=== PATIENT | male | born 1935 | race Caucasian/White ===

== ENCOUNTER → 2021-08-18 09:52 | Outpatient (BNVA) | payer MEDICARE, SELFPAY | PROVIDERS: PCP Internal Medicine; Visit Provider Internal Medicine | DX: I48.91 Unspecified atrial fibrillation (principal); Z51.81 Encounter for therapeutic drug level monitoring; Z79.01 Long term (current) use of anticoagulants | CPT/HCPCS: 85610; 99202 ==

== ENCOUNTER → 2021-08-25 08:52 | Outpatient (BNVA) | payer MEDICARE, SELFPAY | PROVIDERS: PCP Internal Medicine; Visit Provider Internal Medicine | DX: I48.91 Unspecified atrial fibrillation (principal); Z51.81 Encounter for therapeutic drug level monitoring; Z79.01 Long term (current) use of anticoagulants | CPT/HCPCS: 85610; 99211 ==

== ENCOUNTER → 2021-09-15 08:15 | Outpatient (BNVA) | payer MEDICARE, SELFPAY | PROVIDERS: PCP Internal Medicine; Visit Provider Internal Medicine | DX: I48.91 Unspecified atrial fibrillation (principal); Z51.81 Encounter for therapeutic drug level monitoring; Z79.01 Long term (current) use of anticoagulants | CPT/HCPCS: 85610; 99211 ==

== ENCOUNTER 2021-10-07 09:08 | Outpatient (REF) | payer MEDICARE, SELFPAY ==
[2021-10-07 10:10] LABS: Eosinophils Absolute Auto 0.2 X10*3/uL (0.0-0.4); Eosinophils Percent Auto 3.5 % (0-4); Imm Gran Abs Auto 0.01 X10*3/uL (0.00-0.03); Imm Gran Pct Auto 0.2 % (0.0-0.4); MANUAL DIFF FLAG SCAN; PLT CLUMP 1; Red Cell Distribution Width 14.5 % (11.0-16.0); SCAN SMEAR FLAG 1
[2021-10-07 10:12] LABS: Basophils Absolute Auto 0.1 X10*3/uL (0.0-0.2); Basophils Percent Auto 1.1 % (0-2); Hematocrit 40.5 % (42.0-52.0); Lymphocytes Absolute Auto 1.1 X10*3/uL (1.2-4.9); Lymphocytes Percent Auto 22.7 % (20-40); Mean Corpuscular HGB Conc 32.1 g/dl (31.0-36.0); Mean Corpuscular Hemoglobin 30.6 pg (27.0-33.0); Mean Corpuscular Volume 95.3 fL (80.0-98.0); Mean Platelet Volume 12.1 fL (9.4-12.4); Monocytes Absolute Auto 0.5 X10*3/uL (0.1-1.2); Monocytes Percent Auto 10.6 % (2-11); Neutrophils Absolute Auto 2.9 x10*3/uL (2.0-8.3); Neutrophils Percent Auto 61.9 % (45-73); Red Blood Count 4.25 X10*6/uL (4.60-5.80)
[2021-10-07 10:18] LABS: Platelet Count 117 X10*3/uL (160-400); White Blood Count 4.6 X10*3/uL (4.8-10.8)
[2021-10-07 10:31] LABS: INTERNATIONAL NORM RATIO 2.9 (0.9-1.1); Prothrombin Time 33.7 SEC (9.9-13.0)
[2021-10-07 11:02] LABS: Alanine Aminotransferase 20 U/L (0-40); Albumin Level 3.6 g/dL (3.5-5.0); Alkaline Phosphatase 107 U/L (39-117); Anion Gap 10 (12-20); Aspartate Amino Transferase 30 U/L (5-37); Bilirubin Total 0.7 mg/dL (0.0-1.0); Blood Urea Nitrogen 27 mg/dL (9-16); Calcium 9.2 mg/dL (8.4-10.2); Carbon Dioxide 28 mmol/L (22-29); Chloride 110 mmol/L (96-108); Cholesterol 142 mg/dL; Estimated Glomerular Filt Rate 52; Glucose Fasting 101 mg/dL (60-99); HDL Cholesterol 51 mg/dL; LDL Cholesterol Calculated 72 mg/dl; Potassium 3.5 mmol/L (3.3-5.1); Sodium 144 mmol/L (135-145); Total Protein 6.3 g/dL (6.5-8.0); Triglycerides 98 mg/dL
== END 2021-10-07 09:09 | disposition home or self-care (01) ==
LOC: HO.10HDL 09:08
PROVIDERS: Visit Provider Internal Medicine
DX: Z00.01 Encounter for general adult medical examination with abnormal findings (principal); I48.91 Unspecified atrial fibrillation; F03.90 Unspecified dementia, unspecified severity, without behavioral disturbance, psychotic disturbance, mood disturbance, and anxiety; H40.89 Other specified glaucoma; Z85.46 Personal history of malignant neoplasm of prostate
CPT/HCPCS: 36415; 80053; 80061; 85025; 85610

== ENCOUNTER → 2021-10-13 09:53 | Outpatient (BNVA) | payer MEDICARE, SELFPAY | PROVIDERS: PCP Internal Medicine; Visit Provider Internal Medicine | DX: I48.91 Unspecified atrial fibrillation (principal); Z51.81 Encounter for therapeutic drug level monitoring; Z79.01 Long term (current) use of anticoagulants | CPT/HCPCS: 85610; 99211 ==

== ENCOUNTER → 2021-11-03 09:51 | Outpatient (BNVA) | payer MEDICARE, SELFPAY | PROVIDERS: PCP Internal Medicine; Visit Provider Internal Medicine | DX: I48.91 Unspecified atrial fibrillation (principal); Z51.81 Encounter for therapeutic drug level monitoring; Z79.01 Long term (current) use of anticoagulants | CPT/HCPCS: 85610; 99211 ==

== ENCOUNTER → 2021-12-01 09:52 | Outpatient (BNVA) | payer MEDICARE, SELFPAY | PROVIDERS: PCP Internal Medicine; Visit Provider Internal Medicine | DX: I48.91 Unspecified atrial fibrillation (principal); Z51.81 Encounter for therapeutic drug level monitoring; Z79.01 Long term (current) use of anticoagulants | CPT/HCPCS: 85610; 99211 ==

== ENCOUNTER → 2021-12-29 09:47 | Outpatient (BNVA) | payer MEDICARE, SELFPAY | PROVIDERS: PCP Internal Medicine; Visit Provider Internal Medicine | DX: I48.91 Unspecified atrial fibrillation (principal); Z51.81 Encounter for therapeutic drug level monitoring; Z79.01 Long term (current) use of anticoagulants | CPT/HCPCS: 85610; 99211 ==

== ENCOUNTER 2022-01-20 09:34 | Outpatient (REF) | payer MEDICARE, SELFPAY ==
[2022-01-20 10:31] LABS: MANUAL DIFF FLAG NO
[2022-01-20 10:43] LABS: Basophils Percent Auto 0.7 % (0-2); Eosinophils Absolute Auto 0.2 X10*3/uL (0.0-0.4); Hematocrit 40.6 % (42.0-52.0); Hemoglobin 12.9 g/dl (14.0-18.0); Imm Gran Abs Auto 0.03 X10*3/uL (0.00-0.03); Imm Gran Pct Auto 0.7 % (0.0-0.4); Lymphocytes Absolute Auto 0.9 X10*3/uL (1.2-4.9); Lymphocytes Percent Auto 21.3 % (20-40); Mean Corpuscular HGB Conc 31.8 g/dl (31.0-36.0); Mean Corpuscular Volume 94.4 fL (80.0-98.0); Mean Platelet Volume 11.8 fL (9.4-12.4); Monocytes Absolute Auto 0.4 X10*3/uL (0.1-1.2); Neutrophils Absolute Auto 2.7 x10*3/uL (2.0-8.3); Neutrophils Percent Auto 63.3 % (45-73); Platelet Count 112 X10*3/uL (160-400); Red Cell Distribution Width 14.6 % (11.0-16.0); White Blood Count 4.3 X10*3/uL (4.8-10.8)
[2022-01-20 10:52] LABS: Alanine Aminotransferase 20 U/L (0-40); Albumin Level 3.7 g/dL (3.5-5.0); Alkaline Phosphatase 100 U/L (39-117); Anion Gap 8 (12-20); Aspartate Amino Transferase 29 U/L (5-37); Bilirubin Total 0.8 mg/dL (0.0-1.0); Blood Urea Nitrogen 22 mg/dL (9-16); Calcium 9.2 mg/dL (8.4-10.2); Carbon Dioxide 30 mmol/L (22-29); Chloride 108 mmol/L (96-108); Estimated Glomerular Filt Rate 50; Glucose Random 99 mg/dL (60-115); Potassium 4.2 mmol/L (3.3-5.1); Sodium 142 mmol/L (135-145); Total Protein 6.2 g/dL (6.5-8.0)
== END 2022-01-20 09:35 | disposition home or self-care (01) ==
LOC: HO.10HDL 09:34
PROVIDERS: Visit Provider Internal Medicine
DX: E78.00 Pure hypercholesterolemia, unspecified (principal); F03.90 Unspecified dementia, unspecified severity, without behavioral disturbance, psychotic disturbance, mood disturbance, and anxiety; H40.20X0 Unspecified primary angle-closure glaucoma, stage unspecified; I12.9 Hypertensive chronic kidney disease with stage 1 through stage 4 chronic kidney disease, or unspecified chronic kidney disease; N18.9 Chronic kidney disease, unspecified; I48.91 Unspecified atrial fibrillation
CPT/HCPCS: 36415; 80053; 85025

== ENCOUNTER → 2022-01-26 09:50 | Outpatient (BNVA) | payer MEDICARE, SELFPAY | PROVIDERS: PCP Internal Medicine; Visit Provider Internal Medicine | DX: I48.91 Unspecified atrial fibrillation (principal); Z51.81 Encounter for therapeutic drug level monitoring; Z79.01 Long term (current) use of anticoagulants | CPT/HCPCS: 85610; 99211 ==

== ENCOUNTER → 2022-02-23 09:53 | Outpatient (BNVA) | payer MEDICARE, SELFPAY | PROVIDERS: PCP Internal Medicine; Visit Provider Internal Medicine | DX: I48.91 Unspecified atrial fibrillation (principal); Z79.01 Long term (current) use of anticoagulants; Z51.81 Encounter for therapeutic drug level monitoring | CPT/HCPCS: 85610; 99211 ==

== ENCOUNTER → 2022-03-09 10:01 | Outpatient (BNVA) | payer MEDICARE, SELFPAY | PROVIDERS: PCP Internal Medicine; Visit Provider Internal Medicine | DX: I48.91 Unspecified atrial fibrillation (principal); Z79.01 Long term (current) use of anticoagulants; Z51.81 Encounter for therapeutic drug level monitoring | CPT/HCPCS: 85610; 99211 ==

== ENCOUNTER → 2022-04-06 09:51 | Outpatient (BNVA) | payer MEDICARE, SELFPAY | PROVIDERS: PCP Internal Medicine; Visit Provider Internal Medicine | DX: I48.91 Unspecified atrial fibrillation (principal); Z79.01 Long term (current) use of anticoagulants; Z51.81 Encounter for therapeutic drug level monitoring | CPT/HCPCS: 85610; 99211 ==

== ENCOUNTER → 2022-05-03 09:51 | Outpatient (BNVA) | payer MEDICARE, SELFPAY | PROVIDERS: PCP Internal Medicine; Visit Provider Internal Medicine | DX: I48.91 Unspecified atrial fibrillation (principal); Z51.81 Encounter for therapeutic drug level monitoring; Z79.01 Long term (current) use of anticoagulants | CPT/HCPCS: 85610; 99211 ==

== ENCOUNTER 2022-05-17 09:12 | Outpatient (REF) | payer MEDICARE, SELFPAY ==
[2022-05-17 10:25] LABS: MANUAL DIFF FLAG NO
[2022-05-17 11:55] LABS: Basophils Percent Auto 0.8 % (0-2); Eosinophils Absolute Auto 0.2 X10*3/uL (0.0-0.4); Eosinophils Percent Auto 3.6 % (0-4); Hematocrit 37.3 % (42.0-52.0); Hemoglobin 11.7 g/dl (14.0-18.0); Imm Gran Abs Auto 0.01 X10*3/uL (0.00-0.03); Imm Gran Pct Auto 0.2 % (0.0-0.4); Lymphocytes Absolute Auto 0.8 X10*3/uL (1.2-4.9); Lymphocytes Percent Auto 16.3 % (20-40); Mean Corpuscular HGB Conc 31.4 g/dl (31.0-36.0); Mean Corpuscular Hemoglobin 29.7 pg (27.0-33.0); Mean Corpuscular Volume 94.7 fL (80.0-98.0); Monocytes Absolute Auto 0.5 X10*3/uL (0.1-1.2); Monocytes Percent Auto 9.5 % (2-11); Neutrophils Absolute Auto 3.5 x10*3/uL (2.0-8.3); Neutrophils Percent Auto 69.6 % (45-73); Platelet Count 109 X10*3/uL (160-400); Red Blood Count 3.94 X10*6/uL (4.60-5.80); Red Cell Distribution Width 15.5 % (11.0-16.0)
[2022-05-17 12:52] LABS: Alanine Aminotransferase 19 U/L (0-40); Albumin Level 3.5 g/dL (3.5-5.0); Alkaline Phosphatase 119 U/L (39-117); Anion Gap 8 (12-20); Aspartate Amino Transferase 27 U/L (5-37); Bilirubin Total 0.6 mg/dL (0.0-1.0); Blood Urea Nitrogen 24 mg/dL (9-16); Calcium 8.5 mg/dL (8.4-10.2); Carbon Dioxide 28 mmol/L (22-29); Chloride 109 mmol/L (96-108); Estimated Glomerular Filt Rate 57; Glucose Random 102 mg/dL (60-115); Sodium 141 mmol/L (135-145); Total Protein 5.8 g/dL (6.5-8.0)
== END 2022-05-17 09:13 | disposition home or self-care (01) ==
LOC: HO.LAB 09:12
PROVIDERS: PCP Internal Medicine; Visit Provider Internal Medicine
DX: D69.6 Thrombocytopenia, unspecified (principal); F03.90 Unspecified dementia, unspecified severity, without behavioral disturbance, psychotic disturbance, mood disturbance, and anxiety; I12.9 Hypertensive chronic kidney disease with stage 1 through stage 4 chronic kidney disease, or unspecified chronic kidney disease; N18.9 Chronic kidney disease, unspecified; R59.0 Localized enlarged lymph nodes; I48.91 Unspecified atrial fibrillation; Z79.01 Long term (current) use of anticoagulants; Z15.81 Genetic susceptibility to multiple endocrine neoplasia [MEN]
CPT/HCPCS: 36415; 80053; 85025; 85610; 99211

== ENCOUNTER → 2022-06-08 09:28 | Outpatient (BNVA) | payer MEDICARE, SELFPAY | PROVIDERS: PCP Internal Medicine; Visit Provider Internal Medicine | DX: I48.91 Unspecified atrial fibrillation (principal); Z79.01 Long term (current) use of anticoagulants; Z51.81 Encounter for therapeutic drug level monitoring | CPT/HCPCS: 85610; 99211 ==

== ENCOUNTER → 2022-06-22 08:47 | Outpatient (BNVA) | payer MEDICARE, SELFPAY | PROVIDERS: PCP Internal Medicine; Visit Provider Internal Medicine | DX: I48.91 Unspecified atrial fibrillation (principal); Z51.81 Encounter for therapeutic drug level monitoring; Z79.01 Long term (current) use of anticoagulants | CPT/HCPCS: 85610; 99211 ==

== ENCOUNTER → 2022-06-30 09:41 | Outpatient (BNVA) | payer MEDICARE, SELFPAY | PROVIDERS: PCP Internal Medicine; Visit Provider Internal Medicine | DX: I48.91 Unspecified atrial fibrillation (principal); Z79.01 Long term (current) use of anticoagulants; Z51.81 Encounter for therapeutic drug level monitoring | CPT/HCPCS: 85610; 99211 ==

== ENCOUNTER → 2022-07-09 09:24 | Outpatient (BNVA) | payer MEDICARE, SELFPAY | PROVIDERS: PCP Internal Medicine; Visit Provider Internal Medicine | DX: I48.91 Unspecified atrial fibrillation (principal); Z51.81 Encounter for therapeutic drug level monitoring; Z79.01 Long term (current) use of anticoagulants | CPT/HCPCS: 85610; 99211 ==

== ENCOUNTER → 2022-07-14 10:05 | Outpatient (BNVA) | payer MEDICARE, SELFPAY | PROVIDERS: PCP Internal Medicine; Visit Provider Internal Medicine | DX: I48.91 Unspecified atrial fibrillation (principal); Z79.01 Long term (current) use of anticoagulants; Z51.81 Encounter for therapeutic drug level monitoring | CPT/HCPCS: 85610; 99211 ==

== ENCOUNTER → 2022-08-12 11:06 | Outpatient (BNVA) | payer MEDICARE, SELFPAY | PROVIDERS: PCP Internal Medicine; Visit Provider Internal Medicine | DX: I48.91 Unspecified atrial fibrillation (principal); Z51.81 Encounter for therapeutic drug level monitoring; Z79.01 Long term (current) use of anticoagulants | CPT/HCPCS: 85610; 99211 ==

== ENCOUNTER 2022-08-16 08:47 | Outpatient (REF) | payer MEDICARE, SELFPAY ==
[2022-08-16 08:59] LABS: MANUAL DIFF FLAG NO
[2022-08-16 09:14] LABS: Basophils Percent Auto 0.8 % (0-2); Eosinophils Absolute Auto 0.1 X10*3/uL (0.0-0.4); Eosinophils Percent Auto 2.8 % (0-4); Hematocrit 36.9 % (42.0-52.0); Hemoglobin 11.6 g/dl (14.0-18.0); Imm Gran Abs Auto 0.01 X10*3/uL (0.00-0.03); Imm Gran Pct Auto 0.3 % (0.0-0.4); Lymphocytes Absolute Auto 0.8 X10*3/uL (1.2-4.9); Lymphocytes Percent Auto 21.1 % (20-40); Mean Corpuscular HGB Conc 31.4 g/dl (31.0-36.0); Mean Corpuscular Hemoglobin 29.1 pg (27.0-33.0); Mean Corpuscular Volume 92.5 fL (80.0-98.0); Mean Platelet Volume 11.2 fL (9.4-12.4); Monocytes Absolute Auto 0.4 X10*3/uL (0.1-1.2); Monocytes Percent Auto 10.4 % (2-11); Neutrophils Absolute Auto 2.5 x10*3/uL (2.0-8.3); Neutrophils Percent Auto 64.6 % (45-73); Platelet Count 143 X10*3/uL (160-400); Red Blood Count 3.99 X10*6/uL (4.60-5.80); Red Cell Distribution Width 15.8 % (11.0-16.0); White Blood Count 3.9 X10*3/uL (4.8-10.8)
[2022-08-16 13:12] LABS: Alanine Aminotransferase 21 U/L (0-40); Albumin Level 3.6 g/dL (3.5-5.0); Alkaline Phosphatase 163 U/L (39-117); Anion Gap 16 (12-20); Aspartate Amino Transferase 31 U/L (5-37); Bilirubin Total 0.6 mg/dL (0.0-1.0); Blood Urea Nitrogen 25 mg/dL (9-16); Carbon Dioxide 23 mmol/L (22-29); Chloride 109 mmol/L (96-108); Cholesterol 129 mg/dL; Estimated Glomerular Filt Rate > 60; Glucose Random 102 mg/dL (60-115); HDL Cholesterol 47 mg/dL; LDL Cholesterol Calculated 66 mg/dl; Sodium 144 mmol/L (135-145); Total Protein 6.2 g/dL (6.5-8.0); Triglycerides 81 mg/dL
[2022-08-16 13:35] LABS: Ferritin 199 ng/mL (20-250); Thyroid Stimulating Hormone 4.13 uIU/mL (0.32-4.0)
[2022-08-16 13:46] LABS: Vitamin B12 549 pg/mL (200-900)
== END 2022-08-16 08:48 | disposition home or self-care (01) ==
LOC: HO.LAB 08:47
PROVIDERS: PCP Internal Medicine; Visit Provider Internal Medicine
DX: I48.91 Unspecified atrial fibrillation (principal); D69.6 Thrombocytopenia, unspecified; D64.89 Other specified anemias; R63.4 Abnormal weight loss; Z85.46 Personal history of malignant neoplasm of prostate
CPT/HCPCS: 36415; 80053; 80061; 82607; 82728; 84443; 85025

== ENCOUNTER → 2022-08-25 09:08 | Outpatient (BNVA) | payer MEDICARE, SELFPAY | PROVIDERS: PCP Internal Medicine; Visit Provider Internal Medicine | DX: I48.91 Unspecified atrial fibrillation (principal); Z79.01 Long term (current) use of anticoagulants; Z51.81 Encounter for therapeutic drug level monitoring | CPT/HCPCS: 85610; 99211 ==

== ENCOUNTER → 2022-09-14 09:44 | Outpatient (BNVA) | payer MEDICARE, SELFPAY | PROVIDERS: PCP Internal Medicine; Visit Provider Internal Medicine | DX: I48.91 Unspecified atrial fibrillation (principal); Z51.81 Encounter for therapeutic drug level monitoring; Z79.01 Long term (current) use of anticoagulants | CPT/HCPCS: 85610; 99211 ==

== ENCOUNTER → 2022-09-28 09:35 | Outpatient (BNVA) | payer MEDICARE, SELFPAY | PROVIDERS: PCP Internal Medicine; Visit Provider Internal Medicine | DX: I48.91 Unspecified atrial fibrillation (principal); Z79.01 Long term (current) use of anticoagulants; Z51.81 Encounter for therapeutic drug level monitoring | CPT/HCPCS: 85610; 99211 ==

== ENCOUNTER → 2022-10-19 10:26 | Outpatient (BNVA) | payer MEDICARE, SELFPAY | PROVIDERS: PCP Internal Medicine; Visit Provider Internal Medicine | DX: I48.91 Unspecified atrial fibrillation (principal); Z79.01 Long term (current) use of anticoagulants; Z51.81 Encounter for therapeutic drug level monitoring | CPT/HCPCS: 85610; 99211 ==

== ENCOUNTER → 2022-11-02 10:29 | Outpatient (BNVA) | payer MEDICARE, SELFPAY | PROVIDERS: PCP Internal Medicine; Visit Provider Internal Medicine | DX: I48.91 Unspecified atrial fibrillation (principal); Z79.01 Long term (current) use of anticoagulants; Z51.81 Encounter for therapeutic drug level monitoring | CPT/HCPCS: 85610; 99211 ==

== ENCOUNTER → 2022-11-23 10:14 | Outpatient (BNVA) | payer MEDICARE, SELFPAY | PROVIDERS: PCP Internal Medicine; Visit Provider Internal Medicine | DX: I48.91 Unspecified atrial fibrillation (principal); Z79.01 Long term (current) use of anticoagulants; Z51.81 Encounter for therapeutic drug level monitoring | CPT/HCPCS: 85610; 99211 ==

== ENCOUNTER → 2022-11-29 10:23 | Outpatient (BNVA) | payer MEDICARE, SELFPAY | PROVIDERS: PCP Internal Medicine; Visit Provider Internal Medicine | DX: I48.91 Unspecified atrial fibrillation (principal); Z51.81 Encounter for therapeutic drug level monitoring; Z79.01 Long term (current) use of anticoagulants | CPT/HCPCS: 85610; 99211 ==

== ENCOUNTER → 2022-12-06 13:01 | Outpatient (BNVA) | payer MEDICARE, SELFPAY | PROVIDERS: PCP Internal Medicine; Visit Provider Internal Medicine | DX: I48.91 Unspecified atrial fibrillation (principal); Z79.01 Long term (current) use of anticoagulants; Z51.81 Encounter for therapeutic drug level monitoring | CPT/HCPCS: 85610; 99211 ==

== ENCOUNTER → 2022-12-14 13:49 | Outpatient (BNVA) | payer MEDICARE, SELFPAY | PROVIDERS: PCP Internal Medicine; Visit Provider Internal Medicine | DX: I48.91 Unspecified atrial fibrillation (principal); Z79.01 Long term (current) use of anticoagulants; Z51.81 Encounter for therapeutic drug level monitoring | CPT/HCPCS: 85610; 99211 ==

== ENCOUNTER 2022-12-18 07:13 | Outpatient (REF) | payer MEDICARE, SELFPAY ==
[2022-12-18 07:38] LABS: MANUAL DIFF FLAG NO
[2022-12-18 08:00] LABS: Basophils Absolute Auto 0.1 X10*3/uL (0.0-0.2); Basophils Percent Auto 0.9 % (0-2); Eosinophils Absolute Auto 0.2 X10*3/uL (0.0-0.4); Eosinophils Percent Auto 4.3 % (0-4); Hematocrit 42.5 % (42.0-52.0); Hemoglobin 13.4 g/dl (14.0-18.0); Imm Gran Abs Auto 0.02 X10*3/uL (0.00-0.03); Imm Gran Pct Auto 0.4 % (0.0-0.4); Lymphocytes Absolute Auto 0.9 X10*3/uL (1.2-4.9); Lymphocytes Percent Auto 17.1 % (20-40); Mean Corpuscular HGB Conc 31.5 g/dl (31.0-36.0); Mean Corpuscular Hemoglobin 28.8 pg (27.0-33.0); Mean Corpuscular Volume 91.2 fL (80.0-98.0); Mean Platelet Volume 11.1 fL (9.4-12.4); Monocytes Absolute Auto 0.4 X10*3/uL (0.1-1.2); Monocytes Percent Auto 8.2 % (2-11); Neutrophils Absolute Auto 3.7 x10*3/uL (2.0-8.3); Neutrophils Percent Auto 69.1 % (45-73); Platelet Count 145 X10*3/uL (160-400); Red Blood Count 4.66 X10*6/uL (4.60-5.80); Red Cell Distribution Width 16.1 % (11.0-16.0); White Blood Count 5.4 X10*3/uL (4.8-10.8)
[2022-12-18 08:29] LABS: Alanine Aminotransferase 25 U/L (0-40); Albumin Level 3.9 g/dL (3.5-5.0); Alkaline Phosphatase 133 U/L (39-117); Anion Gap 10 (12-20); Aspartate Amino Transferase 33 U/L (5-37); Bilirubin Total 0.9 mg/dL (0.0-1.0); Blood Urea Nitrogen 20 mg/dL (9-16); Calcium 9.2 mg/dL (8.4-10.2); Carbon Dioxide 30 mmol/L (22-29); Chloride 108 mmol/L (96-108); Estimated Glomerular Filt Rate > 60; Glucose Random 110 mg/dL (60-115); Potassium 3.9 mmol/L (3.3-5.1); Sodium 144 mmol/L (135-145); Total Protein 6.7 g/dL (6.5-8.0)
== END 2022-12-18 07:14 | disposition home or self-care (01) ==
LOC: HO.LAB 07:13
PROVIDERS: PCP Internal Medicine; Visit Provider Internal Medicine
DX: Z00.00 Encounter for general adult medical examination without abnormal findings (principal); R26.0 Ataxic gait; I48.91 Unspecified atrial fibrillation; H54.42A5 Blindness left eye category 5, normal vision right eye; G30.9 Alzheimer's disease, unspecified; Z79.01 Long term (current) use of anticoagulants
CPT/HCPCS: 36415; 80053; 85025

== ENCOUNTER → 2022-12-28 10:31 | Outpatient (BNVA) | payer MEDICARE, SELFPAY | PROVIDERS: PCP Internal Medicine; Visit Provider Internal Medicine | DX: I48.91 Unspecified atrial fibrillation (principal); Z79.01 Long term (current) use of anticoagulants; Z51.81 Encounter for therapeutic drug level monitoring | CPT/HCPCS: 85610; 99211 ==

== ENCOUNTER → 2023-01-18 10:31 | Outpatient (BNVA) | payer MEDICARE, SELFPAY | PROVIDERS: PCP Internal Medicine; Visit Provider Internal Medicine | DX: I48.91 Unspecified atrial fibrillation (principal); Z79.01 Long term (current) use of anticoagulants; Z51.81 Encounter for therapeutic drug level monitoring | CPT/HCPCS: 85610; 99211 ==

== ENCOUNTER → 2023-02-09 09:59 | Outpatient (BNVA) | payer MEDICARE, SELFPAY | PROVIDERS: PCP Internal Medicine; Visit Provider Internal Medicine | DX: I48.91 Unspecified atrial fibrillation (principal); Z79.01 Long term (current) use of anticoagulants; Z51.81 Encounter for therapeutic drug level monitoring | CPT/HCPCS: 85610; 99211 ==

== ENCOUNTER → 2023-03-02 09:53 | Outpatient (BNVA) | payer MEDICARE, SELFPAY | PROVIDERS: PCP Internal Medicine; Visit Provider Internal Medicine | DX: I48.91 Unspecified atrial fibrillation (principal); Z79.01 Long term (current) use of anticoagulants; Z51.81 Encounter for therapeutic drug level monitoring | CPT/HCPCS: 85610; 99211 ==

== ENCOUNTER → 2023-03-22 09:33 | Outpatient (BNVA) | payer MEDICARE, SELFPAY | PROVIDERS: PCP Internal Medicine; Visit Provider Internal Medicine | DX: I48.91 Unspecified atrial fibrillation (principal); Z79.01 Long term (current) use of anticoagulants; Z51.81 Encounter for therapeutic drug level monitoring | CPT/HCPCS: 85610; 99211 ==

== ENCOUNTER → 2023-04-05 10:07 | Outpatient (BNVA) | payer MEDICARE, SELFPAY | PROVIDERS: PCP Internal Medicine; Visit Provider Internal Medicine | DX: I48.91 Unspecified atrial fibrillation (principal); Z79.01 Long term (current) use of anticoagulants; Z51.81 Encounter for therapeutic drug level monitoring | CPT/HCPCS: 85610; 99211 ==

== ENCOUNTER → 2023-04-27 09:18 | Outpatient (BNVA) | payer MEDICARE, SELFPAY | PROVIDERS: PCP Internal Medicine; Visit Provider Internal Medicine | DX: I48.91 Unspecified atrial fibrillation (principal); Z79.01 Long term (current) use of anticoagulants; Z51.81 Encounter for therapeutic drug level monitoring | CPT/HCPCS: 85610; 99211 ==

== ENCOUNTER 2023-05-25 09:47 | Outpatient (AMB) | payer MEDICARE, SELFPAY ==
--- NOTE | 2023-05-25 09:51 | MHC.OFFVISCO ---
Intake Intake Visit Reasons: Anticoagulation Allergies ciprofloxacin Allergy (Intermediate, Verified 05/25/23 09:47) hives Medication List - Last Reconciled 05/25/23 by Moni Gonsales RN diltiazem HCl 120 mg PO DAILY donepezil 10 mg PO DAILY latanoprost 0.005% 1 drp ophthalmic (eye) DAILY lisinopril 20 mg PO DAILY memantine 5 mg PO BID timolol maleate 0.5% 1 drp ophthalmic (eye) DAILY vit C,W-Fi-kopxm-lutein-zeaxan 250-90-40-1 mg (PreserVision AREDS-2) 1 tab PO BID warfarin 2.5 mg See Protocol PO DAILY Nursing Note INR: 2.8- in therapeutic range Medications and supplements reviewed- no changes No changes in health, diet, medications, or supplements, Denies any signs and symptoms of bleeding or bruising or clotting. Bleeding, bruising, clotting discussed Nutritional guidance given Dose: 5mg x 2, 2.5mg x 5 F/U INR: 4 weeks Patient and verbalizes understanding of instructions given pt amb to acs with cane, accompanied by Coding Level of Care Code Est Patient Level 1 Diagnoses Current use of anticoagulant therapy Z79.01 Results AMB INR Fingerstick AMB INR Fingerstick 2.8 Last Edit by Moni Gonsales RN on 05/25/23 09:52 Assessment & Plan Assessment & Plan (1) Current use of anticoagulant therapy: Code(s): Z79.01 - [facility] (current) use of anticoagulants Category: Medical
[2023-05-25 09:52] LABS: Prothrombin Time Whole Bld POC 33.2 sec (11.1-13.5); ~PT, ~INR - Anti Coag Clinic 2.8 (0.9-1.1)
== END 2023-05-25 09:55 | disposition home or self-care (01) ==
LOC: HO.ACS 09:47
PROVIDERS: PCP Internal Medicine; Visit Provider Internal Medicine
DX: Z79.01 Long term (current) use of anticoagulants (principal)

== ENCOUNTER → 2023-05-25 09:47 | Outpatient (BNVA) | payer MEDICARE, SELFPAY | PROVIDERS: PCP Internal Medicine; Visit Provider Internal Medicine | DX: I48.91 Unspecified atrial fibrillation (principal); Z79.01 Long term (current) use of anticoagulants; Z51.81 Encounter for therapeutic drug level monitoring | CPT/HCPCS: 85610; 99211 ==

== ENCOUNTER 2023-06-16 08:02 | Outpatient (REF) | payer MEDICARE, SELFPAY ==
[2023-06-16 08:22] LABS: MANUAL DIFF FLAG NO
[2023-06-16 09:00] LABS: Basophils Percent Auto 0.9 % (0-2); Eosinophils Absolute Auto 0.1 X10*3/uL (0.0-0.4); Eosinophils Percent Auto 3.2 % (0-4); Hematocrit 41.1 % (42.0-52.0); Hemoglobin 12.8 g/dl (14.0-18.0); Imm Gran Abs Auto 0.01 X10*3/uL (0.00-0.03); Imm Gran Pct Auto 0.2 % (0.0-0.4); Lymphocytes Absolute Auto 0.9 X10*3/uL (1.2-4.9); Mean Corpuscular HGB Conc 31.1 g/dl (31.0-36.0); Mean Corpuscular Hemoglobin 29.2 pg (27.0-33.0); Mean Corpuscular Volume 93.8 fL (80.0-98.0); Mean Platelet Volume 12.2 fL (9.4-12.4); Monocytes Absolute Auto 0.4 X10*3/uL (0.1-1.2); Monocytes Percent Auto 9.2 % (2-11); Neutrophils Percent Auto 66.5 % (45-73); Platelet Count 120 X10*3/uL (160-400); Red Blood Count 4.38 X10*6/uL (4.60-5.80); Red Cell Distribution Width 16.2 % (11.0-16.0); White Blood Count 4.4 X10*3/uL (4.8-10.8)
[2023-06-16 09:46] LABS: Alanine Aminotransferase 21 U/L (0-40); Albumin Level 3.6 g/dL (3.5-5.0); Alkaline Phosphatase 100 U/L (39-117); Anion Gap 10 (12-20); Aspartate Amino Transferase 31 U/L (5-37); Bilirubin Total 0.8 mg/dL (0.0-1.0); Blood Urea Nitrogen 23 mg/dL (9-16); Calcium 9.3 mg/dL (8.4-10.2); Carbon Dioxide 26 mmol/L (22-29); Chloride 112 mmol/L (96-108); Cholesterol 135 mg/dL (<200); Estimated Glomerular Filt Rate > 60; Glucose Random 102 mg/dL (60-115); HDL Cholesterol 55 mg/dL (>40); LDL Cholesterol Calculated 68 mg/dL (<100); Potassium 4.3 mmol/L (3.3-5.1); Sodium 144 mmol/L (135-145); Total Protein 6.5 g/dL (6.5-8.0); Triglycerides 62 mg/dL (<150)
[2023-06-16 10:05] LABS: Vitamin B12 643 pg/mL (200-900)
[2023-06-16 10:11] LABS: Thyroid Stimulating Hormone 4.09 uIU/mL (0.32-4.0)
== END 2023-06-16 08:03 | disposition home or self-care (01) ==
LOC: HO.LAB 08:02
PROVIDERS: PCP Internal Medicine; Visit Provider Internal Medicine
DX: D69.6 Thrombocytopenia, unspecified (principal); E03.8 Other specified hypothyroidism; F02.80 Dementia in other diseases classified elsewhere, unspecified severity, without behavioral disturbance, psychotic disturbance, mood disturbance, and anxiety; Z85.46 Personal history of malignant neoplasm of prostate
CPT/HCPCS: 36415; 80053; 80061; 82607; 82746; 84443; 85025

== ENCOUNTER 2023-06-22 09:45 | Outpatient (AMB) | payer MEDICARE, SELFPAY ==
--- NOTE | 2023-06-22 09:56 | MHC.OFFVISCO ---
Intake Intake Visit Reasons: Anticoagulation Allergies ciprofloxacin Allergy (Intermediate, Verified 06/22/23 09:53) hives Medication List - Last Reconciled 06/22/23 by Moni Gonsales RN diltiazem HCl 120 mg PO DAILY donepezil 10 mg PO DAILY latanoprost 0.005% 1 drp ophthalmic (eye) DAILY lisinopril 20 mg PO DAILY memantine 5 mg PO BID timolol maleate 0.5% 1 drp ophthalmic (eye) DAILY vit C,L-Yg-ukgbl-lutein-zeaxan 250-90-40-1 mg (PreserVision AREDS-2) 1 tab PO BID warfarin 2.5 mg See Protocol PO DAILY Nursing Note INR: 2.6- in therapeutic range Medications and supplements reviewed- taking lorazepam prior to mri of head today, no interaction with warfarin per micromedex No changes in health, diet, medications, or supplements, Denies any signs and symptoms of bleeding or bruising or clotting. 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
[2023-06-22 09:57] LABS: Prothrombin Time Whole Bld POC 31.3 sec (11.1-13.5); ~PT, ~INR - Anti Coag Clinic 2.6 (0.9-1.1)
== END 2023-06-22 10:04 | disposition home or self-care (01) ==
LOC: HO.ACS 09:45
PROVIDERS: PCP Internal Medicine; Visit Provider Internal Medicine
DX: Z79.01 Long term (current) use of anticoagulants (principal)

== ENCOUNTER → 2023-06-22 09:45 | Outpatient (BNVA) | payer MEDICARE, SELFPAY | PROVIDERS: PCP Internal Medicine; Visit Provider Internal Medicine | DX: I48.91 Unspecified atrial fibrillation (principal); Z79.01 Long term (current) use of anticoagulants; Z51.81 Encounter for therapeutic drug level monitoring | CPT/HCPCS: 85610; 99211 ==

== ENCOUNTER 2023-07-19 11:13 | Outpatient (AMB) | payer MEDICARE, SELFPAY ==
[2023-07-19 11:19] LABS: Prothrombin Time Whole Bld POC 30.4 sec (11.1-13.5); ~PT, ~INR - Anti Coag Clinic 2.5 (0.9-1.1)
--- NOTE | 2023-07-19 11:21 | MHC.OFFVISCO ---
Intake Intake Visit Reasons: Anticoagulation Allergies ciprofloxacin Allergy (Intermediate, Verified 07/19/23 11:14) hives Medication List - Last Reconciled 07/19/23 by Lolis Mccormack, RN diltiazem HCl 120 mg PO DAILY donepezil 10 mg PO DAILY latanoprost 0.005% 1 drp ophthalmic (eye) DAILY lisinopril 20 mg PO DAILY memantine 5 mg PO BID timolol maleate 0.5% 1 drp ophthalmic (eye) DAILY vit C,N-Pf-oatsn-lutein-zeaxan 250-90-40-1 mg (PreserVision AREDS-2) 1 tab PO BID warfarin 2.5 mg See Protocol PO DAILY Nursing Note Amb to [facility] using walker, accomp by spouse, sts she totally forgot earlier this am appt time, pt feeling ok sts he has been falling more at home unsteady, requiring the walker more reviewed fall risk concerns, bleeding risk and when to go to ED Medications and supplements reviewed No other changes in health, diet, medications, or supplements Denies any unusual signs and symptoms of bruising, bleeding Denies any new Chest pain, SOB, or clotting INR: 2.5 in therapeutic range Nutritional guidance given: balance greens and reds in diet, be consistent Dose: continue usual dosing;5mg x 2 days and 2.5mg x 5 days F/U INR: 4 weeks Patient's spouse verbalizes understanding of instructions given with accurate read back/ teach back of dosing Coding Level of Care Code Est Patient Level 1 Diagnoses Current use of anticoagulant therapy Z79.01 Time Spent (min) 15 Assessment & Plan Assessment & Plan (1) Current use of anticoagulant therapy: Code(s): 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
== END 2023-07-19 11:25 | disposition home or self-care (01) ==
LOC: HO.ACS 11:13
PROVIDERS: PCP Internal Medicine; Visit Provider Internal Medicine
DX: Z79.01 Long term (current) use of anticoagulants (principal)

== ENCOUNTER → 2023-07-19 11:13 | Outpatient (BNVA) | payer MEDICARE, SELFPAY | PROVIDERS: PCP Internal Medicine; Visit Provider Internal Medicine | DX: I48.91 Unspecified atrial fibrillation (principal); Z79.01 Long term (current) use of anticoagulants; Z51.81 Encounter for therapeutic drug level monitoring | CPT/HCPCS: 85610; 99211 ==

== ENCOUNTER 2023-08-16 10:42 | Outpatient (AMB) | payer MEDICARE, SELFPAY ==
[2023-08-16 10:53] LABS: Prothrombin Time Whole Bld POC > 96.0 sec (11.1-13.5); ~PT, ~INR - Anti Coag Clinic > 8.0 (0.9-1.1)
--- NOTE | 2023-08-16 10:56 | MHC.OFFVISCO ---
Intake Intake Visit Reasons: Anticoagulation Allergies ciprofloxacin Allergy (Intermediate, Verified 08/16/23 10:43) hives lisinopril Adverse Reaction (Intermediate, Uncoded 08/16/23 10:43) Cough Medication List - Last Reconciled 08/16/23 by Moni Gonsales, RN diltiazem HCl 120 mg PO DAILY donepezil 10 mg PO DAILY latanoprost 0.005% 1 drp ophthalmic (eye) DAILY losartan 100 mg PO DAILY memantine 5 mg PO BID timolol maleate 0.5% 1 drp ophthalmic (eye) DAILY vit C,X-Nb-rshme-lutein-zeaxan 250-90-40-1 mg (PreserVision AREDS-2) 1 tab PO BID warfarin 2.5 mg See Protocol PO DAILY Nursing Note INR - >8- out of therapeutic range of 2-3. pt sent to lab- inr 7.6 reported by kimberly Medications and supplements reviewed Patient status: pt amb with walker, present, pt with recent c.o cough- loose stool and decreased appetite Medications or supplements: lisinopril d/c due to cough, benzonatate d/c due to bowel issues, losartan added- 100mg daily- no interaction with warfarin per micromedex Diet: decreased, has not been taking boost Denies any signs and symptoms of bleeding or clotting or unusual bruising Bleeding, bruising, clotting discussed - aware high risk for bleeding, avoid high risk activity, go to ed if nec Nutritional guidance given: eat greens to lower inr, no reds Dose: hold today F/U INR Date : 08/17/23? Patient verbalizing understanding of instructions given. 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
== END 2023-08-16 11:52 | disposition home or self-care (01) ==
LOC: HO.ACS 10:42
PROVIDERS: PCP Internal Medicine; Visit Provider Internal Medicine
DX: Z79.01 Long term (current) use of anticoagulants (principal)

== ENCOUNTER 2023-08-16 10:42 | Outpatient (REF) | payer MEDICARE, SELFPAY ==
[2023-08-16 11:30] LABS: Prothrombin Time 92.4 SEC (11.1-13.3)
[2023-08-16 11:34] LABS: INTERNATIONAL NORM RATIO 7.6 (0.9-1.1)
== END 2023-08-16 10:43 | disposition home or self-care (01) ==
LOC: HO.LAB 10:42
PROVIDERS: PCP Internal Medicine; Visit Provider Internal Medicine
DX: I48.91 Unspecified atrial fibrillation (principal); Z51.81 Encounter for therapeutic drug level monitoring; Z79.01 Long term (current) use of anticoagulants
CPT/HCPCS: 36415; 85610; 99212

== ENCOUNTER 2023-08-17 10:35 | Outpatient (AMB) | payer MEDICARE, SELFPAY ==
[2023-08-17 10:52] LABS: Prothrombin Time Whole Bld POC 58.8 sec (11.1-13.5); ~PT, ~INR - Anti Coag Clinic 4.9 (0.9-1.1)
--- NOTE | 2023-08-17 10:53 | MHC.OFFVISCO ---
Intake Intake Visit Reasons: Anticoagulation Allergies ciprofloxacin Allergy (Intermediate, Verified 08/16/23 10:43) hives lisinopril Adverse Reaction (Intermediate, Uncoded 08/16/23 10:43) Cough Medication List - Last Reconciled 08/17/23 by Amy Bales RN benzonatate 100 mg PO TID diltiazem HCl 120 mg PO DAILY donepezil 10 mg PO DAILY latanoprost 0.005% 1 drp ophthalmic (eye) DAILY losartan 100 mg PO DAILY memantine 5 mg PO BID timolol maleate 0.5% 1 drp ophthalmic (eye) DAILY vit C,B-Sz-kmgng-lutein-zeaxan 250-90-40-1 mg (PreserVision AREDS-2) 1 tab PO BID warfarin 2.5 mg See Protocol PO DAILY Nursing Note INR 4.9?out of therapeutic range 7.6 yesterday Medications and supplements reviewed Patient status: bowels are becoming normal, no diarrhea, appetite is improvng, had cough possibly related to lisinopril, lisinopril was d/c, he was also tx with benzonatate which may have triggered the diarrhea Medications or supplements: no other changes Diet: improved - had asparagus x 2 servings - will have broccoli today Denies any signs and symptoms of bleeding or clotting or unusual bruising Bleeding, bruising, clotting discussed Nutritional guidance given: review food list with season changes which raise and lower the INR Dose: hold again today F/U INR Date: 08/22/23 ?? Patient verbalizing understanding of instructions given. 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
== END 2023-08-17 10:58 | disposition home or self-care (01) ==
LOC: HO.ACS 10:35
PROVIDERS: PCP Internal Medicine; Visit Provider Internal Medicine
DX: Z79.01 Long term (current) use of anticoagulants (principal)

== ENCOUNTER → 2023-08-17 10:35 | Outpatient (BNVA) | payer MEDICARE, SELFPAY | PROVIDERS: PCP Internal Medicine; Visit Provider Internal Medicine | DX: I48.91 Unspecified atrial fibrillation (principal); Z79.01 Long term (current) use of anticoagulants; Z51.81 Encounter for therapeutic drug level monitoring | CPT/HCPCS: 85610; 99211 ==

== ENCOUNTER 2023-08-22 09:43 | Outpatient (AMB) | payer MEDICARE, SELFPAY ==
[2023-08-22 09:58] LABS: Prothrombin Time Whole Bld POC 29.1 sec (11.1-13.5); ~PT, ~INR - Anti Coag Clinic 2.4 (0.9-1.1)
--- NOTE | 2023-08-22 10:06 | MHC.OFFVISCO ---
Intake Intake Visit Reasons: Anticoagulation Allergies ciprofloxacin Allergy (Intermediate, Verified 08/22/23 09:53) hives lisinopril Adverse Reaction (Intermediate, Uncoded 08/22/23 09:53) Cough Medication List - Last Reconciled 08/22/23 by Amy Bales, RN diltiazem HCl 120 mg PO DAILY donepezil 10 mg PO DAILY latanoprost 0.005% 1 drp ophthalmic (eye) DAILY losartan 100 mg PO DAILY memantine 5 mg PO BID timolol maleate 0.5% 1 drp ophthalmic (eye) DAILY vit C,M-Fg-fmwkx-lutein-zeaxan 250-90-40-1 mg (PreserVision AREDS-2) 1 tab PO BID warfarin 2.5 mg See Protocol PO DAILY Nursing Note INR: 2.4 in therapeutic range Medications and supplements reviewed PREVIOUS inr ELEVATED POSSIBLE R/T DECREASED APPETITE, GI UPSET FROM MED OR VIRUS APPETITE STILL A LITTLE DECREASED, LITTLE MORE UNSTEADY INCREASE IN FALL RISK, HAS FALLEN IN PAST Denies any signs and symptoms of bleeding or bruising or clotting. 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
== END 2023-08-22 10:10 | disposition home or self-care (01) ==
LOC: HO.ACS 09:43
PROVIDERS: PCP Internal Medicine; Visit Provider Internal Medicine
DX: Z79.01 Long term (current) use of anticoagulants (principal)

== ENCOUNTER → 2023-08-22 09:43 | Outpatient (BNVA) | payer MEDICARE, SELFPAY | PROVIDERS: PCP Internal Medicine; Visit Provider Internal Medicine | DX: I48.91 Unspecified atrial fibrillation (principal); Z79.01 Long term (current) use of anticoagulants; Z51.81 Encounter for therapeutic drug level monitoring | CPT/HCPCS: 85610; 99211 ==

== ENCOUNTER 2023-09-02 09:56 | Outpatient (AMB) | payer MEDICARE, SELFPAY ==
--- NOTE | 2023-09-02 10:04 | MHC.OFFVISCO ---
Intake Intake Visit Reasons: Anticoagulation Allergies ciprofloxacin Allergy (Intermediate, Verified 09/02/23 09:59) hives benzonatate Adverse Reaction (Intermediate, Verified 09/02/23 10:11) Gastrointestinal Upset lisinopril Adverse Reaction (Intermediate, Uncoded 09/02/23 09:59) Cough Medication List - Last Reconciled 09/02/23 by Moni Gonsales, RN diltiazem HCl 120 mg PO DAILY donepezil 10 mg PO DAILY latanoprost 0.005% 1 drp ophthalmic (eye) DAILY losartan 100 mg PO DAILY memantine 5 mg PO BID timolol maleate 0.5% 1 drp ophthalmic (eye) DAILY vit C,N-Pb-abaal-lutein-zeaxan 250-90-40-1 mg (PreserVision AREDS-2) 1 tab PO BID warfarin 2.5 mg See Protocol PO DAILY Nursing Note INR: 2.2- in therapeutic range of 2-3 Medications and supplements reviewed- no changes, covid booster yesterday No changes in health, diet, medications, or supplements, Denies any signs and symptoms of bleeding or bruising or clotting. Bleeding, bruising, clotting discussed Nutritional guidance given - pt takes one can of boost daily Dose: 2.5mg x 6, 5mg x 1 F/U INR: 2 weeks Patient verbalizes understanding of instructions given pt amb with walker, acompanied by . she states pt with prev altered inr due to gi upset due to benzonate Coding Level of Care Code Est Patient Level 1 Diagnoses Current use of anticoagulant therapy Z79.01 Assessment & Plan Assessment & Plan (1) Current use of anticoagulant therapy: Code(s): Z79.01 - long term (current) use of anticoagulants Category: Medical
[2023-09-02 10:05] LABS: Prothrombin Time Whole Bld POC 26.9 sec (11.1-13.5); ~PT, ~INR - Anti Coag Clinic 2.2 (0.9-1.1)
== END 2023-09-02 10:13 | disposition home or self-care (01) ==
LOC: HO.ACS 09:56
PROVIDERS: PCP Internal Medicine; Visit Provider Internal Medicine
DX: Z79.01 Long term (current) use of anticoagulants (principal)

== ENCOUNTER → 2023-09-02 09:56 | Outpatient (BNVA) | payer MEDICARE, SELFPAY | PROVIDERS: PCP Internal Medicine; Visit Provider Internal Medicine | DX: I48.91 Unspecified atrial fibrillation (principal); Z79.01 Long term (current) use of anticoagulants; Z51.81 Encounter for therapeutic drug level monitoring | CPT/HCPCS: 85610; 99211 ==

== ENCOUNTER 2023-09-19 10:14 | Outpatient (AMB) | payer MEDICARE, SELFPAY ==
[2023-09-19 10:19] LABS: Prothrombin Time Whole Bld POC 28.3 sec (11.1-13.5); ~PT, ~INR - Anti Coag Clinic 2.4 (0.9-1.1)
--- NOTE | 2023-09-19 10:19 | MHC.OFFVISCO ---
Intake Intake Visit Reasons: Anticoagulation Allergies ciprofloxacin Allergy (Intermediate, Verified 09/19/23 10:14) hives benzonatate Adverse Reaction (Intermediate, Verified 09/19/23 10:14) Gastrointestinal Upset lisinopril Adverse Reaction (Intermediate, Uncoded 09/19/23 10:14) Cough Medication List - Last Reconciled 09/19/23 by Amy Bales, RN diltiazem HCl 120 mg PO DAILY donepezil 10 mg PO DAILY latanoprost 0.005% 1 drp ophthalmic (eye) DAILY losartan 100 mg PO DAILY memantine 5 mg PO BID timolol maleate 0.5% 1 drp ophthalmic (eye) DAILY vit C,Q-Wx-mwzhs-lutein-zeaxan 250-90-40-1 mg (PreserVision AREDS-2) 1 tab PO BID warfarin 2.5 mg See Protocol PO DAILY Nursing Note INR: 2.4 in therapeutic range S/P COVID VACCINE 2 WEEKS AGO - FEELS FINE Medications and supplements reviewed No changes in health, diet, medications, or supplements, Denies any signs and symptoms of bleeding or bruising or clotting. Bleeding, bruising, clotting discussed Nutritional guidance given Dose: 5MG X 1 DAY/ 2.5MG X 6 DAYS F/U INR: 2 WEEKS Patient verbalizes understanding of instructions given Coding Level of Care Code Est Patient Level 1
== END 2023-09-19 10:23 | disposition home or self-care (01) ==
LOC: HO.ACS 10:14
PROVIDERS: PCP Internal Medicine; Visit Provider Internal Medicine
DX: Z79.01 Long term (current) use of anticoagulants (principal)

== ENCOUNTER → 2023-09-19 10:14 | Outpatient (BNVA) | payer MEDICARE, SELFPAY | PROVIDERS: PCP Internal Medicine; Visit Provider Internal Medicine | DX: I48.91 Unspecified atrial fibrillation (principal); Z79.01 Long term (current) use of anticoagulants; Z51.81 Encounter for therapeutic drug level monitoring | CPT/HCPCS: 85610; 99211 ==

== ENCOUNTER 2023-10-10 10:12 | Outpatient (AMB) | payer MEDICARE, SELFPAY ==
[2023-10-10 10:43] LABS: ~PT, ~INR - Anti Coag Clinic 2.1 (0.9-1.1)
--- NOTE | 2023-10-10 10:49 | MHC.OFFVISCO ---
Intake Intake Visit Reasons: Anticoagulation Allergies ciprofloxacin Allergy (Intermediate, Verified 10/10/23 10:36) hives benzonatate Adverse Reaction (Intermediate, Verified 10/10/23 10:36) Gastrointestinal Upset lisinopril Adverse Reaction (Intermediate, Uncoded 10/10/23 10:36) Cough Medication List - Last Reconciled 10/10/23 by Amy Bales, RN diltiazem HCl 120 mg PO DAILY donepezil 10 mg PO DAILY latanoprost 0.005% 1 drp ophthalmic (eye) DAILY losartan 100 mg PO DAILY memantine 5 mg PO BID timolol maleate 0.5% 1 drp ophthalmic (eye) DAILY vit C,S-Ny-wygnt-lutein-zeaxan 250-90-40-1 mg (PreserVision AREDS-2) 1 tab PO BID warfarin 2.5 mg See Protocol PO DAILY Nursing Note Comes to clinic with , gait steady with cane - takes several attempt to get up from chair , enc leg exercises to stay strong,pt dementia level requires guidance from during appt INR: 2.1 in therapeutic range Medications and supplements reviewed No changes in health, diet, medications, or supplements, Denies any signs and symptoms of bleeding or bruising or clotting. 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
== END 2023-10-10 10:52 | disposition home or self-care (01) ==
LOC: HO.ACS 10:12
PROVIDERS: PCP Internal Medicine; Visit Provider Internal Medicine
DX: Z79.01 Long term (current) use of anticoagulants (principal)

== ENCOUNTER → 2023-10-10 10:12 | Outpatient (BNVA) | payer MEDICARE, SELFPAY | PROVIDERS: PCP Internal Medicine; Visit Provider Internal Medicine | DX: I48.91 Unspecified atrial fibrillation (principal); Z79.01 Long term (current) use of anticoagulants; Z51.81 Encounter for therapeutic drug level monitoring | CPT/HCPCS: 85610; 99211 ==

== ENCOUNTER 2023-10-27 11:32 | Inpatient (IN) | payer MEDICARE, SELFPAY ==
[2023-10-27 11:50] VITALS: BP 115/50; BP 130/66; PULSE 108; PULSE 91; RESP 18; TEMP 36.8; O2SAT 97; BMI 22.9
--- NOTE | 2023-10-27 11:53 | ED.GENADULT ---
HPI - General Adult General Chief complaint: Weakness Stated complaint: LEG WEAKNESS,DIFF AMB PER EMS Time Seen by Provider: 10/27/23 11:53 Source: patient and EMS Mode of arrival: EMS Limitations: no limitations History of Present Illness HPI narrative: Patient is an 88 year old assigned male at with a history of atrial fib on warfarin and dementia presenting to the emergency department today with weakness and feeling as though his legs won't work. Patient states that he just doesn't feel good and feels weak. Patient's states that the patient has been unable to stand and use his walker over the last day. Patient denies any dizziness, lightheadedness, abdominal pain, nausea, vomiting, fever, chills, blurry vision, double vision, loss of vision, chest pain, difficulty breathing, shortness of breath, back pain, night sweats, pain with urination, increased urinary frequency, increased urinary urgency, blood in his urine or stool, syncope or a near syncopal episode, recent trauma or falls, bowel incontinence, bladder incontinence, bowel retention, bladder retention, or any other complaints at this time. Onset (ago): day(s) Radiation: non-radiation Severity: mild Severity scale (1-10): 3 Relieving factors: none Exacerbating factors: none Associated symptoms: weakness Treatments prior to arrival: none Related Data Home Medications Medication Instructions Recorded Confirmed donepezil 10 mg tablet 10 mg PO DAILY 08/18/21 10/10/23 latanoprost 0.005 % eye drops 1 drp ophthalmic (eye) DAILY 08/18/21 10/10/23 memantine 5 mg tablet 5 mg PO BID 08/18/21 10/10/23 timolol maleate 0.5 % eye drops 1 drp ophthalmic (eye) DAILY 08/18/21 10/10/23 warfarin 2.5 mg tablet 2.5 mg PO DAILY 08/25/21 10/10/23 diltiazem HCl 120 mg 120 mg PO DAILY 09/15/21 10/10/23 capsule,extended release 24 hr vit C 250 mg-vit E 90 mg-zinc 40 1 tab PO BID 02/16/22 10/10/23 mg-copper 1 [id number] capsule (PreserVision AREDS-2) losartan 100 mg tablet 100 mg PO DAILY 08/16/23 10/10/23 Allergies Allergy/AdvReac Type Severity Reaction Status Date / Time ciprofloxacin Allergy Intermediate hives Verified 10/27/23 11:55 benzonatate AdvReac Intermediate Gastrointestinal Verified 10/27/23 11:55 Upset lisinopril AdvReac Intermediate Cough Uncoded 10/10/23 10:36 Review of Systems Constitutional: Constitutional: Reports no additional constitutional complaints, Denies chills, Denies fever(s), Denies night sweats and Reports weakness Eyes: Eyes: Reports no additional eye complaints, Denies blurry vision, Denies change in vision, Denies diplopia, Denies eye discharge, Denies loss of vision and Denies eye pain ENT: Denies dizziness Cardiovascular: Cardiovascular: Reports no additional cardiovascular complaints, Denies chest pain, Denies lightheadedness, Denies Loss of Consciousness and Denies dyspnea Respiratory: Respiratory: Reports no additional respiratory complaints and Denies dyspnea Gastrointestinal: Gastrointestinal: Reports no additional gastrointestinal complaints, Denies abdominal pain, Denies melena, Denies hematochezia, Denies change in bowel habits and Denies change in stool character Genitourinary: Genitourinary: Reports no additional male genitourinary complaints, Denies hematuria, Denies oliguria, Denies difficulty urinating, Denies dysuria, Denies urinary frequency, Denies urinary hesitancy, Denies urinary incontinence and Denies urinary urgency Musculoskeletal: Musculoskeletal: Reports no additional musculoskeletal complaints, Denies numbness and Denies tingling Neurologic: Reports confusion (per baseline), Denies dizziness, Denies loss of vision, Denies numbness, Denies tingling and Reports weakness Psychiatric: Psychiatric: Reports no additional psychiatric complaints and Reports confusion (per baseline) Endocrine: Endocrine: Reports no additional endocrine complaints Hematologic/Lymphatic: Hematologic/Lymphatic: Reports no additional hematologic/lymphatic complaints Allergic/Immunologic: Allergic/Immunologic: Reports no additional allergic/immunologic complaints PMFSH Past Medical History Attestation statement: The following information was validated with the patient. (all information validated with the patient's ) Source: old records reviewed, obtained from family (patient's provided additional information and confirmed the information provided by the patient.) and nursing notes reviewed Onset Date is defined in the Problem List Problems that require an onset date and time if occurred within 24 hrs of arrival to the ED Aortic Dissection and Rupture; Neurologic impairment; Cardiopulmonary Arrest; Endotracheal Intubation; Insertion or Replacement of Mechanical Circulatory Assist Device Social History Social History Advance Directives: Yes Advance Directives on File: Yes Advance Directives Date on File: 10/27/23 Physical Exam ED Vital Signs: Vital Signs - 24 hr 10/27/23 11:50 10/27/23 12:31 10/27/23 14:24 Temperature 98.2 F Pulse Rate 91 98 Respiratory Rate 18 18 16 Blood Pressure 115/50 L 96/54 L Pulse Oximetry 97 86 L 87 L Oxygen Delivery Method Room Air Room Air Room Air Nasal Cannula Oxygen Flow Rate 2 10/27/23 15:21 Temperature Pulse Rate Respiratory Rate Blood Pressure 144/87 H Pulse Oximetry Oxygen Delivery Method Oxygen Flow Rate BMI result Body Mass Index 22.9 Const General: cooperative, no acute distress, alert, awake and confusion (per baseline) Nutritional Appearance: well nourished Orientation/consciousness: oriented to person, oriented to place and confusion (per baseline) Limitations: no limitations HENMT Head: Yes normal to inspection and Yes atraumatic Ears: hearing grossly normal bilaterally and external ears normal General nose exam: Normal external nose present, no nasal discharge noted and no epistaxis Face and sinus: Yes normal facial exam, No abrasion and No laceration Mouth: Normal oral and palatal mucosa present, no drooling and no muffled voice Eyes General: appearance normal, both eyes and all related structures Periorbital: periorbital findings normal Eyelids: Yes eyelids normal Conjunctivae: conjunctivae normal Pupils: Equal, round and reactive pupils present EOM: EOMs intact bilaterally Neck Neck: Yes normal visual inspection, Yes full ROM and Yes no lymphadenopathy Chest Chest palpation & inspection: normal inspection of the chest Resp Effort & Inspection: normal respiratory effort and able to speak in complete sentences GI Inspection: Yes normal to inspection Neuro General: oriented to person, oriented to place, moves all extremities and confusion (per baseline) Cranial nerves: Yes Equal, round and reactive pupils present Cognition (Neuro): normal cognition Motor exam (neuro): 5/5 motor strength present throughout Sensory Exam: Normal double simultaneous stimulation for sensation Coordination: [id number] test normal Extrem General: Yes normal to inspection, Yes full ROM and Yes capillary refill normal Psych Appearance: grossly normal Mental Status: mental status grossly normal Affect: normal affect Attitude: cooperative Thought process: Normal thought process present Thought content: Normal thought content present Insight: Good insight present (Psych) Medications Administered Discontinued Medications Generic Name Dose Route Start Last Admin Trade Name Omar PRN Reason Stop Dose Admin Sodium Chloride 1,000 mls @ 999 mls/hr 10/27/23 13:15 10/27/23 14:25 Ns IV 10/27/23 14:15 Infused .Q1H1M BRITT Infusion Ceftriaxone Sodium 1 gm/ 50 mls @ 100 mls/hr 10/27/23 14:32 10/27/23 15:27 Sodium Chloride IV 10/27/23 15:01 100 mls/hr ONCE ONE Administration Medical Decision Making Medical Decision Making [facility] Narrative: Patient is an 88 year old assigned male at with a history of atrial fib on warfarin and dementia presenting to the emergency department today with weakness. Patient's physical exam showed a pleasantly confused individual but was otherwise unremarkable. Patient's blood work showed an elevated CR of 1.53, BUN of 39, BNP of 200, and lactic acid of 2.4. The rest of the patient's labs were unremarkable. Patient's urine showed evidence of a urinary tract infection. Patient's EKG showed atrial fib. Patient's chest x-ray showed no acute process. Patient was 86% on room air which is new for him. Patient is now on 2 liters of oxygen via nasal cannula which brought him up to 96%. Patient was given IV ceftriaxone and IV fluids. Patient's clinical presentation is not consistent with sepsis (@1545). I spoke to the hospitalist team who agreed to admission. I explained my physical exam findings as well as all test results to the patient and the patient's . I answered all questions asked by the patient and the patient's . Patient and the patient's verbalized agreement and understanding with this treatment plan and admission. Differential Diagnosis Differential Diagnoses: The differential diagnosis associated with the presentation includes Hypoxia URI UTI PETERSON Elevated BNP Admission/Observation Consideration of admission/observation: Escalation of care including admission/observation considered Patient admitted. Consult Healthcare Provider Management of the patient was discussed with: Hospitalist (agreed to admission.) Lab Data [facility] Lab Attestation statement: I reviewed the patient's lab results. My interpretation of these results are in the MDM Rationale portion of this note. 10/27/23 12:33 10/27/23 12:33 Labs: Lab Results 10/27/23 10/27/23 10/27/23 Range/Units 12:33 13:20 14:07 WBC 9.0 (4.8-10.8) X10*3/uL RBC 3.85 L (4.60-5.80) X10*6/uL Hgb 10.9 L (14.0-18.0) g/dl Hct 35.1 L (42.0-52.0) % MCV 91.2 (80.0-98.0) fL MCH 28.3 (27.0-33.0) pg MCHC 31.1 (31.0-36.0) g/dl RDW 17.4 H (11.0-16.0) % Plt Count 107 L (160-400) X10*3/uL MPV 11.4 (9.4-12.4) fL Immature Gran % (Auto) 0.4 (0.0-0.4) % Neut % (Auto) 88.3 H (45-73) % Lymph % (Auto) 3.9 L (20-40) % [place] % (Auto) 7.2 (2-11) % Eos % (Auto) 0.1 (0-4) % Baso % (Auto) 0.1 (0-2) % Lymph # (Auto) 0.4 L (1.2-4.9) X10*3/uL [place] # (Auto) 0.7 (0.1-1.2) X10*3/uL Eos # (Auto) 0.0 (0.0-0.4) X10*3/uL Baso # (Auto) 0.0 (0.0-0.2) X10*3/uL Abs Immat Gran (auto) 0.04 H (0.00-0.03) X10*3/uL Absolute Neuts (auto) 8.0 (2.0-8.3) x10*3/uL Absolute Nucleated RBC 0.000 (0.0-0.012) X10*3/uL Nucleated RBC % (auto) 0.0 (0.0-0.2) /100WBC PT 26.9 H D (11.1-13.3) SEC INR 2.2 H D (0.9-1.1) APTT 36.0 (26.0-36.4) SEC Sodium 142 (135-145) mmol/L Potassium 4.1 (3.3-5.1) mmol/L Chloride 109 H (96-108) mmol/L Carbon Dioxide 25 (22-29) mmol/L Anion Gap 12 (12-20) BUN 39 H (9-16) mg/dL Creatinine 1.53 H (0.5-1.4) mg/dL Estim Creat Clear Calc 32.1 Estimated GFR 43 Random Glucose 145 H (60-115) mg/dL Lactic Acid 2.4 H* (0.5-2.0) mmol/L Calcium 9.1 (8.4-10.2) mg/dL Magnesium 2.2 (1.6-2.6) mg/dL Total Bilirubin 1.0 (0.0-1.0) mg/dL AST 27 (5-37) U/L ALT 18 (0-40) U/L Alkaline Phosphatase 116 (39-117) U/L Total Creatine Kinase 33 L (38-174) U/L Troponin I High Sens 35.1 H 37.5 H (<3.5-35.0) ng/L B-Natriuretic Peptide 200 H (<100) pg/mL Total Protein 6.1 L (6.5-8.0) g/dL Albumin 3.2 L (3.5-5.0) g/dL Urine Color Urine Appearance Urine pH (5.0-9.0) Ur Specific [place] (1.005-1.025) Urine Protein (Neg-Trace) mg/dL Urine Glucose (UA) (Negative) mg/dL Urine Ketones (Negative) mg/dL Urine Blood (Negative) Urine Nitrite (Negative) Ur Leukocyte Esterase (Negative) Urine RBC (0-2) /HPF Urine WBC (0-5) /HPF Ur Squamous Epith Cells (0-2) /HPF Urine Bacteria (None Seen) Hyaline Casts (0-2) /LPF Influenza Type A (PCR) NEGATIVE (Negative) Influenza Type B (PCR) NEGATIVE (Negative) RSV RNA Qual (PCR) NEGATIVE (Negative) SARS-CoV-2 RNA (RT-PCR) NEGATIVE (Negative) 10/27/23 Range/Units 14:13 WBC (4.8-10.8) X10*3/uL RBC (4.60-5.80) X10*6/uL Hgb (14.0-18.0) g/dl Hct (42.0-52.0) % MCV (80.0-98.0) fL MCH (27.0-33.0) pg MCHC (31.0-36.0) g/dl RDW (11.0-16.0) % Plt Count (160-400) X10*3/uL MPV (9.4-12.4) fL Immature Gran % (Auto) (0.0-0.4) % Neut % (Auto) (45-73) % Lymph % (Auto) (20-40) % [place] % (Auto) (2-11) % Eos % (Auto) (0-4) % Baso % (Auto) (0-2) % Lymph # (Auto) (1.2-4.9) X10*3/uL [place] # (Auto) (0.1-1.2) X10*3/uL Eos # (Auto) (0.0-0.4) X10*3/uL Baso # (Auto) (0.0-0.2) X10*3/uL Abs Immat Gran (auto) (0.00-0.03) X10*3/uL Absolute Neuts (auto) (2.0-8.3) x10*3/uL Absolute Nucleated RBC (0.0-0.012) X10*3/uL Nucleated RBC % (auto) (0.0-0.2) /100WBC PT (11.1-13.3) SEC INR (0.9-1.1) APTT (26.0-36.4) SEC Sodium (135-145) mmol/L Potassium (3.3-5.1) mmol/L Chloride (96-108) mmol/L Carbon Dioxide (22-29) mmol/L Anion Gap (12-20) BUN (9-16) mg/dL Creatinine (0.5-1.4) mg/dL Estim Creat Clear Calc Estimated GFR Random Glucose (60-115) mg/dL Lactic Acid (0.5-2.0) mmol/L Calcium (8.4-10.2) mg/dL Magnesium (1.6-2.6) mg/dL Total Bilirubin (0.0-1.0) mg/dL AST (5-37) U/L ALT (0-40) U/L Alkaline Phosphatase (39-117) U/L Total Creatine Kinase (38-174) U/L Troponin I High Sens (<3.5-35.0) ng/L B-Natriuretic Peptide (<100) pg/mL Total Protein (6.5-8.0) g/dL Albumin (3.5-5.0) g/dL Urine Color Yellow Urine Appearance Cloudy Urine pH 5.5 (5.0-9.0) Ur Specific [place] 1.015 (1.005-1.025) Urine Protein 100 (2+) H (Neg-Trace) mg/dL Urine Glucose (UA) Negative (Negative) mg/dL Urine Ketones Negative (Negative) mg/dL Urine Blood Moderate (2+) H (Negative) Urine Nitrite Negative (Negative) Ur Leukocyte Esterase Large (3+) H (Negative) Urine RBC 11-20 H (0-2) /HPF Urine WBC >50 H (0-5) /HPF Ur Squamous Epith Cells 0-2 (0-2) /HPF Urine Bacteria 2+ (None Seen) Hyaline Casts 3-5 (0-2) /LPF Influenza Type A (PCR) (Negative) Influenza Type B (PCR) (Negative) RSV RNA Qual (PCR) (Negative) SARS-CoV-2 RNA (RT-PCR) (Negative) Independent Interpretation I performed an independent interpretation of an: EKG and Plain X-Ray Interpretation: My interpretation is in agreement with the radiologist's impression of this imaging study. EXAMINATION: XR CHEST CLINICAL INFORMATION: Weakness COMPARISON: None available. TECHNIQUE: Frontal view of the chest was obtained. FINDINGS: No convincing evidence for an acute process. There are no films to compare. Surgical sutures in the left upper lung overlying. The cardiac silhouette is within normal limits. There is no effusion. The hilar regions are not pathologically enlarged. Some traction of the superior left hilar region in the left upper lung. XR/XR chest 1V IMPRESSION: No convincing evidence for an acute process Dictated By: Cedrick Johnson MD Signed By: Electronically signed by Cedrick Johnson MD 10/27/23 1314 Vent. Rate: 081 BPM Atrial Rate: 000 BPM P-R Int: 000 ms QRS Dur: 100 ms QT Int: 372 ms P-R-T Axes: 000 -32 070 degrees QTc Int: 432 ms Atrial fibrillation Left axis deviation Abnormal ECG No previous ECGs available Electronically Signed By:Jamal Gambino Dictated By: Jamal Gambino MD Signed By: Electronically signed by Jamal Gambino MD 10/27/23 1403 Radiology Impression Discussion of test interpretation with radiology: I have reviewed the radiologist's reading. Independent Historian Clinical information obtained from an independent historian. History obtained from or confirmed by: Spouse (patient's provided additional history and confirmed the history provided by the patient) and EMS (EMS provided additional history and confirmed the history provided by the patient.) Critical Care Time Critical Care Time Critical Care Time: Yes Total Critical Care Time: 35 Attestation: I spent 35 minutes of Critical Care Time with this patient. This does not include time spent on separately reported billable procedures. Discharge Plan Discharge Clinical Impression: Hypoxia, Urinary tract infection Patient Disposition: Admitted As Inpatient Prescriptions: No Action PreserVision AREDS-2 250-90-40-1 mg capsule 1 tab PO BID diltiazem HCl 120 mg capsule,extended release 24hr 120 mg PO DAILY donepezil 10 mg tablet 10 mg PO DAILY latanoprost 0.005 % drops 1 drp ophthalmic (eye) DAILY memantine 5 mg tablet 5 mg PO BID timolol maleate 0.5 % drops 1 drp ophthalmic (eye) DAILY warfarin 2.5 mg tablet 2.5 mg PO DAILY Protocol: Dose Management Condition: Tuesday (Week One) Dose/Route: 2.5 mg Instruction: 1 x 2.5 mg tablet Condition: Tuesday Dose/Route: 2.5 mg Instruction: 1 x 2.5 mg tablet Condition: Tuesday Dose/Route: 2.5 mg Instruction: 1 x 2.5 mg tablet Condition: Tuesday Dose/Route: 2.5 mg Instruction: 1 x 2.5 mg tablet Condition: Dose/Route: 2.5 mg Instruction: 1 x 2.5 mg tablet Condition: Tuesday Dose/Route: 2.5 mg Instruction: 1 x 2.5 mg tablet Condition: Tuesday Dose/Route: 5 mg Instruction: 2 x 2.5 mg tablets Condition: Tuesday (Week Two) Dose/Route: 2.5 mg Instruction: 1 x 2.5 mg tablet Condition: Tuesday Dose/Route: 2.5 mg Instruction: 1 x 2.5 mg tablet Condition: Tuesday Dose/Route: 2.5 mg Instruction: 1 x 2.5 mg tablet Condition: Tuesday Dose/Route: 2.5 mg Instruction: 1 x 2.5 mg tablet Condition: Dose/Route: 2.5 mg Instruction: 1 x 2.5 mg tablet Condition: Tuesday Dose/Route: 2.5 mg Instruction: 1 x 2.5 mg tablet Condition: Tuesday Dose/Route: 5 mg Instruction: 2 x 2.5 mg tablets Protocol Text: Adjustment Start Date: Tuesday10/10/23 INR Value: 2.1 INR Date: 10/10/23 Recheck Date: 10/31/23 Additional Instructions: EAT A MIX OF FRUITS AND VEGETABLES HARDIK SOLORZANO losartan 100 mg tablet 100 mg PO DAILY
[2023-10-27 12:31] VITALS: RESP 18; O2SAT 86
--- NOTE | 2023-10-27 12:34 | PC.NURSE ---
This RN got pt from EMS, pt is aware of name and that he is at the hospital, but is unsure of what hospital. He lives at home with , reporting 3 hours prior to getting brought in he was unable to use walker. Pt O2 when talking with staff 85% on RA but quickly recovers to mid to high 90s without O2 when not talking. Pt is incon of urine
[2023-10-27 14:24] VITALS: BP 96/54; PULSE 98; RESP 16; O2SAT 87
[2023-10-27 15:21] VITALS: BP 144/87
--- NOTE | 2023-10-27 16:00 | PHA.MEDREC ---
Pharmacy Consult ? Medication Reconciliation Pharmacy has completed the medication reconciliation. Patient's had list of medications that matched claim history. Zeinab Donovan, SaraD
--- NOTE | 2023-10-27 16:36 | PM.IMHP ---
History of Present Illness Date of Service: 10/27/23 Chief Complaint: Weakness 88 year old male with dementia, permanent afib on coumadin, hard of hearing, HTN lives at home with who is at bedside. His called EMS because patient was very weak today and spend nearly all day sleeping yesterday and apetite poor. There is no report of fever or chills, he is incontinent of urine. ED work up : Nl WBC, lactic acid 2.4, Creatine 1.53 which is above baseline, BNP 200 and troponin 37.5. CXR negative for PNA, covid, RSV, Flu negative. Given Ceftriaxone for UTI Review of Systems Review of Systems: Gen: no fever Resp: no sob, no cough CV: no chest, no GILES, no leg edema GI: No n/v, no abd pain Neuro: confusion from dementia [facility] Medical History Glaucoma HTN (hypertension) Permanent atrial fibrillation Dementia Social History Household Members: Spouse Housing: House Do you presently have visiting nurse or other home services: No Comment: 2:1 sitter Patient Tobacco Use Status: Never used Tobacco Use of substances other than those prescribed or required for medical reasons: No Currently Displaying Signs/Symptoms of Drug Intoxication Withdrawal: No Have you been hit, kicked, punched, or otherwise hurt by someone within the past year? If so, by whom?: No Do you feel safe in your current relationship?: Yes Is there a partner from a previous relationship who is making you feel unsafe now?: No Are you made to feel afraid or neglected: No Advance Directives: Yes Advance Directives on File: Yes Advance Directives Date on File: 10/27/23 Do you have thoughts of harming others: None Do you have a plan to hurt others: No Plan Recently lost weight without trying: No How much weight loss: Not applicable Eating poorly because of decreased appetite: No Nutrition screen score: 0 Nutrition Risks: No Nutritional Risk Poor oral hygiene: No Meds Allergies Allergy/AdvReac Type Severity Reaction Status Date / Time ciprofloxacin Allergy Intermediate hives Verified 10/27/23 11:55 benzonatate AdvReac Intermediate Gastrointestinal Verified 10/27/23 11:55 Upset lisinopril AdvReac Intermediate Cough Uncoded 10/10/23 10:36 Home Medications Medication Instructions Recorded Confirmed Last Taken Type donepezil 10 mg tablet 10 mg PO DAILY@1800 08/18/21 10/27/23 10/26/22 History latanoprost 0.005 % eye drops 1 drp ophthalmic (eye) BEDTIME 08/18/21 10/27/23 10/26/22 History memantine 5 mg tablet 10 mg PO DAILY@1800 08/18/21 10/27/23 10/26/22 History timolol maleate 0.5 % eye drops 1 drp ophthalmic (eye) DAILY 08/18/21 10/27/23 10/26/22 History warfarin 2.5 mg tablet 2.5 mg PO SUMOTUWETHFR@1800 08/25/21 10/27/23 10/26/22 History diltiazem HCl 120 mg 120 mg PO BEDTIME 09/15/21 10/27/23 10/26/22 History capsule,extended release 24 hr vit C 250 mg-vit E 90 mg-zinc 40 1 tab PO BID@0900,1800 02/16/22 10/27/23 10/26/22 History mg-copper 1 [id number] capsule (PreserVision AREDS-2) losartan 100 mg tablet 100 mg PO DAILY 08/16/23 10/27/23 10/27/22 History warfarin 2.5 mg tablet 5 mg PO SA@1800 10/27/23 10/27/23 10/26/22 History Physical Exam Vital Signs and Narrative: Vital Signs: Last Vital Signs Temp 98.2 F 10/27/23 11:50 Pulse 98 10/27/23 14:24 Resp 16 10/27/23 14:24 BP 144/87 H 10/27/23 15:21 Pulse Ox 87 L 10/27/23 14:24 O2 Del Method Room Air, Nasal C annula 10/27/23 14:24 O2 Flow Rate 2 10/27/23 14:24 BMI result Body Mass Index 22.9 Const: Other: Constitutional: Alert, in no distress, overweight. Mental Status: Oriented to person only Eyes: Pupils are equal, round and reactive to light. Ear, Nose and Throat: Oropharynx clear, mucous membranes moist. Ears and nose without eformities. Trachea midline. Respiratory: Clear to auscultation. No wheezing, rales or rhonchi. Cardiovascular: S1 S2 irregular, iregular No murmurs, rubs or gallops. Gastrointestinal: Abdomen soft, non-tender, non-distended. Normal bowel sounds.? Neurologic: Cranial nerves II-XII grossly intact. No focal neurological deficits. Moves all extremities spontaneously.? Skin: No rashes or lesions.? Musculoskeletal: No cyanosis or clubbing. Psychiatric: Normal mood and affect? Results Labs 10/27/23 12:33 10/28/23 06:00 Labs: Laboratory Results - last 24 hr 10/27/23 10/27/23 10/27/23 12:33 14:07 14:13 MCV 91.2 MCH 28.3 MCHC 31.1 RDW 17.4 H Plt Count 107 L MPV 11.4 Immature Gran % (Auto) 0.4 Neut % (Auto) 88.3 H Lymph % (Auto) 3.9 L [place] % (Auto) 7.2 Eos % (Auto) 0.1 Baso % (Auto) 0.1 Lymph # (Auto) 0.4 L [place] # (Auto) 0.7 Eos # (Auto) 0.0 Baso # (Auto) 0.0 Abs Immat Gran (auto) 0.04 H Absolute Neuts (auto) 8.0 Absolute Nucleated RBC 0.000 Nucleated RBC % (auto) 0.0 PT 26.9 H D INR 2.2 H D APTT 36.0 Anion Gap 12 Estim Creat Clear Calc 32.1 Estimated GFR 43 Random Glucose 145 H Lactic Acid 2.4 H* Lactic Acid F/U @ 2Hr Calcium 9.1 Magnesium 2.2 Total Bilirubin 1.0 AST 27 ALT 18 Alkaline Phosphatase 116 Total Creatine Kinase 33 L B-Natriuretic Peptide 200 H Total Protein 6.1 L Albumin 3.2 L Urine Color Yellow Urine Appearance Cloudy Urine pH 5.5 Ur Specific [place] 1.015 Urine Protein 100 (2+) H Urine Glucose (UA) Negative Urine Ketones Negative Urine Blood Moderate (2+) H Urine Nitrite Negative Ur Leukocyte Esterase Large (3+) H Urine RBC 11-20 H Urine WBC >50 H Ur Squamous Epith Cells 0-2 Urine Bacteria 2+ Hyaline Casts 3-5 Influenza Type A (PCR) NEGATIVE Influenza Type B (PCR) NEGATIVE RSV RNA Qual (PCR) NEGATIVE SARS-CoV-2 RNA (RT-PCR) NEGATIVE 10/27/23 15:18 MCV MCH MCHC RDW Plt Count MPV Immature Gran % (Auto) Neut % (Auto) Lymph % (Auto) [place] % (Auto) Eos % (Auto) Baso % (Auto) Lymph # (Auto) [place] # (Auto) Eos # (Auto) Baso # (Auto) Abs Immat Gran (auto) Absolute Neuts (auto) Absolute Nucleated RBC Nucleated RBC % (auto) PT INR APTT Anion Gap Estim Creat Clear Calc Estimated GFR Random Glucose Lactic Acid Lactic Acid F/U @ 2Hr 1.0 Calcium Magnesium Total Bilirubin AST ALT Alkaline Phosphatase Total Creatine Kinase B-Natriuretic Peptide Total Protein Albumin Urine Color Urine Appearance Urine pH Ur Specific [place] Urine Protein Urine Glucose (UA) Urine Ketones Urine Blood Urine Nitrite Ur Leukocyte Esterase Urine RBC Urine WBC Ur Squamous Epith Cells Urine Bacteria Hyaline Casts Influenza Type A (PCR) Influenza Type B (PCR) RSV RNA Qual (PCR) SARS-CoV-2 RNA (RT-PCR) Imaging Radiologist's Impressions: Impressions Chest X-Ray 10/27/23 12:18 IMPRESSION: No convincing evidence for an acute process Assessment and Plan (1) Permanent atrial fibrillation: Status: Acute (2) Dementia: Status: Acute (3) Urinary tract infection: Status: Acute (4) Hypoxia: Status: Acute Plan 88/m with dementia, permanent afib, HTN here weakness, UTI, and hypoxia UTI with weakness, no sepsis -IV ceftriaxone started 10/27, follow culture PETERSON on CKD 4, IVF, repeat BMP tomorrow Acute lactic acidosis--related renal failure, dehydration Elevated troponin I--likely from ckd, afib with rvr. Follow trend Permanent AFIB--resume home meds, and continue coumadin, follow daily INR Hypoxia--etiology unclear, no respiratory distress, flu, covid, rsv negative, and cxr DNR/DNI Admission for at least 2 midnight for management of UTI associated with marked weakness, hypoxia care discussed with , patient not able to decision on his own and invoking HCP Quality Stroke Does the patient have a stroke diagnosis?: No VTE Prior VTE?: No VTE Risk Level:: Medical - moderate - high VTE Device Contraindication: Treatment Not Indicated VTE Drug Contraindication: N/A - Med Ordered
[2023-10-27 18:13] VITALS: BP 100/74; PULSE 115; RESP 20; O2SAT 94
[2023-10-27 19:11] VITALS: BP 121/61; PULSE 107; RESP 18; O2SAT 94
[2023-10-27 21:02] VITALS: BMI 18.3
[2023-10-28 03:05] VITALS: BP 154/72; PULSE 93; RESP 17; TEMP 36.8; O2SAT 96
[2023-10-28 07:42] VITALS: BP 154/83; PULSE 93; RESP 12; TEMP 36.3; O2SAT 94
[2023-10-28 08:35] VITALS: BP 154/83; PULSE 93; O2SAT 94
--- NOTE | 2023-10-28 10:53 | HO.PM.IMPN ---
Subjective Subjective Date of Service: 10/28/23 Interval History: f/u on uti, weakness blood cultures are growing GNR, he looks better clinically Physical Exam Vital Signs: Vital Signs: Last Vital Signs Temp 97.3 F 10/28/23 07:42 Pulse 93 10/28/23 08:35 Resp 12 10/28/23 07:42 BP 154/83 H 10/28/23 08:35 Pulse Ox 94 10/28/23 08:35 O2 Del Method Nasal Cannula 10/28/23 07:42 O2 Flow Rate 2 10/28/23 07:42 BMI result Body Mass Index 18.3 Const: Other: General: oriented to self, pleasant and cooperative Resp: CTA bilateral CVS: S1,S2,RRR GI: +BS, NT, no distention Skin: No rash Neuro: motor grossly intact Psych: appropriate affect Objective Data Active Medications Acetaminophen (Acetaminophen 325 Mg Tablet) 650 mg PO Q6H PRN PRN Reason: Pain, Mild (Pain Scale 1-3) Acetaminophen (Acetaminophen Supp 650 Mg Supp.Rect) 650 mg CO Q6H PRN PRN Reason: Pain, Mild (Pain Scale 1-3) Diltiazem HCl (Diltiazem Hcl Cd 120 Mg Cap.Er.Deg) 120 mg PO BEDTIME [facility]; Protocol Last Admin: 10/27/23 21:38 Dose: 120 mg Documented By: FINESSE Donepezil HCl (Donepezil Hcl 10 Mg Tablet) 10 mg PO DAILY@1800 [facility] Last Admin: 10/27/23 18:09 Dose: 10 mg Documented By: LEE Ceftriaxone Sodium 1 gm/ (Sodium Chloride) 50 mls @ 100 mls/hr IV Q24H [facility] Latanoprost (Latanoprost 0.005 % Ophth Rosa 2.5 Ml Drops) 1 drop EYE-BOTH BEDTIME [facility] Last Admin: 10/27/23 22:08 Dose: 1 drop Documented By: FINESSE Losartan Potassium (Losartan Potassium 50 Mg Tablet) 100 mg PO DAILY [facility]; Protocol Last Admin: 10/28/23 10:14 Dose: 100 mg Documented By: MERON Magnesium Hydroxide (Milk Of Magnesia 30 Ml Oral.Susp) 30 ml PO DAILY PRN PRN Reason: Constipation Memantine (Memantine Hcl 10 Mg Tablet) 10 mg PO DAILY@1800 [facility] Last Admin: 10/27/23 18:09 Dose: 10 mg Documented By: LEE Multivitamins/Vitamin C (Multivitamin Tablet) 1 tab PO DAILY [facility] Last Admin: 10/28/23 10:15 Dose: 1 tab Documented By: MERON Ondansetron HCl (Ondansetron Hcl 4 Mg/2 Ml Vial) 4 mg IVPUSH Q8H PRN PRN Reason: Nausea and Vomiting Sodium Chloride (0.9 % Sodium Chloride Flush 3 Ml Syringe) 3 ml IVFLUSH QSHIFT [facility] Last Admin: 10/28/23 10:21 Dose: Not Given Documented By: MERON Non-Admin Reason: Previously Administered Timolol Maleate (Timolol Maleate 0.5 % Oph Rosa 5 Ml Drbtl) 1 drop EYE-BOTH DAILY [facility] Last Admin: 10/28/23 10:15 Dose: Not Given Documented By: MERON Non-Admin Reason: Med Not Available Warfarin Sodium (Warfarin Sodium 2.5 Mg Tablet) 2.5 mg PO SUMOTUWETHFR@1800 [facility] Last Admin: 10/27/23 18:09 Dose: 2.5 mg Documented By: LEE Warfarin Sodium (Warfarin Sodium 5 Mg Tablet) 5 mg PO SA@1800 [facility] Labs 10/27/23 12:33 10/28/23 06:00 Labs: Laboratory Results - last 24 hr 10/27/23 10/27/23 10/27/23 12:33 14:07 14:13 MCV 91.2 MCH 28.3 MCHC 31.1 RDW 17.4 H Plt Count 107 L MPV 11.4 Immature Gran % (Auto) 0.4 Neut % (Auto) 88.3 H Lymph % (Auto) 3.9 L [place] % (Auto) 7.2 Eos % (Auto) 0.1 Baso % (Auto) 0.1 Lymph # (Auto) 0.4 L [place] # (Auto) 0.7 Eos # (Auto) 0.0 Baso # (Auto) 0.0 Abs Immat Gran (auto) 0.04 H Absolute Neuts (auto) 8.0 Absolute Nucleated RBC 0.000 Nucleated RBC % (auto) 0.0 PT 26.9 H D INR 2.2 H D APTT 36.0 Anion Gap 12 Estim Creat Clear Calc 32.1 Estimated GFR 43 Random Glucose 145 H Lactic Acid 2.4 H* Lactic Acid F/U @ 2Hr Calcium 9.1 Magnesium 2.2 Total Bilirubin 1.0 AST 27 ALT 18 Alkaline Phosphatase 116 Total Creatine Kinase 33 L B-Natriuretic Peptide 200 H Total Protein 6.1 L Albumin 3.2 L Urine Color Yellow Urine Appearance Cloudy Urine pH 5.5 Ur Specific [place] 1.015 Urine Protein 100 (2+) H Urine Glucose (UA) Negative Urine Ketones Negative Urine Blood Moderate (2+) H Urine Nitrite Negative Ur Leukocyte Esterase Large (3+) H Urine RBC 11-20 H Urine WBC >50 H Ur Squamous Epith Cells 0-2 Urine Bacteria 2+ Hyaline Casts 3-5 Respiratory Panel [place] Adenovirus (Rapid PCR) B.pert (TEM-PCR) B.parapertussis DNA PCR C. pneumoniae DNA (PCR) Coronavirus OC43 (PCR) Coronavirus HKU1 (PCR) Coronavirus 229E (PCR) Coronavirus NL63 (PCR) Human Metapneumovir PCR Influenza A (RT-PCR) Influenza Type A (PCR) NEGATIVE Influenza B (RT-PCR) Influenza Type B (PCR) NEGATIVE M. pneumoniae (PCR) Parainfluenza 1 (PCR) Parainfluenza 2 (PCR) Parainfluenza 3 (PCR) Parainfluenza 4 (PCR) RSV (PCR) RSV RNA Qual (PCR) NEGATIVE Entero/Rhino (PCR) SARS-CoV-2 RNA (RT-PCR) NEGATIVE 10/27/23 10/27/23 10/28/23 15:18 17:45 06:00 MCV MCH MCHC RDW Plt Count MPV Immature Gran % (Auto) Neut % (Auto) Lymph % (Auto) [place] % (Auto) Eos % (Auto) Baso % (Auto) Lymph # (Auto) [place] # (Auto) Eos # (Auto) Baso # (Auto) Abs Immat Gran (auto) Absolute Neuts (auto) Absolute Nucleated RBC Nucleated RBC % (auto) PT INR APTT Anion Gap 11 L Estim Creat Clear Calc 34.2 Estimated GFR > 60 Random Glucose 104 Lactic Acid Lactic Acid F/U @ 2Hr 1.0 Calcium 8.6 Magnesium Total Bilirubin AST ALT Alkaline Phosphatase Total Creatine Kinase B-Natriuretic Peptide Total Protein Albumin Urine Color Urine Appearance Urine pH Ur Specific [place] Urine Protein Urine Glucose (UA) Urine Ketones Urine Blood Urine Nitrite Ur Leukocyte Esterase Urine RBC Urine WBC Ur Squamous Epith Cells Urine Bacteria Hyaline Casts Respiratory Panel [place] See Note Adenovirus (Rapid PCR) Not Detected B.pert (TEM-PCR) Not Detected B.parapertussis DNA PCR Not Detected C. pneumoniae DNA (PCR) Not Detected Coronavirus OC43 (PCR) Not Detected Coronavirus HKU1 (PCR) Not Detected Coronavirus 229E (PCR) Not Detected Coronavirus NL63 (PCR) Not Detected Human Metapneumovir PCR Not Detected Influenza A (RT-PCR) Not Detected Influenza Type A (PCR) Influenza B (RT-PCR) Not Detected Influenza Type B (PCR) M. pneumoniae (PCR) Not Detected Parainfluenza 1 (PCR) Not Detected Parainfluenza 2 (PCR) Not Detected Parainfluenza 3 (PCR) Not Detected Parainfluenza 4 (PCR) Not Detected RSV (PCR) Not Detected RSV RNA Qual (PCR) Entero/Rhino (PCR) Not Detected SARS-CoV-2 RNA (RT-PCR) Not Detected 10/28/23 06:33 MCV MCH MCHC RDW Plt Count MPV Immature Gran % (Auto) Neut % (Auto) Lymph % (Auto) [place] % (Auto) Eos % (Auto) Baso % (Auto) Lymph # (Auto) [place] # (Auto) Eos # (Auto) Baso # (Auto) Abs Immat Gran (auto) Absolute Neuts (auto) Absolute Nucleated RBC Nucleated RBC % (auto) PT 24.9 H INR 2.0 H APTT Anion Gap Estim Creat Clear Calc Estimated GFR Random Glucose Lactic Acid Lactic Acid F/U @ 2Hr Calcium Magnesium Total Bilirubin AST ALT Alkaline Phosphatase Total Creatine Kinase B-Natriuretic Peptide Total Protein Albumin Urine Color Urine Appearance Urine pH Ur Specific [place] Urine Protein Urine Glucose (UA) Urine Ketones Urine Blood Urine Nitrite Ur Leukocyte Esterase Urine RBC Urine WBC Ur Squamous Epith Cells Urine Bacteria Hyaline Casts Respiratory Panel [place] Adenovirus (Rapid PCR) B.pert (TEM-PCR) B.parapertussis DNA PCR C. pneumoniae DNA (PCR) Coronavirus OC43 (PCR) Coronavirus HKU1 (PCR) Coronavirus 229E (PCR) Coronavirus NL63 (PCR) Human Metapneumovir PCR Influenza A (RT-PCR) Influenza Type A (PCR) Influenza B (RT-PCR) Influenza Type B (PCR) M. pneumoniae (PCR) Parainfluenza 1 (PCR) Parainfluenza 2 (PCR) Parainfluenza 3 (PCR) Parainfluenza 4 (PCR) RSV (PCR) RSV RNA Qual (PCR) Entero/Rhino (PCR) SARS-CoV-2 RNA (RT-PCR) Microbiology Microbiology Results: Microbiology 10/27/23 Unknown Urine Culture - Preliminary Urine clean catch - Urine abarca top Gram negative gracia 10/27/23 13:20 Blood Culture - Preliminary Blood - Venous Prelim: GNR Gram Stain only 10/27/23 12:33 Blood Culture - Preliminary Blood - Venous Prelim: GNR Gram Stain only Assessment and Plan (1) Bacteremia: Status: Acute Plan 88/m with dementia, permanent afib, HTN here weakness, UTI, and hypoxia admitted with UTI, now GRR bacteremia/sepsis -IV ceftriaxone started 10/27, follow culture -ID consult consult 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 Acute lactic acidosis--related renal failure, dehydration Elevated troponin I--likely from ckd, afib with rvr, trended down Permanent AFIB--continue cardizem, and stroke prevention w/ coumadin, follow daily INR Hypoxia--etiology unclear, ? undiagnosed copd, no respiratory distress, flu, covid, rsv negative, and cxr continue O2, will get routine abg in the morning DNR/DNI need fot inpt: sepsis, bacteremia organism not yet known n Quality Stroke Does the patient have a stroke diagnosis?: No VTE Prior VTE?: No VTE Risk Level:: Medical - moderate - high VTE Device Contraindication: Treatment Not Indicated VTE Drug Contraindication: N/A - Med Ordered
[2023-10-28 11:16] VITALS: BMI 22.9
--- NOTE | 2023-10-28 11:18 | MHC.CLN ---
NUTRITION VISITED WITH PATIENT AND HIS . DISCREPANCY IN WEIGHTS 1/4=54.5 KG AND 68.2 KG. REPORTS USUAL WEIGHT ABOUT 146#. USED WEIGHT=68.2 KG (150#) FOR RISK ASSESSMENT. PER CONVERSATION WITH , CHANGE DIET TO CHOPPED CONSISTENCY FROM REGULAR. AWARE THAT PATIENT WILL NOT RECEIVE BREAD ON CHOPPED DIET AND AGREES WITH CHANGE. NO ADDITIONAL NUTRITION INTERVENTIONS.
--- NOTE | 2023-10-28 14:22 | MHC.CM.PN ---
pt live with had no previous services pt will now be for str referrals made antionette [place] cell phone is [phone]
[2023-10-28 15:37] VITALS: BP 146/69; PULSE 99; RESP 16; TEMP 36.7; O2SAT 97
[2023-10-28 20:00] VITALS: BP 135/69; PULSE 95; RESP 16; TEMP 36.6; O2SAT 96
--- NOTE | 2023-10-28 23:53 | W.PM.IDCN ---
History of Present Illness Data of Consult Service Date: 10/28/23 Requesting physician: Kade Durán Primary Care Provider: Elif Vides MD HPI Reason for consult: bacteremia,sepsis concern He presents yesterday with weakness. He has CXR negative. He was weak for a day. LA was 2.4 Gram negative rods in urine and blood. Review of Systems Review of Systems: Yes all other systems are reviewed and are negative [facility] Past Medical History Medical History Glaucoma HTN (hypertension) Permanent atrial fibrillation Dementia Family History Family history: reviewed and not pertinent Social History Social History Household Members: Spouse Housing: House Do you presently have visiting nurse or other home services: No Comment: 2:1 sitter Patient Tobacco Use Status: Never used Tobacco Use of substances other than those prescribed or required for medical reasons: No Currently Displaying Signs/Symptoms of Drug Intoxication Withdrawal: No Have you been hit, kicked, punched, or otherwise hurt by someone within the past year? If so, by whom?: No Do you feel safe in your current relationship?: Yes Is there a partner from a previous relationship who is making you feel unsafe now?: No Are you made to feel afraid or neglected: No Advance Directives: Yes Advance Directives on File: Yes Advance Directives Date on File: 10/27/23 Do you have thoughts of harming others: None Do you have a plan to hurt others: No Plan Recently lost weight without trying: No How much weight loss: Not applicable Eating poorly because of decreased appetite: No Nutrition screen score: 0 Nutrition Risks: No Nutritional Risk Poor oral hygiene: No service: No Meds Allergies Allergy/AdvReac Type Severity Reaction Status Date / Time ciprofloxacin Allergy Intermediate hives Verified 10/27/23 11:55 benzonatate AdvReac Intermediate Gastrointestinal Verified 10/27/23 11:55 Upset lisinopril AdvReac Intermediate Cough Uncoded 10/10/23 10:36 Active Medications: Current Medications Acetaminophen (Acetaminophen 325 Mg Tablet) 650 mg PO Q6H PRN PRN Reason: Pain, Mild (Pain Scale 1-3) Acetaminophen (Acetaminophen Supp 650 Mg Supp.Rect) 650 mg MD Q6H PRN PRN Reason: Pain, Mild (Pain Scale 1-3) Diltiazem HCl (Diltiazem Hcl Cd 120 Mg Cap.Er.Deg) 120 mg PO BEDTIME [facility]; Protocol Last Admin: 10/28/23 21:22 Dose: 120 mg Donepezil HCl (Donepezil Hcl 10 Mg Tablet) 10 mg PO DAILY@1800 [facility] Last Admin: 10/28/23 18:16 Dose: 10 mg Ceftriaxone Sodium 1 gm/ (Sodium Chloride) 50 mls @ 100 mls/hr IV Q24H [facility] Last Infusion: 10/28/23 15:35 Dose: Infused Latanoprost (Latanoprost 0.005 % Ophth Rosa 2.5 Ml Drops) 1 drop EYE-BOTH BEDTIME [facility] Last Admin: 10/28/23 21:22 Dose: 1 drop Losartan Potassium (Losartan Potassium 50 Mg Tablet) 100 mg PO DAILY [facility]; Protocol Last Admin: 10/28/23 10:14 Dose: 100 mg Magnesium Hydroxide (Milk Of Magnesia 30 Ml Oral.Susp) 30 ml PO DAILY PRN PRN Reason: Constipation Memantine (Memantine Hcl 10 Mg Tablet) 10 mg PO DAILY@1800 [facility] Last Admin: 10/28/23 18:15 Dose: 10 mg Multivitamins/Vitamin C (Multivitamin Tablet) 1 tab PO DAILY [facility] Last Admin: 10/28/23 10:15 Dose: 1 tab Ondansetron HCl (Ondansetron Hcl 4 Mg/2 Ml Vial) 4 mg IVPUSH Q8H PRN PRN Reason: Nausea and Vomiting Sodium Chloride (0.9 % Sodium Chloride Flush 3 Ml Syringe) 3 ml IVFLUSH QSHIFT [facility] Last Admin: 10/28/23 21:22 Dose: 3 ml Timolol Maleate (Timolol Maleate 0.5 % Oph Rosa 5 Ml Drbtl) 1 drop EYE-BOTH DAILY [facility] Last Admin: 10/28/23 10:15 Dose: Not Given Warfarin Sodium (Warfarin Sodium 2.5 Mg Tablet) 2.5 mg PO SUMOTUWETHFR@1800 [facility] Last Admin: 10/28/23 18:15 Dose: 2.5 mg Warfarin Sodium (Warfarin Sodium 5 Mg Tablet) 5 mg PO SA@1800 [facility] Home Medications Medication Instructions Recorded Confirmed Last Taken Type donepezil 10 mg tablet 10 mg PO DAILY@1800 08/18/21 10/27/23 10/26/22 History latanoprost 0.005 % eye drops 1 drp ophthalmic (eye) BEDTIME 08/18/21 10/27/23 10/26/22 History memantine 5 mg tablet 10 mg PO DAILY@1800 08/18/21 10/27/23 10/26/22 History timolol maleate 0.5 % eye drops 1 drp ophthalmic (eye) DAILY 08/18/21 10/27/23 10/26/22 History warfarin 2.5 mg tablet 2.5 mg PO SUMOTUWETHFR@1800 08/25/21 10/27/23 10/26/22 History diltiazem HCl 120 mg 120 mg PO BEDTIME 09/15/21 10/27/23 10/26/22 History capsule,extended release 24 hr vit C 250 mg-vit E 90 mg-zinc 40 1 tab PO BID@0900,1800 02/16/22 10/27/23 10/26/22 History mg-copper 1 [id number] capsule (PreserVision AREDS-2) losartan 100 mg tablet 100 mg PO DAILY 08/16/23 10/27/23 10/27/22 History warfarin 2.5 mg tablet 5 mg PO SA@1800 10/27/23 10/27/23 10/26/22 History Physical Exam Vital Signs: Vital Signs: Last Vital Signs Temp 97.9 F 10/28/23 20:00 Pulse 95 10/28/23 20:00 Resp 16 10/28/23 20:00 BP 135/69 10/28/23 20:00 Pulse Ox 96 10/28/23 20:00 O2 Del Method Room Air 10/28/23 20:00 O2 Flow Rate 2 10/28/23 07:42 BMI result Body Mass Index 22.9 Const: General: cooperative HEENT: Head: Yes normal to inspection Face and sinus: Yes normal facial exam Mouth: Normal oral and palatal mucosa present Teeth and gingiva: dentition normal Eyes: General: appearance normal, both eyes and all related structures Pupils: Equal, round and reactive pupils present Resp: Effort & Inspection: normal respiratory effort Cardio: Rate: regular rate Rhythm: regular rhythm GI: Palpation (GI): Soft to palpation and nontender : General: Yes no CVA tenderness Back/Spine/Pelvis: Back: no CVA tenderness Skin: General skin exam: no rashes or lesions noted Neuro: General: moves all extremities Cranial nerves: Yes Equal, round and reactive pupils present Extrem: General: Yes normal to inspection Psych: Appearance: grossly normal Results Labs 10/27/23 12:33 10/28/23 06:00 Labs: BMP 10/28/23 06:00 Sodium 144 Potassium 4.0 Chloride 112 H Carbon Dioxide 25 BUN 30 H Creatinine 1.15 Calcium 8.6 Microbiology Microbiology Results: Microbiology 10/27/23 Unknown Urine clean catch - Urine abarca top Urine Culture - Preliminary Gram negative gracia 10/27/23 13:20 Blood - Venous Blood Culture - Preliminary Prelim: GNR Gram Stain only 10/27/23 12:33 Blood - Venous Blood Culture - Preliminary Prelim: GNR Gram Stain only Assessment and Plan (1) Bacteremia: Status: Acute There is urinary source for infection. There is possible Ecoli or Klebsiella (2) Dementia: Status: Acute (3) Urinary tract infection: Status: Acute Plan Continue Ceftriaxone Await repeat blood culture if not done. CT scan abdomen and pelvis evaluate for obstruction kidney. Likely switch to po when improving and cultures back.
[2023-10-29 03:40] VITALS: BP 125/85; PULSE 103; RESP 20; TEMP 36.8; O2SAT 94
[2023-10-29 07:52] VITALS: BP 128/69; PULSE 96; RESP 18; TEMP 36.8; O2SAT 95
--- NOTE | 2023-10-29 09:47 | HO.PM.IMPN ---
Subjective Subjective Date of Service: 10/29/23 Interval History: f/u on uti, weakness blood cultures are growing GNR, he looks better clinically Physical Exam Vital Signs: Vital Signs: Last Vital Signs Temp 98.3 F 10/29/23 07:52 Pulse 96 10/29/23 07:52 Resp 18 10/29/23 07:52 BP 128/69 10/29/23 07:52 Pulse Ox 95 10/29/23 07:52 O2 Del Method Room Air 10/29/23 07:52 O2 Flow Rate 2 10/28/23 07:42 BMI result Body Mass Index 22.9 Const: Other: General: oriented to self, pleasant and cooperative Resp: CTA bilateral CVS: S1,S2,RRR GI: +BS, NT, no distention Skin: No rash Neuro: motor grossly intact Psych: appropriate affect Objective Data Active Medications Acetaminophen (Acetaminophen 325 Mg Tablet) 650 mg PO Q6H PRN PRN Reason: Pain, Mild (Pain Scale 1-3) Acetaminophen (Acetaminophen Supp 650 Mg Supp.Rect) 650 mg HI Q6H PRN PRN Reason: Pain, Mild (Pain Scale 1-3) Diltiazem HCl (Diltiazem Hcl Cd 120 Mg Cap.Er.Deg) 120 mg PO BEDTIME [facility]; Protocol Last Admin: 10/28/23 21:22 Dose: 120 mg Documented By: ROMÁN Donepezil HCl (Donepezil Hcl 10 Mg Tablet) 10 mg PO DAILY@1800 [facility] Last Admin: 10/28/23 18:16 Dose: 10 mg Documented By: ALBERTO Ceftriaxone Sodium 1 gm/ (Sodium Chloride) 50 mls @ 100 mls/hr IV Q24H [facility] Last Infusion: 10/28/23 15:35 Dose: Infused Documented By: MERON Latanoprost (Latanoprost 0.005 % Ophth Rosa 2.5 Ml Drops) 1 drop EYE-BOTH BEDTIME [facility] Last Admin: 10/28/23 21:22 Dose: 1 drop Documented By: ROMÁN Losartan Potassium (Losartan Potassium 50 Mg Tablet) 100 mg PO DAILY [facility]; Protocol Last Admin: 10/29/23 08:14 Dose: 100 mg Documented By: REBECCA Magnesium Hydroxide (Milk Of Magnesia 30 Ml Oral.Susp) 30 ml PO DAILY PRN PRN Reason: Constipation Memantine (Memantine Hcl 10 Mg Tablet) 10 mg PO DAILY@1800 [facility] Last Admin: 10/28/23 18:15 Dose: 10 mg Documented By: ALBERTO Multivitamins/Vitamin C (Multivitamin Tablet) 1 tab PO DAILY [facility] Last Admin: 10/29/23 08:14 Dose: 1 tab Documented By: REBECCA Ondansetron HCl (Ondansetron Hcl 4 Mg/2 Ml Vial) 4 mg IVPUSH Q8H PRN PRN Reason: Nausea and Vomiting Sodium Chloride (0.9 % Sodium Chloride Flush 3 Ml Syringe) 3 ml IVFLUSH QSHIFT [facility] Last Admin: 10/29/23 08:14 Dose: 3 ml Documented By: REBECCA Timolol Maleate (Timolol Maleate 0.5 % Oph Rosa 5 Ml Drbtl) 1 drop EYE-BOTH DAILY [facility] Last Admin: 10/29/23 08:17 Dose: Not Given Documented By: REBECCA Non-Admin Reason: Med Not Available Warfarin Sodium (Warfarin Sodium 2.5 Mg Tablet) 2.5 mg PO SUMOTUWETHFR@1800 [facility] Last Admin: 10/28/23 18:15 Dose: 2.5 mg Documented By: ALBERTO Warfarin Sodium (Warfarin Sodium 5 Mg Tablet) 5 mg PO SA@1800 [facility] Labs 10/27/23 12:33 10/28/23 06:00 Labs: Laboratory Results - last 24 hr 10/27/23 10/29/23 17:45 06:40 PT 25.6 H INR 2.1 H Respiratory Panel Isbell See Note Adenovirus (Rapid PCR) Not Detected B.pert (TEM-PCR) Not Detected B.parapertussis DNA PCR Not Detected C. pneumoniae DNA (PCR) Not Detected Coronavirus OC43 (PCR) Not Detected Coronavirus HKU1 (PCR) Not Detected Coronavirus 229E (PCR) Not Detected Coronavirus NL63 (PCR) Not Detected Human Metapneumovir PCR Not Detected Influenza A (RT-PCR) Not Detected Influenza B (RT-PCR) Not Detected M. pneumoniae (PCR) Not Detected Parainfluenza 1 (PCR) Not Detected Parainfluenza 2 (PCR) Not Detected Parainfluenza 3 (PCR) Not Detected Parainfluenza 4 (PCR) Not Detected RSV (PCR) Not Detected Entero/Rhino (PCR) Not Detected SARS-CoV-2 RNA (RT-PCR) Not Detected Microbiology Microbiology Results: Microbiology 10/27/23 13:20 Blood Culture - Preliminary Blood - Venous Gram negative gracia 10/27/23 12:33 Blood Culture - Preliminary Blood - Venous Gram negative gracia 10/27/23 Unknown Urine Culture - Final Urine clean catch - Urine abarca top Escherichia coli Assessment and Plan (1) Bacteremia: Status: Acute Plan 88/m with dementia, permanent afib, HTN here weakness, UTI, and hypoxia admitted with UTI, has GRR bacteremia/sepsis, urine culture pansensitive e coli -IV ceftriaxone 10/27, -ID consult consult pending 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 Acute lactic acidosis--related renal failure, dehydration Elevated troponin I--likely from ckd, afib with rvr, trended down Permanent AFIB--continue cardizem, and stroke prevention w/ coumadin, follow daily INR Hypoxia--etiology unclear, ? undiagnosed copd, no respiratory distress, flu, covid, rsv negative, and cxr, resolved likely related to sepsis DNR/DNI need fot inpt: sepsis, bacteremia organism not yet known n Quality Stroke Does the patient have a stroke diagnosis?: No VTE Prior VTE?: No VTE Risk Level:: Medical - moderate - high VTE Device Contraindication: Treatment Not Indicated VTE Drug Contraindication: N/A - Med Ordered
--- NOTE | 2023-10-29 12:53 | PC.NURSE ---
Ambulated well with stand by minimal assist to the bathroom and in the [address]. Family witness care, states baseline for ambulation, okay with plan on taking him home vs STR.
--- NOTE | 2023-10-29 13:31 | W.MHC.F2F ---
Service Date Service Date: 10/29/23 Encounter Date of encounter: 10/29/23 Reasons for Services Signs and symptoms assessed: weakness from sepsis, uti and hospitalization Reason for long-term: medication management and teach disease management Reason for physical therapy: therapeutic exercises, gait/transfer training and energy conservation Homebound: Leaving the home is medically contraindicated at this time without the asist of a device and/or another person due th the listed conditions above and below. Reason homebound: weakness related to hospital stay Homebound supporting statement: homebound due to weakness from sepsis, Uti, dementia, doesn't drive and therefore needs the assistance of another person Certification: Based on the above findings, I certify that this patient is confined to the home and needs intermittent long-term care, physical therapy and/or speech therapy, or continues to need occupational therapy. The patient is under my care, and I have initiated the establishment of the plan of care. The patient will be followed by a physician who will periodically review the plan of care. Time Spent With Patient Time: Total time managing care of this patient today ____ minutes.
--- NOTE | 2023-10-29 13:40 | PM.DS ---
DS: Providers Provider Date of Service: 10/29/23 Date of admission: 10/27/23 17:12 Primary care physician: Elif Vides MD Consults: 10/28/23 10:57 Consult to Infectious Diseases [place]ine [place] [facility] [place] Reason for consultation: infectious disease Has provider been notified: No DS: Diagnosis Discharge Diagnosis (1) Bacteremia: Status: Acute DS: Summary Hospital Course Hospital Course: Admission HPI Chief Complaint: Weakness 88 year old male with dementia, permanent afib on coumadin, hard of hearing, HTN lives at home with who is at bedside. His called EMS because patient was very weak today and spend nearly all day sleeping yesterday and apetite poor. There is no report of fever or chills, he is incontinent of urine. ED work up : Nl WBC, lactic acid 2.4, Creatine 1.53 which is above baseline, BNP 200 and troponin 37.5. CXR negative for PNA, covid, RSV, Flu negative. Given Ceftriaxone for UTI Hospital course: Patient was admitted due to UTI causing weakness and found to have gram negative gracia bacteremia. He was treated with IV Ceftriaxone, urine culture grew E.mika that is sensitive to ceftriaxone, it is presumed that the bacteremia is from the UTI. He had a CT of the abdomen showing no blockage. infectious disease saw him and recommends 14 days of antibiotics and he will be transition to oral Ceftin 500 mg twice daily. Patient also had hypoxia when he presented, cxr was unremarkable, he has no respiratory distress, negative covid, flu and rsv. He was on oxygen, but the hypoxia has now resolved and he is saturating 95% on room air, this was likely related to sepsis. As for the weakness which is related to uti and sepsis, this has improved. Physical therapy recommended STR vs home with home service. Family believes he's at his baseline and has opted for home with services. Time Attestation Discharge coordination time: Greater than 30 minutes Quality: Safe Use of Opioids Does Pt have an Active Cancer Diagnosis on the Problem List?: No Quality: Stroke Does the patient have a stroke diagnosis?: No Physical Exam Vital Signs: Vital Signs: Last Vital Signs Temp 98.3 F 10/29/23 07:52 Pulse 96 10/29/23 07:52 Resp 18 10/29/23 07:52 BP 128/69 10/29/23 07:52 Pulse Ox 95 01/06/24 07:52 O2 Del Method Room Air 10/29/23 07:52 O2 Flow Rate 2 10/28/23 07:42 BMI result Body Mass Index 22.9 DS: Data Data Completed and Pending Labs on day of discharge: Laboratory Results - last 24 hr 10/29/23 06:40 PT 25.6 H INR 2.1 H Preliminary micro results at discharge 10/27/23 13:20 Blood Culture - Preliminary Blood - Venous Gram negative gracia 10/27/23 12:33 Blood Culture - Preliminary Blood - Venous Gram negative gracia Discharge Plan Discharge Anticipated Discharge Date/Time: 10/29/23 13:23 Patient Disposition: Home Health Service Discharge Diagnosis: UTI, bacteremia Referrals: Elif Vides MD [Primary Care Provider] - 1 Week Discharge Medications: New cefuroxime axetil 500 mg tablet 500 mg PO BID 11 Days Qty: 22 0RF Continued PreserVision AREDS-2 250-90-40-1 mg capsule 1 tab PO BID@0900,1800 warfarin 2.5 mg tablet 5 mg PO SA@1800 diltiazem HCl 120 mg capsule,extended release 24hr 120 mg PO BEDTIME donepezil 10 mg tablet 10 mg PO DAILY@1800 latanoprost 0.005 % drops 1 drp ophthalmic (eye) BEDTIME memantine 5 mg tablet 10 mg PO DAILY@1800 timolol maleate 0.5 % drops 1 drp ophthalmic (eye) DAILY warfarin 2.5 mg tablet 2.5 mg PO SUMOTUWETHFR@1800 Protocol: Dose Management Condition: Tuesday (Week One) Dose/Route: 2.5 mg Instruction: 1 x 2.5 mg tablet Condition: Tuesday Dose/Route: 2.5 mg Instruction: 1 x 2.5 mg tablet Condition: Tuesday Dose/Route: 2.5 mg Instruction: 1 x 2.5 mg tablet Condition: Tuesday Dose/Route: 2.5 mg Instruction: 1 x 2.5 mg tablet Condition: Dose/Route: 2.5 mg Instruction: 1 x 2.5 mg tablet Condition: Tuesday Dose/Route: 2.5 mg Instruction: 1 x 2.5 mg tablet Condition: Tuesday Dose/Route: 5 mg Instruction: 2 x 2.5 mg tablets Condition: Tuesday (Week Two) Dose/Route: 2.5 mg Instruction: 1 x 2.5 mg tablet Condition: Tuesday Dose/Route: 2.5 mg Instruction: 1 x 2.5 mg tablet Condition: Tuesday Dose/Route: 2.5 mg Instruction: 1 x 2.5 mg tablet Condition: Tuesday Dose/Route: 2.5 mg Instruction: 1 x 2.5 mg tablet Condition: Dose/Route: 2.5 mg Instruction: 1 x 2.5 mg tablet Condition: Tuesday Dose/Route: 2.5 mg Instruction: 1 x 2.5 mg tablet Condition: Tuesday Dose/Route: 5 mg Instruction: 2 x 2.5 mg tablets Protocol Text: Adjustment Start Date: Tuesday10/10/23 INR Value: 2.1 INR Date: 10/10/23 Recheck Date: 10/31/23 Additional Instructions: EAT A MIX OF FRUITS AND VEGETABLES MERBRENDEN RASHAD losartan 100 mg tablet 100 mg PO DAILY Discharge Orders: Discharge Order (Routine); Ordered 10/29/23 Ordered By: Kade Durán Diet: Advance to usual diet Activity on Discharge: As tolerated Stand Alone Forms: Patient Portal Discharge page Care Plan Goals: recovery from UTI and bacteremia Health Concerns: UTI, bacteremia Plan of Treatment: Take Cefuroxime (Ceftin) 500 mg twice daily for 11 more day for total of 14 days following up with your Doctor in 1 to 2 weeks You will have home health service Assessment: See above
--- NOTE | 2023-10-29 14:29 | PC.NURSE ---
Family understand d/c, no questions at this time, received last dose of IV ABT. c/o slight discomfort however flushes well. Will follow up with PCP. 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
--- NOTE | 2023-10-30 09:30 | MHC.CM.PN ---
Addendum entered by Moni Villarreal 10/30/23 09:56: [facility] HAS ACCEPTED PTS REFERRAL THEY HAVE RECEIVED PTS DCS AND F2F ORDERS CM CALLED PTS , CHARU [phone] AND INFORMED HER OF ACCEPTING AGENCY SHE REPORTS THE PT SEEMS MUCH BETTER TODAY AND SHE THINKS THE MEDS MAY BE WORKING SHE REPORTS SHE IS UNSURE THEY WILL NEED THE PT SERVICES CM INFORMED HER SHE COULD STOP ANY OF THE SERVICES AT ANY TIME IF SHE FELT THEM UNNECESSARY, HOWEVER PT WILL HAVE ACCESS TO PT AND SN IF THEY CHOOSE Original Note: PT DISCHARGED YESTERDAY, CM MET WITH PT AND THEY WERE AWARE PT DISCHARGED WITH VNA ORDERS, HOWEVER A VNA HAD NOT YET BEEN SECURED THEY AGREED THEY WOULD DC AND CM WILL CALL WHEN AN AGENCY IS SECURED A BROAD REFERRAL WAS PLACED TO ALL [facility] CONTRACTED VNAS IN THE AREA [facility] VNA DOES NOT COVER NEFTALI [facility] IS NOT CONTRACTED BS INDICATED THEY WERE REVIEWING, HOWEVER NEVER RESPONDED AFTER THAT DESPITE MULTIPLE MESSAGES CM CALLED [facility] [phone], NO ANSWER, MSG LEFT CM CALLED [facility] [phone], THEY DO NOT REVIEW ON THE WEEKEND AND WILL FOLLOW UP ON TUESDAY CM CALLED [facility] [phone], MESSAGE LEFT CARON HAS PROVIDED SIGN OFF TO TODAYS COVERING CM WHO WILL CONTINUE VNA SEARCH
== END 2023-10-29 14:37 | disposition home health service (06) | DRG 690 ==
LOC: HO.ED 15:52 → HO.EDOVER 17:26 → HO.S3 18:49
PROVIDERS: Admitting Provider Internal Medicine; Emergency Provider Student in an Organized Health Care Education/Training Program; PCP Internal Medicine; Visit Provider Internal Medicine
DX: N39.0 Urinary tract infection, site not specified (principal); I48.21 Permanent atrial fibrillation; N17.9 Acute kidney failure, unspecified; N18.4 Chronic kidney disease, stage 4 (severe); E87.21 Acute metabolic acidosis; B96.20 Unspecified Escherichia coli [E. coli] as the cause of diseases classified elsewhere; Z66 Do not resuscitate; F03.90 Unspecified dementia, unspecified severity, without behavioral disturbance, psychotic disturbance, mood disturbance, and anxiety; R09.02 Hypoxemia; E86.0 Dehydration; Z20.822 Contact with and (suspected) exposure to COVID-19; Z79.01 Long term (current) use of anticoagulants; Z79.899 Other long term (current) drug therapy
CPT/HCPCS: 0241U; 36415; 71045; 74176; 80048; 80053; 81001; 82550; 83605; 83735; 83880; 84484; 85025; 85610; 85730; 87040; 87077; 87086; 87088; 87186; 87205; 87633; 93005; 97162; 99285; J0696

== ENCOUNTER → 2023-10-27 11:53 | Outpatient (BNV) | payer MEDICARE, SELFPAY | PROVIDERS: Emergency Provider Student in an Organized Health Care Education/Training Program; PCP Internal Medicine; Visit Provider Internal Medicine Cardiovascular Disease | DX: I48.91 Unspecified atrial fibrillation (principal); I44.4 Left anterior fascicular block | CPT/HCPCS: 93010 ==

== ENCOUNTER → 2023-10-27 17:12 | Outpatient (BNV) | payer MEDICARE, SELFPAY | PROVIDERS: Admitting Provider Internal Medicine; Emergency Provider Student in an Organized Health Care Education/Training Program; PCP Internal Medicine; Visit Provider Internal Medicine | DX: R78.81 Bacteremia (principal); F03.90 Unspecified dementia, unspecified severity, without behavioral disturbance, psychotic disturbance, mood disturbance, and anxiety; N39.0 Urinary tract infection, site not specified | CPT/HCPCS: 99222 ==

== ENCOUNTER → 2023-10-27 17:12 | Outpatient (BNV) | payer MEDICARE, SELFPAY | PROVIDERS: Admitting Provider Internal Medicine; Emergency Provider Student in an Organized Health Care Education/Training Program; PCP Internal Medicine; Visit Provider Internal Medicine | DX: R78.81 Bacteremia (principal) | CPT/HCPCS: 99223; 99233; 99239; G0180 ==

== ENCOUNTER → 2023-11-01 13:44 | Outpatient (BNVA) | payer MEDICARE, SELFPAY | PROVIDERS: PCP Internal Medicine; Visit Provider Internal Medicine ==

== ENCOUNTER 2023-11-08 11:13 | Outpatient (REF) | payer MEDICARE, SELFPAY ==
[2023-11-08 11:33] LABS: MANUAL DIFF FLAG NO
[2023-11-08 12:35] LABS: Basophils Absolute Auto 0.1 X10*3/uL (0.0-0.2); Basophils Percent Auto 0.9 % (0-2); Eosinophils Absolute Auto 0.1 X10*3/uL (0.0-0.4); Eosinophils Percent Auto 1.2 % (0-4); Hematocrit 37.1 % (42.0-52.0); Hemoglobin 11.7 g/dl (14.0-18.0); Imm Gran Abs Auto 0.02 X10*3/uL (0.00-0.03); Imm Gran Pct Auto 0.3 % (0.0-0.4); Lymphocytes Absolute Auto 0.7 X10*3/uL (1.2-4.9); Lymphocytes Percent Auto 12.7 % (20-40); Mean Corpuscular HGB Conc 31.5 g/dl (31.0-36.0); Mean Corpuscular Hemoglobin 28.5 pg (27.0-33.0); Mean Corpuscular Volume 90.5 fL (80.0-98.0); Mean Platelet Volume 10.6 fL (9.4-12.4); Monocytes Absolute Auto 0.6 X10*3/uL (0.1-1.2); Monocytes Percent Auto 9.7 % (2-11); Neutrophils Absolute Auto 4.3 x10*3/uL (2.0-8.3); Neutrophils Percent Auto 75.2 % (45-73); Platelet Count 226 X10*3/uL (160-400); Red Cell Distribution Width 17.2 % (11.0-16.0); White Blood Count 5.8 X10*3/uL (4.8-10.8)
[2023-11-08 13:02] LABS: Alanine Aminotransferase 27 U/L (0-40); Albumin Level 3.6 g/dL (3.5-5.0); Alkaline Phosphatase 135 U/L (39-117); Anion Gap 12 (12-20); Aspartate Amino Transferase 32 U/L (5-37); Bilirubin Total 0.7 mg/dL (0.0-1.0); Blood Urea Nitrogen 27 mg/dL (9-16); Calcium 9.4 mg/dL (8.4-10.2); Carbon Dioxide 25 mmol/L (22-29); Chloride 106 mmol/L (96-108); Estimated Glomerular Filt Rate > 60; Glucose Random 103 mg/dL (60-115); Potassium 4.1 mmol/L (3.3-5.1); Sodium 139 mmol/L (135-145); Total Protein 6.9 g/dL (6.5-8.0)
[2023-11-08 13:22] LABS: Folate 16.6 ng/mL (> or = 4.0); Vitamin B12 715 pg/mL (200-900)
== END 2023-11-08 11:14 | disposition home or self-care (01) ==
LOC: HO.LAB 11:13
PROVIDERS: PCP Internal Medicine; Visit Provider Internal Medicine
DX: N17.9 Acute kidney failure, unspecified (principal); N39.0 Urinary tract infection, site not specified; R26.0 Ataxic gait; Z79.01 Long term (current) use of anticoagulants; Z85.46 Personal history of malignant neoplasm of prostate
CPT/HCPCS: 36415; 80053; 82607; 82746; 85025

== ENCOUNTER → 2023-11-09 09:53 | Outpatient (BNVA) | payer MEDICARE, SELFPAY | PROVIDERS: PCP Internal Medicine; Visit Provider Internal Medicine ==

== ENCOUNTER → 2023-11-14 12:27 | Outpatient (BNVA) | payer MEDICARE, SELFPAY | PROVIDERS: PCP Internal Medicine; Visit Provider Internal Medicine ==

== ENCOUNTER → 2023-11-21 10:52 | Outpatient (BNVA) | payer MEDICARE, SELFPAY | PROVIDERS: PCP Internal Medicine; Visit Provider Internal Medicine ==

== ENCOUNTER → 2023-11-28 09:24 | Outpatient (BNVA) | payer MEDICARE, SELFPAY | PROVIDERS: PCP Internal Medicine; Visit Provider Internal Medicine ==

== ENCOUNTER 2023-12-05 10:52 | Outpatient (AMB) | payer MEDICARE, SELFPAY ==
--- NOTE | 2023-12-05 12:00 | MHC.OFFVISCO ---
Intake Intake Visit Reasons: Anticoagulation Allergies ciprofloxacin Allergy (Intermediate, Verified 12/05/23 11:55) hives benzonatate Adverse Reaction (Intermediate, Verified 12/05/23 11:55) Gastrointestinal Upset lisinopril Adverse Reaction (Intermediate, Uncoded 12/05/23 11:55) Cough Medication List - Last Reconciled 12/05/23 by Amy Bales RN diltiazem HCl 120 mg PO BEDTIME donepezil 10 mg PO DAILY@1800 latanoprost 0.005% 1 drp ophthalmic (eye) BEDTIME losartan 100 mg PO DAILY memantine 10 mg PO DAILY@1800 timolol maleate 0.5% 1 drp ophthalmic (eye) DAILY vit C,X-En-qvhlf-lutein-zeaxan 250-90-40-1 mg (PreserVision AREDS-2) 1 tab PO BID@0900,1800 warfarin 5 mg See Protocol PO SA@1800 warfarin 2.5 mg See Protocol PO SUMOTUWETHFR@1800 [facility], INR today is 1.8 - she reports no changes and that he is d/c from VNA services, - he was being monitored/treated for hypoxia - and is better now T/c to nurse Kimbrough T/c to patient by [facility] nurse spoke with pt Gisele - she states the dementia is active today and he is a little confused today Patient status: besides the dementia - no other chagnes Denies any signs and symptoms of any unusual bruising, bleeding or clotting Medication or supplements: no changes Diet: good Activity: as tolerated Dose : 5mg x 2 days this week then resume usual dose retest 1 weeks, pt use to be on 5mg x 2 days / 2.5mg x 5 days several months ago prior to becoming ill Dosing and diet instructions given with next retest date of 1 week, Nurse and patient verbalizes understanding of instructions given with accurate read back Anti-Coag Initial Assessment Social Hx Patient Tobacco Use Status: Never used Tobacco Coding Level of Care Code Est Patient Level 1 Diagnoses Current use of anticoagulant therapy Z79.01 Results AMB INR Fingerstick AMB INR Fingerstick 1.8 Last Edit by Amy Bales RN on 12/05/23 11:57 VNA Assessment & Plan Assessment & Plan (1) Current use of anticoagulant therapy: 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
--- NOTE | 2024-01-31 11:33 | MHC.OFFVISCO ---
Intake Intake Visit Reasons: Anticoagulation Allergies ciprofloxacin Allergy (Intermediate, Verified 01/31/24 09:49) hives benzonatate Adverse Reaction (Intermediate, Verified 01/31/24 09:49) Gastrointestinal Upset lisinopril Adverse Reaction (Intermediate, Uncoded 01/31/24 09:49) Cough Medication List - Last Reconciled 12/05/23 by Amy Bales RN diltiazem HCl 120 mg PO BEDTIME donepezil 10 mg PO DAILY@1800 latanoprost 0.005% 1 drp ophthalmic (eye) BEDTIME losartan 100 mg PO DAILY memantine 10 mg PO DAILY@1800 timolol maleate 0.5% 1 drp ophthalmic (eye) DAILY vit C,V-Az-rxezk-lutein-zeaxan 250-90-40-1 mg (PreserVision AREDS-2) 1 tab PO BID@0900,1800 warfarin 5 mg See Protocol PO SA@1800 warfarin 2.5 mg See Protocol PO SUMOTUWETHFR@1800 Nursing Note Note and visit canceled change in billing: Oswaldo Watson [facility] : 1935 [id number] 12/05/23 12:00 - Nursing Note by Amy Bales RN Acct Num: [id number] : 1935 Patient Age: 88 Addendum entered by Amy Bales RN 01/31/24 11:31: For 12/05/22 Appeals Manager please change Established Patient Level 1 to Warfarin Management - he had his INR drawn at home by the VNA - he did not come to the clinic thank you Original Note: Intake Intake Visit Reasons: Anticoagulation Allergies ciprofloxacin Allergy (Intermediate, Verified 12/05/23 11:55) hivesbenzonatate Adverse Reaction (Intermediate, Verified 12/05/23 11:55) Gastrointestinal Upsetlisinopril Adverse Reaction (Intermediate, Uncoded 12/05/23 11:55) Cough Medication List - Last Reconciled 12/05/23 by Amy Bales RN diltiazem HCl 120 mg PO BEDTIME donepezil 10 mg PO DAILY@1800 latanoprost 0.005% 1 drp ophthalmic (eye) BEDTIME losartan 100 mg PO DAILY memantine 10 mg PO DAILY@1800 timolol maleate 0.5% 1 drp ophthalmic (eye) DAILY vit C,W-Gy-ylopv-lutein-zeaxan 250-90-40-1 mg (PreserVision AREDS-2) 1 tab PO BID@0900,1800 warfarin 5 mg See Protocol PO SA@1800 warfarin 2.5 mg See Protocol PO SUMOTUWETHFR@1800 [facility], INR today is 1.8 - she reports no changes and that he is d/c from VNA services, - he was being monitored/treated for hypoxia - and is better now T/c to nurse Kaylan T/c to patient by [facility] nurse spoke with pt Gisele - she states the dementia is active today and he is a little confused today Patient status: besides the dementia - no other chagnes Denies any signs and symptoms of any unusual bruising, bleeding or clotting Medication or supplements: no changes Diet: good Activity: as tolerated Dose : 5mg x 2 days this week then resume usual dose retest 1 weeks, pt use to be on 5mg x 2 days / 2.5mg x 5 days several months ago prior to becoming ill Dosing and diet instructions given with next retest date of 1 week, Nurse and patient verbalizes understanding of instructions given with accurate read back Anti-Coag Initial Assessment Social Hx Patient Tobacco Use Status: Never used Tobacco Coding Level of Care Code Est Patient Level 1 Diagnoses Current use of anticoagulant therapy Z79.01 Results AMB INR Fingerstick AMB INR Fingerstick 1.8 ? Last Edit by Amy Bales RN on 12/05/23 11:57 VNA Assessment & Plan Assessment & Plan (1) Current use of anticoagulant therapy: Code(s): Z79.01 - halfway (current) use of anticoagulants Category: Medical Initialized on 12/05/23 12:00 - END OF NOTE Anti-Coag Initial Assessment Social Hx Patient Tobacco Use Status: Never used Tobacco Coding Level of Care Code Warafin Pt Mnmt Anticoag Diagnoses Current use of anticoagulant therapy Z79.01 Results AMB INR Fingerstick AMB INR Fingerstick 1.8 Last Edit by Amy Bales RN on 12/05/23 11:57 VNA Assessment & Plan Assessment & Plan (1) Current use of anticoagulant therapy: Code(s): Z79.01 - 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
== END 2023-12-05 12:05 | disposition home or self-care (01) ==
LOC: HO.ACS 10:52
PROVIDERS: PCP Internal Medicine; Visit Provider Internal Medicine
DX: Z79.01 Long term (current) use of anticoagulants (principal)

== ENCOUNTER → 2023-12-05 10:52 | Outpatient (BNVA) | payer MEDICARE, SELFPAY | PROVIDERS: PCP Internal Medicine; Visit Provider Internal Medicine | DX: Z71.89 Other specified counseling (principal) | CPT/HCPCS: 99211 ==

== ENCOUNTER 2023-12-08 12:22 | Outpatient (REF) | payer MEDICARE, SELFPAY | END 2023-12-08 12:23 | disposition home or self-care (01) | LOC: HO.10HDLNP 12:22 | PROVIDERS: Visit Provider Internal Medicine | DX: N39.0 Urinary tract infection, site not specified (principal) | CPT/HCPCS: 87086 ==

== ENCOUNTER 2023-12-14 10:41 | Outpatient (AMB) | payer MEDICARE, SELFPAY ==
--- NOTE | 2023-12-14 11:09 | MHC.OFFVISCO ---
Intake Intake Visit Reasons: Anticoagulation Allergies ciprofloxacin Allergy (Intermediate, Verified 12/14/23 10:56) hives benzonatate Adverse Reaction (Intermediate, Verified 12/14/23 10:56) Gastrointestinal Upset lisinopril Adverse Reaction (Intermediate, Uncoded 12/14/23 10:56) Cough Medication List - Last Reconciled 12/14/23 by Lolis Fuentes, RN diltiazem HCl 120 mg PO BEDTIME donepezil 10 mg PO DAILY@1800 latanoprost 0.005% 1 drp ophthalmic (eye) BEDTIME losartan 100 mg PO DAILY memantine 10 mg PO DAILY@1800 timolol maleate 0.5% 1 drp ophthalmic (eye) DAILY vit C,X-Zf-qrcgd-lutein-zeaxan 250-90-40-1 mg (PreserVision AREDS-2) 1 tab PO BID@0900,1800 warfarin 5 mg See Protocol PO SA@1800 warfarin 2.5 mg See Protocol PO SUMOTUWETHFR@1800 Nursing Note INR: 2.4 in therapeutic range OF 2-3 Medications and supplements reviewed Pt had a UTI and just completed a course of antibiotics, Cefuroxime today has been taking cranberry juice No changes in diet, or supplements, Pt ambulates with walker and assist of for guidance states pt fell 1 week ago and has a large bruise on buttocks which is fading Pt denies pain Bleeding, bruising, clotting discussed Nutritional guidance given to balance greens and reds Dose: continue same dose of 5mg X1day and 2.5mg all other days F/U INR: 2 weeks Patient verbalizes understanding of instructions given Anti-Coag Initial Assessment Social Hx Patient Tobacco Use Status: Never used Tobacco Coding Level of Care Code Est Patient Level 1 Diagnoses Current use of anticoagulant therapy Z79.01 Results AMB INR Fingerstick AMB INR Fingerstick 2.4 Last Edit by Lolis Fuentes, ROCCO on 12/14/23 11:08 interface delay Assessment & Plan Assessment & Plan (1) Current use of anticoagulant therapy: 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
[2023-12-14 11:13] LABS: Prothrombin Time Whole Bld POC 28.9 sec (11.1-13.5); ~PT, ~INR - Anti Coag Clinic 2.4 (0.9-1.1)
== END 2023-12-14 11:17 | disposition home or self-care (01) ==
LOC: HO.ACS 10:41
PROVIDERS: PCP Internal Medicine; Visit Provider Internal Medicine
DX: Z79.01 Long term (current) use of anticoagulants (principal)

== ENCOUNTER → 2023-12-14 10:41 | Outpatient (BNVA) | payer MEDICARE, SELFPAY | PROVIDERS: PCP Internal Medicine; Visit Provider Internal Medicine | DX: I48.91 Unspecified atrial fibrillation (principal); Z79.01 Long term (current) use of anticoagulants; Z51.81 Encounter for therapeutic drug level monitoring | CPT/HCPCS: 85610; 99211 ==

== ENCOUNTER 2023-12-19 10:47 | Outpatient (AMB) | payer MEDICARE, SELFPAY ==
[2023-12-19 10:58] LABS: Prothrombin Time Whole Bld POC 22.3 sec (11.1-13.5); ~PT, ~INR - Anti Coag Clinic 1.9 (0.9-1.1)
--- NOTE | 2023-12-19 11:06 | MHC.OFFVISCO ---
Intake Intake Visit Reasons: Anticoagulation Allergies ciprofloxacin Allergy (Intermediate, Verified 12/19/23 10:53) hives benzonatate Adverse Reaction (Intermediate, Verified 12/19/23 10:53) Gastrointestinal Upset lisinopril Adverse Reaction (Intermediate, Uncoded 12/19/23 10:53) Cough Medication List - Last Reconciled 12/19/23 by Lolis Fuentes, RN diltiazem HCl 120 mg PO BEDTIME donepezil 10 mg PO DAILY@1800 latanoprost 0.005% 1 drp ophthalmic (eye) BEDTIME losartan 100 mg PO DAILY memantine 10 mg PO DAILY@1800 timolol maleate 0.5% 1 drp ophthalmic (eye) DAILY vit C,M-Lo-bxsbh-lutein-zeaxan 250-90-40-1 mg (PreserVision AREDS-2) 1 tab PO BID@0900,1800 warfarin 5 mg See Protocol PO SA@1800 warfarin 2.5 mg See Protocol PO SUMOTUWETHFR@1800 Nursing Note 0920 Received call from Gisele to check in regarding a large bruise that pt has on low back/rt buttock. STATES BRUISE STARTED TO FADE AND THEN GOT PURPLE AGAIN. TOLD TO BRING PT IN. PT TO [facility] W/. BRUISE ASSESSED, LOW BACK TO SACRAL AREA DARK ECCHYMOSIS AND FADING BRUISE DOWN RT BUTTOCK INR 1.9? out of therapeutic range OF 2-3 Medications and supplements reviewed Patient status: DENIES PAIN OR DIZZINESS, COLOR PALE PINK NO OTHER S/S OF BLEEDING, NO BLOOD IN URINE Medications or supplements: NO CHANGES Diet: NO CHANGE Bleeding, bruising, clotting discussed ENCOURAGED TO GO TO ER IF BRUISING WORSENS AND/OR BLEEDING OCCERS Nutritional guidance given: NO GREENS TODAY, HAVE A SERVING OF REDS Dose: NO CHANGE F/U INR Date : 1 WEEK Patient verbalizing understanding of instructions given. Anti-Coag Initial Assessment Social Hx Patient Tobacco Use Status: Never used Tobacco Coding Level of Care Code Est Patient Level 1 Diagnoses Current use of anticoagulant therapy Z79.01 Assessment & Plan Assessment & Plan (1) Current use of anticoagulant therapy: Code(s): Z79.01 - detention (current) use of anticoagulants Category: Medical
== END 2023-12-19 12:07 | disposition home or self-care (01) ==
PROVIDERS: PCP Internal Medicine; Visit Provider Internal Medicine
DX: Z79.01 Long term (current) use of anticoagulants (principal)

== ENCOUNTER → 2023-12-19 10:47 | Outpatient (BNVA) | payer MEDICARE, SELFPAY | PROVIDERS: PCP Internal Medicine; Visit Provider Internal Medicine | DX: I48.0 Paroxysmal atrial fibrillation (principal); Z79.01 Long term (current) use of anticoagulants; Z51.81 Encounter for therapeutic drug level monitoring | CPT/HCPCS: 85610; 99211 ==

== ENCOUNTER 2023-12-28 11:00 | Outpatient (AMB) | payer MEDICARE, SELFPAY ==
[2023-12-28 11:22] LABS: Prothrombin Time Whole Bld POC 20.2 sec (11.1-13.5); ~PT, ~INR - Anti Coag Clinic 1.7 (0.9-1.1)
--- NOTE | 2023-12-28 11:27 | MHC.OFFVISCO ---
Intake Intake Visit Reasons: Anticoagulation Allergies ciprofloxacin Allergy (Intermediate, Verified 12/28/23 11:16) hives benzonatate Adverse Reaction (Intermediate, Verified 12/28/23 11:16) Gastrointestinal Upset lisinopril Adverse Reaction (Intermediate, Uncoded 12/19/23 10:53) Cough Medication List - Last Reconciled 12/28/23 by Janet Traylor, RN diltiazem HCl 120 mg PO BEDTIME donepezil 10 mg PO DAILY@1800 latanoprost 0.005% 1 drp ophthalmic (eye) BEDTIME losartan 100 mg PO DAILY memantine 10 mg PO DAILY@1800 timolol maleate 0.5% 1 drp ophthalmic (eye) DAILY vit C,R-Ei-gnunb-lutein-zeaxan 250-90-40-1 mg (PreserVision AREDS-2) 1 tab PO BID@0900,1800 warfarin 5 mg See Protocol PO SA@1800 warfarin 2.5 mg See Protocol PO SUMOTUWETHFR@1800 Nursing Note REPORTS NO MISSED DOSES,CP,SOB,DIET/MED CHANGES,FALLS OR SX OF BLEEDING. BOOST TO 5MGM WARFARIN TODAY AND INCREASE WEEKLY DAOSE AND FOLLOW-UP IN 1 WEEK. NO GREENS 1-2 DAYS. WILL INCREASE REDS A BIT. GOOD UNDERSTANDING OF DOSING INSTR.BY PT'S . 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
== END 2023-12-28 11:33 | disposition home or self-care (01) ==
LOC: HO.ACS 11:00
PROVIDERS: PCP Internal Medicine; Visit Provider Internal Medicine
DX: Z79.01 Long term (current) use of anticoagulants (principal)

== ENCOUNTER → 2023-12-28 11:00 | Outpatient (BNVA) | payer MEDICARE, SELFPAY | PROVIDERS: PCP Internal Medicine; Visit Provider Internal Medicine | DX: I48.91 Unspecified atrial fibrillation (principal); Z79.01 Long term (current) use of anticoagulants; Z51.81 Encounter for therapeutic drug level monitoring | CPT/HCPCS: 85610; 99211 ==

== ENCOUNTER 2024-01-05 10:23 | Outpatient (AMB) | payer MEDICARE, SELFPAY ==
[2024-01-05 10:46] LABS: Prothrombin Time Whole Bld POC 26.8 sec (11.1-13.5); ~PT, ~INR - Anti Coag Clinic 2.2 (0.9-1.1)
--- NOTE | 2024-01-05 10:47 | MHC.OFFVISCO ---
Intake Intake Visit Reasons: Anticoagulation Allergies ciprofloxacin Allergy (Intermediate, Verified 01/05/24 10:39) hives benzonatate Adverse Reaction (Intermediate, Verified 01/05/24 10:39) Gastrointestinal Upset lisinopril Adverse Reaction (Intermediate, Uncoded 01/05/24 10:39) Cough Medication List - Last Reconciled 01/05/24 by Lolis Mccormack, RN diltiazem HCl 120 mg PO BEDTIME donepezil 10 mg PO DAILY@1800 latanoprost 0.005% 1 drp ophthalmic (eye) BEDTIME losartan 100 mg PO DAILY memantine 10 mg PO DAILY@1800 timolol maleate 0.5% 1 drp ophthalmic (eye) DAILY vit C,S-Cc-ajtfa-lutein-zeaxan 250-90-40-1 mg (PreserVision AREDS-2) 1 tab PO BID@0900,1800 warfarin 5 mg See Protocol PO SA@1800 warfarin 2.5 mg See Protocol PO SUMOTUWETHFR@1800 Nursing Note Amb to [facility], accomp by feeling well Medications and supplements reviewed, recent warfarin dosing change No other changes in health, diet, medications, or supplements Denies any unusual signs and symptoms of bruising, bleeding Denies any new Chest pain, SOB, or clotting INR: 2.2 now in therapeutic range Nutritional guidance given: balance greens and reds in diet Dose: continue new dosing; 5mg x 2 days and 2.5mg x 5 days F/U INR: 10 days Patient verbalizes understanding of instructions given with accurate read back/ teach back of dosing Anti-Coag Initial Assessment Social Hx Patient Tobacco Use Status: Never used Tobacco Coding Level of Care Code Est Patient Level 1 Diagnoses Current use of anticoagulant therapy Z79.01 Time Spent (min) 15 Assessment & Plan Assessment & Plan (1) Current use of anticoagulant therapy: Code(s): Z79.01 - half-way (current) use of anticoagulants Category: Medical
== END 2024-01-05 10:54 | disposition home or self-care (01) ==
LOC: HO.ACS 10:23
PROVIDERS: PCP Internal Medicine; Visit Provider Internal Medicine
DX: Z79.01 Long term (current) use of anticoagulants (principal)

== ENCOUNTER → 2024-01-05 10:23 | Outpatient (BNVA) | payer MEDICARE, SELFPAY | PROVIDERS: PCP Internal Medicine; Visit Provider Internal Medicine | DX: I48.91 Unspecified atrial fibrillation (principal); Z79.01 Long term (current) use of anticoagulants; Z51.81 Encounter for therapeutic drug level monitoring | CPT/HCPCS: 85610; 99211 ==

== ENCOUNTER 2024-01-17 09:43 | Outpatient (AMB) | payer MEDICARE, SELFPAY ==
[2024-01-17 09:49] LABS: Prothrombin Time Whole Bld POC 25.9 sec (11.1-13.5); ~PT, ~INR - Anti Coag Clinic 2.2 (0.9-1.1)
--- NOTE | 2024-01-17 09:53 | MHC.OFFVISCO ---
Intake Intake Visit Reasons: Anticoagulation Allergies ciprofloxacin Allergy (Intermediate, Verified 01/17/24 09:43) hives benzonatate Adverse Reaction (Intermediate, Verified 01/17/24 09:43) Gastrointestinal Upset lisinopril Adverse Reaction (Intermediate, Uncoded 01/17/24 09:43) Cough Medication List - Last Reconciled 01/17/24 by Amy Bales, RN cefuroxime axetil 500 mg PO BID diltiazem HCl 120 mg PO BEDTIME donepezil 10 mg PO DAILY@1800 latanoprost 0.005% 1 drp ophthalmic (eye) BEDTIME losartan 100 mg PO DAILY memantine 10 mg PO DAILY@1800 timolol maleate 0.5% 1 drp ophthalmic (eye) DAILY vit C,C-Eq-ohpyf-lutein-zeaxan 250-90-40-1 mg (PreserVision AREDS-2) 1 tab PO BID@0900,1800 warfarin 5 mg See Protocol PO SA@1800 warfarin 2.5 mg See Protocol PO SUMOTUWETHFR@1800 Nursing Note PT ACCOMPANIED WITH WALKING WITH WALKER -LITTLE SHAKY BUT STABLE INR: 2.2 in therapeutic range Medications and supplements reviewed No changes in health, diet, medications, or supplements, Denies any signs and symptoms of bleeding or bruising or clotting. 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
== END 2024-01-17 09:56 | disposition home or self-care (01) ==
LOC: HO.ACS 09:43
PROVIDERS: PCP Internal Medicine; Visit Provider Internal Medicine
DX: Z79.01 Long term (current) use of anticoagulants (principal)

== ENCOUNTER → 2024-01-17 09:43 | Outpatient (BNVA) | payer MEDICARE, SELFPAY | PROVIDERS: PCP Internal Medicine; Visit Provider Internal Medicine | DX: I48.91 Unspecified atrial fibrillation (principal); Z79.01 Long term (current) use of anticoagulants; Z51.81 Encounter for therapeutic drug level monitoring | CPT/HCPCS: 85610; 99211 ==

== ENCOUNTER 2024-01-31 09:46 | Outpatient (AMB) | payer MEDICARE, SELFPAY ==
[2024-01-31 09:53] LABS: Prothrombin Time Whole Bld POC 30.7 sec (11.1-13.5); ~PT, ~INR - Anti Coag Clinic 2.6 (0.9-1.1)
--- NOTE | 2024-01-31 10:00 | MHC.OFFVISCO ---
Intake Intake Visit Reasons: Anticoagulation Allergies ciprofloxacin Allergy (Intermediate, Verified 01/31/24 09:49) hives benzonatate Adverse Reaction (Intermediate, Verified 01/31/24 09:49) Gastrointestinal Upset lisinopril Adverse Reaction (Intermediate, Uncoded 01/31/24 09:49) Cough Medication List - Last Reconciled 01/31/24 by Lolis Fuentes, RN diltiazem HCl CD 120 mg PO BEDTIME donepezil 10 mg PO DAILY@1800 latanoprost 0.005% 1 drp ophthalmic (eye) BEDTIME losartan 100 mg PO DAILY memantine 10 mg PO DAILY@1800 timolol maleate 0.5% 1 drp ophthalmic (eye) DAILY vit C,N-Oe-qkviz-lutein-zeaxan 250-90-40-1 mg (PreserVision AREDS-2) 1 tab PO BID@0900,1800 warfarin 5 mg See Protocol PO SA@1800 warfarin 2.5 mg See Protocol PO SUMOTUWETHFR@1800 Nursing Note Pt to [facility] with use of wheeled walker accompanied by . INR: 2.6 in therapeutic range of 2-3 Medications and supplements reviewed: no changes No changes in health, diet, medications, or supplements, Denies any signs and symptoms of bleeding or bruising or clotting. Bleeding, bruising, clotting discussed Nutritional guidance given to cont to balance reds and greens Dose: 5mg X2 days and 2.5mg X5 days F/U INR: 3 weeks Patient verbalizes understanding of instructions given Anti-Coag Initial Assessment Social Hx Patient Tobacco Use Status: Never used Tobacco Coding Level of Care Code Est Patient Level 1 Diagnoses Current use of anticoagulant therapy Z79.01 Assessment & Plan Assessment & Plan (1) Current use of anticoagulant therapy: Code(s): Z79.01 - long-term (current) use of anticoagulants Category: Medical
== END 2024-01-31 10:03 | disposition home or self-care (01) ==
LOC: HO.ACS 09:46
PROVIDERS: PCP Internal Medicine; Visit Provider Internal Medicine
DX: Z79.01 Long term (current) use of anticoagulants (principal)

== ENCOUNTER → 2024-01-31 09:46 | Outpatient (BNVA) | payer MEDICARE, SELFPAY | PROVIDERS: PCP Internal Medicine; Visit Provider Internal Medicine | DX: I48.91 Unspecified atrial fibrillation (principal); Z79.01 Long term (current) use of anticoagulants; Z51.81 Encounter for therapeutic drug level monitoring | CPT/HCPCS: 85610; 99211 ==

== ENCOUNTER → 2024-02-07 14:19 | Outpatient (BNVA) | payer MEDICARE, SELFPAY | PROVIDERS: PCP Internal Medicine; Visit Provider Internal Medicine ==

== ENCOUNTER 2024-02-13 10:23 | Outpatient (AMB) | payer MEDICARE, SELFPAY ==
[2024-02-13 10:47] LABS: Prothrombin Time Whole Bld POC 21.3 sec (11.1-13.5); ~PT, ~INR - Anti Coag Clinic 1.8 (0.9-1.1)
--- NOTE | 2024-02-13 10:50 | MHC.OFFVISCO ---
Intake Intake Visit Reasons: Anticoagulation Allergies ciprofloxacin Allergy (Intermediate, Verified 02/13/24 10:39) hives benzonatate Adverse Reaction (Intermediate, Verified 02/13/24 10:39) Gastrointestinal Upset lisinopril Adverse Reaction (Intermediate, Uncoded 02/13/24 10:39) Cough Medication List - Last Reconciled 02/13/24 by Lolis Mccormack, RN diltiazem HCl CD 120 mg PO BEDTIME donepezil 10 mg PO DAILY@1800 latanoprost 0.005% 1 drp ophthalmic (eye) BEDTIME losartan 100 mg PO DAILY memantine 10 mg PO DAILY@1800 timolol maleate 0.5% 1 drp ophthalmic (eye) DAILY vit C,A-Gg-npede-lutein-zeaxan 250-90-40-1 mg (PreserVision AREDS-2) 1 tab PO BID@0900,1800 warfarin 5 mg See Protocol PO SA@1800 warfarin 2.5 mg See Protocol PO SUMOTUWETHFR@1800 Nursing Note Amb to [facility] using walker, accomp by here today as started on antibiotic 02/06 cephalexin (can raise) for a leg wound (see telephone triage compose note related to dosing decrease) Medications and supplements reviewed No other changes in health, diet, medications, or supplements, Denies any signs and symptoms of bleeding or bruising or clotting. Bleeding, bruising, clotting discussed INR 1.8 below therapeutic range pt to resume usual dosing which will be 5mg today and and 2.5mg all other days no greens today or tomorrow then add additional greens in anticipation of rise form antibiotic completion F/U INR: 1 week Patients verbalizes understanding of instructions given Anti-Coag Initial Assessment Social Hx Patient Tobacco Use Status: Never used Tobacco Coding Level of Care Code Est Patient Level 1 Diagnoses Current use of anticoagulant therapy Z79.01 Time Spent (min) 15 Assessment & Plan Assessment & Plan (1) Current use of anticoagulant therapy: Code(s): Z79.01 - 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
== END 2024-02-13 10:56 | disposition home or self-care (01) ==
LOC: HO.ACS 10:23
PROVIDERS: PCP Internal Medicine; Visit Provider Internal Medicine
DX: Z79.01 Long term (current) use of anticoagulants (principal)

== ENCOUNTER → 2024-02-13 10:23 | Outpatient (BNVA) | payer MEDICARE, SELFPAY | PROVIDERS: PCP Internal Medicine; Visit Provider Internal Medicine | DX: I48.91 Unspecified atrial fibrillation (principal); Z51.81 Encounter for therapeutic drug level monitoring; Z79.01 Long term (current) use of anticoagulants | CPT/HCPCS: 85610; 99211 ==

== ENCOUNTER 2024-02-20 09:51 | Outpatient (AMB) | payer MEDICARE, SELFPAY ==
[2024-02-20 09:59] LABS: Prothrombin Time Whole Bld POC 24.9 sec (11.1-13.5); ~PT, ~INR - Anti Coag Clinic 2.1 (0.9-1.1)
--- NOTE | 2024-02-20 10:06 | MHC.OFFVISCO ---
Intake Intake Visit Reasons: Anticoagulation Allergies ciprofloxacin Allergy (Intermediate, Verified 02/20/24 09:54) hives benzonatate Adverse Reaction (Intermediate, Verified 02/20/24 09:54) Gastrointestinal Upset lisinopril Adverse Reaction (Intermediate, Uncoded 02/20/24 09:54) Cough Medication List - Last Reconciled 02/20/24 by Lolis Fuentes, RN diltiazem HCl CD 120 mg PO BEDTIME donepezil 10 mg PO DAILY@1800 latanoprost 0.005% 1 drp ophthalmic (eye) BEDTIME losartan 100 mg PO DAILY memantine 10 mg PO DAILY@1800 timolol maleate 0.5% 1 drp ophthalmic (eye) DAILY vit C,E-Ay-hylep-lutein-zeaxan 250-90-40-1 mg (PreserVision AREDS-2) 1 tab PO BID@0900,1800 warfarin 5 mg See Protocol PO SA@1800 warfarin 2.5 mg See Protocol PO SUMOTUWETHFR@1800 Nursing Note INR: 2.1 in therapeutic range of 2-3 Medications and supplements reviewed: no changes Completed Cephalexin for UTI 02/12 No changes in health, diet, medications, or supplements, Denies any signs and symptoms of bleeding or bruising or clotting. Bleeding, bruising, clotting discussed Nutritional guidance given to avoid greens today and have a serving of foods that raise the INR Dose: 2.5mg X 5 days and 5mg X 2 days F/U INR: 2 weeks Patient verbalizes understanding of instructions given Anti-Coag Initial Assessment Social Hx Patient Tobacco Use Status: Never used Tobacco Questionnaires HAS-BLED Does the patient had uncontrolled Hypertension?: No Does the patient have renal disease?: No Does the patient have liver disease?: No Does the patient have a history of stroke?: No Has the patient had major bleeding or predisposition to bleeding?: No Does the patient have labile INRs?: No Is the patient over 65 years of age?: Yes Is the patient on medications that gives them a predisposition to bleeding?: Yes Does the patient use alcohol?: No HAS-BLED Score: 2 CHADSVASC Age: 75 or over Gender: Male Does the patient have a history of CHF?: No Does the patient have a history of Hypertension?: Yes Does the patient have a history of Stroke/TIA/Thromboembolism?: No Does the patient have a history of Vascular Disease (prior NV, PAD or aortic plaque)?: Yes Does the patient have a history of Diabetes?: No CHADS VACS Score: 4 Ok Prediction Score Rsk VTE Active Cancer: No Previous VTE, excluding superficial vein thrombosis: No Reduced mobility: Yes Already known Thrombophilic Condition: Yes With-in last month Trauma and/or Surgery: No Elderly 70 year or older: Yes Heart and/or Respiratory Failure: No Acute Myocardial infarction and/or Ischemic Stroke: Yes Acute Infection and/or Rheumatologic Disorder: No Obesity (BMI 30 or greater): No Ongoing Hormonal Treatment: No Score: 8 Ok Score less than 4; Low Risk of VTE Ok Score 4 or greater; High Risk of VTE Coding Level of Care Code Est Patient Level 1 Diagnoses Current use of anticoagulant therapy Z79.01 Assessment & Plan Assessment & Plan (1) Current use of anticoagulant therapy: Code(s): Z79.01 - intermodal 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
== END 2024-02-20 10:42 | disposition home or self-care (01) ==
LOC: HO.ACS 09:51
PROVIDERS: PCP Internal Medicine; Visit Provider Internal Medicine
DX: Z79.01 Long term (current) use of anticoagulants (principal)

== ENCOUNTER → 2024-02-20 09:51 | Outpatient (BNVA) | payer MEDICARE, SELFPAY | PROVIDERS: PCP Internal Medicine; Visit Provider Internal Medicine | DX: I48.91 Unspecified atrial fibrillation (principal); Z51.81 Encounter for therapeutic drug level monitoring; Z79.01 Long term (current) use of anticoagulants | CPT/HCPCS: 85610; 99211 ==

== ENCOUNTER 2024-03-05 10:39 | Outpatient (AMB) | payer MEDICARE, SELFPAY ==
--- NOTE | 2024-03-05 10:44 | MHC.OFFVISCO ---
Intake Intake Visit Reasons: Anticoagulation Allergies ciprofloxacin Allergy (Intermediate, Verified 03/05/24 10:39) hives benzonatate Adverse Reaction (Intermediate, Verified 03/05/24 10:39) Gastrointestinal Upset lisinopril Adverse Reaction (Intermediate, Uncoded 03/05/24 10:39) Cough Medication List - Last Reconciled 03/05/24 by Moni Gonsales, RN diltiazem HCl CD 120 mg PO BEDTIME donepezil 10 mg PO DAILY@1800 latanoprost 0.005% 1 drp ophthalmic (eye) BEDTIME losartan 100 mg PO DAILY memantine 10 mg PO DAILY@1800 timolol maleate 0.5% 1 drp ophthalmic (eye) DAILY vit C,E-Mn-ybfkg-lutein-zeaxan 250-90-40-1 mg (PreserVision AREDS-2) 1 tab PO BID@0900,1800 warfarin 5 mg See Protocol PO SA@1800 warfarin 2.5 mg See Protocol PO SUMOTUWETHFR@1800 Nursing Note INR: 2.4- in therapeutic range of 2-3 Medications and supplements reviewed No changes in health, diet, medications, or supplements, Denies any signs and symptoms of bleeding or bruising or clotting. Bleeding, bruising, clotting discussed Nutritional guidance given Dose: 5mg x 2, 2.5mg x 5 F/U INR: 3 weeks Patient spouse verbalizes understanding of instructions given pt amb with walker Anti-Coag Initial Assessment Social Hx Patient Tobacco Use Status: Never used Tobacco Coding Level of Care Code Est Patient Level 1 Diagnoses Current use of anticoagulant therapy Z79.01 Assessment & Plan Assessment & Plan (1) Current use of anticoagulant therapy: Code(s): Z79.01 - shelter (current) use of anticoagulants Category: Medical
[2024-03-05 10:45] LABS: Prothrombin Time Whole Bld POC 28.5 sec (11.1-13.5); ~PT, ~INR - Anti Coag Clinic 2.4 (0.9-1.1)
== END 2024-03-05 10:49 | disposition home or self-care (01) ==
LOC: HO.ACS 10:39
PROVIDERS: PCP Internal Medicine; Visit Provider Internal Medicine
DX: Z79.01 Long term (current) use of anticoagulants (principal)

== ENCOUNTER → 2024-03-05 10:39 | Outpatient (BNVA) | payer MEDICARE, SELFPAY | PROVIDERS: PCP Internal Medicine; Visit Provider Internal Medicine | DX: I48.91 Unspecified atrial fibrillation (principal); Z79.01 Long term (current) use of anticoagulants; Z51.81 Encounter for therapeutic drug level monitoring | CPT/HCPCS: 85610; 99211 ==

== ENCOUNTER 2024-03-27 10:18 | Outpatient (AMB) | payer MEDICARE, SELFPAY ==
[2024-03-27 10:24] LABS: Prothrombin Time Whole Bld POC 27.4 sec (11.1-13.5); ~PT, ~INR - Anti Coag Clinic 2.3 (0.9-1.1)
--- NOTE | 2024-03-27 10:44 | MHC.OFFVISCO ---
Intake Intake Visit Reasons: Anticoagulation Allergies ciprofloxacin Allergy (Intermediate, Verified 03/27/24 10:19) hives benzonatate Adverse Reaction (Intermediate, Verified 03/27/24 10:19) Gastrointestinal Upset lisinopril Adverse Reaction (Intermediate, Uncoded 03/27/24 10:19) Cough Medication List - Last Reconciled 03/27/24 by Lolis Fuentes, RN diltiazem HCl CD 120 mg PO BEDTIME donepezil 10 mg PO DAILY@1800 latanoprost 0.005% 1 drp ophthalmic (eye) BEDTIME losartan 100 mg PO DAILY memantine 10 mg PO DAILY@1800 timolol maleate 0.5% 1 drp ophthalmic (eye) DAILY vit C,Q-Lt-anbkx-lutein-zeaxan 250-90-40-1 mg (PreserVision AREDS-2) 1 tab PO BID@0900,1800 warfarin 5 mg See Protocol PO SA@1800 warfarin 2.5 mg See Protocol PO SUMOTUWETHFR@1800 Nursing Note Pt to [facility] with use of walker accompanied by INR: 2.3 in therapeutic range of 2-3 Medications and supplements reviewed No changes in health, diet, medications, or supplements, Denies any signs and symptoms of bleeding or bruising or clotting. Bleeding, bruising, clotting discussed Nutritional guidance given to cont to balance fruits and vegetables Dose: 5mg X 2 days and 2.5mg X 5 days F/U INR: 3 weeks Patient verbalizes understanding of instructions given Anti-Coag Initial Assessment Social Hx Patient Tobacco Use Status: Never used Tobacco Coding Level of Care Code Est Patient Level 1 Diagnoses Current use of anticoagulant therapy Z79.01 Assessment & Plan Assessment & Plan (1) Current use of anticoagulant therapy: Code(s): Z79.01 - technician terminal and repeater (current) use of anticoagulants Category: Medical
== END 2024-03-27 10:50 | disposition home or self-care (01) ==
LOC: HO.ACS 10:18
PROVIDERS: PCP Internal Medicine; Visit Provider Internal Medicine
DX: Z79.01 Long term (current) use of anticoagulants (principal)

== ENCOUNTER → 2024-03-27 10:18 | Outpatient (BNVA) | payer MEDICARE, SELFPAY | PROVIDERS: PCP Internal Medicine; Visit Provider Internal Medicine | DX: I48.91 Unspecified atrial fibrillation (principal); Z79.01 Long term (current) use of anticoagulants; Z51.81 Encounter for therapeutic drug level monitoring | CPT/HCPCS: 85610; 99211 ==

== ENCOUNTER 2024-04-12 08:08 | Outpatient (REF) | payer MEDICARE, SELFPAY ==
[2024-04-12 10:28] LABS: MANUAL DIFF FLAG NO
[2024-04-12 10:32] LABS: Eosinophils Absolute Auto 0.1 X10*3/uL (0.0-0.4); Eosinophils Percent Auto 3.3 % (0-4); Hematocrit 39.2 % (42.0-52.0); Hemoglobin 12.4 g/dl (14.0-18.0); Imm Gran Abs Auto 0.01 X10*3/uL (0.00-0.03); Imm Gran Pct Auto 0.3 % (0.0-0.4); Lymphocytes Absolute Auto 0.8 X10*3/uL (1.2-4.9); Lymphocytes Percent Auto 18.8 % (20-40); Mean Corpuscular HGB Conc 31.6 g/dl (31.0-36.0); Mean Corpuscular Volume 91.6 fL (80.0-98.0); Mean Platelet Volume 11.8 fL (9.4-12.4); Monocytes Absolute Auto 0.4 X10*3/uL (0.1-1.2); Neutrophils Absolute Auto 2.7 x10*3/uL (2.0-8.3); Neutrophils Percent Auto 66.6 % (45-73); Platelet Count 145 X10*3/uL (160-400); Red Blood Count 4.28 X10*6/uL (4.60-5.80); Red Cell Distribution Width 16.7 % (11.0-16.0)
[2024-04-12 10:56] LABS: Alanine Aminotransferase 16 U/L (0-40); Albumin Level 3.7 g/dL (3.5-5.0); Alkaline Phosphatase 100 U/L (39-117); Anion Gap 11 (12-20); Aspartate Amino Transferase 29 U/L (5-37); Bilirubin Total 0.8 mg/dL (0.0-1.0); Blood Urea Nitrogen 28 mg/dL (9-16); Calcium 9.1 mg/dL (8.4-10.2); Carbon Dioxide 27 mmol/L (22-29); Chloride 109 mmol/L (96-108); Estimated Glomerular Filt Rate > 60; Glucose Random 94 mg/dL (60-115); Potassium 4.2 mmol/L (3.3-5.1); Sodium 143 mmol/L (135-145); Total Protein 6.7 g/dL (6.5-8.0)
[2024-04-12 11:03] LABS: Vitamin D 25-OH Total 36.2 ng/mL (>30)
== END 2024-04-12 08:09 | disposition home or self-care (01) ==
LOC: HO.HMGCLDS 08:08
PROVIDERS: PCP Internal Medicine; Visit Provider Internal Medicine
DX: F03.90 Unspecified dementia, unspecified severity, without behavioral disturbance, psychotic disturbance, mood disturbance, and anxiety (principal); I10 Essential (primary) hypertension; I48.91 Unspecified atrial fibrillation; Z79.01 Long term (current) use of anticoagulants; Z85.46 Personal history of malignant neoplasm of prostate
CPT/HCPCS: 36415; 80053; 82306; 85025

== ENCOUNTER 2024-04-17 10:16 | Outpatient (AMB) | payer MEDICARE, SELFPAY ==
--- NOTE | 2024-04-17 10:35 | MHC.OFFVISCO ---
Intake Intake Visit Reasons: Anticoagulation Allergies ciprofloxacin Allergy (Intermediate, Verified 04/17/24 10:25) hives benzonatate Adverse Reaction (Intermediate, Verified 04/17/24 10:25) Gastrointestinal Upset lisinopril Adverse Reaction (Intermediate, Uncoded 04/17/24 10:25) Cough Medication List - Last Reconciled 04/17/24 by Lolis Fuentes, RN diltiazem HCl CD 120 mg PO BEDTIME donepezil 10 mg PO DAILY@1800 latanoprost 0.005% 1 drp ophthalmic (eye) BEDTIME losartan 100 mg PO DAILY memantine 10 mg PO DAILY@1800 timolol maleate 0.5% 1 drp ophthalmic (eye) DAILY vit C,F-Sa-ewgov-lutein-zeaxan 250-90-40-1 mg (PreserVision AREDS-2) 1 tab PO BID@0900,1800 warfarin 5 mg See Protocol PO SA@1800 warfarin 2.5 mg See Protocol PO SUMOTUWETHFR@1800 Nursing Note Pt to [facility] with use of wheeled walker accompanied by , 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 Pt confused, communicates for pt. INR: 2.6 in therapeutic range of 2-3 Medications and supplements reviewed No changes in health, diet, medications, or supplements, Denies any signs and symptoms of bleeding or bruising or clotting. Bleeding, bruising, clotting discussed Nutritional guidance given to cont to balance reds and greens. 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
[2024-04-17 10:52] LABS: Prothrombin Time Whole Bld POC 30.8 sec (11.1-13.5); ~PT, ~INR - Anti Coag Clinic 2.6 (0.9-1.1)
== END 2024-04-17 10:39 | disposition home or self-care (01) ==
LOC: HO.ACS 10:16
PROVIDERS: PCP Internal Medicine; Visit Provider Internal Medicine
DX: Z79.01 Long term (current) use of anticoagulants (principal)

== ENCOUNTER → 2024-04-17 10:16 | Outpatient (BNVA) | payer MEDICARE, SELFPAY | PROVIDERS: PCP Internal Medicine; Visit Provider Internal Medicine | CPT/HCPCS: 85610; 99211 ==

== ENCOUNTER 2024-04-17 16:37 | Emergency (ER) | payer MEDICARE, SELFPAY ==
--- NOTE | ~2024-04-17 | CT_ITS ---
EXAM: CT HEAD WITHOUT CONTRAST CT CERVICAL SPINE INDICATION: Reason for Exam fall, head strike, +coumadin TECHNIQUE: A noncontrast CT scan was performed from the skull base to the vertex. A noncontrast CT scan of the cervical spine was performed from the base of the skull through T1 at 2.5 mm and 0.625 mm collimation. Coronal and sagittal reformats were obtained at the acquisition workstation. This CT examination was performed using dose optimization techniques as appropriate, variously including the following: * Automated exposure control * Adjustment of mA and/or kV according to patient size (this includes techniques or standardized protocols for targeted exams where dose is matched to indication/reason for exam; i.e. extremities or head) * Use of iterative reconstruction technique Dose length product is 1074 mGy-cm. COMPARISON: None FINDINGS: Head: Dai to white matter differentiation is maintained without evidence of an acute territorial infarct. There is no intracranial hemorrhage, subarachnoid bleeding or extra-axial collection. There are scattered hypodensities throughout the periventricular and deep white matter likely related with chronic small vessel ischemic disease. There is proportional prominence of the ventricles with the cerebral sulci spaces in keeping with generalized cerebral volume loss. 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 There is no hydrocephalus, herniation, midline shift, or other herniation pattern. There appears to be a small left frontal scalp hematoma.. No acute calvarial fracture. The paranasal sinuses and mastoid air cells are clear. Cervical Spine: The atlantooccipital and atlantoaxial articulations remain well aligned. Vertebral body alignment is anatomic. Vertebral body heights are maintained no evidence of acute fracture. Multilevel moderate-severe disc degeneration. Multilevel facet degeneration.. The central canal is maintained. No prevertebral soft tissue swelling. Mild apical pleural parenchymal scarring. CT/CT cervical spine wo IV con IMPRESSION: No CT evidence of acute intracranial hemorrhage or edematous territorial infarction. Chronic findings in the brain as detailed above. No CT evidence of acute cervical spine fracture or malalignment. Moderate-severe cervical spondylosis.
--- NOTE | ~2024-04-17 | XR_ITS ---
EXAMINATION: XR CHEST CLINICAL INFORMATION: Fall COMPARISON: Previous chest x-ray October 2023 TECHNIQUE: 2 views of the chest were obtained. FINDINGS: The cardiac and mediastinal contours are stable. There is left apical pleural and parenchymal scarring similar to October 2023 exam. Lungs are otherwise clear. No pleural effusion or pneumothorax. No acute fracture is seen. There are degenerative changes of the thoracic spine. The right acromioclavicular joint is slightly widened but similar to prior exam. XR/XR chest 2V IMPRESSION: No evidence for acute disease in the chest. Left apical pleural and parenchymal scarring similar to previous exam.
[2024-04-17 16:57] VITALS: BP 170/70; BP 172/81; PULSE 70; PULSE 85; RESP 18; TEMP 36.6; O2SAT 96; O2SAT 97; BMI 21.8
--- NOTE | 2024-04-17 17:30 | ED.FALL ---
HPI - Fall General Chief Complaint: Fall Stated Complaint: WIT MECHANICAL FALL + HEADSTRIKE Time Seen by Provider: 04/17/24 17:28 Source: patient and EMS Mode of arrival: EMS Limitations: no limitations History of Present Illness HPI Narrative: Patient is an 88-year-old male who presents to the emergency department via EMS for evaluation. His and daughter present at bedside. Patient has a history of dementia and is confused at baseline, he is unable to tell me why he is here today. states that she witnessed him to have a fall today. Reports that he stood up from a chair, turned towards his right to place a cup down took a few steps forward and ultimately fell towards his left striking the back of his head into a breath handle on a wooden bureau resulting and the bureau moving, subsequently he landed on the ground in a sitting position. denies any loss of consciousness, she reports that at baseline he is unsteady on his feet. reports that he is on Coumadin for AFib, most recent INR earlier today of 2.6. Patient is unable to tell me whether he had any precipitating symptoms such as dizziness or lightheadedness. At this time he denies dizziness, lightheadedness, headache, neck pain, chest pain breath, numbness or tingling of his extremities Related Data Home Medications ?Medication ?Instructions ?Recorded ?Confirmed donepezil 10 mg tablet 10 mg PO DAILY@1800 08/18/21 04/17/24 latanoprost 0.005 % eye drops 1 drp ophthalmic (eye) BEDTIME 08/18/21 04/17/24 memantine 5 mg tablet 10 mg PO DAILY@1800 08/18/21 04/17/24 timolol maleate 0.5 % eye drops 1 drp ophthalmic (eye) DAILY 08/18/21 04/17/24 warfarin 2.5 mg tablet 2.5 mg PO SUMOTUWETHFR@1800 08/25/21 04/17/24 diltiazem HCl 120 mg 120 mg PO BEDTIME 09/15/21 04/17/24 capsule,extended release 24 hr vit C 250 mg-vit E 90 mg-zinc 40 1 tab PO BID@0900,1800 02/16/22 04/17/24 mg-copper 1 [id number]-dsivvx capsule (PreserVision AREDS-2) losartan 100 mg tablet 100 mg PO DAILY 08/16/23 04/17/24 warfarin 2.5 mg tablet 5 mg PO SA@1800 10/27/23 04/17/24 Allergies Allergy/AdvReac Type Severity Reaction Status Date / Time ciprofloxacin Allergy Intermediate hives Verified 04/17/24 17:04 benzonatate AdvReac Intermediate Gastrointestinal Verified 04/17/24 17:04 Upset lisinopril AdvReac Intermediate Cough Uncoded 04/17/24 10:25 Review of Systems Review of Systems: Yes all other systems are reviewed and are negative [facility] Past Medical History Attestation statement: The following information was validated with the patient. Source: old records reviewed Medical History Glaucoma HTN (hypertension) Permanent atrial fibrillation Dementia Social History Social History Household Members: Spouse Housing: House Do you presently have visiting nurse or other home services: No Alcohol intake: former Comment: 2:1 sitter Patient Tobacco Use Status: Never used Tobacco Smoked in Last 30 Days: No Use of substances other than those prescribed or required for medical reasons: No Any prior treatment program specific to substance use: No Advance Directives: Yes Advance Directives on File: Yes Advance Directives Date on File: 10/27/23 Do you have a plan to hurt others: No Plan service: No Physical Exam Vital Signs: Vital Signs: Last Vital Signs Temp 97.8 F 04/17/24 19:17 Pulse 97 04/17/24 19:17 Resp 12 04/17/24 19:17 BP 165/85 H 04/17/24 19:17 Pulse Ox 95 04/17/24 19:17 O2 Del Method Room Air 04/17/24 18:44 BMI result Body Mass Index 21.8 Appearance: Alert.?Oriented to person, disoriented to place time and event No acute distress.?Normal affect. Head: Normocephalic, posterior occipital scalp hematoma with no central abrasion no active bleeding. Eyes: Pupils equal, round and reactive to light.? EOMI. No nystagmus. ENT: Pharynx normal.??Dentition normal. Neck: Normal inspection.? Neck supple.??Full range of motion. No midline cervical spine tenderness, step-offs, deformities CVS: Heart sounds normal. Normal heart rate and rhythm.? Pulses normal.?? Respiratory: No respiratory distress.? Lung sounds clear to auscultation bilaterally?? Abdomen: Soft and non-tender. Normoactive bowel sounds. Skin: Skin warm and dry.? Normal skin color.? Extremities: No lower extremity edema.? Neuro: Moves all extremities spontaneously. Sensation intact bilaterally. CN II-XII intact. No focal neuro deficits. Ambulates with slow unsteady gait. Course Reevaluation(s) Reevaluation #1: Ambulatory with steady gait and use of a walker. Patient's daughter and feel comfortable with discharge home as patient is at baseline. Advised outpatient follow-up with primary care provider and strict return precautions. All questions answered. Medications Administered Discontinued Medications Generic Name Dose Route Start Last Admin Trade Name Freq PRN Reason Stop Dose Admin Diphtheria/Tetanus/Acell Pertussis 0.5 ml 04/17/24 20:08 04/17/24 20:32 Diphth,Pertus(Acell),Tet Adult 0.5 Ml Syringe IM 04/17/24 20:09 0.5 ml .ONCE ONE Administration Medical Decision Making Medical Decision Making MDM Narrative: Patient is an 88-year-old male with past medical history of hypertension, atrial fibrillation on Coumadin and diltiazem, hypertension, dementia presenting to the emergency department via EMS for evaluation after a fall with head strike. Has no focal neurological deficits on examination, is a poor historian due to his dementia, although admits that he has a history of unsteady gait, it is not entirely clear whether this was strictly mechanical, therefore will obtain serum labs in addition to CT of the head and cervical spine to evaluate for additional pathology for fall/weakness, including orthostatic vital signs, and CT of the head and cervical spine to evaluate for ICH, SDH, fracture, subluxation. Scabbed abrasion to the central portion of the occipital scalp hematomas without active bleeding, would not be amenable to repair with ronel or suture closure. Differential Diagnosis Differential Diagnoses: The differential diagnosis associated with the presentation includes (See narrative above) Admission/Observation Consideration of admission/observation: Escalation of care including admission/observation considered (See narrative above) Lab Data [facility] Lab Attestation statement: I reviewed the patient's lab results. CBC is without leukocytosis, mild normocytic anemia that does not meet transfusion criteria, thrombocytopenia consistent with baseline. BUN is elevated chronically, today is 30 nearly consistent with baseline and with creatinine 1.08. LFTs lipase and magnesium within normal range. INR 2.4. Urinalysis with leukocyte esterase no urine bacteria seen, at this time do not suspect acute urinary tract infection 04/17/24 17:53 04/17/24 17:53 Labs: Lab Results 04/17/24 04/17/24 Range/Units 17:53 18:16 WBC 5.1 (4.8-10.8) X10*3/uL RBC 4.23 L (4.60-5.80) X10*6/uL Hgb 12.4 L (14.0-18.0) g/dl Hct 38.2 L (42.0-52.0) % MCV 90.3 (80.0-98.0) fL MCH 29.3 (27.0-33.0) pg MCHC 32.5 (31.0-36.0) g/dl RDW 16.8 H (11.0-16.0) % Plt Count 121 L (160-400) X10*3/uL MPV 11.6 (9.4-12.4) fL Immature Gran % (Auto) 1.2 H (0.0-0.4) % Neut % (Auto) 74.5 H (45-73) % Lymph % (Auto) 14.5 L (20-40) % [place] % (Auto) 5.9 (2-11) % Eos % (Auto) 3.3 (0-4) % Baso % (Auto) 0.6 (0-2) % Lymph # (Auto) 0.7 L (1.2-4.9) X10*3/uL [place] # (Auto) 0.3 (0.1-1.2) X10*3/uL Eos # (Auto) 0.2 (0.0-0.4) X10*3/uL Baso # (Auto) 0.0 (0.0-0.2) X10*3/uL Abs Immat Gran (auto) 0.06 H (0.00-0.03) X10*3/uL Absolute Neuts (auto) 3.8 (2.0-8.3) x10*3/uL Absolute Nucleated RBC 0.000 (0.0-0.012) X10*3/uL Nucleated RBC % (auto) 0.0 (0.0-0.2) /100WBC PT 29.6 H (11.1-13.3) SEC INR 2.4 H (0.9-1.1) Sodium 141 (135-145) mmol/L Potassium 4.3 (3.3-5.1) mmol/L Chloride 109 H (96-108) mmol/L Carbon Dioxide 26 (22-29) mmol/L Anion Gap 10 L (12-20) BUN 30 H (9-16) mg/dL Creatinine 1.08 (0.5-1.4) mg/dL Estim Creat Clear Calc 46.0 Estimated GFR > 60 Random Glucose 96 (60-115) mg/dL Calcium 9.2 (8.4-10.2) mg/dL Magnesium 2.2 (1.6-2.6) mg/dL Total Bilirubin 0.6 (0.0-1.0) mg/dL AST 32 (5-37) U/L ALT 20 (0-40) U/L Alkaline Phosphatase 110 (39-117) U/L Total Protein 6.6 (6.5-8.0) g/dL Albumin 3.6 (3.5-5.0) g/dL Lipase 11 (8-78) U/L Urine Color Yellow Urine Appearance Clear Urine pH 5.5 (5.0-9.0) Ur Specific [place] 1.015 (1.005-1.025) Urine Protein 100 (2+) H (Neg-Trace) mg/dL Urine Glucose (UA) Negative (Negative) mg/dL Urine Ketones Negative (Negative) mg/dL Urine Blood Negative (Negative) Urine Nitrite Negative (Negative) Ur Leukocyte Esterase Small (1+) H (Negative) Urine RBC 0-2 (0-2) /HPF Urine WBC 21-50 H (0-5) /HPF Ur Squamous Epith Cells 0-2 (0-2) /HPF Urine Bacteria None Seen (None Seen) Hyaline Casts 0-2 (0-2) /LPF Influenza Type A (PCR) NEGATIVE (Negative) Influenza Type B (PCR) NEGATIVE (Negative) RSV RNA Qual (PCR) NEGATIVE (Negative) SARS-CoV-2 RNA (RT-PCR) NEGATIVE (Negative) Independent Interpretation I performed an independent interpretation of an: EKG Interpretation: Rate: 86 Rhythm:? AFib with PVCs Normal QRS complex.?? ST T wave :??No ST elevation, no ST depression, no T-wave inversion qTC: 461 prior studies:? October 2023 The study has been interpreted contemporaneously by me. Radiology Impression Discussion of test interpretation with radiology: I have reviewed the radiologist's reading. Independent Historian Clinical information obtained from an independent historian. History obtained from or confirmed by: EMS and Other ( and daughter) External Record Review External record reviewed: Outpatient record Discharge Plan Discharge Clinical Impression: Fall Acute head injury without loss of consciousness Qualifiers: Encounter type: initial encounter Qualified Code(s): S09.90XA - Unspecified injury of head, initial encounter Patient Disposition: Home, Self-Care Instructions: Head Injury (ED) Prescriptions: No Action PreserVision AREDS-2 250-90-40-1 mg capsule 1 tab PO BID@0900,1800 warfarin 2.5 mg tablet 5 mg PO SA@1800 Protocol: Dose Management Condition: Tuesday (Week One) Dose/Route: 2.5 mg Instruction: 1 x 2.5 mg tablet Condition: Tuesday Dose/Route: 5 mg Instruction: 2 x 2.5 mg tablets Condition: Tuesday Dose/Route: 2.5 mg Instruction: 1 x 2.5 mg tablet Condition: Tuesday Dose/Route: 2.5 mg Instruction: 1 x 2.5 mg tablet Condition: Dose/Route: 5 mg Instruction: 2 x 2.5 mg tablets Condition: Tuesday Dose/Route: 2.5 mg Instruction: 1 x 2.5 mg tablet Condition: Tuesday Dose/Route: 2.5 mg Instruction: 1 x 2.5 mg tablet Condition: Tuesday (Week Two) Dose/Route: 2.5 mg Instruction: 1 x 2.5 mg tablet Condition: Tuesday Dose/Route: 5 mg Instruction: 2 x 2.5 mg tablets Condition: Tuesday Dose/Route: 2.5 mg Instruction: 1 x 2.5 mg tablet Condition: Tuesday Dose/Route: 2.5 mg Instruction: 1 x 2.5 mg tablet Condition: Dose/Route: 5 mg Instruction: 2 x 2.5 mg tablets Condition: Tuesday Dose/Route: 2.5 mg Instruction: 1 x 2.5 mg tablet Condition: Tuesday Dose/Route: 2.5 mg Instruction: 1 x 2.5 mg tablet Protocol Text: Adjustment Start Date: Tuesday04/17/24 INR Value: 2.6 INR Date: 04/17/24 Recheck Date: 05/08/24 diltiazem HCl 120 mg capsule,extended release 24hr 120 mg PO BEDTIME donepezil 10 mg tablet 10 mg PO DAILY@1800 latanoprost 0.005 % drops 1 drp ophthalmic (eye) BEDTIME memantine 5 mg tablet 10 mg PO DAILY@1800 timolol maleate 0.5 % drops 1 drp ophthalmic (eye) DAILY warfarin 2.5 mg tablet 2.5 mg PO SUMOTUWETHFR@1800 Protocol: Dose Management Condition: Tuesday (Week One) Dose/Route: 2.5 mg Instruction: 1 x 2.5 mg tablet Condition: Tuesday Dose/Route: 5 mg Instruction: 2 x 2.5 mg tablets Condition: Tuesday Dose/Route: 2.5 mg Instruction: 1 x 2.5 mg tablet Condition: Tuesday Dose/Route: 2.5 mg Instruction: 1 x 2.5 mg tablet Condition: Dose/Route: 5 mg Instruction: 2 x 2.5 mg tablets Condition: Tuesday Dose/Route: 2.5 mg Instruction: 1 x 2.5 mg tablet Condition: Tuesday Dose/Route: 2.5 mg Instruction: 1 x 2.5 mg tablet Condition: Tuesday (Week Two) Dose/Route: 2.5 mg Instruction: 1 x 2.5 mg tablet Condition: Tuesday Dose/Route: 5 mg Instruction: 2 x 2.5 mg tablets Condition: Tuesday Dose/Route: 2.5 mg Instruction: 1 x 2.5 mg tablet Condition: Tuesday Dose/Route: 2.5 mg Instruction: 1 x 2.5 mg tablet Condition: Dose/Route: 5 mg Instruction: 2 x 2.5 mg tablets Condition: Tuesday Dose/Route: 2.5 mg Instruction: 1 x 2.5 mg tablet Condition: Tuesday Dose/Route: 2.5 mg Instruction: 1 x 2.5 mg tablet Protocol Text: Adjustment Start Date: Tuesday04/17/24 INR Value: 2.6 INR Date: 04/17/24 Recheck Date: 05/08/24 losartan 100 mg tablet 100 mg PO DAILY Referrals: Elif Vides MD [Primary Care Provider] - Print Language: Vietnamese
--- NOTE | 2024-04-17 17:38 | ECG_ITS ---
Test Reason : FALL Blood Pressure : / mmHG Vent. Rate : 086 BPM Atrial Rate : 000 BPM P-R Int : 000 ms QRS Dur : 108 ms QT Int : 386 ms P-R-T Axes : 000 -27 071 degrees QTc Int : 461 ms Atrial fibrillation with premature ventricular or aberrantly conducted complexes Minimal voltage criteria for LVH, may be normal variant ( [place] product ) Abnormal ECG When compared with ECG of 27-OCT-2023 12:58, No significant change was found Referred By: Lisa Barr Electronically Signed By:EFREN DE JESUS MD
[2024-04-17 18:05] VITALS: BP 162/87; BP 164/77; PULSE 77; PULSE 86
[2024-04-17 18:05] LABS: MANUAL DIFF FLAG NO
[2024-04-17 18:06] VITALS: BP 159/78; PULSE 72
[2024-04-17 18:20] LABS: Basophils Percent Auto 0.6 % (0-2); Eosinophils Absolute Auto 0.2 X10*3/uL (0.0-0.4); Eosinophils Percent Auto 3.3 % (0-4); Hematocrit 38.2 % (42.0-52.0); Hemoglobin 12.4 g/dl (14.0-18.0); Imm Gran Abs Auto 0.06 X10*3/uL (0.00-0.03); Imm Gran Pct Auto 1.2 % (0.0-0.4); Lymphocytes Absolute Auto 0.7 X10*3/uL (1.2-4.9); Lymphocytes Percent Auto 14.5 % (20-40); Mean Corpuscular HGB Conc 32.5 g/dl (31.0-36.0); Mean Corpuscular Hemoglobin 29.3 pg (27.0-33.0); Mean Corpuscular Volume 90.3 fL (80.0-98.0); Mean Platelet Volume 11.6 fL (9.4-12.4); Monocytes Absolute Auto 0.3 X10*3/uL (0.1-1.2); Monocytes Percent Auto 5.9 % (2-11); Neutrophils Absolute Auto 3.8 x10*3/uL (2.0-8.3); Neutrophils Percent Auto 74.5 % (45-73); Platelet Count 121 X10*3/uL (160-400); Red Blood Count 4.23 X10*6/uL (4.60-5.80); Red Cell Distribution Width 16.8 % (11.0-16.0); White Blood Count 5.1 X10*3/uL (4.8-10.8)
[2024-04-17 18:22] LABS: Alanine Aminotransferase 20 U/L (0-40); Albumin Level 3.6 g/dL (3.5-5.0); Alkaline Phosphatase 110 U/L (39-117); Anion Gap 10 (12-20); Aspartate Amino Transferase 32 U/L (5-37); Bilirubin Total 0.6 mg/dL (0.0-1.0); Blood Urea Nitrogen 30 mg/dL (9-16); Calcium 9.2 mg/dL (8.4-10.2); Carbon Dioxide 26 mmol/L (22-29); Chloride 109 mmol/L (96-108); Estimated Glomerular Filt Rate > 60; Glucose Random 96 mg/dL (60-115); Lipase 11 U/L (8-78); Magnesium 2.2 mg/dL (1.6-2.6); Potassium 4.3 mmol/L (3.3-5.1); Sodium 141 mmol/L (135-145); Total Protein 6.6 g/dL (6.5-8.0)
[2024-04-17 18:23] LABS: INTERNATIONAL NORM RATIO 2.4 (0.9-1.1); Prothrombin Time 29.6 SEC (11.1-13.3)
[2024-04-17 18:26] LABS: Appearance Urine Clear; Color Urine Yellow; Glucose Urine UA Negative (Negative); Leukocyte Esterase Urine Small (1+) (Negative); Nitrite Urine Negative (Negative); PH 5.5 (5.0-9.0); Specific Gravity - Urine 1.015 (1.005-1.025); UMIC TRIGGER UACC YES; Urine Blood Negative (Negative); Urine Ketones Negative (Negative); Urine Protein 100 (2+) mg/dL (Neg-Trace)
[2024-04-17 18:44] VITALS: BP 173/89; PULSE 90; RESP 20; TEMP 36.4; O2SAT 93
[2024-04-17 18:44] LABS: Influenza A PCR NEGATIVE (Negative); Influenza B PCR NEGATIVE (Negative); Resp Syncy Virus RNA Qual PCR NEGATIVE (Negative); SARS COV2 PCR INHOUSE NEGATIVE (Negative)
[2024-04-17 18:52] LABS: Bacteria Urine None Seen (None Seen); Hyaline Casts Urine 0-2 /LPF (0-2); RBC Urine 0-2 /HPF (0-2); Squamous Epithelial Cell Urine 0-2 /HPF (0-2); UACC Culture Trigger YES; WBC Urine 21-50 /HPF (0-5)
[2024-04-17 19:17] VITALS: BP 165/85; PULSE 97; RESP 12; TEMP 36.6; O2SAT 95
[2024-04-17] MEDS: Diphth,Pertus(ACell),Tet Adult 0.5 ML SYRINGE IM (20:32)
--- NOTE | 2024-04-17 20:37 | PC.NURSE ---
ambulated at his baseline with walker. family at bedside
[2024-04-17 21:06] VITALS: BP 165/85; PULSE 97; RESP 12; TEMP 36.6; O2SAT 95
--- OUTSIDE RECORDS SUMMARY | 2024-04-19 08:05 | XMS_ITS | Continuity of Care Document ---
Author Organization [facility] ter Address [address] [place] [id number]- Care Team Providers Care Binder Operator Name Role Phone Darnell Ayala MD Primary Care Physician Unava ilable Encounter [facility] ACCT R [id number] Date(s): 10/30/23 - 11/29/[address] [address]- Attending Physician: Not on Staff, Attending MD Admitting Physician: Not on Staff, Admitting MD Referring Physician: Not on Staff, Referring MD Allergies, Adverse Reactions, Alerts Substance Reaction Severity Status ciprofloxacin hives Active Immunizations Given and Recorded Vaccine Date Status Refusal Reason SARS-CoV-2 (COVID-19) mRNA BNT-162b2 vac 12/29/20 Given SARS-CoV-2 (COVID-19) mRNA BNT-162b2 vac 12/08/20 Given Medications diltiazem 120 mg/24 hours oral capsule, extended release 120 mg, 1, capsule, By Mouth, Daily at bedtime, # 30 capsule, Refills 0, Maintenance, 05/30/19 11:08:29 EDT Start Date: 05/30/19 Status: Ordered latanoprost 0.005% ophthalmic solution 1 drops, Eye, Left, Daily before dinner, 0 Refills, Maintenance, 05/30/19 11:11:32 EDT Start Date: 05/30/19 Status: Ordered lisinopril 20 mg oral tablet 20 mg, 1, tablet, By Mouth, Daily in AM, Refills 0, Maintenance, 05/30/19 11:07:46 EDT Start Date: 05/30/19 Status: Ordered oxybutynin 5 mg oral tablet 1 tablet = 5 mg, By Mouth, Daily at bedtime, 0 Refills, Maintenance, 05/30/19 11:09:41 EDT Start Date: 05/30/19 Status: Ordered timolol maleate 0.25% ophthalmic solution 1 drops, Daily, Patient takes in left eye, # 5 mL, 0 Refills, Maintenance, 05/30/19 11:10:30 EDT, Solution Start Date: 05/30/19 Status: Ordered warfarin 5 mg oral tablet 1 tablet = 5 mg, By Mouth, Daily at supper, # 30 tablet, 0 Refills, Maintenance, 05/30/19 11:08:49 EDT, Tablet Start Date: 05/30/19 Status: Ordered Patient Care team information Care Team Personnel Name: Darnell Ayala MD Position: Reference Physician Member Role: PCP Address: Address: [address] [place] [id number]- Care Team Related Persons Name: CHARU CORREA Address: home [address] [place] [id number]
--- OUTSIDE RECORDS SUMMARY | 2024-04-19 08:05 | XMS_ITS | Continuity of Care Document ---
Author Organization [facility] Address [address] [place] [address]- Care Team Providers Care Tack Cutter Name Role Phone Lucy CARDOSO, Darnell Primary Care Physician Rochelle khan Encounter 10/31/23 - 12/05/23 [facility] [address] [place] [address]- Discharge Disposition: CLIENT NO LONGER REQUIRES SKILLED CARE Allergies, Adverse Reactions, Alerts Substance Reaction Severity [...] Reference Physician Member Role: PCP Address: Address: [address] [place] [id number]- Care Team Related Persons Name: CHARU CORREA Address: home [address] [place] [id number]
== END 2024-04-17 21:08 | disposition home or self-care (01) ==
PROVIDERS: Nurse Practitioner Family; Emergency Provider Internal Medicine; PCP Internal Medicine
DX: S01.91XA Laceration without foreign body of unspecified part of head, initial encounter (principal); R51.9 Headache, unspecified; I48.91 Unspecified atrial fibrillation; R07.89 Other chest pain; W01.10XA Fall on same level from slipping, tripping and stumbling with subsequent striking against unspecified object, initial encounter; Y93.9 Activity, unspecified; Y92.9 Unspecified place or not applicable; Y99.8 Other external cause status; Z79.01 Long term (current) use of anticoagulants; Z79.899 Other long term (current) drug therapy; Z23 Encounter for immunization; Z03.818 Encounter for observation for suspected exposure to other biological agents ruled out
CPT/HCPCS: 0241U; 36415; 70450; 71046; 72125; 80053; 81001; 83690; 83735; 85025; 85610; 87086; 90471; 90715; 93005; 99211; 99284; 99285

== ENCOUNTER → 2024-04-17 17:38 | Outpatient (BNV) | payer MEDICARE, SELFPAY | PROVIDERS: Emergency Provider Internal Medicine; PCP Internal Medicine; Visit Provider Internal Medicine Cardiovascular Disease | DX: R94.31 Abnormal electrocardiogram [ECG] [EKG] (principal) | CPT/HCPCS: 93010 ==

== ENCOUNTER 2024-05-08 09:52 | Outpatient (AMB) | payer MEDICARE, SELFPAY ==
[2024-05-08 10:04] LABS: Prothrombin Time Whole Bld POC 34.5 sec (11.1-13.5); ~PT, ~INR - Anti Coag Clinic 2.9 (0.9-1.1)
--- NOTE | 2024-05-08 10:08 | MHC.OFFVISCO ---
Intake Intake Visit Reasons: Anticoagulation Allergies ciprofloxacin Allergy (Intermediate, Verified 05/08/24 09:57) hives benzonatate Adverse Reaction (Intermediate, Verified 05/08/24 09:57) Gastrointestinal Upset lisinopril Adverse Reaction (Intermediate, Uncoded 05/08/24 09:57) Cough Medication List - Last Reconciled 05/08/24 by Lolis Fuentes, RN diltiazem HCl CD 120 mg PO BEDTIME donepezil 10 mg PO DAILY@1800 latanoprost 0.005% 1 drp ophthalmic (eye) BEDTIME losartan 100 mg PO DAILY memantine 10 mg PO BID timolol maleate 0.5% 1 drp ophthalmic (eye) DAILY vit C,B-Dq-fsgqw-lutein-zeaxan 250-90-40-1 mg (PreserVision AREDS-2) 1 tab PO BID@0900,1800 warfarin 5 mg See Protocol PO SA@1800 warfarin 2.5 mg See Protocol PO SUMOTUWETHFR@1800 Nursing Note Pt to ACS with use of walker accompanies by . Pt is confused and turns to to answer any questions. states after last ACS visit, pt fell at home and hit his head. brought him to ER for CT scan which was negative. states pt is incontinent. She takes care of him and 2 daughters help. INR: 2.9 in therapeutic range of 2-3 Medications and supplements reviewed: no changes No changes in health, diet, medications, or supplements, Denies any signs and symptoms of bleeding or bruising or clotting. 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
== END 2024-05-08 10:14 | disposition home or self-care (01) ==
LOC: HO.ACS 09:52
PROVIDERS: PCP Internal Medicine; Visit Provider Internal Medicine
DX: Z79.01 Long term (current) use of anticoagulants (principal)

== ENCOUNTER → 2024-05-08 09:52 | Outpatient (BNVA) | payer MEDICARE, SELFPAY | PROVIDERS: PCP Internal Medicine; Visit Provider Internal Medicine | DX: I48.91 Unspecified atrial fibrillation (principal); Z79.01 Long term (current) use of anticoagulants; Z51.81 Encounter for therapeutic drug level monitoring | CPT/HCPCS: 85610; 99211 ==

== ENCOUNTER 2024-06-05 09:53 | Outpatient (AMB) | payer MEDICARE, SELFPAY ==
--- NOTE | 2024-06-05 09:58 | MHC.OFFVISCO ---
Intake Intake Visit Reasons: Anticoagulation Allergies ciprofloxacin Allergy (Intermediate, Verified 06/05/24 09:55) hives benzonatate Adverse Reaction (Intermediate, Verified 06/05/24 09:55) Gastrointestinal Upset lisinopril Adverse Reaction (Intermediate, Uncoded 06/05/24 09:55) Cough Medication List - Last Reconciled 06/05/24 by Moni Gonsales RN diltiazem HCl CD 120 mg PO BEDTIME donepezil 10 mg PO DAILY@1800 latanoprost 0.005% 1 drp ophthalmic (eye) BEDTIME losartan 100 mg PO DAILY memantine 10 mg PO BID timolol maleate 0.5% 1 drp ophthalmic (eye) DAILY vit C,R-Zh-djzxh-lutein-zeaxan 250-90-40-1 mg (PreserVision AREDS-2) 1 tab PO BID@0900,1800 warfarin 5 mg See Protocol PO SA@1800 warfarin 2.5 mg See Protocol PO SUMOTUWETHFR@1800 Nursing Note INR: 2.6- in therapeutic range of 2-3 Medications and supplements reviewed- no changes No changes in health, diet, medications, or supplements, Denies any signs and symptoms of bleeding or bruising or clotting. Bleeding, bruising, clotting discussed Nutritional guidance given Dose: 5mg x 2, 2.5mg x 5 F/U INR: 4 weeks Patient verbalizes understanding of instructions given Anti-Coag Initial Assessment Social Hx Patient Tobacco Use Status: Never used Tobacco alcohol intake: former Alcohol intake frequency: does not drink Coding Level of Care Code Est Patient Level 1 Diagnoses Current use of anticoagulant therapy Z79.01 Results AMB INR Fingerstick AMB INR Fingerstick 2.6 Last Edit by Moni Gonsales RN on 06/05/24 10:00 Assessment & Plan Assessment & Plan (1) Current use of anticoagulant therapy: Code(s): 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
[2024-06-05 10:00] LABS: Prothrombin Time Whole Bld POC 30.6 sec (11.1-13.5); ~PT, ~INR - Anti Coag Clinic 2.6 (0.9-1.1)
== END 2024-06-05 10:33 | disposition home or self-care (01) ==
LOC: HO.ACS 09:53
PROVIDERS: PCP Internal Medicine; Visit Provider Internal Medicine
DX: Z79.01 Long term (current) use of anticoagulants (principal)

== ENCOUNTER → 2024-06-05 09:53 | Outpatient (BNVA) | payer MEDICARE, SELFPAY | PROVIDERS: PCP Internal Medicine; Visit Provider Internal Medicine | DX: I48.91 Unspecified atrial fibrillation (principal); Z79.01 Long term (current) use of anticoagulants; Z51.81 Encounter for therapeutic drug level monitoring | CPT/HCPCS: 85610; 99211 ==

== ENCOUNTER 2024-07-03 09:54 | Outpatient (AMB) | payer MEDICARE, SELFPAY ==
[2024-07-03 09:59] LABS: Prothrombin Time Whole Bld POC 26.8 sec (11.1-13.5); ~PT, ~INR - Anti Coag Clinic 2.2 (0.9-1.1)
--- NOTE | 2024-07-03 10:04 | MHC.OFFVISCO ---
Intake Intake Visit Reasons: Anticoagulation Allergies ciprofloxacin Allergy (Intermediate, Verified 07/03/24 09:54) hives benzonatate Adverse Reaction (Intermediate, Verified 07/03/24 09:54) Gastrointestinal Upset lisinopril Adverse Reaction (Intermediate, Uncoded 07/03/24 09:54) Cough Medication List - Last Reconciled 07/03/24 by Lolis Fuentes, RN diltiazem HCl CD 120 mg PO BEDTIME donepezil 10 mg PO DAILY@1800 latanoprost 0.005% 1 drp ophthalmic (eye) BEDTIME losartan 100 mg PO DAILY memantine 10 mg PO BID timolol maleate 0.5% 1 drp ophthalmic (eye) DAILY vit C,O-Xg-bonda-lutein-zeaxan 250-90-40-1 mg (PreserVision AREDS-2) 1 tab PO BID@0900,1800 warfarin 5 mg See Protocol PO SA@1800 warfarin 2.5 mg See Protocol PO SUMOTUWETHFR@1800 Nursing Note INR: 2.2 in therapeutic range of 2-3 Medications and supplements reviewed No changes in health, diet, medications, or supplements, Denies any signs and symptoms of bleeding or bruising or clotting. Bleeding, bruising, clotting discussed Nutritional guidance given hold greens today only and have a serving of foods from the list that raises the INR. Food list reviewed. Dose: 2.5mg X 5 days and 5mg X 2 days F/U INR: 4 weeks Patient verbalizes understanding of instructions given Anti-Coag Initial Assessment Social Hx Patient Tobacco Use Status: Never used Tobacco alcohol intake: former Alcohol intake frequency: does not drink Coding Level of Care Code Est Patient Level 1 Diagnoses Current use of anticoagulant therapy Z79.01 Assessment & Plan Assessment & Plan (1) Current use of anticoagulant therapy: Code(s): Z79.01 - alf (current) use of anticoagulants Category: Medical
== END 2024-07-03 10:06 | disposition home or self-care (01) ==
LOC: HO.ACS 09:54
PROVIDERS: PCP Internal Medicine; Visit Provider Internal Medicine
DX: Z79.01 Long term (current) use of anticoagulants (principal)

== ENCOUNTER → 2024-07-03 09:54 | Outpatient (BNVA) | payer MEDICARE, SELFPAY | PROVIDERS: PCP Internal Medicine; Visit Provider Internal Medicine | DX: I48.91 Unspecified atrial fibrillation (principal); Z79.01 Long term (current) use of anticoagulants; Z51.81 Encounter for therapeutic drug level monitoring | CPT/HCPCS: 85610; 99211 ==

== ENCOUNTER 2024-07-31 10:44 | Outpatient (AMB) | payer MEDICARE, SELFPAY ==
[2024-07-31 10:51] LABS: Prothrombin Time Whole Bld POC 31.6 sec (11.1-13.5); ~PT, ~INR - Anti Coag Clinic 2.6 (0.9-1.1)
--- NOTE | 2024-07-31 10:55 | MHC.OFFVISCO ---
Intake Intake Visit Reasons: Anticoagulation Allergies ciprofloxacin Allergy (Intermediate, Verified 07/31/24 10:46) hives benzonatate Adverse Reaction (Intermediate, Verified 07/31/24 10:46) Gastrointestinal Upset lisinopril Adverse Reaction (Intermediate, Uncoded 07/31/24 10:46) Cough Medication List - Last Reconciled 07/31/24 by Amy Bales, RN diltiazem HCl CD 120 mg PO BEDTIME donepezil 10 mg PO DAILY@1800 latanoprost 0.005% 1 drp ophthalmic (eye) BEDTIME losartan 100 mg PO DAILY memantine 10 mg PO BID timolol maleate 0.5% 1 drp ophthalmic (eye) DAILY vit C,X-Xt-fjkxl-lutein-zeaxan 250-90-40-1 mg (PreserVision AREDS-2) 1 tab PO BID@0900,1800 warfarin 5 mg See Protocol PO SA@1800 warfarin 2.5 mg See Protocol PO SUMOTUWETHFR@1800 Nursing Note INR: 2.6 in therapeutic range Medications and supplements reviewed No changes in health, diet, medications, or supplements, Denies any signs and symptoms of bleeding or bruising or clotting. Bleeding, bruising, clotting discussed Nutritional guidance given Dose: 5MG X 2 DAYS/ 2.5MG X 5 DAYS F/U INR: 1 MONTH Patient verbalizes understanding of instructions given Anti-Coag Initial Assessment Social Hx Patient Tobacco Use Status: Never used Tobacco alcohol intake: former Alcohol intake frequency: does not drink Coding Level of Care Code Est Patient Level 1 Diagnoses Current use of anticoagulant therapy Z79.01 Assessment & Plan Assessment & Plan (1) Current use of anticoagulant therapy: Code(s): Z79.01 - penitentiary (current) use of anticoagulants Category: Medical
== END 2024-07-31 10:58 | disposition home or self-care (01) ==
LOC: HO.ACS 10:44
PROVIDERS: PCP Internal Medicine; Visit Provider Internal Medicine
DX: Z79.01 Long term (current) use of anticoagulants (principal)

== ENCOUNTER → 2024-07-31 10:44 | Outpatient (BNVA) | payer MEDICARE, SELFPAY | PROVIDERS: PCP Internal Medicine; Visit Provider Internal Medicine | DX: I48.91 Unspecified atrial fibrillation (principal); Z79.01 Long term (current) use of anticoagulants; Z51.81 Encounter for therapeutic drug level monitoring | CPT/HCPCS: 85610; 99211 ==

== ENCOUNTER 2024-08-28 10:23 | Outpatient (AMB) | payer MEDICARE, SELFPAY ==
--- NOTE | 2024-08-28 10:28 | MHC.OFFVISCO ---
Intake Intake Visit Reasons: Anticoagulation Allergies ciprofloxacin Allergy (Intermediate, Verified 08/28/24 10:24) hives benzonatate Adverse Reaction (Intermediate, Verified 08/28/24 10:24) Gastrointestinal Upset lisinopril Adverse Reaction (Intermediate, Uncoded 08/28/24 10:24) Cough Medication List - Last Reconciled 08/28/24 by Moni Gonsales, RN diltiazem HCl CD 120 mg PO BEDTIME donepezil 10 mg PO DAILY@1800 latanoprost 0.005% 1 drp ophthalmic (eye) BEDTIME losartan 100 mg PO DAILY memantine 10 mg PO BID timolol maleate 0.5% 1 drp ophthalmic (eye) DAILY vit C,A-Ba-dxpij-lutein-zeaxan 250-90-40-1 mg (PreserVision AREDS-2) 1 tab PO BID@0900,1800 warfarin See Protocol 5 mg orally 5MG X 2 DAYS/ 2.5MG X 5 DAYS; Nursing Note INR: 2.4- in therapeutic range of 2-3 Medications and supplements reviewed No changes in health, diet, medications, or supplements, Denies any signs and symptoms of bleeding or bruising or clotting. Bleeding, bruising, clotting discussed Nutritional guidance given Dose: 5mg x 2, 2.5mg x 5 F/U INR: 4 weeks Patient verbalizes understanding of instructions given j pt amb to acs using walker and acompanied by jorge Anti-Coag Initial Assessment Social Hx Patient Tobacco Use Status: Never used Tobacco alcohol intake: former Alcohol intake frequency: does not drink Coding Level of Care Code Est Patient Level 1 Diagnoses Current use of anticoagulant therapy Z79.01 Assessment & Plan Assessment & Plan (1) Current use of anticoagulant therapy: Code(s): Z79.01 - rn long term care (current) use of anticoagulants Category: Medical
[2024-08-28 10:29] LABS: Prothrombin Time Whole Bld POC 29.3 sec (11.1-13.5); ~PT, ~INR - Anti Coag Clinic 2.4 (0.9-1.1)
== END 2024-08-28 10:35 | disposition home or self-care (01) ==
LOC: HO.ACS 10:23
PROVIDERS: PCP Internal Medicine; Visit Provider Internal Medicine
DX: Z79.01 Long term (current) use of anticoagulants (principal)

== ENCOUNTER → 2024-08-28 10:23 | Outpatient (BNVA) | payer MEDICARE, SELFPAY | PROVIDERS: PCP Internal Medicine; Visit Provider Internal Medicine | DX: I48.91 Unspecified atrial fibrillation (principal); Z79.01 Long term (current) use of anticoagulants; Z51.81 Encounter for therapeutic drug level monitoring | CPT/HCPCS: 85610; 99211 ==

== ENCOUNTER 2024-09-25 10:26 | Outpatient (AMB) | payer MEDICARE, SELFPAY ==
[2024-09-25 10:33] LABS: ~PT, ~INR - Anti Coag Clinic 2.9 (0.9-1.1)
--- NOTE | 2024-09-25 10:38 | MHC.OFFVISCO ---
Intake Intake Visit Reasons: Anticoagulation Allergies ciprofloxacin Allergy (Intermediate, Verified 09/25/24 10:27) hives benzonatate Adverse Reaction (Intermediate, Verified 09/25/24 10:27) Gastrointestinal Upset lisinopril Adverse Reaction (Intermediate, Uncoded 09/25/24 10:27) Cough Medication List - Last Reconciled 09/25/24 by Amy Bales, RN diltiazem HCl CD 120 mg PO BEDTIME donepezil 10 mg PO DAILY@1800 latanoprost 0.005% 1 drp ophthalmic (eye) BEDTIME losartan 100 mg PO DAILY memantine 10 mg PO BID timolol maleate 0.5% 1 drp ophthalmic (eye) DAILY vit C,I-Dd-xjojg-lutein-zeaxan 250-90-40-1 mg (PreserVision AREDS-2) 1 tab PO BID@0900,1800 warfarin See Protocol 5 mg orally 5MG X 2 DAYS/ 2.5MG X 5 DAYS; Nursing Note INR: 2.9 in therapeutic range Medications and supplements reviewed No changes in health, diet, medications, or supplements, Denies any signs and symptoms of bleeding or bruising or clotting. Bleeding, bruising, clotting discussed Nutritional guidance given- Review food list weekly - especially during the holidays Dose: keep same 5mg x 2 days/ 2.5mg x 5 days F/U INR: 1 month - 5 weeks due to other appts and weather Patient verbalizes understanding of instructions given Anti-Coag Initial Assessment Social Hx Patient Tobacco Use Status: Never used Tobacco alcohol intake: former Alcohol intake frequency: does not drink Coding Level of Care Code Est Patient Level 1 Diagnoses Current use of anticoagulant therapy Z79.01 Assessment & Plan Assessment & Plan (1) Current use of anticoagulant therapy: Code(s): Z79.01 - exterminator termite (current) use of anticoagulants Category: Medical
== END 2024-09-25 10:40 | disposition home or self-care (01) ==
LOC: HO.ACS 10:26
PROVIDERS: PCP Internal Medicine; Visit Provider Internal Medicine
DX: Z79.01 Long term (current) use of anticoagulants (principal)

== ENCOUNTER → 2024-09-25 10:26 | Outpatient (BNVA) | payer MEDICARE, SELFPAY | PROVIDERS: PCP Internal Medicine; Visit Provider Internal Medicine | DX: I48.91 Unspecified atrial fibrillation (principal); Z79.01 Long term (current) use of anticoagulants; Z51.81 Encounter for therapeutic drug level monitoring | CPT/HCPCS: 85610; 99211 ==

== ENCOUNTER 2024-10-04 08:33 | Outpatient (REF) | payer MEDICARE, SELFPAY ==
[2024-10-04 09:50] LABS: MANUAL DIFF FLAG NO
[2024-10-04 10:05] LABS: Basophils Percent Auto 0.7 % (0-2); Eosinophils Absolute Auto 0.1 X10*3/uL (0.0-0.4); Eosinophils Percent Auto 2.9 % (0-4); Hematocrit 38.5 % (42.0-52.0); Hemoglobin 12.3 g/dl (14.0-18.0); Imm Gran Abs Auto 0.01 X10*3/uL (0.00-0.03); Imm Gran Pct Auto 0.2 % (0.0-0.4); Lymphocytes Absolute Auto 0.8 X10*3/uL (1.2-4.9); Lymphocytes Percent Auto 16.9 % (20-40); Mean Corpuscular HGB Conc 31.9 g/dl (31.0-36.0); Mean Corpuscular Hemoglobin 29.6 pg (27.0-33.0); Mean Corpuscular Volume 92.5 fL (80.0-98.0); Mean Platelet Volume 12.2 fL (9.4-12.4); Monocytes Absolute Auto 0.5 X10*3/uL (0.1-1.2); Monocytes Percent Auto 10.6 % (2-11); Neutrophils Absolute Auto 3.1 x10*3/uL (2.0-8.3); Neutrophils Percent Auto 68.7 % (45-73); Platelet Count 120 X10*3/uL (160-400); Red Blood Count 4.16 X10*6/uL (4.60-5.80); Red Cell Distribution Width 16.3 % (11.0-16.0); White Blood Count 4.5 X10*3/uL (4.8-10.8)
[2024-10-04 11:23] LABS: Alanine Aminotransferase 20 U/L (0-40); Albumin Level 3.5 g/dL (3.5-5.0); Alkaline Phosphatase 116 U/L (39-117); Anion Gap 12 (12-20); Aspartate Amino Transferase 37 U/L (5-37); Bilirubin Total 0.7 mg/dL (0.0-1.0); Blood Urea Nitrogen 26 mg/dL (9-16); Calcium 9.6 mg/dL (8.4-10.2); Carbon Dioxide 27 mmol/L (22-29); Chloride 109 mmol/L (96-108); Estimated Glomerular Filt Rate 55; Glucose Random 104 mg/dL (60-115); Potassium 3.9 mmol/L (3.3-5.1); Sodium 144 mmol/L (135-145); Total Protein 6.6 g/dL (6.5-8.0)
[2024-10-04 11:41] LABS: Ferritin 88 ng/mL (20-250)
== END 2024-10-04 08:34 | disposition home or self-care (01) ==
LOC: HO.HMGCLDS 08:33
PROVIDERS: PCP Internal Medicine; Visit Provider Internal Medicine
DX: D69.6 Thrombocytopenia, unspecified (principal); F03.90 Unspecified dementia, unspecified severity, without behavioral disturbance, psychotic disturbance, mood disturbance, and anxiety; I48.91 Unspecified atrial fibrillation; Z79.01 Long term (current) use of anticoagulants
CPT/HCPCS: 36415; 80053; 82728; 85025

== ENCOUNTER 2024-10-30 10:35 | Outpatient (AMB) | payer MEDICARE, SELFPAY ==
[2024-10-30 10:47] LABS: Prothrombin Time Whole Bld POC 34.5 sec (11.1-13.5); ~PT, ~INR - Anti Coag Clinic 2.9 (0.9-1.1)
--- NOTE | 2024-10-30 10:53 | MHC.OFFVISCO ---
Intake Intake Visit Reasons: Anticoagulation Allergies ciprofloxacin Allergy (Intermediate, Verified 10/30/24 10:42) hives benzonatate Adverse Reaction (Intermediate, Verified 10/30/24 10:42) Gastrointestinal Upset lisinopril Adverse Reaction (Intermediate, Uncoded 10/30/24 10:42) Cough Medication List - Last Reconciled 10/30/24 by Lolis Fuentes, RN diltiazem HCl CD 120 mg PO BEDTIME donepezil 10 mg PO DAILY@1800 latanoprost 0.005% 1 drp ophthalmic (eye) BEDTIME losartan 100 mg PO DAILY memantine 10 mg PO BID timolol maleate 0.5% 1 drp ophthalmic (eye) DAILY vit C,H-Iy-paclr-lutein-zeaxan 250-90-40-1 mg (PreserVision AREDS-2) 1 tab PO BID@0900,1800 warfarin See Protocol 5 mg orally 5MG X 2 DAYS/ 2.5MG X 5 DAYS; Nursing Note INR: 2.9 in therapeutic range of 2-3 Medications and supplements reviewed No changes in health, diet, medications, or supplements, Denies any signs and symptoms of bleeding or bruising or clotting. Bleeding, bruising, clotting discussed Nutritional guidance given to have a serving of greens today Dose: 2.5mg X 5 days and 5mg X 2 days F/U INR: 4 weeks Patient verbalizes understanding of instructions given Anti-Coag Initial Assessment Social Hx Patient Tobacco Use Status: Never used Tobacco alcohol intake: former Alcohol intake frequency: does not drink Coding Level of Care Code Est Patient Level 1 Diagnoses Current use of anticoagulant therapy Z79.01 Results AMB INR Fingerstick AMB INR Fingerstick 2.9 Last Edit by Lolis Fuentes, RN on 10/30/24 10:47 interface delay Assessment & Plan Assessment & Plan (1) Current use of anticoagulant therapy: Code(s): Z79.01 - snf (current) use of anticoagulants Category: Medical
== END 2024-10-30 10:55 | disposition home or self-care (01) ==
LOC: HO.ACS 10:35
PROVIDERS: PCP Internal Medicine; Visit Provider Internal Medicine
DX: Z79.01 Long term (current) use of anticoagulants (principal)

== ENCOUNTER → 2024-10-30 10:35 | Outpatient (BNVA) | payer MEDICARE, SELFPAY | PROVIDERS: PCP Internal Medicine; Visit Provider Internal Medicine | DX: I48.91 Unspecified atrial fibrillation (principal); Z79.01 Long term (current) use of anticoagulants; Z51.81 Encounter for therapeutic drug level monitoring | CPT/HCPCS: 85610; 99211 ==

== ENCOUNTER 2024-11-27 10:25 | Outpatient (AMB) | payer MEDICARE, SELFPAY ==
--- NOTE | 2024-11-27 10:32 | MHC.OFFVISCO ---
Intake Intake Visit Reasons: Anticoagulation Allergies ciprofloxacin Allergy (Intermediate, Verified 11/27/24 10:28) hives benzonatate Adverse Reaction (Intermediate, Verified 11/27/24 10:28) Gastrointestinal Upset lisinopril Adverse Reaction (Intermediate, Uncoded 11/27/24 10:28) Cough Medication List - Last Reconciled 11/27/24 by Moni Gonsales, RN diltiazem HCl CD 120 mg PO BEDTIME donepezil 10 mg PO DAILY@1800 latanoprost 0.005% 1 drp ophthalmic (eye) BEDTIME losartan 100 mg PO DAILY memantine 10 mg PO BID timolol maleate 0.5% 1 drp ophthalmic (eye) DAILY vit C,O-Pp-kcbfr-lutein-zeaxan 250-90-40-1 mg (PreserVision AREDS-2) 1 tab PO BID@0900,1800 warfarin See Protocol 5 mg orally 5MG X 2 DAYS/ 2.5MG X 5 DAYS; Nursing Note INR 3.1-? out of therapeutic range Medications and supplements reviewed Patient status: pt amb with walker, acompanied by Medications or supplements: no changes Diet: appetite same, takes boost one bottle per day Denies any signs and symptoms of bleeding or clotting or unusual bruising Bleeding, bruising, clotting discussed Nutritional guidance given: eat greens to lower, no reds for 2 days Dose: cont same dosing 5mg x 2, 2.5mg x 5 F/U INR Date : 2 weeks? Patient verbalizing understanding of instructions given. 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
[2024-11-27 11:12] LABS: Prothrombin Time Whole Bld POC 37.6 sec (11.1-13.5); ~PT, ~INR - Anti Coag Clinic 3.1 (0.9-1.1)
--- OUTSIDE RECORDS SUMMARY | 2024-11-27 11:16 | XMS_ITS | Clinical Summary ---
Author Organization [facility] Address [address] [place] [address] Care Team Providers Care English Drawer Name Role Phone Elif Vides MD Primary Care Provider [phone] Allergies Active Allergy Reactions Criticality Noted Date Comments Ciprofloxacin Hives 07/23/2021 Medications Medication Sig Dispensed Refills Start Date End Date Status dilTIAZem (CARDIZEM CD) 120 MG 24 hr capsule 0 01/27/2022 Active dilTIAZem (TIAZAC) 120 MG 24 hr capsule Take 1 capsule (120 mg total) by mouth daily. 0 08/26/2021 Active donepezil (ARICEPT) 10 MG tablet Take by mouth. 0 06/23/2020 Active Latanoprost 0.005 % EMUL 1 drop. 0 Active memantine (NAMENDA) 5 MG tablet Take 1 tablet (5 mg total) by mouth. 0 06/23/2020 Active timolol (TIMOPTIC) 0.5 % ophthalmic solution daily. 0 Act zay warfarin (COUMADIN) 5 MG tablet 5 mg Sun, Wed, Tue 2.5 M,T,Thur, SAt 0 05/30/2019 Active losartan (COZAAR) tablet 25 mg Take 1 tablet (25 mg total) by mouth daily. 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 Mediastinal adenopathy 01/13/2022 Overview: S/p EBUS 11/2021 (negative for malignancy) Last Assessment & Plan: Mr. 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 The pathology report made note that if the lymphadenopathy persists, or if there was high clinical suspicion for lymphoma, re-evaluation may be warranted. ?? I discussed the patient's case and reviewed the images with Dr. Mays. ?? Given the persistent mediastinal lymphadenopathy on serial CT scans, as well as some slight increase in a precarinal node on current scan, I will refer the patient to medical oncology for evaluation. If they request re-sampling of the lymph nodes we can certainly discuss this with the patient. ?? Given the absense of symptoms and his advanced age it is likely no further evaluation or treatment would be needed, but would welcome medical oncology's evaluation of this case. Patient and his educated to call our office if he has no other questions or concerns. A-fib 07/23/2021 Essential hypertension 07/23/2021 Social History Tobacco Use Types Packs/Day Years Used Date Smoking Tobacco: Former Smokeless Tobacco: Never Alcohol Use Standard Drinks/Week Comments Not Currently 0 (1 standard drink = 0.6 oz pur e alcohol) Sex and Gender Information Value Date Recorded Sex Assigned at Not on file Gender Identity Not on file Sexual Orientation Not on file Job Start Date Occupation Industry Not on file Not on file Not on file Last Filed Vital Signs Vital Sign Reading Time Taken Comments Blood Pressure 127/79 01/24/2024 10:27 AM EDT Pulse 84 01/24/2024 10:27 AM EDT Temperature 36 ??C (96.8 ??F) 01/24/2024 10:27 AM EDT Respiratory Rate - - Oxygen Saturation 97% 01/24/2024 10:27 AM EDT Inhaled Oxygen Concentration - - Weight 66.7 kg (147 lb) 01/24/2024 10:27 AM EDT Height 167.6 cm (5' 6 ) 01/24/2024 10:27 AM EDT Body Mass Index 23.73 01/24/2024 10:27 AM EDT Plan of Treatment Health Maintenance Due Date Last Done Comments COVID-19 Vaccine (#1) 1935 Depression Screening 1947 Preventative Health Evaluation 1953 DTap / Tdap / Td (1 - Tdap) 1954 Shingrix-Zoster Vaccine (1 of 2) 1985 Fall Risk Assessment 2000 Pneumococcal Vaccine (1 of 1 - PCV) 2000 RSV Adult > 60+ Yrs or Pregn ant (1 - 1-dose 75+ series) 2010 Influenza Vaccine (#1) 2024 Hepatitis B Vaccines Aged Out No long er eligible based on patient's age to complete this topic RSV Ped < 20 months Aged Out No longe r eligible based on patient's age to complete this topic Care Teams English Drawer Relationship Specialty Start Date End Date Elif Vides MD [facility] [address] [place] [id number] PCP - General Internal Medicine 01/29/22
--- OUTSIDE RECORDS SUMMARY | 2024-11-27 11:16 | XMS_ITS | Clinical Summary ---
Author Organization [address] [place] [address] Address [address] [place] [address] Phone Care Team Providers Care Yarn Dry Room Worker Name Role Phone Elif Vides MD Primary Care Provider [phone] Allergies Active Allergy Reactions Criticality Noted Date Comments Ciprofloxacin 07/23/2021 Medications Medication Sig Dispensed Refills Start Date End Date Status donepeziL (ARICEPT) 10 mg tablet Take by mouth daily. 06/23/2020 Active latanoprost (Xelpros) 0.005 % drops, emulsion 1 Drop daily. Active lisinopriL (PRINIVIL,ZESTRIL ) 20 mg tablet Take 20 mg by mouth daily. 03/11/2018 Active memantine (NAMENDA) 5 mg tablet Take 2 tablets (10 mg total) by mouth 2 (two) times a day. 06/23/2020 Active vit C/E/Zn/coppr/lute in/zeaxan (PRESERVISION AREDS-2 ORAL) Take 2 Tablets by mouth daily. Active timoloL (BetimoL) 0.5 % ophthalmic solution daily. Active warfarin (COUMADIN) 5 mg tablet 5 mg Sun, Wed, Fri 2.5 M,T,Thur, Sat PCP Active losartan (COZAAR) 100 mg tablet Take 1 tablet (100 mg total) by mouth 1 (one) time each day. Active multivitamin with minerals tablet Take 1 tablet by mouth 1 (one) time each day. Active dilTIAZem CD (CARDIZEM CD) 120 mg 24 hr capsule Take 1 capsule (120 mg total) by mouth 1 (one) time each day. 90 capsule 3 10/30/2024 Active dilTIAZem CD (CARDIZEM CD) 120 mg 24 hr capsule TAKE 1 CAPSULE BY MOUTH EVERY DAY 06/01/2024 10/30/2024 Discontinued (Reorder) Active Problems Problem Noted Date Diagnosed Date Alzheimer disease 07/26/2022 Palpitations 07/26/2022 Assessment & Plan (10/02/2024 7:36 PM EST): Orders: ECG 12 lead Mediastinal adenopathy 01/13/2022 Overview (08/28/2024): S/p EBUS 11/2021 (negative for malignancy) Last [...] he has no other questions or concerns. 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 Essential hypertension 07/23/2021 Assessment & Plan (10/02/2024 7:36 PM EST): Orders: ECG 12 lead Permanent atrial fibrillation 07/23/2021 Assessment & Plan (10/02/2024 7:36 PM EST): Orders: ECG 12 lead Weight loss 07/23/2021 Encounters Date Type Department Care Team Description 10/02/2024 3:10 PM EST Office Visit [facility] - [address] [place] [address] Bridger Palmer MD Essential hypertension (Primary Dx); Palpitations; Permanent atrial fibrillation (CMS/HCC) from Last 3 Months Social History Tobacco Use Types Packs/Day Years [...] file Not on file Not on file Obstetrics History Last Filed Vital Signs Vital Sign Reading Time Taken Comments Blood Pressure 160/70 10/02/2024 3:09 PM EST Pulse 79 10/02/2024 3:09 PM EST Temperature - - Respiratory Rate - - Oxygen Saturation 99% 10/02/2024 3:09 PM EST Inhaled Oxygen Concentration - - Weight 69.2 kg (152 lb 9.6 oz) 10/02/2024 3:09 P M EST Height 170.2 cm (5' 7 ) 10/02/2024 3:09 PM EST Body Mass Index 23.9 10/02/2024 3:09 PM EST Plan of Treatment Health Maintenance Due Date Last Done Comments DTaP,Tdap,and Td Vaccines (1 - Tdap) 1954 Zoster Vaccines (1 of 2) 1985 Pneumococcal Vaccine: 65+ Years (1 of 1 - PCV) 2000 RSV Immunization Patients 60 + Years Old (1 - 1-dose 75+ series) 2010 Cholesterol Screening (Lipid Panel) 10/01/2022 Depression Screening 10/01/2022 Falls Risk Assessment 10/01/2022 Medicare Annual Wellness Visit 10/01/2022 Social Influencers of Health Screening 10/01/2022 Hypertension/CHF/CAD Annual BMP Blood Test 10/03/2022 COVID-19 Vaccine (3 - 2024-2 5 season) 2024 12/29/2020, 12/08/2020 Influenza Vaccine (#1) 2024 HIB Vaccines Aged Out No longer eligi ble based on patient's age to complete this topic HPV Vaccines Aged Out No longer eligi ble based on patient's age to complete this topic Hepatitis A Vaccines Aged Out No long er eligible based on patient's age to complete this topic Hepatitis B Vaccines Aged Out No long er eligible based on patient's age to complete this topic IPV Vaccines Aged Out No longer eligi ble based on patient's age to complete this topic MMR Vaccines Aged Out No longer eligi ble based on patient's age to complete this topic Meningococcal ACWY Vaccine Aged Out N o longer eligible based on patient's age to complete this topic RSV Immunization Patients Under 20 months Aged Out No longer eligible b ased on patient's age to complete this topic Varicella Vaccines Aged Out No longer eligible based on patient's age to complete this topic Procedures Procedure Name Priority Date/Time Associated Diagnosis Comments ECG 12-LEAD Routine 10/02/2024 3:23 PM EST Essential hypertension Palpitations Permanent atrial fibrillation (CMS/HCC) from Last 3 Months Results * ECG 12 lead (10/02/2024 3:23 PM EST) Ventricular Rate ECG 79 BPM GEMUSE Atrial Rate 101 BPM GEMUSE QRS Duration 104 ms GEMUSE Q-T Interval 396 ms GEMUSE QTc 454 ms GEMUSE R Valmy -5 degrees GEMUSE T Valmy 93 degrees GEMUSE ECG Interpretation Atrial fibrillation with frequent Premature ventricular complexes Nonspecific ST and T wave abnormality When compared with ECG of 14-DEC-2019 10:52, More PVC's and aberrance beats noted Confirmed by ULISSES PALMER ([id number]) on 10/02/2024 7:20:05 PM GEMUSE 10/02/2024 3:23 PM EST 10/02/2024 7:20 PM EST Bridger Palmer MD ECG ORDERABLES GEMUSE from Last 3 Months Advance Directives Documents on File Type Date Recorded Patient Knuckle Strap Sewer Expl anation Health Care Decision (hx) 12/19/2019 AD GASCA DIRECTIVE Health Care Decision (hx) 12/19/2019 AD GASCA DIRECTIVE Health Care Decision (hx) 12/19/2019 AD GASCA DIRECTIVE Health Care Decision (hx) 12/19/2019 AD GASCA DIRECTIVE Health Care Decision (hx) 12/19/2019 AD GASCA DIRECTIVE Health Care Decision (hx) 12/19/2019 AD GASCA DIRECTIVE Health Care Decision (hx) 12/19/2019 AD GASCA DIRECTIVE Health Care Decision (hx) 12/19/2019 AD GASCA DIRECTIVE Health Care Decision (hx) 12/19/2019 AD GASCA DIRECTIVE Health Care Decision (hx) 12/19/2019 AD GASCA DIRECTIVE Health Care Decision (hx) 11/20/2015 AD GASCA DIRECTIVE Health Care Decision (hx) 11/20/2015 AD GASCA DIRECTIVE Health Care Decision (hx) 11/20/2015 AD GASCA DIRECTIVE Health Care Decision (hx) 11/20/2015 AD GASCA DIRECTIVE Health Care Decision (hx) 11/20/2015 AD GASCA DIRECTIVE Health Care Decision (hx) 11/20/2015 AD GASCA DIRECTIVE Health Care Decision (hx) 11/20/2015 AD GASCA DIRECTIVE Health Care Decision (hx) 11/20/2015 AD GASCA DIRECTIVE Health Care Decision (hx) 11/17/2015 AD GASCA DIRECTIVE Health Care Decision (hx) 11/17/2015 AD GASCA DIRECTIVE Health Care Decision (hx) 11/17/2015 AD GASCA DIRECTIVE Health Care Decision (hx) 11/17/2015 AD GASCA DIRECTIVE Health Care Decision (hx) 11/17/2015 AD GASCA DIRECTIVE Health Care Decision (hx) 11/17/2015 AD GASCA DIRECTIVE Health Care Decision (hx) 11/17/2015 AD GASCA DIRECTIVE Health Care Decision (hx) 11/17/2015 AD GASCA DIRECTIVE Health Care Decision (hx) 11/17/2015 AD GASCA DIRECTIVE Health Care Decision (hx) 11/17/2015 AD GASCA DIRECTIVE Health Care Decision (hx) 11/17/2015 AD GASCA DIRECTIVE Health Care Decision (hx) 11/17/2015 AD GASCA DIRECTIVE Health Care Decision (hx) 11/17/2015 AD GASCA DIRECTIVE Health Care Decision (hx) 11/17/2015 AD GASCA DIRECTIVE Health Care Decision (hx) 11/17/2015 AD GASCA DIRECTIVE Health Care Decision (hx) 11/17/2015 AD GASCA DIRECTIVE Care Teams Yarn Dry Room Worker Relationship Specialty Start Date End Date Elif Vides MD [address] [place] [address] PCP - General Internal Medicine 07/23/21
== END 2024-11-27 10:39 | disposition home or self-care (01) ==
LOC: HO.ACS 10:25
PROVIDERS: PCP Internal Medicine; Visit Provider Internal Medicine
DX: Z79.01 Long term (current) use of anticoagulants (principal)

== ENCOUNTER → 2024-11-27 10:25 | Outpatient (BNVA) | payer MEDICARE, SELFPAY | PROVIDERS: PCP Internal Medicine; Visit Provider Internal Medicine | DX: I48.91 Unspecified atrial fibrillation (principal); Z79.01 Long term (current) use of anticoagulants; Z51.81 Encounter for therapeutic drug level monitoring | CPT/HCPCS: 85610; 99211 ==

== ENCOUNTER 2024-12-06 09:42 | Inpatient (IN) | payer MEDICARE, SELFPAY ==
[2024-12-06] VITALS (7 sets, daily range): BP systolic 131–163; BP diastolic 66–98; PULSE 56–108; RESP 18–20; TEMP 36.6–37; O2SAT 93–97; BMI 25.8; BMI 23.9
--- NOTE | ~2024-12-06 | CT_ITS ---
CLINICAL HISTORY: Pulmonary edema vs multifocal pneumonia CT chest without contrast Comparison: None Findings: Borderline cardiomegaly. Adenopathy noted within the mediastinum. Moderate atherosclerotic disease of the coronary arteries. No discrete thyroid lesion. Moderate right effusion and small left effusion. There is multifocal airspace density. No significant interlobular septal thickening. The visualized upper abdomen demonstrates gallstones. No acute osseous finding. Impression: Multifocal pneumonia with bilateral effusions. Follow-up recommended. This document has been electronically signed by: Jose Florez MD on 12/06/2024 19:28:50
--- NOTE | ~2024-12-06 | XR_ITS ---
EXAMINATION: XR CHEST CLINICAL INFORMATION: weakness COMPARISON: April 17, 2024. TECHNIQUE: Frontal view of the chest was obtained. FINDINGS: Bilateral pulmonary reticular pattern with patchy opacities and haziness in the right lower hemithorax. Blunting of the costophrenic angles bilaterally. Bilateral apical lung scarring. Cardiomediastinal silhouette demonstrates a prominent pulmonary artery outflow and a round apex. Calcified plaque thoracic aortic arch. Multilevel thoracic and upper lumbar spondylosis. XR/XR chest 1V IMPRESSION: Pulmonary edema versus multifocal pneumonia in bilateral pleural effusions, moderate volume. Electronically signed by: Neri Hdez MD 12/06/2024 11:19 AM EST
--- NOTE | 2024-12-06 10:05 | ECG_ITS ---
Test Reason : WEAKNESS Blood Pressure : */* mmHG Vent. Rate : 88 BPM Atrial Rate : * BPM P-R Int : * ms QRS Dur : 102 ms QT Int : 376 ms P-R-T Axes : * -28 80 degrees QTcB Int : 454 ms Atrial fibrillation with premature ventricular or aberrantly conducted complexes Minimal voltage criteria for LVH, may be normal variant ( Markus product ) Abnormal ECG When compared with ECG of 17-Apr-2024 17:43, No significant change was found Referred By: Rupal Rhodes Electronically Signed By: EFREN DE JESUS MD
[2024-12-06 10:33] LABS: MANUAL DIFF FLAG NO
[2024-12-06 10:48] LABS: Basophils Percent Auto 0.6 % (0-2); Eosinophils Absolute Auto 0.1 X10*3/uL (0.0-0.4); Eosinophils Percent Auto 1.6 % (0-4); Hematocrit 37.6 % (42.0-52.0); Hemoglobin 11.9 g/dl (14.0-18.0); Imm Gran Abs Auto 0.02 X10*3/uL (0.00-0.03); Imm Gran Pct Auto 0.4 % (0.0-0.4); Lymphocytes Absolute Auto 0.3 X10*3/uL (1.2-4.9); Lymphocytes Percent Auto 5.1 % (20-40); Mean Corpuscular HGB Conc 31.6 g/dl (31.0-36.0); Mean Corpuscular Volume 91.7 fL (80.0-98.0); Mean Platelet Volume 11.4 fL (9.4-12.4); Monocytes Absolute Auto 0.5 X10*3/uL (0.1-1.2); Monocytes Percent Auto 10.4 % (2-11); Neutrophils Absolute Auto 4.2 x10*3/uL (2.0-8.3); Neutrophils Percent Auto 81.9 % (45-73); Platelet Count 118 X10*3/uL (160-400); Red Cell Distribution Width 16.8 % (11.0-16.0); White Blood Count 5.1 X10*3/uL (4.8-10.8)
[2024-12-06 10:59] LABS: Prothrombin Time 35.4 SEC (10.9-12.4)
[2024-12-06 11:05] LABS: Alanine Aminotransferase 20 U/L (0-40); Albumin Level 3.4 g/dL (3.5-5.0); Alkaline Phosphatase 120 U/L (39-117); Anion Gap 10 (12-20); Aspartate Amino Transferase 37 U/L (5-37); Bilirubin Total 0.8 mg/dL (0.0-1.0); Blood Urea Nitrogen 22 mg/dL (9-16); Carbon Dioxide 25 mmol/L (22-29); Chloride 111 mmol/L (96-108); Estimated Glomerular Filt Rate > 60; Glucose Random 104 mg/dL (60-115); Magnesium 2.2 mg/dL (1.6-2.6); Potassium 4.1 mmol/L (3.3-5.1); Sodium 142 mmol/L (135-145); Total Protein 6.8 g/dL (6.5-8.0)
--- NOTE | 2024-12-06 11:10 | ED_ITS ---
HPI - Weakness General Chief complaint: Weakness Stated complaint: STS INCR WEAKNESS 1XD,DTR SICK PER EMS Time Seen by Provider: 12/06/24 11:05 Source: patient, family, EMS, RN notes reviewed and old records reviewed Mode of arrival: EMS History of Present Illness ED Provider: Andria Vasquez PA-C HPI Narrative: 89-year-old male with a past medical history of HTN, AFib on Coumadin, dementia, presenting to the ED via EMS complaining of cough and increasing generalized fatigue/weakness since yesterday. states patient has been unable to walk x today due to weakness. At baseline ambulates with walker. reports + sick contacts with the flu. Denies reported falls, increasing confusion from baseline, fever, CP/SOB, abdominal pain. Related Data Home Medications ?Medication ?Instructions ?Recorded ?Confirmed donepezil 10 mg tablet 10 mg PO DAILY@1800 08/18/21 10/30/24 latanoprost 0.005 % eye drops 1 drp ophthalmic (eye) BEDTIME 08/18/21 10/30/24 timolol maleate 0.5 % eye drops 1 drp ophthalmic (eye) DAILY 08/18/21 10/30/24 diltiazem HCl 120 mg 120 mg PO BEDTIME 09/15/21 10/30/24 capsule,extended release 24 hr vit C 250 mg-vit E 90 mg-zinc 40 1 tab PO BID@0900,1800 02/16/22 10/30/24 mg-copper 1 yg-bejgyu-ghbqzf capsule (PreserVision AREDS-2) losartan 100 mg tablet 100 mg PO DAILY 08/16/23 10/30/24 memantine 10 mg tablet 10 mg PO BID 05/08/24 10/30/24 warfarin 2.5 mg tablet 5 mg PO .COMPLEX 07/31/24 11/27/24 Allergies Allergy/AdvReac Type Severity Reaction Status Date / Time ciprofloxacin Allergy Intermediate hives Verified 12/06/24 09:57 benzonatate AdvReac Intermediate Gastrointestinal Verified 11/27/24 10:28 Upset lisinopril AdvReac Intermediate Cough Uncoded 11/27/24 10:28 Review of Systems 2 Review of Systems: Yes all other systems are reviewed and are negative Constitutional: Constitutional: Reports as per HPI Neurologic: Denies Abnormal speech present PMFSH Past Medical History Attestation statement: The following information was validated with the patient. Source: old records reviewed Medical History Glaucoma HTN (hypertension) Permanent atrial fibrillation Dementia Social History Social History Household Members: Spouse Housing: House Do you presently have visiting nurse or other home services: No Alcohol intake: former Comment: 2:1 sitter Patient Tobacco Use Status: Never used Tobacco Smoked in Last 30 Days: No Use of substances other than those prescribed or required for medical reasons: No Advance Directives: Yes Advance Directives on File: Yes Advance Directives Date on File: 10/27/23 service: No Physical Exam 2 Vital Signs: Vital Signs: Last Vital Signs Temp 98.5 F 12/06/24 09:49 Pulse 95 12/06/24 12:16 Resp 18 12/06/24 09:49 BP 163/74 H 12/06/24 12:16 Pulse Ox 95 12/06/24 12:16 O2 Del Method Room Air 12/06/24 09:49 BMI result Body Mass Index 25.8 Const: General: cooperative, healthy appearing and no acute distress O rientation/consciousness: oriented to person and oriented to place L imitations: no limitations HEENT: Head: Yes normal to inspection and Yes atraumatic Ears: hearing grossly normal bilaterally General nose exam: Normal external nose present Face and sinus: Yes normal facial exam Eyes: General: appearance normal, both eyes and all related structures EOM: EOMs intact bilaterally Neck: Neck: Yes normal visual inspection and Yes no meningeal signs Resp: Effort & Inspection: normal respiratory effort and no respiratory distress Auscultation: rhonchi lower bilaterally and wheezes expiratory wheezes and lower bilaterally Cardio: Rate: regular rate Heart sounds: S1 normal heart sound present and S2 normal heart sound present GI: Inspection: Yes normal to inspection Palpation (GI): Soft to palpation, nontender, no guarding and not rigid : General: Yes no CVA tenderness Back/Spine/Pelvis: Back: no CVA tenderness Skin: Rashes: no rashes Wounds: no wounds Neuro: Other: Baseline dementia General: oriented to person, oriented to place, tone normal, moves all extremities and no meningeal signs Cranial nerves: Yes CN's II-XII intact bilaterally and Yes Bilaterally intact EOM present Speech: No Abnormal speech present Motor exam (neuro): 5/5 motor strength present throughout Extrem: General: Yes normal to inspection Course Course Course Narrative: -1150--no leukocytosis. H&H at patient's baseline. INR therapeutic -BUN chronically elevated. -Influenza A positive XR chest 1V IMPRESSION: Pulmonary edema versus multifocal pneumonia in bilateral pleural effusions, moderate volume. > will initiate Tamiflu, Rocephin, and Azithromycin. 1239- Plan for admission Medications Administered Discontinued Medications Generic Name Dose Route Start Last Admin Trade Name Freq PRN Reason Stop Dose Admin Oseltamivir Phosphate 75 mg 12/06/24 11:53 12/06/24 12:23 Oseltamivir Phosphate 75 Mg Capsule PO 12/06/24 11:54 75 mg ONCE ONE Administration Medical Decision Making Medical Decision Making [facility] Narrative: [11:49] - 89-year-old male with a past medical history of HTN, AFib on Coumadin, dementia, presenting to the ED via EMS complaining of cough and increasing generalized fatigue/weakness since yesterday. states patient has been unable to walk x today due to weakness. On exam vital signs stable, NAD, nontoxic appearing, A&O x2 with baseline dementia, at baseline per family, no focal neuro deficits, bibasilar expiratory wheeze/rhonchi appreciated. Concern for viral illness including influenza vs pneumonia/bronchitis vs metabolic/infectious etiologies. Low suspicion for severe sepsis. Low suspicion for CVA/TIA or ICH Plan: EKG, labs, UA, CXR, PT/case management. interested in STR Please refer to course for remaining clinical decision making, interpretation of labs/imaging results, and discussions with consultants and/or family members. Differential Diagnosis Differential Diagnoses: The differential diagnosis associated with the presentation includes As above Admission/Observation Consideration of admission/observation: Escalation of care including admission/observation considered Lab Data [facility] Lab Attestation statement: I reviewed the patient's lab results. 12/06/24 10:28 12/06/24 10:28 Labs: Lab Results 12/06/24 Range/Units 10:28 WBC 5.1 (4.8-10.8) X10*3/uL RBC 4.10 L (4.60-5.80) X10*6/uL Hgb 11.9 L (14.0-18.0) g/dl Hct 37.6 L (42.0-52.0) % MCV 91.7 (80.0-98.0) fL MCH 29.0 (27.0-33.0) pg MCHC 31.6 (31.0-36.0) g/dl RDW 16.8 H (11.0-16.0) % Plt Count 118 L (160-400) X10*3/uL MPV 11.4 (9.4-12.4) fL Immature Gran % (Auto) 0.4 (0.0-0.4) % Neut % (Auto) 81.9 H (45-73) % Lymph % (Auto) 5.1 L (20-40) % [place] % (Auto) 10.4 (2-11) % Eos % (Auto) 1.6 (0-4) % Baso % (Auto) 0.6 (0-2) % Lymph # (Auto) 0.3 L (1.2-4.9) X10*3/uL [place] # (Auto) 0.5 (0.1-1.2) X10*3/uL Eos # (Auto) 0.1 (0.0-0.4) X10*3/uL Baso # (Auto) 0.0 (0.0-0.2) X10*3/uL Abs Immat Gran (auto) 0.02 (0.00-0.03) X10*3/uL Absolute Neuts (auto) 4.2 (2.0-8.3) x10*3/uL Absolute Nucleated RBC 0.000 (0.0-0.012) X10*3/uL Nucleated RBC % (auto) 0.0 (0.0-0.2) /100WBC PT 35.4 H (10.9-12.4) SEC INR 3.0 H (0.9-1.1) Hold Blue Top SEE NOTE Sodium 142 (135-145) mmol/L Potassium 4.1 (3.3-5.1) mmol/L Chloride 111 H (96-108) mmol/L Carbon Dioxide 25 (22-29) mmol/L Anion Gap 10 L (12-20) BUN 22 H (9-16) mg/dL Creatinine 1.05 (0.5-1.4) mg/dL Estim Creat Clear Calc 43.0 Estimated GFR > 60 Random Glucose 104 (60-115) mg/dL Calcium 9.0 D (8.4-10.2) mg/dL Magnesium 2.2 (1.6-2.6) mg/dL Total Bilirubin 0.8 (0.0-1.0) mg/dL AST 37 (5-37) U/L ALT 20 (0-40) U/L Alkaline Phosphatase 120 H (39-117) U/L Troponin I High Sens 26.9 (<3.5-35.0) ng/L Total Protein 6.8 (6.5-8.0) g/dL Albumin 3.4 L (3.5-5.0) g/dL Influenza Type A (PCR) POSITIVE A (Negative) Influenza Type B (PCR) NEGATIVE (Negative) RSV RNA Qual (PCR) NEGATIVE (Negative) SARS-CoV-2 RNA (RT-PCR) NEGATIVE (Negative) Independent Interpretation I performed an independent interpretation of an: EKG (My interpretation EKG AFib with premature ventricular or aberrancy. Rate of 88. No significant change when compared to prior. No STEMI.) and Plain X-Ray Radiology Impression Discussion of test interpretation with radiology: I have reviewed the radiologist's reading. Independent Historian Clinical information obtained from an independent historian. History obtained from or confirmed by: Spouse and EMS External Record Review External record reviewed: Inpatient record, Office record, Outpatient record, Prior outpatient labs, Prior outpatient radiology, Primary care record and Outside ED record Tests considered The following testing was considered but not selected: As above Prescription Management I considered prescription management with: Other Chronic Conditions Patient?s care impacted by: Other Social Determinants Patient?s care significantly limited by Social Determinants of Health including: Other Social Determinant of Health Critical Care Time Critical Care Time Critical Care Time: Yes Total Critical Care Time: 32 Attestation: I have personally provided critical care time exclusive of time spent on separately billable procedures. Time includes review of lab data, radiology results, discussion with consultants, and monitoring for potential decompensation. Intervention performed as documented. Discharge Plan Discharge Clinical Impression: Multifocal pneumonia, Influenza A, Weakness Patient Disposition: Admitted As Inpatient Print Language: Guamanian
--- OUTSIDE RECORDS SUMMARY | 2024-12-06 11:11 | XMS_ITS | Clinical Summary ---
Author Organization [address] [place] [address] Address [address] [place] [address] Phone Care Team Providers Care Venetian Blind Worker Name Role Phone Elif Vides MD Primary Care Provider [phone] Allergies Active Allergy Reactions Criticality Noted Date Comments Ciprofloxacin 07/23/2021 Medications donepeziL (ARICEPT) 10 mg tablet Take by mouth daily. 06/23/2020 Active latanoprost (Xelpros) 0.005 % drops, emulsion 1 Drop daily. Active lisinopriL (PRINIVIL,ZESTR IL) 20 mg tablet Take 20 mg by mouth daily. 03/11/2018 Active memantine (NAMENDA) 5 mg tablet Take 2 tablets (10 mg total) by mouth 2 (two) times a day. 06/23/2020 Active vit C/E/Zn/coppr/niraj tein/zeaxan (PRESERVISION AREDS-2 ORAL) Take 2 Tablets by [...] each day. 90 capsule 3 10/30/2024 Active Active Problems Problem Noted Date Diagnosed [...] Description 10/02/2024 3:10 PM EST Office Visit [facility] [address] [place] [address] Bridger Palmer MD Essential hypertension (Primary Dx); Palpitations; Permanent atrial fibrillation (CMS/HCC) from Last 3 Months Social History Tobacco Use Types Packs/Day Years Used Date Smoking Tobacco: Former Smokeless Tobacco: Never Alcohol Use Standard Drinks/Week Comments Not Currently 0 (1 standard drink = 0.6 oz pur e alcohol) Sex and Gender Information Value Date Recorded Sex Assigned at Not on file Legal Sex Male 5:20 PM EST Gender Identity Not on file Sexual Orientation Not on file Obstetrics History Last Filed [...] DTaP,Tdap,and Td Vaccines (1 - Tdap) 1954 Pneumococcal Vaccine: 50+ Years (1 of 1 - PCV) 1985 Zoster Vaccines (1 of 2) 1985 RSV Immunization Patients 60 + Years Old (1 - 1-dose 75+ series) 2010 Cholesterol Screening (Lipid Panel) 10/01/2022 Depression Screening 10/01/2022 Falls Risk Assessment 10/01/2022 Medicare Annual Wellness Visit 10/01/2022 Social Influencers of Health Screening 10/01/2022 Hypertension/CHF/CAD Annual BMP Blood Test 10/03/2022 COVID-19 Vaccine (3 - 2023-2 5 season) 2024 12/29/2020, 12/08/2020 Influenza Vaccine [...] patient's age to complete this topic Meningococcal B Vacine Aged Out No lo nger eligible based on patient's age to complete [...] ms GEMUSE QTc 454 ms GEMUSE R Wallace -5 degrees GEMUSE T Wallace 93 degrees GEMUSE ECG Interpretation Atrial fibrillation with frequent Premature ventricular complexes Nonspecific ST and T wave abnormality When compared with ECG of 14-DEC-2019 10:52, More PVC's and aberrance beats noted Confirmed by ULISSES PALMER ([id number]) on 10/02/2024 7:20:05 PM GEMUSE 10/02/2024 3:23 PM EST 10/02/2024 7:20 PM EST us Bridger Palmer MD ECG ORDERABLES Final Resu lt GEMUSE from Last 3 Months Insurance [employer] Advance Directives Documents on File Type Date Recorded 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
--- OUTSIDE RECORDS SUMMARY | 2024-12-06 11:11 | XMS_ITS | Clinical Summary ---
Author Organization [facility] Address [address] [place] [address] Care Team Providers Care Hotel Recreational Facilities Manager Name Role Phone Elif Vides MD Primary Care Provider [phone] Allergies Active Allergy Reactions Criticality Noted Date [...] age to complete this topic Care Teams Hotel Recreational Facilities Manager Relationship Specialty Start Date End Date Elif Vides MD [facility] [address] [place] [id number] PCP - General Internal Medicine 01/29/22
[2024-12-06 11:23] LABS: Influenza A PCR POSITIVE (Negative); Influenza B PCR NEGATIVE (Negative); Resp Syncy Virus RNA Qual PCR NEGATIVE (Negative); SARS COV2 PCR INHOUSE NEGATIVE (Negative)
[2024-12-06 11:57] LABS: Troponin-I High Sensitivity 26.9 ng/L (<3.5-35.0)
--- NOTE | 2024-12-06 12:01 | PC.RT ---
RT assessed pt per bronchodilator protocol. Pt L/S clear bilateral, RR 16 and SATs 95% on RA. Per family, pt has no history of asthma or COPD, hasn't smoked in over 40 years, and does not take breathing medications. No txs given at this time.
[2024-12-06] MEDS: Oseltamivir Phosphate 75 MG CAPSULE PO (12:23)
[2024-12-06 13:00] LABS: B Type Natriuretic Peptide 216 pg/mL (<100)
[2024-12-06] MEDS: cefTRIAXone sodium 1 GM VIAL IVPUSH (13:43)
[2024-12-06] MEDS: Azithromycin 500 MG in 0.9 % Sodium Chloride 250 ML 125 MG IV (13:46)
--- NOTE | 2024-12-06 14:07 | P.HPHOSP_ITS ---
History of Present Illness Date of Service: 12/06/24 Attending physician on admission: Cristian Oquendo Chief Complaint: Generalized weakness Pt is an 89-year-old male with a PMH significant for?dementia, persistent AFib on warfarin, HTN, and hard of hearing who presents to the ED with?with generalized weakness and difficulty ambulating. Pt has a hx of dementia and is a poor historian. Family is at bedside and helps supplement HPI. Family reports pt developed weakness and nonproductive cough for the past 2-3 days. Weakness has progressively worsened until today pt could not stand up or ambulate. Normally uses a walker at home for ambulation. Family also notes pt has had increased lower leg edema for the past 1-2 weeks. No reported hx of CHF and not on home diuretics. Family have not noted pt to have any other symptoms or acute medical complaints. No nausea, vomiting, abdominal pain. Denies shortness or or difficulty breathing. No fever, chills. No chest pain/pressure, palpitations. In the ED pt was hypertensive up to 163/74 and satting at 93% on RA. Labs were significant for testing positive for influenza type a, otherwise grossly unremarkable and around baseline for pt. No leukocytosis. Stable normocytic anemia 11.937.6. Chronic thrombocytopenia of 118, around baseline. INR therapeutic at 3.0. No significant electrolyte abnormalities. Renal function baseline. Hepatic function baseline. CXR showed bilateral pleural effusions and findings suspicious for pulmonary edema vs multifocal pneumonia. EKG demonstrated atrial fibrillation with PVCs and no evidence of significant ischemic changes, similar to previous. Pt was treated with Tamiflu, ceftriaxone, and azithromycin. Pt will be admitted to the hospital for treatment further evaluation of generalized weakness in the setting of acute influenza infection and superimposed multifocal pneumonia vs new onset CHF. Review of Systems 2 Review of Systems: Yes Unobtainable due to mental status [facility] Medical History Glaucoma HTN (hypertension) Permanent atrial fibrillation Dementia Social History Household Members: Spouse Housing: House Do you presently have visiting nurse or other home services: No Alcohol intake: former Comment: 2:1 sitter Patient Tobacco Use Status: Never used Tobacco Smoked in Last 30 Days: No Use of substances other than those prescribed or required for medical reasons: No Advance Directives: Yes Advance Directives on File: Yes Advance Directives Date on File: 10/27/23 service: No Meds Allergies Allergy/AdvReac Type Severity Reaction Status Date / Time ciprofloxacin Allergy Intermediate hives Verified 12/06/24 09:57 benzonatate AdvReac Intermediate Gastrointestinal Verified 11/27/24 10:28 Upset lisinopril AdvReac Intermediate Cough Uncoded 11/27/24 10:28 Active Medications: Current Medications Azithromycin 500 mg/ Sodium (Chloride) 250 mls @ 125 mls/hr IV ONCE ONE Stop: 12/06/24 14:32 Last Admin: 12/06/24 13:46 Dose: 125 mls/hr Home Medications ?Medication ?Instructions ?Recorded ?Confirmed ?Last Taken ?Type donepezil 10 mg tablet 10 mg PO DAILY@1800 08/18/21 12/06/24 12/05/24 History latanoprost 0.005 % eye drops 1 drp ophthalmic-Left BEDTIME 08/18/21 12/06/24 12/05/24 History timolol maleate 0.5 % eye drops 1 drp ophthalmic-Left DAILY 08/18/21 12/06/24 12/05/24 History diltiazem HCl 120 mg 120 mg PO BEDTIME 09/15/21 12/06/24 12/05/24 History capsule,extended release 24 hr vit C 250 mg-vit E 90 mg-zinc 40 1 tab PO BID@0900,1800 02/16/22 12/06/24 12/05/24 History mg-copper 1 op-lqdgod-wtzlvz capsule (PreserVision AREDS-2) losartan 100 mg tablet 100 mg PO DAILY 08/16/23 12/06/24 12/05/24 History memantine 10 mg tablet 10 mg PO BID 05/08/24 12/06/24 12/05/24 History warfarin 2.5 mg tablet 2.5 mg PO SUTUWEFRSA@179912/06/24 12/06/24 12/05/24 History warfarin 2.5 mg tablet 5 mg PO MOTH@1800 12/06/24 12/06/24 12/03/24 History Physical Exam 2 Vital Signs and Narrative: Vital Signs: Last Vital Signs Temp 98.4 F 12/06/24 12:49 Pulse 94 12/06/24 12:49 Resp 20 12/06/24 12:49 BP 151/66 H 12/06/24 12:49 Pulse Ox 93 12/06/24 12:49 O2 Del Method Room Air 12/06/24 12:49 BMI result Body Mass Index 25.8 General: AOx1, cooperative, hard of hearing. In no acute distress Resp: Diffuse coarse breath sounds bilaterally, bibasilar crackles CVS: Irregularly irregular rhythm GI: +BS, NT, no distention Skin: Warm, dry Neuro: Cranial nerves II-XII grossly intact bilaterally. Motor grossly intact bilaterally Extremities: 1-2+ bilateral pitting edema, left slightly worse than right Psych: Pleasantly confused Results Labs 12/06/24 10:28 12/06/24 10:28 Labs: Laboratory Results - last 24 hr 12/06/24 10:28 MCV 91.7 MCH 29.0 MCHC 31.6 RDW 16.8 H Plt Count 118 L MPV 11.4 Immature Gran % (Auto) 0.4 Neut % (Auto) 81.9 H Lymph % (Auto) 5.1 L [place] % (Auto) 10.4 Eos % (Auto) 1.6 Baso % (Auto) 0.6 Lymph # (Auto) 0.3 L [place] # (Auto) 0.5 Eos # (Auto) 0.1 Baso # (Auto) 0.0 Abs Immat Gran (auto) 0.02 Absolute Neuts (auto) 4.2 Absolute Nucleated RBC 0.000 Nucleated RBC % (auto) 0.0 PT 35.4 H INR 3.0 H Hold Blue Top SEE NOTE Anion Gap 10 L Estim Creat Clear Calc 43.0 Estimated GFR > 60 Random Glucose 104 Calcium 9.0 D Magnesium 2.2 Total Bilirubin 0.8 AST 37 ALT 20 Alkaline Phosphatase 120 H B-Natriuretic Peptide 216 H Total Protein 6.8 Albumin 3.4 L Influenza Type A (PCR) POSITIVE A Influenza Type B (PCR) NEGATIVE RSV RNA Qual (PCR) NEGATIVE SARS-CoV-2 RNA (RT-PCR) NEGATIVE Imaging Radiologist's Impressions: Impressions Chest X-Ray 12/06/24 10:05 IMPRESSION: Pulmonary edema versus multifocal pneumonia in bilateral pleural effusions, moderate volume. Electronically signed by: Neri Hdez MD 12/06/2024 11:19 AM [facility] Assessment and Plan (1) Influenza A: Status: Acute (2) Generalized weakness: Status: Acute Plan Pt is an 89-year-old male with a PMH significant for?dementia, persistent AFib on warfarin, HTN, and hard of hearing who presents to the ED with?with generalized weakness and difficulty ambulating. Pt will be admitted to the hospital for treatment and further evaluation of generalized weakness in the setting of acute influenza infection and superimposed multifocal pneumonia vs new onset CHF. Generalized weakness in the setting of acute influenza type a infection Pt with weakness and nonproductive cough x2-3 days, unable to ambulate this morning secondary to weakness Will treat with Tamiflu, guaifenesin, DuoNebs p.r.n. PT consult ?Superimposed multifocal pneumonia vs new onset CHF CXR showing pulmonary edema vs multifocal pneumonia and bilateral pleural effusions BNP slightly elevated at 216, 1-2+ bilateral lower leg edema, nonproductive cough No complaints of orthopnea or SOB/GILES, the pt too weak to ambulate as noted above Will check CT of chest for further evaluation No sepsis: HR>90, but no fever, leukocytosis, or tachypnea; Pt received empiric antibiotics in the ED Will hold off on additional antibiotics pending CT results Check procalcitonin Will treat edema and pleural effusions with Lasix 40 mg IV x1 dose, then 20 mg IV daily Echocardiogram pending CT chest results Follow BMP, lytes, I/O, and daily weights Persistent AFib Continue diltiazem INR 3.0, Coumadin today Follow INR and resume Coumadin as necessary HTN Continue losartan Dementia Continue donepezil, memantine DNR/DNI, verified with family Attending:?Dr. Oquendo DVT Prophylaxis: On warfarin Pt will require a hospitalization of at least two nights for treatment of?generalized weakness in the setting of acute influenza infection with superimposed multifocal pneumonia vs new onset CHF. Given patient's significant comorbidities and current inability to ambulate on his own, pt is at significant risk for further decline without hospital level care for with supportive care and flu for influenza, as well as IV diuretics for concerns for new onset CHF. Quality Stroke Does the patient have a stroke diagnosis?: No VTE Prior VTE?: No VTE Risk Level:: Medical - moderate - high VTE Device Contraindication: Treatment Not Indicated VTE Drug Contraindication: N/A - Med Ordered
--- NOTE | 2024-12-06 14:30 | PHA.MEDREC ---
Addendum entered by Sara Foreman RPh 12/06/24 14:48: Reviewed by [facility]. Original Note: Pharmacy Consult ? Medication Reconciliation Pharmacy has completed the medication reconciliation. Spoke to patient at bedside to confirm med list. confirmed Warfarin 5 mg on Tuesday and and Warfarin 2.5 mg all other days.
[2024-12-06] MEDS: Furosemide 40 MG/4 ML VIAL IVPUSH (16:04)
[2024-12-06 16:09] LABS: Procalcitonin 0.05 ng/mL
[2024-12-06] MEDS: Donepezil HCl 10 MG TABLET PO (17:24)
[2024-12-06] MEDS: Memantine HCl 10 MG TABLET PO (20:33)
[2024-12-06] MEDS: dilTIAZem HCL CD 120 MG CAP.ER.DEG PO (20:33)
[2024-12-06] MEDS: Melatonin 3 MG TABLET 6 MG PO (20:33)
[2024-12-06] MEDS: Oseltamivir Phosphate 30 MG CAPSULE PO (20:34)
[2024-12-06] MEDS: 0.9 % Sodium Chloride Flush 3 ML SYRINGE IVFLUSH (20:34)
[2024-12-07 03:04] VITALS: BP 151/84; PULSE 98; RESP 20; TEMP 36.6; O2SAT 94
--- NOTE | 2024-12-07 07:00 | CA_ITS ---
Transthoracic Echocardiogram Patient (Last, First, Middle): Oswaldo Watson, Gender: Male Date of : 1935 Age: 89 Procedure Date: 12/07/2024 Procedure Type: Transthoracic Echocardiogram Location: S3W Height: 167. cm Weight: 72.58 kg BSA: 1.81 m2 Heart Rate: bpm BP: 151 / 66 mmHg [employer] Purchasing Agent: JASON Camarena MD: Mariah HOOVER Grain Commodity Manager: Bruno Flores MD Symptoms: ?New onset CHF Study Quality: Adequate ECG Rhythm: Atrial Fibrillation Conclusions: - 1. Mildly reduced LV ejection fraction 45-50% 2. Biatrial enlargement, left greater than right 3. Moderately reduced right ventricular systolic function 4. Mild aortic and mitral regurgitation 5. Normal measured RV systolic pressure 6. Mildly dilated ascending aorta Findings Left Ventricle Normal left ventricular cavity size. There is normal left ventricular wall thickness. The left ventricular systolic function is mildly decreased. The visually estimated ejection fraction is between 45-50%. Diastolic function is indeterminate on the basis of available data. Right Ventricle Mildly increased right ventricular cavity size. There is moderately decreased right ventricular systolic function. Atria The left atrium is severely dilated. Interatrial shunt cannot be excluded. The right atrium is moderately dilated. Aortic Valve The aortic valve was not well visualized. There is mild calcification of the aortic valve. There is no aortic valve stenosis. There is mild aortic valve regurgitation. Mitral Valve There is mild anterior and moderate posterior mitral leaflet thickening. There is mild mitral annular calcification. There is mild mitral valve regurgitation. There is no mitral valve stenosis. Pulmonic Valve The pulmonic valve was not well visualized. Tricuspid Valve Likely normal tricuspid valve structure and function. There is mild tricuspid valve regurgitation. The right ventricular systolic pressure is normal. The right ventricular systolic pressure is 23 mmHg. Normal right atrial pressure. There is no evidence of pulmonary hypertension. Great Vessels The pulmonary artery was not well visualized. There is mild dilatation of the ascending aorta measuring 3.80 cm. Small plaque is seen in the sino tubular ridge. Venous The inferior vena cava is normal in size and collapses greater than 50% with inspiration. Pericardium/Pleural The pericardium was not well visualized. Prior Study Comparison No prior study available for comparison. Measurements 2D Linear Measurements IVSd: 0.94 0.6-0.9/0.6-1.0 cm LVIDd: 4.24 3.9-5.3/4.2-5.9 cm LVIDd Index: 2.34 2.4-3.2/2.2-3.1 cm/m2 LVIDs: 3.02 2.0-3.6 cm LVPWd: 1.11 0.7-1.1 cm LA Diam: 3.70 2.7-3.8/3.0-4.0 cm LAIDs Index: 2.04 1.5-2.3 cm/m2 LV Mass: 179.42 67-162/88-224 g LV Mass Index: 99.12 43-95/49-115 g/m2 LVOT Diam: 2.00 3.0+(-)1.3 cm 2D Systolic Function EF 4C: 46.60 >55% EF 2C: 48.50 >55% EF BiP: 48.40 >55% Mitral Valve MV Pk E: 0.63 MV Decel Time: 220.00 E'Lateral: 11.40 E'Medial: 7.94 E/E' Med: 7.90 E/E' Lat: 5.50 PHT: 64.00 MVA PHT: 3.44 Decel [place]: 2.87 Aortic Valve AoV Pk Gilbert: 1.03 AoV Mn Gilbert: 0.75 AoV VTI: 0.18 AoV Pk Grad: 4.00 Aov Mn Grad: 3.00 LAUREN Cont.VTI: 2.35 AI Pk Gilbert: 3.04 AI [place]: 1.20 LVOT LVOT Pk Gilbert: 0.69 LVOT Mn Gilbert: 0.48 LVOT VTI: 0.14 LVOT Pk Grad: 2.00 LVOT Mn Grad: 1.00 LVOT Diam: 2.00 LVOT Area: 3.14 Diastolic Function MV Pk E: 0.63 E'Medial: 7.94 E/E' Med: 7.90 E' Laterial: 11.40 E/E' Lat: 5.50 Right Ventricle TAPSE (mm): 14.60 TVS' Gilbert: 11.70 Tricuspid Valve TR Pk Gilbert: 1.94 TR Pk Grad: 15.00 RA Press: 8.00 RVSP: 23.00 Great Vessels Aorta Sinus of Valsalva: 3.70 2.0-3.5 cm Ao Asc: 3.80 2.1-3.4 cm Ao Arch: 3.30 Pulmonary Valve PV Pk Gilbert: 0.62 Peak PV Grad: 2.00 Updated in Other Vendor System with Status of Final Bruno Flores MD electronically signed on 12/07/2024 3:08:40 PM with status of Final
[2024-12-07 07:16] LABS: INTERNATIONAL NORM RATIO 3.3 (0.9-1.1); Prothrombin Time 38.4 SEC (10.9-12.4)
[2024-12-07 07:29] LABS: Anion Gap 11 (12-20); Blood Urea Nitrogen 20 mg/dL (9-16); Calcium 8.8 mg/dL (8.4-10.2); Carbon Dioxide 29 mmol/L (22-29); Chloride 108 mmol/L (96-108); Estimated Glomerular Filt Rate > 60; Glucose Random 86 mg/dL (60-115); Potassium 3.7 mmol/L (3.3-5.1); Sodium 144 mmol/L (135-145)
[2024-12-07 07:42] VITALS: BP 136/77; PULSE 88; RESP 18; TEMP 37.5; O2SAT 94
[2024-12-07] MEDS: timoloL maleate 0.5 % Oph Sol 5 ML DRBTL 1 DROP EYE-LEFT (07:45)
[2024-12-07] MEDS: Oseltamivir Phosphate 30 MG CAPSULE PO ×2 (07:45→20:10)
[2024-12-07] MEDS: guaiFENesin DM 200/20/10 ML 10 ML SYRUP PO ×2 (07:45→20:15)
[2024-12-07] MEDS: Memantine HCl 10 MG TABLET PO ×2 (07:45→20:10)
[2024-12-07] MEDS: Losartan Potassium 50 MG TABLET 100 MG PO (07:45)
[2024-12-07] MEDS: Furosemide 20 MG/2 ML VIAL IVPUSH (07:46)
[2024-12-07] MEDS: 0.9 % Sodium Chloride Flush 3 ML SYRINGE IVFLUSH ×3 (07:46→20:10)
--- NOTE | 2024-12-07 08:50 | P.PNIM_ITS ---
Subjective Subjective Date of Service: 12/07/24 Interval History: weak, sob Physical Exam 2 Vital Signs: Vital Signs: Last Vital Signs Temp 99.5 F 12/07/24 07:42 Pulse 88 12/07/24 07:42 Resp 18 12/07/24 07:42 BP 136/77 12/07/24 07:42 Pulse Ox 94 12/07/24 07:42 O2 Del Method Room Air 12/07/24 07:42 BMI result Body Mass Index 23.9 lethargic, ill appearing, frail, bilateral rhonchi Objective Data Active Medications Acetaminophen (Acetaminophen 325 Mg Tablet) 650 mg PO Q6H PRN PRN Reason: Pain, Mild 1-3,fever,headache Albuterol/Ipratropium (Albuterol/Iprat 2.5/0.5mg 3 Ml Ampul.Neb) 3 ml INHALE RQ4H WHILE AWAKE PRN PRN Reason: Shortness of Breath/Wheezing Calcium Carbonate (Calcium Carbonate 750 Mg Tab.Chew) 750 mg PO Q4H PRN PRN Reason: Heartburn Ceftriaxone Sodium (Ceftriaxone Sodium 1 Gm Vial) 1 gm IVPUSH Q24H [facility] Diltiazem HCl (Diltiazem Hcl Cd 120 Mg Cap.Er.Deg) 120 mg PO BEDTIME [facility]; Protocol Last Admin: 12/06/24 20:33 Dose: 120 mg Documented By: HIRAL Donepezil HCl (Donepezil Hcl 10 Mg Tablet) 10 mg PO DAILY@1800 [facility] Last Admin: 12/06/24 17:24 Dose: 10 mg Documented By: HORACIO Furosemide (Furosemide 20 Mg/2 Ml Vial) 20 mg IVPUSH DAILY [facility]; Protocol Last Admin: 12/07/24 07:46 Dose: 20 mg Documented By: HORACIO Guaifenesin/Dextromethorphan (Guaifenesin Dm 200/20/10 Ml 10 Ml Syrup) 10 ml PO Q4H PRN PRN Reason: Cough Last Admin: 12/07/24 07:45 Dose: 10 ml Documented By: HORACIO Azithromycin 500 mg/ Sodium (Chloride) 250 mls @ 125 mls/hr IV Q24H [facility] Latanoprost (Latanoprost 0.005 % Ophth Rosa 2.5 Ml Drops) 1 drop EYE-LEFT BEDTIME [facility] Last Admin: 12/06/24 22:48 Dose: Not Given Documented By: HIRAL Non-Admin Reason: Patient Refused Losartan Potassium (Losartan Potassium 50 Mg Tablet) 100 mg PO DAILY [facility]; Protocol Last Admin: 12/07/24 07:45 Dose: 100 mg Documented By: HORACIO Magnesium Hydroxide (Milk Of Magnesia 30 Ml Oral.Susp) 30 ml PO DAILY PRN PRN Reason: Constipation Melatonin (Melatonin 3 Mg Tablet) 6 mg PO BEDTIME PRN PRN Reason: Insomnia Last Admin: 12/06/24 20:33 Dose: 6 mg Documented By: HIRAL Memantine (Memantine Hcl 10 Mg Tablet) 10 mg PO BID [facility] Last Admin: 12/07/24 07:45 Dose: 10 mg Documented By: HORACIO Oseltamivir Phosphate (Oseltamivir Phosphate 30 Mg Capsule) 30 mg PO Q12H [facility] Stop: 12/10/24 21:01 Last Admin: 12/07/24 07:45 Dose: 30 mg Documented By: HORACIO Sodium Chloride (0.9 % Sodium Chloride Flush 3 Ml Syringe) 3 ml IVFLUSH QSHIFT [facility] Last Admin: 12/07/24 07:46 Dose: 3 ml Documented By: HORACIO Timolol Maleate (Timolol Maleate 0.5 % Oph Rosa 5 Ml Drbtl) 1 drop EYE-LEFT DAILY [facility] Last Admin: 12/07/24 07:45 Dose: 1 drop Documented By: HORACIO Warfarin Sodium (Warfarin Sodium 2.5 Mg Tablet) 2.5 mg PO SUTUWEFRSA@1800 [facility] Warfarin Sodium (Warfarin Sodium 5 Mg Tablet) 5 mg PO MOTH@1800 [facility] Labs 12/06/24 10:28 12/07/24 05:21 Labs: Laboratory Results - last 24 hr 12/06/24 12/07/24 10:28 05:21 MCV 91.7 MCH 29.0 MCHC 31.6 RDW 16.8 H Plt Count 118 L MPV 11.4 Immature Gran % (Auto) 0.4 Neut % (Auto) 81.9 H Lymph % (Auto) 5.1 L [place] % (Auto) 10.4 Eos % (Auto) 1.6 Baso % (Auto) 0.6 Lymph # (Auto) 0.3 L [place] # (Auto) 0.5 Eos # (Auto) 0.1 Baso # (Auto) 0.0 Abs Immat Gran (auto) 0.02 Absolute Neuts (auto) 4.2 Absolute Nucleated RBC 0.000 Nucleated RBC % (auto) 0.0 PT 35.4 H 38.4 H INR 3.0 H 3.3 H Hold Blue Top SEE NOTE Anion Gap 10 L 11 L Estim Creat Clear Calc 43.0 43.0 Estimated GFR > 60 > 60 Random Glucose 104 86 Calcium 9.0 D 8.8 Magnesium 2.2 Total Bilirubin 0.8 AST 37 ALT 20 Alkaline Phosphatase 120 H B-Natriuretic Peptide 216 H Total Protein 6.8 Albumin 3.4 L Procalcitonin 0.05 Influenza Type A (PCR) POSITIVE A Influenza Type B (PCR) NEGATIVE RSV RNA Qual (PCR) NEGATIVE SARS-CoV-2 RNA (RT-PCR) NEGATIVE Assessment and Plan (1) Influenza A: Status: Acute Plan 89M PMH unspecified dementia, chronic AFib on Coumadin, hypertension presented with weakness Generalized weakness due to influenza a, superimposed multifocal bacterial pneumonia, acute unspecified CHF Continue gentle diuresis, ceftriaxone, azithromycin, Tamiflu Check echo Chronic AFib Continue diltiazem, Coumadin, follow-up INR Hypertension Losartan, diltiazem Unspecified dementia Continue Aricept DVT prophylaxis on Coumadin DNR/DNI reason for continued hospitalization: IV diuresis Quality Stroke Does the patient have a stroke diagnosis?: No VTE Prior VTE?: No VTE Risk Level:: Medical - moderate - high VTE Device Contraindication: Treatment Not Indicated VTE Drug Contraindication: N/A - Med Ordered
[2024-12-07 11:04] VITALS: BP 136/77; PULSE 88; O2SAT 94
[2024-12-07] MEDS: cefTRIAXone sodium 1 GM VIAL IVPUSH (11:46)
[2024-12-07] MEDS: Azithromycin 500 MG in 0.9 % Sodium Chloride 250 ML 125 MG IV (11:46)
--- NOTE | 2024-12-07 13:28 | MHC.CM.PN ---
IMM 12/07. Pt with dx: dementia, CM intake completed with pts /HCP Sia present at bedside. Per Sia, pt lives at home with her, he uses a walker. PT evaluated pt and recommends STR, Sia is in agreement with this and has no preference in facilities. Local list of facilities printed form [facility] and given to Sia to consider. Referrals also placed, will await bed offers and review with when appropriate. Pt will transport via BLS to [facility]. PCP: Dr. Elif Vides
[2024-12-07 16:00] VITALS: BP 178/88; PULSE 91; RESP 18; TEMP 36.9; O2SAT 94
[2024-12-07] MEDS: amLODIPine Besylate 5 MG TABLET PO (17:24)
[2024-12-07] MEDS: Donepezil HCl 10 MG TABLET PO (17:24)
[2024-12-07 19:53] VITALS: BP 148/72; PULSE 90; RESP 18; TEMP 36.9; O2SAT 96
[2024-12-07] MEDS: dilTIAZem HCL CD 120 MG CAP.ER.DEG PO (20:09)
[2024-12-07] MEDS: Melatonin 3 MG TABLET 6 MG PO (20:09)
[2024-12-07] MEDS: Latanoprost 0.005 % Ophth Sol 2.5 ML DROPS 1 DROP EYE-LEFT (20:10)
[2024-12-08 03:04] VITALS: BP 155/80; PULSE 94; RESP 16; TEMP 36.5; O2SAT 93
[2024-12-08 06:57] LABS: Anion Gap 9 (12-20); Blood Urea Nitrogen 22 mg/dL (9-16); Calcium 8.5 mg/dL (8.4-10.2); Carbon Dioxide 28 mmol/L (22-29); Chloride 109 mmol/L (96-108); Creatinine Clr Calc Pharmacy 41.8; Estimated Glomerular Filt Rate > 60; Glucose Random 96 mg/dL (60-115); Magnesium 2.1 mg/dL (1.6-2.6); Potassium 3.3 mmol/L (3.3-5.1); Sodium 143 mmol/L (135-145)
[2024-12-08 07:03] LABS: INTERNATIONAL NORM RATIO 2.4 (0.9-1.1); Prothrombin Time 27.8 SEC (10.9-12.4)
[2024-12-08 07:13] LABS: Hematocrit 34.6 % (42.0-52.0); Mean Corpuscular HGB Conc 31.8 g/dl (31.0-36.0); Mean Corpuscular Hemoglobin 29.3 pg (27.0-33.0); Mean Platelet Volume 11.8 fL (9.4-12.4); Platelet Count 112 X10*3/uL (160-400); Red Blood Count 3.76 X10*6/uL (4.60-5.80); Red Cell Distribution Width 16.3 % (11.0-16.0); White Blood Count 4.5 X10*3/uL (4.8-10.8)
[2024-12-08 07:52] VITALS: BP 150/71; PULSE 90; RESP 18; TEMP 36.6; O2SAT 93
[2024-12-08 08:29] VITALS: BP 150/71
[2024-12-08] MEDS: 0.9 % Sodium Chloride Flush 3 ML SYRINGE IVFLUSH ×3 (08:29→19:47)
[2024-12-08] MEDS: amLODIPine Besylate 5 MG TABLET PO (08:29)
[2024-12-08 08:30] VITALS: BP 150/71
[2024-12-08] MEDS: Furosemide 20 MG/2 ML VIAL IVPUSH (08:30)
[2024-12-08] MEDS: Oseltamivir Phosphate 30 MG CAPSULE PO ×2 (08:30→19:47)
[2024-12-08] MEDS: Losartan Potassium 50 MG TABLET 100 MG PO (08:30)
[2024-12-08] MEDS: Memantine HCl 10 MG TABLET PO ×2 (08:30→19:47)
[2024-12-08] MEDS: timoloL maleate 0.5 % Oph Sol 5 ML DRBTL 1 DROP EYE-LEFT (08:31)
--- NOTE | 2024-12-08 08:57 | P.PNIM_ITS ---
Subjective Subjective Date of Service: 12/08/24 Interval History: weak, sob Physical Exam 2 Vital Signs: Vital Signs: Last Vital Signs Temp 97.9 F 12/08/24 07:52 Pulse 90 12/08/24 07:52 Resp 18 12/08/24 07:52 BP 150/71 H 12/08/24 08:30 Pulse Ox 93 12/08/24 07:52 O2 Del Method Room Air 12/08/24 07:52 BMI result Body Mass Index 23.9 lethargic, ill appearing, frail, bilateral rhonchi Objective Data Active Medications Acetaminophen (Acetaminophen 325 Mg Tablet) 650 mg PO Q6H PRN PRN Reason: Pain, Mild 1-3,fever,headache Albuterol/Ipratropium (Albuterol/Iprat 2.5/0.5mg 3 Ml Ampul.Neb) 3 ml INHALE RQ4H WHILE AWAKE PRN PRN Reason: Shortness of Breath/Wheezing Amlodipine Besylate (Amlodipine Besylate 5 Mg Tablet) 5 mg PO DAILY [facility]; Protocol Last Admin: 12/08/24 08:29 Dose: 5 mg Documented By: AVELINA Calcium Carbonate (Calcium Carbonate 750 Mg Tab.Chew) 750 mg PO Q4H PRN PRN Reason: Heartburn Ceftriaxone Sodium (Ceftriaxone Sodium 1 Gm Vial) 1 gm IVPUSH Q24H BRITT Last Admin: 12/07/24 11:46 Dose: 1 gm Documented By: HORACIO Diltiazem HCl (Diltiazem Hcl Cd 120 Mg Cap.Er.Deg) 120 mg PO BEDTIME [facility]ITT; Protocol Last Admin: 12/07/24 20:09 Dose: 120 mg Documented By: HIRAL Donepezil HCl (Donepezil Hcl 10 Mg Tablet) 10 mg PO DAILY@1800 BR[facility] Last Admin: 12/07/24 17:24 Dose: 10 mg Documented By: HORACIO Furosemide (Furosemide 20 Mg/2 Ml Vial) 20 mg IVPUSH DAILY [facility]; Protocol Last Admin: 12/08/24 08:30 Dose: 20 mg Documented By: AVELINA Guaifenesin/Dextromethorphan (Guaifenesin Dm 200/20/10 Ml 10 Ml Syrup) 10 ml PO Q4H PRN PRN Reason: Cough Last Admin: 12/07/24 20:15 Dose: 10 ml Documented By: HIRAL Azithromycin 500 mg/ Sodium (Chloride) 250 mls @ 125 mls/hr IV Q24H [facility] Last Infusion: 12/07/24 14:13 Dose: Infused Documented By: HORACIO Latanoprost (Latanoprost 0.005 % Ophth Rosa 2.5 Ml Drops) 1 drop EYE-LEFT BEDTIME [facility] Last Admin: 12/07/24 20:10 Dose: 1 drop Documented By: HIRAL Losartan Potassium (Losartan Potassium 50 Mg Tablet) 100 mg PO DAILY [facility]; Protocol Last Admin: 12/08/24 08:30 Dose: 100 mg Documented By: AVELINA Magnesium Hydroxide (Milk Of Magnesia 30 Ml Oral.Susp) 30 ml PO DAILY PRN PRN Reason: Constipation Melatonin (Melatonin 3 Mg Tablet) 6 mg PO BEDTIME PRN PRN Reason: Insomnia Last Admin: 12/07/24 20:09 Dose: 6 mg Documented By: HIRAL Memantine (Memantine Hcl 10 Mg Tablet) 10 mg PO BID [facility] Last Admin: 12/08/24 08:30 Dose: 10 mg Documented By: AVELINA Oseltamivir Phosphate (Oseltamivir Phosphate 30 Mg Capsule) 30 mg PO Q12H [facility] Stop: 12/10/24 21:01 Last Admin: 12/08/24 08:30 Dose: 30 mg Documented By: AVELINA Sodium Chloride (0.9 % Sodium Chloride Flush 3 Ml Syringe) 3 ml IVFLUSH QSHIFT [facility] Last Admin: 12/08/24 08:29 Dose: 3 ml Documented By: AVELINA Timolol Maleate (Timolol Maleate 0.5 % Oph Rosa 5 Ml Drbtl) 1 drop EYE-LEFT DAILY [facility] Last Admin: 12/08/24 08:31 Dose: 1 drop Documented By: AVELINA Warfarin Sodium (Warfarin Sodium 5 Mg Tablet) 5 mg PO MOTH@1800 [facility] Warfarin Sodium (Warfarin Sodium 2.5 Mg Tablet) 2.5 mg PO SUTUWEFRSA@1800 [facility] Labs 12/08/24 06:30 12/08/24 06:30 Labs: Laboratory Results - last 24 hr 12/08/24 06:30 MCV 92.0 MCH 29.3 MCHC 31.8 RDW 16.3 H Plt Count 112 L MPV 11.8 Absolute Nucleated RBC 0.000 Nucleated RBC % (auto) 0.0 PT 27.8 H D INR 2.4 H Anion Gap 9 L Estim Creat Clear Calc 41.8 Estimated GFR > 60 Random Glucose 96 Calcium 8.5 Magnesium 2.1 Microbiology Microbiology Results: Microbiology 12/06/24 12:37 Blood Culture - Preliminary Blood - Venous No growth after 24 hours. 12/06/24 12:37 Blood Culture - Preliminary Blood - Venous No growth after 24 hours. Assessment and Plan (1) Influenza A: Status: Acute Plan 89M PMH unspecified dementia, chronic AFib on Coumadin, hypertension presented with weakness Generalized weakness due to influenza a, superimposed multifocal bacterial pneumonia, acute unspecified CHF Continue gentle diuresis, ceftriaxone, azithromycin, Tamiflu Echo with EF of 45-50%, moderately reduced right ventricular systolic function Chronic AFib Continue diltiazem, Coumadin, follow-up INR Hypertension Losartan, diltiazem Unspecified dementia Continue Aricept Deconditioning Physical therapy recommending short-term rehab DVT prophylaxis on Coumadin DNR/DNI reason for continued hospitalization: IV diuresis Quality Stroke Does the patient have a stroke diagnosis?: No VTE Prior VTE?: No VTE Risk Level:: Medical - moderate - high VTE Device Contraindication: Treatment Not Indicated VTE Drug Contraindication: N/A - Med Ordered
[2024-12-08] MEDS: cefTRIAXone sodium 1 GM VIAL IVPUSH (11:57)
[2024-12-08] MEDS: Azithromycin 500 MG in 0.9 % Sodium Chloride 250 ML 125 MG IV (12:03)
[2024-12-08 15:25] VITALS: BP 131/87; PULSE 108; RESP 20; TEMP 36.7; O2SAT 93
[2024-12-08] MEDS: Warfarin Sodium 2.5 MG TABLET PO (17:35)
[2024-12-08] MEDS: Donepezil HCl 10 MG TABLET PO (17:35)
[2024-12-08 19:43] VITALS: BP 121/72; PULSE 98; RESP 20; TEMP 36.4; O2SAT 93
[2024-12-08] MEDS: dilTIAZem HCL CD 120 MG CAP.ER.DEG PO (19:47)
[2024-12-08] MEDS: Melatonin 3 MG TABLET 6 MG PO (19:47)
[2024-12-08] MEDS: Latanoprost 0.005 % Ophth Sol 2.5 ML DROPS 1 DROP EYE-LEFT (19:55)
[2024-12-08] MEDS: LORazepam 2 MG/ML VIAL 1 MG IVPUSH (22:01)
--- NOTE | 2024-12-08 23:37 | PC.NURSE ---
Upon assuming care of pt at 19:00, pt was restless, getting out of recliner w/ out assist, pulling at [place] cath. Pt A&Ox1, Hx of dementia, confused & forgetful. This RN administered bedtime medications, along w/ PRN melatonin (no effect), see MAR. Later on, pt became more restless, pulling off [place] cath & tete, and climbing out of bed. Pt was redirected multiple times and hygiene care was provided. MD Acosta was notified of the pt's behavior. One time dose of Ativan 1mg IV was ordered and given to pt w/ good effect. Pt resting comfortably in bed w/ bed in lowest position, call palafox w/in reach, and camera in room. Will continue to monitor. Report given to oncoming RN.
[2024-12-09] VITALS (7 sets, daily range): BP systolic 121–168; BP diastolic 72–98; PULSE 76–84; RESP 15–20; TEMP 36–36.7; O2SAT 95–97
[2024-12-09 06:42] LABS: INTERNATIONAL NORM RATIO 1.9 (0.9-1.1); Prothrombin Time 22.7 SEC (10.9-12.4)
[2024-12-09 06:53] LABS: Anion Gap 12 (12-20); Blood Urea Nitrogen 19 mg/dL (9-16); Carbon Dioxide 25 mmol/L (22-29); Chloride 110 mmol/L (96-108); Creatinine Clr Calc Pharmacy 51.3; Estimated Glomerular Filt Rate > 60; Glucose Random 87 mg/dL (60-115); Potassium 3.1 mmol/L (3.3-5.1); Sodium 144 mmol/L (135-145)
[2024-12-09] MEDS: Potassium Chloride ER 20 MEQ TAB.ER.PRT 40 MEQ PO (08:58)
[2024-12-09] MEDS: Memantine HCl 10 MG TABLET PO ×2 (08:58→21:09)
[2024-12-09] MEDS: 0.9 % Sodium Chloride Flush 3 ML SYRINGE IVFLUSH ×3 (08:58→21:19)
[2024-12-09] MEDS: Furosemide 20 MG/2 ML VIAL IVPUSH (08:58)
[2024-12-09] MEDS: Losartan Potassium 50 MG TABLET 100 MG PO (08:58)
[2024-12-09] MEDS: timoloL maleate 0.5 % Oph Sol 5 ML DRBTL 1 DROP EYE-LEFT (08:59)
[2024-12-09] MEDS: amLODIPine Besylate 5 MG TABLET PO (08:59)
[2024-12-09] MEDS: Oseltamivir Phosphate 30 MG CAPSULE PO ×2 (08:59→21:09)
--- NOTE | 2024-12-09 09:53 | P.PNIM_ITS ---
Subjective Subjective Date of Service: 12/09/24 Interval History: weak, sob Physical Exam 2 Vital Signs: Vital Signs: Last Vital Signs Temp 96.8 F 12/09/24 07:06 Pulse 76 12/09/24 07:06 Resp 15 12/09/24 07:06 BP 153/72 H 12/09/24 08:59 Pulse Ox 95 12/09/24 07:06 O2 Del Method Room Air 12/09/24 07:06 BMI result Body Mass Index 23.9 lethargic, ill appearing, frail, bilateral rhonchi Objective Data Active Medications Acetaminophen (Acetaminophen 325 Mg Tablet) 650 mg PO Q6H PRN PRN Reason: Pain, Mild 1-3,fever,headache Albuterol/Ipratropium (Albuterol/Iprat 2.5/0.5mg 3 Ml Ampul.Neb) 3 ml INHALE RQ4H WHILE AWAKE PRN PRN Reason: Shortness of Breath/Wheezing Amlodipine Besylate (Amlodipine Besylate 5 Mg Tablet) 5 mg PO DAILY [facility]; Protocol Last Admin: 12/09/24 08:59 Dose: 5 mg Documented By: AVELINA Calcium Carbonate (Calcium Carbonate 750 Mg Tab.Chew) 750 mg PO Q4H PRN PRN Reason: Heartburn Ceftriaxone Sodium (Ceftriaxone Sodium 1 Gm Vial) 1 gm IVPUSH Q24H [facility] Last Admin: 12/08/24 11:57 Dose: 1 gm Documented By: AVELINA Diltiazem HCl (Diltiazem Hcl Cd 120 Mg Cap.Er.Deg) 120 mg PO BEDTIME [facility]; Protocol Last Admin: 12/08/24 19:47 Dose: 120 mg Documented By: HIRAL Donepezil HCl (Donepezil Hcl 10 Mg Tablet) 10 mg PO DAILY@1800 [facility] Last Admin: 12/08/24 17:35 Dose: 10 mg Documented By: AVELINA Furosemide (Furosemide 20 Mg/2 Ml Vial) 20 mg IVPUSH DAILY [facility]; Protocol Last Admin: 12/09/24 08:58 Dose: 20 mg Documented By: AVELINA Guaifenesin/Dextromethorphan (Guaifenesin Dm 200/20/10 Ml 10 Ml Syrup) 10 ml PO Q4H PRN PRN Reason: Cough Last Admin: 12/07/24 20:15 Dose: 10 ml Documented By: HIRAL Azithromycin 500 mg/ Sodium (Chloride) 250 mls @ 125 mls/hr IV Q24H [facility] Last Infusion: 12/08/24 14:06 Dose: Infused Documented By: AVELINA Latanoprost (Latanoprost 0.005 % Ophth Rosa 2.5 Ml Drops) 1 drop EYE-LEFT BEDTIME [facility] Last Admin: 12/08/24 19:55 Dose: 1 drop Documented By: HIRAL Losartan Potassium (Losartan Potassium 50 Mg Tablet) 100 mg PO DAILY [facility]; Protocol Last Admin: 12/09/24 08:58 Dose: 100 mg Documented By: AVELINA Magnesium Hydroxide (Milk Of Magnesia 30 Ml Oral.Susp) 30 ml PO DAILY PRN PRN Reason: Constipation Melatonin (Melatonin 3 Mg Tablet) 6 mg PO BEDTIME PRN PRN Reason: Insomnia Last Admin: 12/08/24 19:47 Dose: 6 mg Documented By: HIRAL Memantine (Memantine Hcl 10 Mg Tablet) 10 mg PO BID [facility] Last Admin: 12/09/24 08:58 Dose: 10 mg Documented By: AVELINA Oseltamivir Phosphate (Oseltamivir Phosphate 30 Mg Capsule) 30 mg PO Q12H [facility] Stop: 12/10/24 21:01 Last Admin: 12/09/24 08:59 Dose: 30 mg Documented By: AVELINA Sodium Chloride (0.9 % Sodium Chloride Flush 3 Ml Syringe) 3 ml IVFLUSH QSHIFT [facility] Last Admin: 12/09/24 08:58 Dose: 3 ml Documented By: AVELINA Timolol Maleate (Timolol Maleate 0.5 % Oph Rosa 5 Ml Drbtl) 1 drop EYE-LEFT DAILY [facility] Last Admin: 12/09/24 08:59 Dose: 1 drop Documented By: AVELINA Warfarin Sodium (Warfarin Sodium 5 Mg Tablet) 5 mg PO MOTH@1800 [facility] Warfarin Sodium (Warfarin Sodium 2.5 Mg Tablet) 2.5 mg PO SUTUWEFRSA@1800 [facility] Last Admin: 12/08/24 17:35 Dose: 2.5 mg Documented By: AVELINA Labs 12/08/24 06:30 12/09/24 06:12 Labs: Laboratory Results - last 24 hr 12/09/24 06:12 PT 22.7 H INR 1.9 H Anion Gap 12 Estim Creat Clear Calc 51.3 Estimated GFR > 60 Random Glucose 87 Calcium 9.0 Microbiology Microbiology Results: Microbiology 12/06/24 12:37 Blood Culture - Preliminary Blood - Venous No growth after 48 hours. 12/06/24 12:37 Blood Culture - Preliminary Blood - Venous No growth after 48 hours. Assessment and Plan (1) Influenza A: Status: Acute Plan 89M PMH unspecified dementia, chronic AFib on Coumadin, hypertension presented with weakness Generalized weakness due to influenza a, superimposed multifocal bacterial pneumonia, acute unspecified CHF Continue gentle diuresis, ceftriaxone, azithromycin, Tamiflu Echo with EF of 45-50%, moderately reduced right ventricular systolic function Chronic AFib Continue diltiazem, Coumadin, follow-up INR Hypertension Losartan, diltiazem Unspecified dementia Continue Aricept Deconditioning Physical therapy recommending short-term rehab DVT prophylaxis on Coumadin DNR/DNI reason for continued hospitalization: IV diuresis, still feeling ill and short of breath Quality Stroke Does the patient have a stroke diagnosis?: No VTE Prior VTE?: No VTE Risk Level:: Medical - moderate - high VTE Device Contraindication: Treatment Not Indicated VTE Drug Contraindication: N/A - Med Ordered
[2024-12-09] MEDS: cefTRIAXone sodium 1 GM VIAL IVPUSH (11:55)
[2024-12-09] MEDS: Azithromycin 500 MG in 0.9 % Sodium Chloride 250 ML 125 MG IV (12:00)
[2024-12-09] MEDS: Warfarin Sodium 2.5 MG TABLET PO (17:32)
[2024-12-09] MEDS: Donepezil HCl 10 MG TABLET PO (17:32)
[2024-12-09] MEDS: dilTIAZem HCL CD 120 MG CAP.ER.DEG PO (21:09)
[2024-12-09] MEDS: Latanoprost 0.005 % Ophth Sol 2.5 ML DROPS 1 DROP EYE-LEFT (21:16)
[2024-12-10] VITALS (7 sets, daily range): BP systolic 120–166; BP diastolic 61–82; PULSE 65–84; RESP 16–18; TEMP 36–36.5; O2SAT 93–97
[2024-12-10 06:19] LABS: INTERNATIONAL NORM RATIO 2.2 (0.9-1.1); Prothrombin Time 25.7 SEC (10.9-12.4)
[2024-12-10 06:20] LABS: Hematocrit 38.9 % (42.0-52.0); Hemoglobin 12.4 g/dl (14.0-18.0); Mean Corpuscular HGB Conc 31.9 g/dl (31.0-36.0); Mean Corpuscular Hemoglobin 29.2 pg (27.0-33.0); Mean Corpuscular Volume 91.7 fL (80.0-98.0); Mean Platelet Volume 10.9 fL (9.4-12.4); Platelet Count 143 X10*3/uL (160-400); Red Blood Count 4.24 X10*6/uL (4.60-5.80); Red Cell Distribution Width 15.8 % (11.0-16.0); White Blood Count 4.9 X10*3/uL (4.8-10.8)
[2024-12-10 06:42] LABS: Anion Gap 11 (12-20); Blood Urea Nitrogen 24 mg/dL (9-16); Calcium 8.9 mg/dL (8.4-10.2); Carbon Dioxide 28 mmol/L (22-29); Chloride 107 mmol/L (96-108); Creatinine Clr Calc Pharmacy 45.6; Estimated Glomerular Filt Rate > 60; Glucose Random 93 mg/dL (60-115); Magnesium 2.2 mg/dL (1.6-2.6); Potassium 3.3 mmol/L (3.3-5.1); Sodium 143 mmol/L (135-145)
[2024-12-10] MEDS: 0.9 % Sodium Chloride Flush 3 ML SYRINGE IVFLUSH ×3 (08:45→20:48)
[2024-12-10] MEDS: Furosemide 20 MG/2 ML VIAL IVPUSH (08:45)
[2024-12-10] MEDS: amLODIPine Besylate 5 MG TABLET PO (08:46)
[2024-12-10] MEDS: Memantine HCl 10 MG TABLET PO ×2 (08:46→20:41)
[2024-12-10] MEDS: Losartan Potassium 50 MG TABLET 100 MG PO (08:46)
[2024-12-10] MEDS: Oseltamivir Phosphate 30 MG CAPSULE PO ×2 (08:46→20:41)
[2024-12-10] MEDS: timoloL maleate 0.5 % Oph Sol 5 ML DRBTL 1 DROP EYE-LEFT (08:46)
--- NOTE | 2024-12-10 08:56 | P.DS_ITS ---
DS: Providers Provider Date of Service: 12/11/24 Date of admission: 12/06/24 15:00 Date of discharge: 12/11/24 Primary care physician: Elif Vides MD DS: Diagnosis Discharge Diagnosis (1) Influenza A: Status: Acute DS: Summary Hospital Course Hospital Course: From initial hpi: 89-year-old male with a PMH significant for dementia, persistent AFib on warfarin, HTN, and hard of hearing who presents to the ED with with generalized weakness and difficulty ambulating. Pt has a hx of dementia and is a poor historian. Family is at bedside and helps supplement HPI. Family reports pt developed weakness and nonproductive cough for the past 2-3 days. Weakness has progressively worsened until today pt could not stand up or ambulate. Normally uses a walker at home for ambulation. Family also notes pt has had increased lower leg edema for the past 1-2 weeks. No reported hx of CHF and not on home diuretics. Family have not noted pt to have any other symptoms or acute medical complaints. No nausea, vomiting, abdominal pain. Denies shortness or or difficulty breathing. No fever, chills. No chest pain/pressure, palpitations. In the ED pt was hypertensive up to 163/74 and satting at 93% on RA. Labs were significant for testing positive for influenza type a, otherwise grossly unremarkable and around baseline for pt. No leukocytosis. Stable normocytic anemia [id number]. Chronic thrombocytopenia of 118, around baseline. INR therapeutic at 3.0. No significant electrolyte abnormalities. Renal function baseline. Hepatic function baseline. CXR showed bilateral pleural effusions and findings suspicious for pulmonary edema vs multifocal pneumonia. EKG demonstrated atrial fibrillation with PVCs and no evidence of significant ischemic changes, similar to previous. Pt was treated with Tamiflu, ceftriaxone, and azithromycin. Pt will be admitted to the hospital for treatment further evaluation of generalized weakness in the setting of acute influenza infection and superimposed multifocal pneumonia vs new onset CHF. Hospital course: Patient was admitted for generalized weakness due to influenza a superimposed on multifocal bacterial pneumonia and acute systolic CHF. He was given gentle diuresis and then will be transitioned to 40 mg daily of Lasix. Treated with ceftriaxone azithromycin course of Tamiflu. Echo showed EF of 45-50% with moderately reduced right ventricular systolic function. Diltiazem has been switched to Toprol. For chronic AFib will be discharged on Toprol, continued on Coumadin. For hypertension was continue losartan, amlodipine added. For unspecified dementia was continued on Aricept. For deconditioning was seen by physical therapy recommended short-term rehab. Patient is feeling better will be discharged to intermediate facility is expected require less than 30 days. Time Attestation Discharge Coordination Time (in mins): 32 Quality: Safe Use of Opioids Does Pt have an Active Cancer Diagnosis on the Problem List?: No Quality: Stroke Does the patient have a stroke diagnosis?: No Physical Exam Vital Signs: Vital Signs: Last Vital Signs Temp 96.9 F 12/10/24 07:31 Pulse 72 12/10/24 07:31 Resp 18 12/10/24 07:31 BP 166/74 H 12/10/24 08:46 Pulse Ox 97 12/10/24 07:31 O2 Del Method Room Air 12/10/24 07:31 BMI result Body Mass Index 23.9 alert, confused, no acute distress DS: Data Data Completed and Pending Labs on day of discharge: Laboratory Results - last 24 hr 12/10/24 05:51 WBC 4.9 RBC 4.24 L Hgb 12.4 L Hct 38.9 L MCV 91.7 MCH 29.2 MCHC 31.9 RDW 15.8 Plt Count 143 L D MPV 10.9 Absolute Nucleated RBC 0.000 Nucleated RBC % (auto) 0.0 PT 25.7 H INR 2.2 H Sodium 143 Potassium 3.3 Chloride 107 Carbon Dioxide 28 Anion Gap 11 L BUN 24 H Creatinine 0.99 Estim Creat Clear Calc 45.6 Estimated GFR > 60 Random Glucose 93 Calcium 8.9 Magnesium 2.2 Preliminary micro results at discharge 12/06/24 12:37 Blood Culture - Preliminary Blood - Venous No growth after 48 hours. 12/06/24 12:37 Blood Culture - Preliminary Blood - Venous No growth after 48 hours. Discharge Plan Discharge Anticipated Discharge Date/Time: 12/10/24 08:53 Patient Disposition: Xfer SNF Discharge Diagnosis: flu, pna Referrals: Elif Vides MD [Primary Care Provider] - 1 Week Discharge Medications: New furosemide [Lasix] 40 mg tablet 40 mg PO DAILY Qty: 90 0RF cefuroxime axetil 500 mg tablet 500 mg PO BID Qty: 10 0RF azithromycin 500 mg tablet 500 mg PO DAILY 5 Days Qty: 5 0RF metoprolol succinate [Toprol XL] 25 mg tablet extended release 24 hr 25 mg PO DAILY Qty: 90 0RF amlodipine 5 mg Tablet 5 mg PO DAILY Qty: 0 0RF Protocol: Hold for SBP< HOLD for SBP < : 90 Continued PreserVision AREDS-2 250-90-40-1 mg capsule 1 tab PO BID@0900,1800 warfarin 2.5 mg tablet 5 mg PO MOTH@1800 warfarin 2.5 mg tablet 2.5 mg PO SUTUWEFRSA@1800 donepezil 10 mg tablet 10 mg PO DAILY@1800 latanoprost 0.005 % drops 1 drp ophthalmic-Left BEDTIME timolol maleate 0.5 % drops 1 drp ophthalmic-Left DAILY memantine 10 mg tablet 10 mg PO BID losartan 100 mg tablet 100 mg PO DAILY Discontinued diltiazem HCl 120 mg capsule,extended release 24hr 120 mg PO BEDTIME Discharge Orders: Discharge Order (Routine); Ordered 12/10/24 Ordered By: Cristian Oquendo Diet: Advance to usual diet Activity on Discharge: As tolerated Stand Alone Forms: Patient Portal Discharge page Print Language: Monegasque Care Plan Goals: recovery Health Concerns: flu, pna, chf Plan of Treatment: 5 more days ceftin and azitrho med changes per medrec Assessment: see above
[2024-12-10] MEDS: cefTRIAXone sodium 1 GM VIAL IVPUSH (12:06)
[2024-12-10] MEDS: Azithromycin 500 MG in 0.9 % Sodium Chloride 250 ML 125 MG IV (12:11)
[2024-12-10] MEDS: Warfarin Sodium 5 MG TABLET PO (18:13)
[2024-12-10] MEDS: Donepezil HCl 10 MG TABLET PO (18:13)
[2024-12-10] MEDS: dilTIAZem HCL CD 120 MG CAP.ER.DEG PO (20:41)
[2024-12-10] MEDS: Latanoprost 0.005 % Ophth Sol 2.5 ML DROPS 1 DROP EYE-LEFT (20:42)
[2024-12-11 03:04] VITALS: BP 117/79; PULSE 97; RESP 18; TEMP 36.6; O2SAT 94
[2024-12-11 07:33] VITALS: BP 146/65; PULSE 78; RESP 16; TEMP 36.2; O2SAT 94
--- NOTE | 2024-12-11 08:25 | P.PNIM_ITS ---
Subjective Subjective Date of Service: 12/11/24 Interval History: feeling better Physical Exam 2 Vital Signs: Vital Signs: Last Vital Signs Temp 97.1 F 12/11/24 07:33 Pulse 78 12/11/24 07:33 Resp 16 12/11/24 07:33 BP 146/65 H 12/11/24 07:33 Pulse Ox 94 12/11/24 07:33 O2 Del Method Room Air 12/11/24 07:33 BMI result Body Mass Index 23.9 alert, confused, no acute distress Objective Data Active Medications Acetaminophen (Acetaminophen 325 Mg Tablet) 650 mg PO Q6H PRN PRN Reason: Pain, Mild 1-3,fever,headache Albuterol/Ipratropium (Albuterol/Iprat 2.5/0.5mg 3 Ml Ampul.Neb) 3 ml INHALE RQ4H WHILE AWAKE PRN PRN Reason: Shortness of Breath/Wheezing Amlodipine Besylate (Amlodipine Besylate 5 Mg Tablet) 5 mg PO DAILY BRITT; Protocol Last Admin: 12/10/24 08:46 Dose: 5 mg Documented By: AVELINA Calcium Carbonate (Calcium Carbonate 750 Mg Tab.Chew) 750 mg PO Q4H PRN PRN Reason: Heartburn Ceftriaxone Sodium (Ceftriaxone Sodium 1 Gm Vial) 1 gm IVPUSH Q24H BRITT Last Admin: 12/10/24 12:06 Dose: 1 gm Documented By: AVELINA Diltiazem HCl (Diltiazem Hcl Cd 120 Mg Cap.Er.Deg) 120 mg PO BEDTIME BRITT; Protocol Last Admin: 12/10/24 20:41 Dose: 120 mg Documented By: ROHIT Donepezil HCl (Donepezil Hcl 10 Mg Tablet) 10 mg PO DAILY@1800 BRITT Last Admin: 12/10/24 18:13 Dose: 10 mg Documented By: AVELINA Furosemide (Furosemide 20 Mg/2 Ml Vial) 20 mg IVPUSH DAILY [facility]; Protocol Last Admin: 12/10/24 08:45 Dose: 20 mg Documented By: AVELINA Guaifenesin/Dextromethorphan (Guaifenesin Dm 200/20/10 Ml 10 Ml Syrup) 10 ml PO Q4H PRN PRN Reason: Cough Last Admin: 12/07/24 20:15 Dose: 10 ml Documented By: HIRAL Azithromycin 500 mg/ Sodium (Chloride) 250 mls @ 125 mls/hr IV Q24H [facility] Last Infusion: 12/10/24 14:11 Dose: Infused Documented By: AVELINA Latanoprost (Latanoprost 0.005 % Ophth Rosa 2.5 Ml Drops) 1 drop EYE-LEFT BEDTIME [facility] Last Admin: 12/10/24 20:42 Dose: 1 drop Documented By: ROHIT Losartan Potassium (Losartan Potassium 50 Mg Tablet) 100 mg PO DAILY [facility]; Protocol Last Admin: 12/10/24 08:46 Dose: 100 mg Documented By: AVELINA Magnesium Hydroxide (Milk Of Magnesia 30 Ml Oral.Susp) 30 ml PO DAILY PRN PRN Reason: Constipation Melatonin (Melatonin 3 Mg Tablet) 6 mg PO BEDTIME PRN PRN Reason: Insomnia Last Admin: 12/08/24 19:47 Dose: 6 mg Documented By: HIRAL Memantine (Memantine Hcl 10 Mg Tablet) 10 mg PO BID [facility] Last Admin: 12/10/24 20:41 Dose: 10 mg Documented By: ROHIT Sodium Chloride (0.9 % Sodium Chloride Flush 3 Ml Syringe) 3 ml IVFLUSH QSHIFT [facility] Last Admin: 12/10/24 20:48 Dose: 3 ml Documented By: ROHIT Timolol Maleate (Timolol Maleate 0.5 % Oph Rosa 5 Ml Drbtl) 1 drop EYE-LEFT DAILY [facility] Last Admin: 12/10/24 08:46 Dose: 1 drop Documented By: AVELINA Warfarin Sodium (Warfarin Sodium 5 Mg Tablet) 5 mg PO MOTH@1800 [facility] Last Admin: 12/10/24 18:13 Dose: 5 mg Documented By: AVELINA Warfarin Sodium (Warfarin Sodium 2.5 Mg Tablet) 2.5 mg PO SUTUWEFRSA@1800 [facility] Last Admin: 12/09/24 17:32 Dose: 2.5 mg Documented By: AVELINA Labs 12/10/24 05:51 12/10/24 05:51 Assessment and Plan (1) Influenza A: Status: Acute Plan 89M PMH unspecified dementia, chronic AFib on Coumadin, hypertension presented with weakness Generalized weakness due to influenza a, superimposed multifocal bacterial pneumonia, acute unspecified CHF Continue gentle diuresis, ceftriaxone, azithromycin, Tamiflu Echo with EF of 45-50%, moderately reduced right ventricular systolic function Chronic AFib Changing diltiazem metoprolol Coumadin, follow-up INR Hypertension Losartan, amlodipine Unspecified dementia Continue Aricept Deconditioning Physical therapy recommending short-term rehab DVT prophylaxis on Coumadin DNR/DNI reason for continued hospitalization: Safe dispo Quality Stroke Does the patient have a stroke diagnosis?: No VTE Prior VTE?: No VTE Risk Level:: Medical - moderate - high VTE Device Contraindication: Treatment Not Indicated VTE Drug Contraindication: N/A - Med Ordered
[2024-12-11] MEDS: 0.9 % Sodium Chloride Flush 3 ML SYRINGE IVFLUSH (08:29)
[2024-12-11] MEDS: Furosemide 20 MG/2 ML VIAL IVPUSH (08:29)
[2024-12-11] MEDS: amLODIPine Besylate 5 MG TABLET PO (08:30)
[2024-12-11] MEDS: Losartan Potassium 50 MG TABLET 100 MG PO (08:30)
[2024-12-11] MEDS: Memantine HCl 10 MG TABLET PO (08:30)
[2024-12-11] MEDS: timoloL maleate 0.5 % Oph Sol 5 ML DRBTL 1 DROP EYE-LEFT (08:35)
[2024-12-11 08:40] LABS: INTERNATIONAL NORM RATIO 2.3 (0.9-1.1); Prothrombin Time 26.6 SEC (10.9-12.4)
[2024-12-11] MEDS: cefTRIAXone sodium 1 GM VIAL IVPUSH (13:04)
[2024-12-11] MEDS: Azithromycin 500 MG in 0.9 % Sodium Chloride 250 ML 125 MG IV (13:04)
--- NOTE | 2024-12-11 15:43 | MHC.CM.PN ---
IMM 12/10/24 Patient has accepted a bed offer from [facility]. They have received authorization form [facility]. Patient will transport via [facility]. All DC info has been sent to the SNF.
[2024-12-11 17:29] VITALS: BP 133/72; PULSE 68; RESP 18; TEMP 36.8; O2SAT 94
== END 2024-12-11 17:38 | disposition skilled nursing facility (03) | DRG 193 ==
LOC: HO.ED 12:35 → HO.EDOVER 15:13 → HO.S3 15:40
PROVIDERS: Physician Assistant; Physician Assistant Medical; Admitting Provider Student in an Organized Health Care Education/Training Program; Emergency Provider Emergency Medicine Emergency Medical Services; PCP Internal Medicine; Visit Provider Internal Medicine
DX: J10.08 Influenza due to other identified influenza virus with other specified pneumonia (principal); I50.21 Acute systolic (congestive) heart failure; I48.19 Other persistent atrial fibrillation; R53.1 Weakness; Z66 Do not resuscitate; J15.9 Unspecified bacterial pneumonia; I11.0 Hypertensive heart disease with heart failure; F03.90 Unspecified dementia, unspecified severity, without behavioral disturbance, psychotic disturbance, mood disturbance, and anxiety; Z20.822 Contact with and (suspected) exposure to COVID-19; Z79.01 Long term (current) use of anticoagulants; Z79.899 Other long term (current) drug therapy
CPT/HCPCS: 0241U; 36415; 71045; 71250; 80048; 80053; 83735; 83880; 84145; 84484; 85025; 85027; 85610; 87040; 93005; 93306; 97110; 97140; 97162; 97530; 99285; J0456; J0696; J1940; J2060; Q9957

== ENCOUNTER → 2024-12-06 10:05 | Outpatient (BNV) | payer MEDICARE, SELFPAY | PROVIDERS: Admitting Provider Student in an Organized Health Care Education/Training Program; Emergency Provider Emergency Medicine Emergency Medical Services; PCP Internal Medicine; Visit Provider Internal Medicine Cardiovascular Disease | DX: I48.91 Unspecified atrial fibrillation (principal) | CPT/HCPCS: 93010 ==

== ENCOUNTER → 2024-12-06 10:05 | Outpatient (BNV) | payer MEDICARE, SELFPAY | PROVIDERS: PCP Internal Medicine; Visit Provider Radiology Diagnostic Radiology | DX: R53.1 Weakness (principal); J18.9 Pneumonia, unspecified organism | CPT/HCPCS: 71045; 71250 ==

== ENCOUNTER 2024-12-06 15:00 | Outpatient (BNV) | payer MEDICARE, SELFPAY | END 2024-12-07 07:00 | PROVIDERS: Admitting Provider Student in an Organized Health Care Education/Training Program; Emergency Provider Emergency Medicine Emergency Medical Services; PCP Internal Medicine; Visit Provider Internal Medicine Cardiovascular Disease | DX: I35.1 Nonrheumatic aortic (valve) insufficiency (principal); I34.0 Nonrheumatic mitral (valve) insufficiency; I36.1 Nonrheumatic tricuspid (valve) insufficiency; I51.7 Cardiomegaly | CPT/HCPCS: 93306 ==

== ENCOUNTER → 2024-12-06 15:00 | Outpatient (BNV) | payer MEDICARE, SELFPAY | PROVIDERS: Admitting Provider Student in an Organized Health Care Education/Training Program; Emergency Provider Emergency Medicine Emergency Medical Services; PCP Internal Medicine; Visit Provider Student in an Organized Health Care Education/Training Program | DX: J10.1 Influenza due to other identified influenza virus with other respiratory manifestations (principal) | CPT/HCPCS: 99223; 99232; 99233; 99239 ==

== ENCOUNTER 2025-03-18 07:58 | Inpatient (IN) | payer MEDICARE, SELFPAY ==
[2025-03-18] VITALS (14 sets, daily range): BP systolic 84–131; BP diastolic 56–78; PULSE 80–123; RESP 16–24; TEMP 36.1–37.3; O2SAT 89–97; BMI 25.7; BMI 25.2
--- NOTE | 2025-03-18 | ECG_ITS ---
Test Reason : tachycardia Blood Pressure : */* mmHG Vent. Rate : 128 BPM Atrial Rate : * BPM P-R Int : * ms QRS Dur : 102 ms QT Int : 332 ms P-R-T Axes : * -15 136 degrees QTcB Int : 484 ms Atrial fibrillation with rapid ventricular response with premature ventricular or aberrantly conducted complexes ST & T wave abnormality, consider lateral ischemia Abnormal ECG When compared with ECG of 18-Mar-2025 08:17, No significant change was found Referred By: Nickie Franz Electronically Signed By: Jamal Gambino
--- NOTE | ~2025-03-18 | XR_ITS ---
EXAMINATION: XR CHEST CLINICAL INFORMATION: Follow up pulmonary edema COMPARISON: None available. TECHNIQUE: Frontal view of the chest was obtained. FINDINGS: The cardiac, hilar, and mediastinal contours are normal. Aortic mural calcifications. Lungs demonstrate worsening both interstitial and alveolar pulmonary edema, with more confluent opacity in the left mid and lower lung, perihilar regions, and right lower lung. Suspect small pleural effusions. There is no pneumothorax. No focal osseous or soft tissue abnormality. XR/XR chest 1V IMPRESSION: Slightly worsening interstitial and alveolar pulmonary edema. Suspect small pleural effusions. Electronically signed by: Alfonso Canales MD 03/22/2025 08:34 AM EDT
--- NOTE | ~2025-03-18 | XR_ITS ---
CLINICAL HISTORY: cough, ams Chest radiograph, 1 view Comparison: CR/SR - XR CHEST 1V - 12/06/24 10:43 EST Findings: The heart is enlarged. Pulmonary vascularity is prominent and indistinct. Increased airspace opacities most conspicuous within the mid and lower lung zones. The left costophrenic angle is not well visualized. No pneumothorax. IMPRESSION: Worsened pulmonary vascular congestion and bilateral airspace disease, possibly with a left pleural effusion. This document has been electronically signed by: Wesley Whittaker DO on 03/18/2025 11:35:03
--- NOTE | ~2025-03-18 | CT_ITS ---
CLINICAL HISTORY: ams, on AC CT head without contrast Comparison: CT/SR - CT HEAD/BRAIN WO IV CON - 04/17/24 18:24 EDT Findings: No acute intracranial hemorrhage or midline shift. The abarca-white matter differentiation is maintained. Bilateral carotid siphon and vertebrobasilar calcifications. Moderate generalized cerebral involutional change. Mild burden chronic small-vessel white matter ischemic change. The paranasal sinuses and mastoid air cells are clear. Bilateral external auditory canal cerumen/debris. Operative change of the globes. The calvarium is intact. 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 IMPRESSION: No acute intracranial findings. This document has been electronically signed by: Wesley Whittaker DO on 03/18/2025 10:18:18
--- NOTE | 2025-03-18 08:02 | ED_ITS ---
HPI - General Adult General Chief complaint: Dyspnea Stated complaint: AMS COUGH Time Seen by Provider: 03/18/25 08:02 Source: patient and RN notes reviewed Mode of arrival: ambulatory Limitations: no limitations History of Present Illness ED Provider: Kira Sylvester PA-C HPI narrative: This is a 89-year-old male, with a past medical history of dementia, atrial fibrillation on Coumadin, hard of hearing, hypertension, who presents emergency room from [facility] via EMS due to nursing concerns of ?junky cough and shortness of breath?, and changes in mentation. Per EMS, nursing states that last known well was last night. Nursing noted junky sounding cough yesterday and gave patient Lasix. On arrival, patient is alert and oriented to person only. He reports no current pain or current complaints. MD complaint: Cough, AMS Onset (ago): day(s) Associated symptoms: confusion and cough Related Data Home Medications ?Medication ?Instructions ?Recorded ?Confirmed latanoprost 0.005 % eye drops 1 drp ophthalmic-Left BEDTIME 08/18/21 03/18/25 timolol maleate 0.5 % eye drops 1 drp ophthalmic-Left DAILY 08/18/21 03/18/25 acetaminophen 325 mg tablet 650 mg PO Q6H PRN pain or fever 03/18/25 03/18/25 bisacodyl 10 mg rectal suppository 10 mg TX DAILY PRN constipation if 03/18/25 03/18/25 MOM not effective furosemide 40 mg tablet (Lasix) 20 mg PO DAILY 03/18/25 03/18/25 guaifenesin 100 mg/5 mL oral 200 mg PO Q4H PRN Cough 03/18/25 03/18/25 liquid (Vivian-Tussin) losartan 50 mg tablet 50 mg PO BEDTIME 03/18/25 03/18/25 magnesium hydroxide 400 mg/5 mL 30 ml PO DAILY PRN Constipation 03/18/25 03/18/25 oral suspension (Milk of Magnesia) melatonin 3 mg tablet 6 mg PO BEDTIME PRN Insomnia 03/18/25 03/18/25 memantine 5 mg tablet 5 mg PO BEDTIME 03/18/25 03/18/25 rivastigmine 4.6 mg/24 hour 4.6 mg transdermal DAILY 03/18/25 03/18/25 transdermal patch sodium phosphates 19 gram-7 118 ml TX DAILY PRN Constipation 03/18/25 03/18/25 gram/118 mL enema (Fleet Enema) if bisacodyl not effective trazodone 50 mg tablet 12.5 mg PO BID PRN 03/18/25 03/18/25 Anxiety/agitation/insomnia trazodone 50 mg tablet 25 mg PO BEDTIME 03/18/25 03/18/25 warfarin 2 mg tablet 2 mg PO DAILY@1800 03/18/25 03/18/25 Previous Rx's ?Medication ?Instructions ?Recorded amlodipine 5 mg tablet 5 mg PO DAILY #0 tabs 12/10/24 metoprolol succinate 25 mg 25 mg PO DAILY #90 tabs 12/10/24 tablet,extended release 24 hr (Toprol XL) Allergies Allergy/AdvReac Type Severity Reaction Status Date / Time ciprofloxacin Allergy Intermediate hives Verified 03/18/25 08:18 benzonatate AdvReac Intermediate Gastrointestinal Verified 11/27/24 10:28 Upset lisinopril AdvReac Intermediate Cough Uncoded 11/27/24 10:28 Review of Systems 2 Review of Systems: Yes Unobtainable due to mental status Neurologic: Reports confusion Psychiatric: Psychiatric: Reports confusion [facility] Past Medical History Attestation statement: The following information was validated with the patient. Medical History Glaucoma HTN (hypertension) Permanent atrial fibrillation Dementia Social History Social History (Updated 03/18/25 @ 13:31 by Hoda Wiley NP) Household Members: Spouse and Children Housing: Shelter Do you presently have visiting nurse or other home services: No Alcohol intake: former Comment: 2:1 sitter Patient Tobacco Use Status: Former Tobacco user Tobacco use type: Cigarette Smoked in Last 30 Days: No Use of substances other than those prescribed or required for medical reasons: No Are you DNR?: Yes Advance Directives: Yes Advance Directives on File: Yes Advance Directives Date on File: 10/27/23 Healthcare Proxy: Yes If Yes to HCP, is it invoked: Yes service: No Cognitive needs: Yes Hearing needs: Yes Physical Exam ED Vital Signs: Vital Signs - 24 hr 03/18/25 08:16 03/18/25 09:26 03/18/25 09:31 Temperature 99.1 F Pulse Rate 99 105 H Respiratory Rate 22 H 22 H 24 H Blood Pressure 104/59 L 84/57 L Pulse Oximetry 89 L 96 Oxygen Delivery Method Room Air Nasal Cannula Oxygen Flow Rate 2 03/18/25 09:34 03/18/25 10:03 03/18/25 10:53 Temperature Pulse Rate 80 123 H 120 H Respiratory Rate 18 18 Blood Pressure 112/72 124/73 131/78 Pulse Oximetry 95 96 Oxygen Delivery Method Nasal Cannula Nasal Cannula Oxygen Flow Rate 3 3 03/18/25 11:13 03/18/25 11:25 Temperature Pulse Rate 99 104 H Respiratory Rate 20 16 Blood Pressure 111/57 L 106/56 L Pulse Oximetry 96 96 Oxygen Delivery Method Nasal Cannula Nasal Cannula Oxygen Flow Rate 3 2 BMI result Body Mass Index 25.7 Const General: awake and confusion; No acute distress Nutritional Appearance: thin Orientation/consciousness: confusion Limitations: altered mental status [facility] Head: Yes normal to inspection, Yes normocephalic and Yes atraumatic Ears: hearing grossly normal bilaterally General nose exam: Normal external nose present Face and sinus: Yes normal facial exam Mouth: Normal oral and palatal mucosa present, oropharynx normal and moist mucous membranes Throat: Yes posterior oropharynx normal Eyes General: appearance normal, both eyes and all related structures Eyelids: Yes eyelids normal Conjunctivae: conjunctivae normal Sclerae: sclerae normal Pupils: Equal, round and reactive pupils present EOM: EOMs intact bilaterally Neck Neck: Yes normal visual inspection, Yes full ROM and Yes no lymphadenopathy Lymphatic: no lymphadenopathy noted Chest Chest palpation & inspection: normal inspection of the chest Resp Other: Lung sounds with crackles noted, more pronounced in the left lower base. No wheezes appreciated. Effort & Inspection: normal respiratory effort and able to speak in complete sentences Cardio Other: Irregularly irregular Heart sounds: S1 normal heart sound present and S2 normal heart sound present GI Other: Rectal examination performed, good rectal tone, light brown stool noted, stool guaiac negative. Abdomen is soft, nontender, nondistended. Normoactive bowel sounds present. Inspection: Yes normal to inspection Skin General skin exam: no rashes or lesions noted Trauma: no lacerations or abrasions Wounds: no wounds Neuro General: moves all extremities and confusion Cranial nerves: Yes Equal, round and reactive pupils present Extrem Other: No peripheral edema noted. General: Yes normal to inspection Right upper extremity: normal to inspection Left upper extremity: normal to inspection Right lower extremity: normal to inspection Left lower extremity: normal to inspection Medications Administered Generic Name Dose Route Start Last Admin Trade Name Freq PRN Reason Stop Dose Admin Ceftriaxone Sodium 1 gm 03/18/25 15:15 03/18/25 15:27 Ceftriaxone Sodium 1 Gm Vial IVPUSH Not Given Q24H BRITT Dextrose 1,000 mls @ 50 mls/hr 03/18/25 15:15 03/18/25 15:37 D5w IVCONT 50 mls/hr .Q20H BRITT Administration Albumin Human 100 mls @ 100 mls/hr 03/18/25 16:00 03/18/25 16:34 Kedbumin 25 % IV 03/18/25 22:59 100 mls/hr Q6H BRITT Administration Sodium Chloride 3 ml 03/18/25 16:00 03/18/25 15:55 0.9 % Sodium Chloride Flush 3 Ml Syringe IVFLUSH Not Given QSHIFT BRITT Discontinued Medications Generic Name Dose Route Start Last Admin Trade Name Freq PRN Reason Stop Dose Admin Ceftriaxone Sodium 1 gm 03/18/25 08:16 03/18/25 08:40 Ceftriaxone Sodium 1 Gm Vial IVPUSH 03/18/25 08:17 1 gm ONCE ONE Administration Doxycycline Hyclate 100 mg/ 250 mls @ 166.67 mls/hr 03/18/25 08:20 03/18/25 10:48 Sodium Chloride IV 03/18/25 09:49 Infused ONCE ONE Infusion Sodium Chloride 1,000 mls @ 125 mls/hr 03/18/25 08:27 03/18/25 10:49 Ns IVCONT 03/18/25 16:26 Infused .Q8H ONE Infusion Acetaminophen 1,000 mg in 100 mls @ 400 mls/hr 03/18/25 08:51 03/18/25 09:30 Ofirmev IV 03/18/25 09:05 Infused ONCE ONE Infusion Metoprolol Succinate 25 mg 03/18/25 10:38 03/18/25 10:49 Metoprolol Succinate Er 25 Mg Tab.Er.24h PO 03/18/25 10:39 Not Given ONCE ONE Protocol Metoprolol Tartrate 5 mg 03/18/25 10:45 03/18/25 10:52 Metoprolol Tartrate 5 Mg/5 Ml Vial IVPUSH 03/18/25 10:46 5 mg ONCE ONE Administration Protocol Medical Decision Making Medical Decision Making [facility] Narrative: This is a 89-year-old male,with a past medical history of dementia, atrial fibrillation on Coumadin, hard of hearing, hypertension who [facility] due [facility], and changes in mentation. On arrival, patient hypertensive at 104/59, respirations 22, oxygen saturation 89% on room air, temperature 99.1?. He was placed on 2 L nasal cannula, increased to 96%. Patient is alert and oriented to self only. He does have a history of baseline dementia. He reports that he is in no acute distress, he denies any current pain however due to dementia, history is limited. In route, patient received 200 cc of normal saline. Given reported cough, and crackles heard at left lung base, concern for possible pneumonia therefore sepsis alert was called. Ordered IV fluids, ceftriaxone and doxycycline. I am not giving 30 cc/kilogram of IV fluids as there is concern for CHF exacerbation, patient has already received 200 cc normal saline in route via EMS, will continue fluids at 125 cc/hr and closely monitor for fluid overload. Other differential diagnoses include pneumonia, acute CHF exacerbation, electrolyte derangement, viral illness, acute bronchitis, UTI. Course: 929 - Labs returned, patient has no leukocytosis, he did have a drop in his hemoglobin and hematocrit at 8.9/28.4 > baseline is around 37. Platelets low at 145, appears to be at his baseline, INR elevated at 4.2. He is hypernatremic at 155, chloride elevated at 122, BUN elevated at 39, and creatinine elevated at 1.58. 1030 - family at bedside, given drop in hemoglobin and hematocrit, rectal exam was performed at bedside. Patient is light brown stool noted, bedside guaiac is negative. No wounds or lacerations noted to posterior body. I discussed this case with my attending physician, Dr. Barton. Given patient is in AFib with RVR, with a rate fluctuating between 110-130s, we will treat with a 1 time dose of metoprolol 5mg IVP as well as give his dose of metoprolol p.o.. He is normotensive. We will discontinue fluids as patient's BNP is elevated, and chest x-ray does appear to be CHF versus pneumonia and patient is starting to sound moderately fluid overloaded. His urine also appears to be infected, he has already received ceftriaxone. Awaiting chest x-ray official report and repeat troponin. I also added an ABG and ammonia level. 1125- Ammonia within normal limits, VBG within normal limits. Awaiting chest x- ray official report. Rate fluctuating between 95 and 105 after receiving IV metoprolol. 1142 - chest x-ray returns, revealing worsened pulmonary vascular congestion and bilateral airspace disease, possibly with a left pleural effusion. This appears to be a pneumonia and CHF exacerbation, reviewed with my attending physician. We will admit to the hospitalist for further treatment and care for acute UTI, CHF exacerbation, elevated troponin, and PETERSON. Differential Diagnosis Differential Diagnoses: The differential diagnosis associated with the presentation includes Pneumonia, UTI, electrolyte derangement, ICH, metabolic encephalopathy Admission/Observation Consideration of admission/observation: Escalation of care including admission/observation considered Lab Data MDM Lab Attestation statement: I reviewed the patient's lab results. See course comment 03/18/25 08:37 03/18/25 13:20 Labs: Lab Results 03/18/25 03/18/25 03/18/25 Range/Units 08:27 08:37 10:00 WBC 10.8 (4.8-10.8) X10*3/uL RBC 3.10 L D (4.60-5.80) X10*6/uL Hgb 8.9 L D (14.0-18.0) g/dl Hct 28.4 L D (42.0-52.0) % MCV 91.6 (80.0-98.0) fL MCH 28.7 (27.0-33.0) pg MCHC 31.3 (31.0-36.0) g/dl RDW 18.2 H (11.0-16.0) % Plt Count 145 L (160-400) X10*3/uL MPV 11.0 (9.4-12.4) fL Immature Gran % (Auto) 0.6 H (0.0-0.4) % Neut % (Auto) 88.0 H (45-73) % Lymph % (Auto) 5.8 L (20-40) % Cuming % (Auto) 5.4 (2-11) % Eos % (Auto) 0.1 (0-4) % Baso % (Auto) 0.1 (0-2) % Lymph # (Auto) 0.6 L (1.2-4.9) X10*3/uL Cuming # (Auto) 0.6 (0.1-1.2) X10*3/uL Eos # (Auto) 0.0 (0.0-0.4) X10*3/uL Baso # (Auto) 0.0 (0.0-0.2) X10*3/uL Abs Immat Gran (auto) 0.06 H (0.00-0.03) X10*3/uL Absolute Neuts (auto) 9.5 H (2.0-8.3) x10*3/uL Absolute Nucleated RBC 0.050 H (0.0-0.012) X10*3/uL Nucleated RBC % (auto) 0.5 H (0.0-0.2) /100WBC PT 47.8 H D (10.9-12.4) SEC INR 4.2 H (0.9-1.1) APTT 36.8 (26.0-36.8) SEC VBG pH (7.32-7.43) VBG pCO2 mmHg VBG pO2 mmHg VBG HCO3 (22-26) mmol/L VBG O2 Saturation % VBG Base Excess mmol/L Sodium 155 H (135-145) mmol/L Potassium 3.6 (3.3-5.1) mmol/L Chloride 122 H (96-108) mmol/L Carbon Dioxide 24 (22-29) mmol/L Anion Gap 13 (12-20) BUN 39 H (9-16) mg/dL Creatinine 1.58 H (0.5-1.4) mg/dL Estim Creat Clear Calc 25.5 Estimated GFR 42 Random Glucose 107 (60-115) mg/dL Lactic Acid 1.3 (0.5-2.0) mmol/L Calcium 8.5 (8.4-10.2) mg/dL Magnesium 2.2 (1.6-2.6) mg/dL Total Bilirubin 0.6 (0.0-1.0) mg/dL Direct Bilirubin 0.3 (0.0-0.5) mg/dL AST 30 (5-37) U/L ALT 12 (0-40) U/L Alkaline Phosphatase 106 (39-117) U/L Ammonia (13-55) umol/L Total Creatine Kinase 28 L (38-174) U/L Troponin I High Sens 121.3 H* D (<3.5-35.0) ng/L B-Natriuretic Peptide 573 H (<100) pg/mL Total Protein 5.6 L (6.5-8.0) g/dL Albumin 2.7 L (3.5-5.0) g/dL Lipase 4 L (8-78) U/L Urine Color Yellow Urine Appearance Cloudy Urine pH 5.0 (5.0-9.0) Ur Specific [place] 1.020 (1.005-1.025) Urine Protein 30 (1+) H (Neg-Trace) mg/dL Urine Glucose (UA) Negative (Negative) mg/dL Urine Ketones Negative (Negative) mg/dL Urine Blood Negative (Negative) Urine Nitrite Negative (Negative) Ur Leukocyte Esterase Moderate (2+) H (Negative) Urine RBC 0-2 (0-2) /HPF Urine WBC >50 H (0-5) /HPF Ur Squamous Epith Cells 3-5 (0-2) /HPF Urine Bacteria 4+ (None Seen) Hyaline Casts 3-5 (0-2) /LPF Urine Osmolality 503 (373-1093) mosm/kg Ur Random Sodium < 20.0 mmol/L Ur Random Potassium 52.6 mmol/L Ur Random Chloride < 20.0 mmol/L Influenza Type A (PCR) NEGATIVE (Negative) Influenza Type B (PCR) NEGATIVE (Negative) RSV RNA Qual (PCR) NEGATIVE (Negative) SARS-CoV-2 RNA (RT-PCR) NEGATIVE (Negative) Blood Type Antibody Screen 03/18/25 03/18/25 03/18/25 Range/Units 10:30 11:04 11:09 WBC (4.8-10.8) X10*3/uL RBC (4.60-5.80) X10*6/uL Hgb (14.0-18.0) g/dl Hct (42.0-52.0) % MCV (80.0-98.0) fL MCH (27.0-33.0) pg MCHC (31.0-36.0) g/dl RDW (11.0-16.0) % Plt Count (160-400) X10*3/uL MPV (9.4-12.4) fL Immature Gran % (Auto) (0.0-0.4) % Neut % (Auto) (45-73) % Lymph % (Auto) (20-40) % Cuming % (Auto) (2-11) % Eos % (Auto) (0-4) % Baso % (Auto) (0-2) % Lymph # (Auto) (1.2-4.9) X10*3/uL [place]uming # (Auto) (0.1-1.2) X10*3/uL Eos # (Auto) (0.0-0.4) X10*3/uL Baso # (Auto) (0.0-0.2) X10*3/uL Abs Immat Gran (auto) (0.00-0.03) X10*3/uL Absolute Neuts (auto) (2.0-8.3) x10*3/uL Absolute Nucleated RBC (0.0-0.012) X10*3/uL Nucleated RBC % (auto) (0.0-0.2) /100WBC PT (10.9-12.4) SEC INR (0.9-1.1) APTT (26.0-36.8) SEC VBG pH 7.40 (7.32-7.43) VBG pCO2 41 mmHg VBG pO2 49 mmHg VBG HCO3 25 (22-26) mmol/L VBG O2 Saturation 68.0 % VBG Base Excess 1.2 mmol/L Sodium (135-145) mmol/L Potassium (3.3-5.1) mmol/L Chloride (96-108) mmol/L Carbon Dioxide (22-29) mmol/L Anion Gap (12-20) BUN (9-16) mg/dL Creatinine (0.5-1.4) mg/dL Estim Creat Clear Calc Estimated GFR Random Glucose (60-115) mg/dL Lactic Acid (0.5-2.0) mmol/L Calcium (8.4-10.2) mg/dL Magnesium (1.6-2.6) mg/dL Total Bilirubin (0.0-1.0) mg/dL Direct Bilirubin (0.0-0.5) mg/dL AST (5-37) U/L ALT (0-40) U/L Alkaline Phosphatase (39-117) U/L Ammonia 28 (13-55) umol/L Total Creatine Kinase (38-174) U/L Troponin I High Sens 127.6 H* (<3.5-35.0) ng/L B-Natriuretic Peptide (<100) pg/mL Total Protein (6.5-8.0) g/dL Albumin (3.5-5.0) g/dL Lipase (8-78) U/L Urine Color Urine Appearance Urine pH (5.0-9.0) Ur Specific [place] (1.005-1.025) Urine Protein (Neg-Trace) mg/dL Urine Glucose (UA) (Negative) mg/dL Urine Ketones (Negative) mg/dL Urine Blood (Negative) Urine Nitrite (Negative) Ur Leukocyte Esterase (Negative) Urine RBC (0-2) /HPF Urine WBC (0-5) /HPF Ur Squamous Epith Cells (0-2) /HPF Urine Bacteria (None Seen) Hyaline Casts (0-2) /LPF Urine Osmolality (373-1093) mosm/kg Ur Random Sodium mmol/L Ur Random Potassium mmol/L Ur Random Chloride mmol/L Influenza Type A (PCR) (Negative) Influenza Type B (PCR) (Negative) RSV RNA Qual (PCR) (Negative) SARS-CoV-2 RNA (RT-PCR) (Negative) Blood Type O Positive Antibody Screen NEGATIVE Independent Interpretation I performed an independent interpretation of an: EKG Interpretation: EKG atrial fibrillation with RVR at a ventricular rate of 106 beats per minute, QT QTC 372/494, no STEMI. Radiology Impression Discussion of test interpretation with radiology: I have reviewed the radiologist's reading. Radiologist Impression: Findings: No acute intracranial hemorrhage or midline shift. The abarca-white matter differentiation is maintained. Bilateral carotid siphon and vertebrobasilar calcifications. Moderate generalized cerebral involutional change. Mild burden chronic small-vessel white matter ischemic change. The paranasal sinuses and mastoid air cells are clear. Bilateral external auditory canal cerumen/debris. Operative change of the globes. The calvarium is intact. 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 IMPRESSION: No acute intracranial findings. This document has been electronically signed by: Wesley Whittaker DO on 03/18/2025 10:18:18 Dictated By: Wesley Whittaker MD CLINICAL HISTORY: cough, ams Chest radiograph, 1 view Comparison: CR/SR - XR CHEST 1V - 12/06/24 10:43 EST Findings: The heart is enlarged. Pulmonary vascularity is prominent and indistinct. Increased airspace opacities most conspicuous within the mid and lower lung zones. The left costophrenic angle is not well visualized. No pneumothorax. IMPRESSION: Worsened pulmonary vascular congestion and bilateral airspace disease, possibly with a left pleural effusion. Critical Care Time Critical Care Time Critical Care Time: Yes Total Critical Care Time: 45 Attestation: I have personally provided critical care time exclusive of time spent on separately billable procedures. Time includes review of lab data, radiology results, discussion with consultants, and monitoring for potential decompensation. Intervention performed as documented. Discharge Plan Discharge Clinical Impression: CHF (congestive heart failure), Pneumonia, Acute UTI, Elevated troponin, PETERSON (acute kidney injury) Patient Disposition: Admitted As Inpatient
--- NOTE | 2025-03-18 08:13 | ECG_ITS ---
Test Reason : AMS Blood Pressure : */* mmHG Vent. Rate : 106 BPM Atrial Rate : * BPM P-R Int : * ms QRS Dur : 100 ms QT Int : 372 ms P-R-T Axes : * -12 152 degrees QTcB Int : 494 ms Atrial fibrillation with rapid ventricular response with premature ventricular or aberrantly conducted complexes Nonspecific T wave abnormality Abnormal ECG When compared with ECG of 06-Dec-2024 10:15, Nonspecific T wave abnormality, worse in Lateral leads Referred By: Kira Sylvester Electronically Signed By: Jamal Gambino
[2025-03-18] MEDS: 0.9 % Sodium Chloride 1,000 ML 125 ML IVCONT (08:40)
[2025-03-18] MEDS: cefTRIAXone sodium 1 GM VIAL IVPUSH (08:40)
[2025-03-18 08:42] LABS: MANUAL DIFF FLAG NO
[2025-03-18 08:52] LABS: Basophils Percent Auto 0.1 % (0-2); Eosinophils Percent Auto 0.1 % (0-4); Hematocrit 28.4 % (42.0-52.0); INTERNATIONAL NORM RATIO 4.2 (0.9-1.1); Imm Gran Abs Auto 0.06 X10*3/uL (0.00-0.03); Imm Gran Pct Auto 0.6 % (0.0-0.4); Lymphocytes Absolute Auto 0.6 X10*3/uL (1.2-4.9); Lymphocytes Percent Auto 5.8 % (20-40); Mean Corpuscular HGB Conc 31.3 g/dl (31.0-36.0); Mean Corpuscular Hemoglobin 28.7 pg (27.0-33.0); Mean Corpuscular Volume 91.6 fL (80.0-98.0); Monocytes Absolute Auto 0.6 X10*3/uL (0.1-1.2); Monocytes Percent Auto 5.4 % (2-11); NRBC Pct Auto 0.5 /100WBC (0.0-0.2); Neutrophils Absolute Auto 9.5 x10*3/uL (2.0-8.3); Platelet Count 145 X10*3/uL (160-400); Prothrombin Time 47.8 SEC (10.9-12.4); Red Cell Distribution Width 18.2 % (11.0-16.0); White Blood Count 10.8 X10*3/uL (4.8-10.8)
[2025-03-18 08:55] LABS: Hemoglobin 8.9 g/dl (14.0-18.0); Partial Thromboplastin Time 36.8 SEC (26.0-36.8)
[2025-03-18 09:00] LABS: Alanine Aminotransferase 12 U/L (0-40); Albumin Level 2.7 g/dL (3.5-5.0); Alkaline Phosphatase 106 U/L (39-117); Anion Gap 13 (12-20); Aspartate Amino Transferase 30 U/L (5-37); Bilirubin Direct 0.3 mg/dL (0.0-0.5); Bilirubin Total 0.6 mg/dL (0.0-1.0); Blood Urea Nitrogen 39 mg/dL (9-16); Calcium 8.5 mg/dL (8.4-10.2); Carbon Dioxide 24 mmol/L (22-29); Chloride 122 mmol/L (96-108); Creatinine Clr Calc Pharmacy 25.5; Estimated Glomerular Filt Rate 42; Glucose Random 107 mg/dL (60-115); Lactic Acid 1.3 mmol/L (0.5-2.0); Lipase 4 U/L (8-78); Magnesium 2.2 mg/dL (1.6-2.6); Potassium 3.6 mmol/L (3.3-5.1); Sodium 155 mmol/L (135-145); Total Protein 5.6 g/dL (6.5-8.0)
[2025-03-18 09:04] LABS: B Type Natriuretic Peptide 573 pg/mL (<100)
[2025-03-18 09:08] LABS: Troponin-I High Sensitivity 121.3 ng/L (<3.5-35.0)
[2025-03-18] MEDS: Doxycycline Hyclate 100 MG in 0.9 % Sodium Chloride 250 ML 166.67 MG IV (09:10)
[2025-03-18] MEDS: Acetaminophen 1,000 MG/100 ML PIGGYBACK 400 MG IV (09:14)
--- NOTE | 2025-03-18 09:17 | PC.NURSE ---
Oswaldo arrives via EMS form SNF with reports of AMS and junky cough. Per EMS his baseline is oriented x3 with dementia, but today he is only stating his name, not answering questions appropriately and is lethargic. SNF reported junky cough starting last night. RA sat is in the high 80s. No COPD hx. Now on 3L O2 with SpO2 95%. Lung sounds left sided crackles. Arrives in afib with rate between 100-135. Sepsis protocol initiated.
[2025-03-18 09:32] LABS: Influenza A PCR NEGATIVE (Negative); Influenza B PCR NEGATIVE (Negative); Resp Syncy Virus RNA Qual PCR NEGATIVE (Negative); SARS COV2 PCR INHOUSE NEGATIVE (Negative)
[2025-03-18 10:08] LABS: Appearance Urine Cloudy; Color Urine Yellow; Glucose Urine UA Negative (Negative); Leukocyte Esterase Urine Moderate (2+) (Negative); Nitrite Urine Negative (Negative); UMIC TRIGGER UACC YES; Urine Blood Negative (Negative); Urine Ketones Negative (Negative); Urine Protein 30 (1+) mg/dL (Neg-Trace)
[2025-03-18 10:11] LABS: Bacteria Urine 4+ (None Seen); RBC Urine 0-2 /HPF (0-2); UACC Culture Trigger YES; WBC Urine >50 /HPF (0-5)
--- NOTE | 2025-03-18 10:46 | PC.NURSE ---
PA did bedside stool obx and said do not send card to lab. awaiting order cancellation. PO metoprolol ordered. Pa notified that pt condition contraindicates PO right now. Pt is lethargic, not fully alert and is at aspiration risk. precautions in place.
[2025-03-18] MEDS: Metoprolol Tartrate 5 MG/5 ML VIAL IVPUSH ×2 (10:52→21:37)
[2025-03-18 11:00] LABS: Troponin-I High Sensitivity 127.6 ng/L (<3.5-35.0)
[2025-03-18 11:17] LABS: Ammonia 28 umol/L (13-55)
[2025-03-18 11:22] LABS: Venous Blood Gas Refer to POC result
[2025-03-18 11:23] LABS: VBG Base Excess 1.2 mmol/L; VBG HCO3 25 mmol/L (22-26); VBG pCO2 41 mmHg; VBG pO2 49 mmHg
--- NOTE | 2025-03-18 12:31 | P.HPHOSP_ITS ---
History of Present Illness Date of Service: 03/18/25 Chief Complaint: Altered mental status with respiratory distress and non- productive cough Patient is an 89-year-old male with a PMH significant for HTN, chronic Atrial fibrillation on Coumadin, Dementia, and hard of hearing, he presented to the ED via EMS from [facility] for reports of altered mental status with a junky cough . He was apparently in his usual state of health, with a new cough the day prior had received po Lasix. Today he was noted to be hypoxic in the 60s-80s with the altered mental worse from his baseline. He was brought in via EMS and received 200 ml of NS en route. On arrival to the ED He was found to be hypoxic at 89% now on 2L of O2, hypotensive 104/59, tachycardic in the 100s-120s, EKG showed afib with RVR, received 5mg of IV metopolol with improvement in HR, troponins were elevated at 121->127. He was also noted to be anemic H+H of 8.9, 28.4 with supratherapeutic INR of 4.2- fecal occult negative, BNP elevated at 573- IVF were d/c, UA is positive, CXR showed worsened pulmonary vascular congestion and bilateral airspace disease, with possibly a left pleural effusion- He received ceftriaxone and doxycycline X1 in the Ed. He is also hypernateremic with hyperchloremia and elevated BUN/Cr. Head ct -negative for acute, VBG was normal with no acid/base abnormalities. WBC normal, lactic 1.3 and no fever. On assessment patient is lethargic, alert to self only, lung sounds diminished with diffuse rhonchi. Abdomen is soft, bowel sounds positive X4 quadrants. Heart rate irregular on auscultation, no edema noted, positive pedal pulses, no noted wounds. Per family patient is usually alert and can carry a conversation, wheelchair bound at baseline, on a modified diet ground solids and thickened liquids, Incontinent of bowel and bladder. His as the primary HCP and daughter- the alternate. Review of Systems 2 Review of Systems: Yes Unobtainable due to mental status Constitutional: Constitutional: Reports as per HPI Neurologic: Reports Abnormal speech present [facility] Medical History Glaucoma HTN (hypertension) Permanent atrial fibrillation Dementia Cognitive capacity: Patient does not have capacity, HCP is activated Functional capacity: wheelchair bound Social History (Updated 03/18/25 @ 13:31 by Hoda Wiley NP) Household Members: Spouse and Children [facility] Do you presently have visiting nurse or other home services: No Alcohol intake: former Comment: 2:1 sitter Patient Tobacco Use Status: Former Tobacco user Tobacco use type: Cigarette Smoked in Last 30 Days: No Use of substances other than those prescribed or required for medical reasons: No Are you DNR?: Yes Advance Directives: Yes Advance Directives on File: Yes Advance Directives Date on File: 10/27/23 Healthcare Proxy: Yes If Yes to HCP, is it invoked: Yes service: No Cognitive needs: Yes Hearing needs: Yes Meds Allergies Allergy/AdvReac Type Severity Reaction Status Date / Time ciprofloxacin Allergy Intermediate hives Verified 03/18/25 08:18 benzonatate AdvReac Intermediate Gastrointestinal Verified 11/27/24 10:28 Upset lisinopril AdvReac Intermediate Cough Uncoded 11/27/24 10:28 Home Medications ?Medication ?Instructions ?Recorded ?Confirmed ?Last Taken ?Type latanoprost 0.005 % eye drops 1 drp ophthalmic-Left BEDTIME 08/18/21 03/18/25 03/17/25 History timolol maleate 0.5 % eye drops 1 drp ophthalmic-Left DAILY 08/18/21 03/18/25 03/17/25 History acetaminophen 325 mg tablet 650 mg PO Q6H PRN pain or fever 03/18/25 03/18/25 03/09/25 History bisacodyl 10 mg rectal suppository 10 mg [place] DAILY PRN constipation if 03/18/25 03/18/25 Unknown History MOM not effective furosemide 40 mg tablet (Lasix) 20 mg PO DAILY 03/18/25 03/18/25 Unknown History guaifenesin 100 mg/5 mL oral 200 mg PO Q4H PRN Cough 03/18/25 03/18/25 Unknown History liquid (Vivian-Tussin) losartan 50 mg tablet 50 mg PO BEDTIME 03/18/25 03/18/25 03/17/25 History magnesium hydroxide 400 mg/5 mL 30 ml PO DAILY PRN Constipation 03/18/25 03/18/25 Unknown History oral suspension (Milk of Magnesia) melatonin 3 mg tablet 6 mg PO BEDTIME PRN Insomnia 03/18/25 03/18/25 Unknown History memantine 5 mg tablet 5 mg PO BEDTIME 03/18/25 03/18/25 03/17/25 History rivastigmine 4.6 mg/24 hour 4.6 mg transdermal DAILY 03/18/25 03/18/25 03/17/25 History transdermal patch sodium phosphates 19 gram-7 118 ml [place] DAILY PRN Constipation 03/18/25 03/18/25 Unknown History gram/118 mL enema (Fleet Enema) if bisacodyl not effective trazodone 50 mg tablet 12.5 mg PO BID PRN 03/18/25 03/18/25 Unknown History Anxiety/agitation/insomnia trazodone 50 mg tablet 25 mg PO BEDTIME 03/18/25 03/18/25 Unknown History warfarin 2 mg tablet 2 mg PO DAILY@1800 03/18/25 03/18/25 03/17/25 History Physical Exam 2 Vital Signs and Narrative: Vital Signs: Last Vital Signs Temp 99.1 F 03/18/25 08:16 Pulse 111 H 03/18/25 12:14 Resp 21 H 03/18/25 12:14 BP 115/57 L 03/18/25 12:14 Pulse Ox 94 03/18/25 12:14 O2 Del Method Nasal Cannula 03/18/25 12:14 O2 Flow Rate 2 03/18/25 12:14 BMI result Body Mass Index 25.7 Const: General: awake, ill appearing and lethargic O rientation/consciousness: oriented to person and lethargic HEENT: Head: Yes normal to inspection Ears: hearing grossly impaired G eneral nose exam: Normal external nose present Face and sinus: Yes normal facial exam Mouth: muffled voice Teeth and gingiva: dentures (full upper and lower dentures) Eyes: General: appearance normal, both eyes and all related structures Neck: Yes normal visual inspection, Yes trachea midline and Yes no JVD Resp: Effort & Inspection: Actively coughing Quality: wet and symmetric chest movement Auscultation: rhonchi throughout and diminished lung sounds bilateral Cardio: Jugular venous distension: no JVD Palpation: normal PMI Rate: t achycardic Rhythm: abnormal rhythm Heart sounds: S1 normal heart sound present and S2 normal heart sound present Peripheral pulses: dorsalis pedis present bilateral GI: Inspection: Yes normal to inspection Palpation (GI): Soft to palpation and nontender Auscultation: normal bowel sounds Skin: General skin exam: no rashes or lesions noted Neuro: General: oriented to person Cognition (Neuro): abnormal cognition Speech: Abnormal speech present Extrem: General: Yes no pedal edema Results Labs 03/18/25 08:37 03/18/25 13:20 Labs: Laboratory Results - last 24 hr 03/18/25 03/18/25 03/18/25 08:27 08:37 10:00 MCV 91.6 MCH 28.7 MCHC 31.3 RDW 18.2 H Plt Count 145 L MPV 11.0 Immature Gran % (Auto) 0.6 H Neut % (Auto) 88.0 H Lymph % (Auto) 5.8 L [place] % (Auto) 5.4 Eos % (Auto) 0.1 Baso % (Auto) 0.1 Lymph # (Auto) 0.6 L [place] # (Auto) 0.6 Eos # (Auto) 0.0 Baso # (Auto) 0.0 Abs Immat Gran (auto) 0.06 H Absolute Neuts (auto) 9.5 H Absolute Nucleated RBC 0.050 H Nucleated RBC % (auto) 0.5 H PT 47.8 H D INR 4.2 H APTT 36.8 VBG pH VBG pCO2 VBG pO2 VBG HCO3 VBG O2 Saturation VBG Base Excess Anion Gap 13 Estim Creat Clear Calc 25.5 Estimated GFR 42 Random Glucose 107 Lactic Acid 1.3 Calcium 8.5 Magnesium 2.2 Total Bilirubin 0.6 Direct Bilirubin 0.3 AST 30 ALT 12 Alkaline Phosphatase 106 Ammonia Total Creatine Kinase 28 L B-Natriuretic Peptide 573 H Total Protein 5.6 L Albumin 2.7 L Lipase 4 L Urine Color Yellow Urine Appearance Cloudy Urine pH 5.0 Ur Specific [place] 1.020 Urine Protein 30 (1+) H Urine Glucose (UA) Negative Urine Ketones Negative Urine Blood Negative Urine Nitrite Negative Ur Leukocyte Esterase Moderate (2+) H Urine RBC 0-2 Urine WBC >50 H Ur Squamous Epith Cells 3-5 Urine Bacteria 4+ Hyaline Casts 3-5 Influenza Type A (PCR) NEGATIVE Influenza Type B (PCR) NEGATIVE RSV RNA Qual (PCR) NEGATIVE SARS-CoV-2 RNA (RT-PCR) NEGATIVE Blood Type Antibody Screen 03/18/25 03/18/25 03/18/25 10:30 11:04 11:09 MCV MCH MCHC RDW Plt Count MPV Immature Gran % (Auto) Neut % (Auto) Lymph % (Auto) [place] % (Auto) Eos % (Auto) Baso % (Auto) Lymph # (Auto) [place] # (Auto) Eos # (Auto) Baso # (Auto) Abs Immat Gran (auto) Absolute Neuts (auto) Absolute Nucleated RBC Nucleated RBC % (auto) PT INR APTT VBG pH 7.40 VBG pCO2 41 VBG pO2 49 VBG HCO3 25 VBG O2 Saturation 68.0 VBG Base Excess 1.2 Anion Gap Estim Creat Clear Calc Estimated GFR Random Glucose Lactic Acid Calcium Magnesium Total Bilirubin Direct Bilirubin AST ALT Alkaline Phosphatase Ammonia 28 Total Creatine Kinase B-Natriuretic Peptide Total Protein Albumin Lipase Urine Color Urine Appearance Urine pH Ur Specific [place] Urine Protein Urine Glucose (UA) Urine Ketones Urine Blood Urine Nitrite Ur Leukocyte Esterase Urine RBC Urine WBC Ur Squamous Epith Cells Urine Bacteria Hyaline Casts Influenza Type A (PCR) Influenza Type B (PCR) RSV RNA Qual (PCR) SARS-CoV-2 RNA (RT-PCR) Blood Type O Positive Antibody Screen NEGATIVE Assessment and Plan (1) CHF (congestive heart failure): Status: Acute (2) Elevated troponin: Status: Acute (3) Current use of anticoagulant therapy: Status: Acute (4) PETERSON (acute kidney injury): Status: Acute (5) Acute UTI: Status: Acute (6) Pneumonia: Status: Acute Plan Patient is an 89-year-old male with a PMH significant for HTN, chronic Atrial fibrillation on Coumadin, Dementia, and hard of hearing, he presented from a group home facility for reports of altered mental status with a junky cough . Acute hypoxic respiratory failure secondary to acute on chronic heart failure with reduced ejection fraction Chest x-ray showing worsening pulmonary vascular congestion bilateral airspace disease possibly with left pleural effusion Lasix 20 mg IV b.i.d. Echocardiogram Supplemental Oxygen to keep oxygen saturation greater than 92% Cardiology consultation Monitor on telemetry Strict intake and output Daily weights Supratherapeutic INR Possibly secondary to dehydration, poor p.o. intake INR 4.2 Hold warfarin Repeat INR in the morning Hypernatremia Possibly secondary to dehydration, poor p.o. intake Received a total of 600 cc of IV fluids in the ER, concern for fluid overload as patient is in acute heart failure Repeat Bmp If no improvement consider Nephrology consultation PETERSON Possibly secondary to dehydration versus acute CHF fluid overload Diurese with Lasix 20 mg b.i.d. Monitor creatinine closely Encephalopathy due to sepsis secondary to UTI Continue ceftriaxone Follow up final cultures Elevated troponin No complaints of chest pain No ischemic changes noted on EKG Likely secondary to acute congestive heart failure Continue to diurese Troponins flat Acute anemia No acute blood loss Significant drop in hemoglobin and hematocrit, not requiring transfusion at this time We will hold warfarin, question gastritis Gastroenterology consultation Atrial fibrillation with RVR Received 2 doses of metoprolol in the ED Continue metoprolol Warfarin on hold due to supratherapeutic INR Hypertension In light of sepsis, hold antihypertensive medications Glaucoma Continue eyedrops Dementia Continue memantine, rivastigmine and trazodone DVT prophylaxis DNR/DNI Quality Stroke Does the patient have a stroke diagnosis?: No VTE Prior VTE?: No VTE Risk Level:: Medical - moderate - high VTE Device Contraindication: N/A - Device Ordered VTE Drug Contraindication: Treatment Not Indicated
--- NOTE | 2025-03-18 13:00 | PHA.MEDREC ---
Pharmacy Consult ? Medication Reconciliation Pharmacy has completed the medication reconciliation, utilized list from [facility].
[2025-03-18 13:39] LABS: Anion Gap 15 (12-20); Blood Urea Nitrogen 37 mg/dL (9-16); Calcium 8.4 mg/dL (8.4-10.2); Carbon Dioxide 22 mmol/L (22-29); Chloride 123 mmol/L (96-108); Creatinine Clr Calc Pharmacy 25.1; Estimated Glomerular Filt Rate 41; Glucose Random 95 mg/dL (60-115); Potassium 3.6 mmol/L (3.3-5.1); Sodium 156 mmol/L (135-145)
[2025-03-18] MEDS: Dextrose 5 % 1,000 ML 50 ML IVCONT (15:37)
[2025-03-18 15:38] LABS: Chloride Urine Random < 20.0 mmol/L; Potassium Urine Random 52.6 mmol/L; Sodium Urine Random < 20.0 mmol/L
[2025-03-18 16:01] LABS: Osmolality Urine 503 mosm/kg (373-1093)
[2025-03-18] MEDS: Albumin Human 25 % 100 ML IV ×2 (16:34→21:14)
[2025-03-18] MEDS: Furosemide 20 MG/2 ML VIAL IVPUSH (17:19)
--- NOTE | 2025-03-18 17:40 | PC.NURSE ---
full bed linen change, pt cleaned. had a BM. male purewick applied.
--- NOTE | 2025-03-18 17:45 | PM.CNNEP ---
History of Present Illness Reason for Consult Consult date: 03/18/25 Reason for consult: hypernatremia Chief Complaint Chief complaint: UTI History of Present Illness Narrative: 89M with PMH of HTN, chronic Atrial fibrillation on Coumadin, Dementia brought in from the retirement due to intractable grunty breathing with cough. Not sure if pateint has been eating or drinking well for past few days. no diarrhea or vomiting. Nephrology consulted for the management of hypernatremia. Also has an PETERSON with creatinine 1.6; baseline 0.9 Review of Systems Review of Systems unable to obtain as patient is having dementia [facility] Past Medical History Medical History Glaucoma HTN (hypertension) Permanent atrial fibrillation Dementia Social History Social History (Updated 03/18/25 @ 13:31 by Hoda Wiley NP) Household Members: Spouse and Children Housing: [facility] Do you presently have visiting nurse or other home services: No Alcohol intake: former Comment: 2:1 sitter Patient Tobacco Use Status: Former Tobacco user Tobacco use type: Cigarette Smoked in Last 30 Days: No Use of substances other than those prescribed or required for medical reasons: No Are you DNR?: Yes Advance Directives: Yes Advance Directives on File: Yes Advance Directives Date on File: 10/27/23 Healthcare Proxy: Yes If Yes to HCP, is it invoked: Yes service: No Cognitive needs: Yes Hearing needs: Yes Meds Allergies Allergy/AdvReac Type Severity Reaction Status Date / Time ciprofloxacin Allergy Intermediate hives Verified 03/18/25 08:18 benzonatate AdvReac Intermediate Gastrointestinal Verified 11/27/24 10:28 Upset lisinopril AdvReac Intermediate Cough Uncoded 11/27/24 10:28 Active Medications: Current Medications Acetaminophen (Acetaminophen 325 Mg Tablet) 650 mg PO Q6H PRN PRN Reason: Pain, Mild 1-3,fever,headache Calcium Carbonate (Calcium Carbonate 750 Mg Tab.Chew) 750 mg PO Q4H PRN PRN Reason: Heartburn Ceftriaxone Sodium (Ceftriaxone Sodium 1 Gm Vial) 1 gm IVPUSH Q24H [facility] Last Admin: 03/18/25 15:27 Dose: Not Given Furosemide (Furosemide 20 Mg/2 Ml Vial) 20 mg IVPUSH BID@0900,1800 [facility]; Protocol Last Admin: 03/18/25 17:19 Dose: 20 mg Dextrose (D5w) 1,000 mls @ 50 mls/hr IVCONT .Q20H [facility] Last Admin: 03/18/25 15:37 Dose: 50 mls/hr Albumin Human (Kedbumin 25 %) 100 mls @ 100 mls/hr IV Q6H [facility] Stop: 03/18/25 22:59 Last Infusion: 03/18/25 17:41 Dose: Infused Latanoprost (Latanoprost 0.005 % Ophth Rosa 2.5 Ml Drops) 1 drop EYE-LEFT BEDTIME [facility] Magnesium Hydroxide (Milk Of Magnesia 30 Ml Oral.Susp) 30 ml PO DAILY PRN PRN Reason: Constipation Melatonin (Melatonin 3 Mg Tablet) 6 mg PO BEDTIME PRN PRN Reason: Insomnia Metoprolol Succinate (Metoprolol Succinate Er 25 Mg Tab.Er.24h) 25 mg PO DAILY [facility]; Protocol Non-Formulary Medication (Rivastigmine) 4.6 mg TRANSDERMA DAILY [facility] Ondansetron HCl (Ondansetron Hcl 4 Mg/2 Ml Vial) 4 mg IVPUSH Q8H PRN PRN Reason: Nausea and Vomiting Sodium Chloride (0.9 % Sodium Chloride Flush 3 Ml Syringe) 3 ml IVFLUSH QSHIFT [facility] Last Admin: 03/18/25 15:55 Dose: Not Given Timolol Maleate (Timolol Maleate 0.5 % Oph Rosa 5 Ml Drbtl) 1 drop EYE-LEFT DAILY [facility] Trazodone HCl (Trazodone Hcl 50 Mg Tablet) 12.5 mg PO BID PRN PRN Reason: Anxiety/agitation/insomnia Trazodone HCl (Trazodone Hcl 25 Mg Halftab) 25 mg PO BEDTIME [facility] Home Medications ?Medication ?Instructions ?Recorded ?Confirmed ?Last Taken ?Type latanoprost 0.005 % eye drops 1 drp ophthalmic-Left BEDTIME 08/18/21 03/18/25 03/17/25 History timolol maleate 0.5 % eye drops 1 drp ophthalmic-Left DAILY 08/18/21 03/18/25 03/17/25 History acetaminophen 325 mg tablet 650 mg PO Q6H PRN pain or fever 03/18/25 03/18/25 03/09/25 History bisacodyl 10 mg rectal suppository 10 mg [place] DAILY PRN constipation if 03/18/25 03/18/25 Unknown History MOM not effective furosemide 40 mg tablet (Lasix) 20 mg PO DAILY 03/18/25 03/18/25 Unknown History guaifenesin 100 mg/5 mL oral 200 mg PO Q4H PRN Cough 03/18/25 03/18/25 Unknown History liquid (Vivian-Tussin) losartan 50 mg tablet 50 mg PO BEDTIME 03/18/25 03/18/25 03/17/25 History magnesium hydroxide 400 mg/5 mL 30 ml PO DAILY PRN Constipation 03/18/25 03/18/25 Unknown History oral suspension (Milk of Magnesia) melatonin 3 mg tablet 6 mg PO BEDTIME PRN Insomnia 03/18/25 03/18/25 Unknown History memantine 5 mg tablet 5 mg PO BEDTIME 03/18/25 03/18/25 03/17/25 History rivastigmine 4.6 mg/24 hour 4.6 mg transdermal DAILY 03/18/25 03/18/25 03/17/25 History transdermal patch sodium phosphates 19 gram-7 118 ml [place] DAILY PRN Constipation 03/18/25 03/18/25 Unknown History gram/118 mL enema (Fleet Enema) if bisacodyl not effective trazodone 50 mg tablet 12.5 mg PO BID PRN 03/18/25 03/18/25 Unknown History Anxiety/agitation/insomnia trazodone 50 mg tablet 25 mg PO BEDTIME 03/18/25 03/18/25 Unknown History warfarin 2 mg tablet 2 mg PO DAILY@1800 03/18/25 03/18/25 03/17/25 History Physical Exam Vital Signs: Last Vital Signs Temp 98.4 F 03/18/25 17:22 Pulse 120 H 03/18/25 17:22 Resp 22 H 03/18/25 17:22 BP 118/58 L 03/18/25 17:22 Pulse Ox 93 03/18/25 17:22 O2 Del Method Nasal Cannula 03/18/25 17:22 O2 Flow Rate 3 03/18/25 17:22 BMI result Body Mass Index 25.7 elderly male in distress normocephalic, hard of hearing eyes normal, alignment normal, no icterus bilateral air entry equal, decreased breath sounds in lung bases normal S1, S2 no murmur heard, no edema no renal angle tenderness, abdomen soft, non tender dementia+, confused, not oriented to time place or person Results Lab Results 03/18/25 08:37 03/18/25 13:20 Lab results: Chemistry 03/18/25 03/18/25 08:37 13:20 Sodium 155 H 156 H Potassium 3.6 3.6 Carbon Dioxide 24 22 BUN 39 H 37 H Creatinine 1.58 H 1.60 H Calcium 8.5 8.4 Hematology 03/18/25 08:37 WBC 10.8 Hgb 8.9 L D Plt Count 145 L Urinalysis 03/18/25 10:00 Urine Color Yellow Urine Appearance Cloudy Urine pH 5.0 Ur Specific [place] 1.020 Urine Protein 30 (1+) H Urine Glucose (UA) Negative Urine Ketones Negative Urine Blood Negative Urine Nitrite Negative Ur Leukocyte Esterase Moderate (2+) H Urine RBC 0-2 Urine WBC >50 H Ur Squamous Epith Cells 3-5 Hyaline Casts 3-5 Urine Studies 03/18/25 10:00 Urine Osmolality 503 Assessment and Plan (1) PETERSON (acute kidney injury): Status: Acute (2) Multifocal pneumonia: Status: Acute (3) Hypernatremia: Status: Acute (4) Weakness: Status: Acute Plan Hypernatremia: bedside echo showed normal LV systolic function, small RV, IVC 1.3cms collapsing US lungs showed bilateral small pleural effusion It appears patient is intravascularly depleted while overall has some signs of volume overload Please administer albumin 25g TID, followed by D5W; repeat sodium tonight PETERSON: secondary to intravascular volume depletion should improve with fluid correction Total time managing care of this patient today: 45 minutes. Procedures Date of Service Date of Service: 03/18/25
[2025-03-18] MEDS: traZODone HCL 25 MG HALFTAB PO (21:14)
[2025-03-18] MEDS: Metoprolol Tartrate 25 MG TABLET PO (22:12)
--- NOTE | 2025-03-18 23:56 | PC.NURSE ---
Addendum entered by Wendy Ruiz RN 03/19/25 06:14: In the midnight hour, this pt was noted to be in afib RVR, sustaining 120-140's, max HR 160's. BP stable. Pt denied chest pain and did not appear to be in any distress. Breathing was even and unlabored. Covering Dr. Eric Franz was notified. Orders for 1x IVP diltiazem given with some short-lived effect; Diltiazem gtt ordered and initiated, titrated per MAR with +effect. Please see shift assessments, tasks in worklist, and MAR for full details. Handoff report given to oncoming RN at 06:45. Original Note: Crtt assumed care of this patient at 23:30.
[2025-03-19] VITALS (16 sets, daily range): BP systolic 96–141; BP diastolic 48–85; PULSE 60–149; RESP 12–20; TEMP 36.1–36.8; O2SAT 91–100; BMI 26.4
[2025-03-19] MEDS: 0.9 % Sodium Chloride Flush 3 ML SYRINGE IVFLUSH ×2 (00:10→22:23)
[2025-03-19] MEDS: dilTIAZem HCL 50 MG/10 ML VIAL 10 MG IVPUSH (00:21)
[2025-03-19] MEDS: dilTIAZem HCL 125 MG in 0.9 % Sodium Chloride 100 ML IVCONT (00:46)
[2025-03-19 07:46] LABS: MANUAL DIFF FLAG NO
[2025-03-19 07:51] LABS: Basophils Percent Auto 0.3 % (0-2); Eosinophils Absolute Auto 0.1 X10*3/uL (0.0-0.4); Eosinophils Percent Auto 1.6 % (0-4); Hematocrit 30.4 % (42.0-52.0); Hemoglobin 9.3 g/dl (14.0-18.0); Imm Gran Abs Auto 0.04 X10*3/uL (0.00-0.03); Imm Gran Pct Auto 0.6 % (0.0-0.4); Lymphocytes Absolute Auto 0.5 X10*3/uL (1.2-4.9); Lymphocytes Percent Auto 7.6 % (20-40); Mean Corpuscular HGB Conc 30.6 g/dl (31.0-36.0); Mean Corpuscular Hemoglobin 28.4 pg (27.0-33.0); Monocytes Absolute Auto 0.4 X10*3/uL (0.1-1.2); Neutrophils Absolute Auto 5.8 x10*3/uL (2.0-8.3); Neutrophils Percent Auto 83.9 % (45-73); Platelet Count 145 X10*3/uL (160-400); Red Blood Count 3.27 X10*6/uL (4.60-5.80); Red Cell Distribution Width 18.4 % (11.0-16.0); White Blood Count 6.9 X10*3/uL (4.8-10.8)
[2025-03-19 08:10] LABS: B Type Natriuretic Peptide 572 pg/mL (<100)
[2025-03-19 08:20] LABS: Anion Gap 15 (12-20); Blood Urea Nitrogen 39 mg/dL (9-16); Calcium 8.8 mg/dL (8.4-10.2); Carbon Dioxide 23 mmol/L (22-29); Chloride 121 mmol/L (96-108); Creatinine Clr Calc Pharmacy 27.4; Estimated Glomerular Filt Rate 45; Glucose Random 111 mg/dL (60-115); Potassium 3.7 mmol/L (3.3-5.1); Sodium 155 mmol/L (135-145)
[2025-03-19] MEDS: Metoprolol Tartrate 25 MG TABLET PO (08:45)
[2025-03-19] MEDS: Furosemide 20 MG/2 ML VIAL IVPUSH ×2 (08:46→17:10)
[2025-03-19 08:51] LABS: INTERNATIONAL NORM RATIO 4.5 (0.9-1.1); Prothrombin Time 51.8 SEC (10.9-12.4)
[2025-03-19] MEDS: Dextrose 5 % 1,000 ML 50 ML IVCONT (10:26)
--- NOTE | 2025-03-19 10:44 | PC.NURSE ---
HR in the 90s and diltiazem gtt stopped at 1005. Provider Saurabh notified.
--- NOTE | 2025-03-19 10:45 | P.PNNP_ITS ---
Subjective Subjective Date of Service: 03/19/25 Interval history: 89 y/o male with dementia being followed for hypernatremia and PETERSON albumin administered 03/18 due to intravascular volume depletion, was also started on D5W at 150mL/hr and lasix 20mg BID (pleural effusions) sodium has decreased from 156 on 03/18 to 155 on 03/19 he has been started on a diltiazem drip mixed in NS creatinine prior to admission 0.99, 1/60 on 03/18, 03/19 is 1.47 patient is confused as bedside but breathing is more comfortable- family at bedside feels he is doing much better than yesterday. Physical Exam 2 Vital Signs: Vital Signs: Last Vital Signs Temp 97.6 F 03/19/25 07:58 Pulse 146 H 03/19/25 07:58 Resp 18 03/19/25 07:58 BP 118/63 03/19/25 08:46 Pulse Ox 98 03/19/25 07:58 O2 Del Method Oxymask 03/19/25 07:58 O2 Flow Rate 3 03/19/25 07:58 BMI result Body Mass Index 26.4 Const: General: no acute distress, alert and awake Resp: Effort & Inspection: normal respiratory effort and able to speak in complete sentences Auscultation: clear to auscultation bilaterally Cardio: Rate: regular rate Heart sounds: S1 normal heart sound present and S2 normal heart sound present GI: Palpation (GI): Soft to palpation and nontender : General: Yes no CVA tenderness Back/Spine/Pelvis: Back: no CVA tenderness Skin: Rashes: no rashes Extrem: General: No edema and No pedal edema Objective Data Labs 03/19/25 07:01 03/19/25 07:01 Labs: Laboratory Results - last 24 hr 03/18/25 03/18/25 03/19/25 10:00 13:20 07:01 WBC 6.9 RBC 3.27 L Hgb 9.3 L Hct 30.4 L MCV 93.0 MCH 28.4 MCHC 30.6 L RDW 18.4 H Plt Count 145 L MPV 12.0 Immature Gran % (Auto) 0.6 H Neut % (Auto) 83.9 H Lymph % (Auto) 7.6 L [place] % (Auto) 6.0 Eos % (Auto) 1.6 Baso % (Auto) 0.3 Lymph # (Auto) 0.5 L [place] # (Auto) 0.4 Eos # (Auto) 0.1 Baso # (Auto) 0.0 Abs Immat Gran (auto) 0.04 H Absolute Neuts (auto) 5.8 Absolute Nucleated RBC 0.070 H Nucleated RBC % (auto) 1.0 H PT INR Sodium 156 H 155 H Potassium 3.6 3.7 Chloride 123 H 121 H Carbon Dioxide 22 23 Anion Gap 15 15 BUN 37 H 39 H Creatinine 1.60 H 1.47 H Estim Creat Clear Calc 25.1 27.4 Estimated GFR 41 45 Random Glucose 95 111 Calcium 8.4 8.8 B-Natriuretic Peptide 572 H Urine Osmolality 503 Ur Random Sodium < 20.0 Ur Random Potassium 52.6 Ur Random Chloride < 20.0 03/19/25 08:29 WBC RBC Hgb Hct MCV MCH MCHC RDW Plt Count MPV Immature Gran % (Auto) Neut % (Auto) Lymph % (Auto) [place] % (Auto) Eos % (Auto) Baso % (Auto) Lymph # (Auto) [place] # (Auto) Eos # (Auto) Baso # (Auto) Abs Immat Gran (auto) Absolute Neuts (auto) Absolute Nucleated RBC Nucleated RBC % (auto) PT 51.8 H INR 4.5 H Sodium Potassium Chloride Carbon Dioxide Anion Gap BUN Creatinine Estim Creat Clear Calc Estimated GFR Random Glucose Calcium B-Natriuretic Peptide Urine Osmolality Ur Random Sodium Ur Random Potassium Ur Random Chloride Microbiology Microbiology Results: Microbiology 03/18/25 08:37 Blood - Venous Blood Culture - Preliminary No growth after 24 hours. 03/18/25 08:27 Blood - Venous Blood Culture - Preliminary No growth after 24 hours. 03/18/25 Unknown Urine Catheterized - Straight Catheter Urine Culture - Preliminary Culture in progress. Procedures Date of Service Date of Service: 03/19/25 Assessment & Plan Assessment and plan (1) Hypernatremia: Status: Acute (2) PETERSON (acute kidney injury): Status: Acute Plan Hypernatremia likely secondary to intravascular volume depletion- improving, though correction is slow likely from sodium in albumin as well as in diltiazem drip- requested pharmacy change diltiazem to mixed in D5W from NS; lasix may have also contributed to intravascular volume depletion- recommend reducing dose to once daily from BID recommend inserting borrego catheter to monitor output closely- recommend monitoring output for next 6-12 hours, and subsequently adjust D5W infusion rate to match urine output so that urine output is equal to input of D5W infusion volume recommend daily electrolyte and renal function studies recommend avoiding nephrotoxins close I&O monitoring, regular blood pressure checks continue supportive care, will continue to follow Discussed with Dr Quigley. Time Spent With Patient Time: Total time managing care of this patient today ____ minutes. Progress Note: Quality Stroke Does the patient have a stroke diagnosis?: No
--- NOTE | 2025-03-19 10:50 | P.CONCA_ITS ---
History of Present Illness History of Present Illness Date of Service: 03/19/25 Requesting physician: Hoda Wiley Consult reason: atrial fibrillation and congestive heart failure Chief complaint: UTI Narrative: I was consulted to see Oswaldo in cardiology consultation today for acute hypoxemic respiratory failure related to decompensated congestive heart failure and atrial fibrillation rapid ventricular response. Patient is not able to provide history. History was obtained from the chart as well as from patient's at bedside when I was in the patient's room. Patient's daughter was also present at the bedside. Patient with prior history of chronic atrial fibrillation for many years on warfarin therapy and rate control therapy being followed by Dr. Evans in [place] for many years and has been told that there was not much to do. No prior history of congestive heart failure as per the family. Patient currently resides at a half-way facility because of his dementia. Very minimally functional as per the . He currently has advanced directives of do not resuscitate. Patient was sent from the correction as per the because of gurgling sound and difficulty in breathing noted by the patient. Noted to be in congestive heart failure with BNP on admission noted to be in the 570s. Baseline BNP in the past was noted to be in 200s. Patient also noted to have rapid atrial fibrillation last night and started on Cardizem drip. Patient does not offer much symptoms. As per the he seems a little less short of breath. Intake and output chart suggestive of positive balance of a lot 100 cc. Unclear whether this is has been accurately chart it. Review of Systems 2 Review of Systems: Yes Unobtainable due to mental status [facility] Past Medical History Medical History Glaucoma HTN (hypertension) Permanent atrial fibrillation Dementia Social History Social History Household Members: Unknown / Unable to assess Housing: Custodial Do you presently have visiting nurse or other home services: No Alcohol intake: former Comment: in-room camera placed; hx dementia Patient Tobacco Use Status: Former Tobacco user Tobacco use type: Cigarette Advance Directives Date on File: 10/27/23 service: No Cognitive needs: Yes Hearing needs: Yes Meds Allergies Allergy/AdvReac Type Severity Reaction Status Date / Time ciprofloxacin Allergy Intermediate hives Verified 03/18/25 08:18 benzonatate AdvReac Intermediate Gastrointestinal Verified 11/27/24 10:28 Upset lisinopril AdvReac Intermediate Cough Uncoded 11/27/24 10:28 Active Medications: Current Medications Acetaminophen (Acetaminophen 325 Mg Tablet) 650 mg PO Q6H PRN PRN Reason: Pain, Mild 1-3,fever,headache Calcium Carbonate (Calcium Carbonate 750 Mg Tab.Chew) 750 mg PO Q4H PRN PRN Reason: Heartburn Ceftriaxone Sodium (Ceftriaxone Sodium 1 Gm Vial) 1 gm IVPUSH Q24H [facility] Last Admin: 03/18/25 15:27 Dose: Not Given Furosemide (Furosemide 20 Mg/2 Ml Vial) 20 mg IVPUSH BID@0900,1800 [facility]; Protocol Last Admin: 03/19/25 08:46 Dose: 20 mg Dextrose (D5w) 1,000 mls @ 50 mls/hr IVCONT .Q20H [facility] Last Admin: 03/19/25 10:26 Dose: 50 mls/hr Diltiazem HCl 125 mg/ Dextrose 125 mls @ 0 mls/hr IVCONT .Q0M [facility]; Protocol Latanoprost (Latanoprost 0.005 % Ophth Rosa 2.5 Ml Drops) 1 drop EYE-LEFT BEDTIME [facility] Last Admin: 03/18/25 21:19 Dose: Not Given Magnesium Hydroxide (Milk Of Magnesia 30 Ml Oral.Susp) 30 ml PO DAILY PRN PRN Reason: Constipation Melatonin (Melatonin 3 Mg Tablet) 6 mg PO BEDTIME PRN PRN Reason: Insomnia Metoprolol Tartrate (Metoprolol Tartrate 25 Mg Tablet) 25 mg PO BID [facility]; Protocol Last Admin: 03/19/25 08:45 Dose: 25 mg Non-Formulary Medication (Rivastigmine) 4.6 mg TRANSDERMA DAILY [facility] Ondansetron HCl (Ondansetron Hcl 4 Mg/2 Ml Vial) 4 mg IVPUSH Q8H PRN PRN Reason: Nausea and Vomiting Sodium Chloride (0.9 % Sodium Chloride Flush 3 Ml Syringe) 3 ml IVFLUSH QSHIFT [facility] Last Admin: 03/19/25 08:47 Dose: Not Given Timolol Maleate (Timolol Maleate 0.5 % Oph Rosa 5 Ml Drbtl) 1 drop EYE-LEFT DAILY [facility] Trazodone HCl (Trazodone Hcl 50 Mg Tablet) 12.5 mg PO BID PRN PRN Reason: Anxiety/agitation/insomnia Trazodone HCl (Trazodone Hcl 25 Mg Halftab) 25 mg PO BEDTIME [facility] Last Admin: 03/18/25 21:14 Dose: 25 mg Home Medications ?Medication ?Instructions ?Recorded ?Confirmed ?Last Taken ?Type latanoprost 0.005 % eye drops 1 drp ophthalmic-Left BEDTIME 08/18/21 03/18/25 03/17/25 History timolol maleate 0.5 % eye drops 1 drp ophthalmic-Left DAILY 08/18/21 03/18/25 03/17/25 History acetaminophen 325 mg tablet 650 mg PO Q6H PRN pain or fever 03/18/25 03/18/25 03/09/25 History bisacodyl 10 mg rectal suppository 10 mg NV DAILY PRN constipation if 03/18/25 03/18/25 Unknown History MOM not effective furosemide 40 mg tablet (Lasix) 20 mg PO DAILY 03/18/25 03/18/25 Unknown History guaifenesin 100 mg/5 mL oral 200 mg PO Q4H PRN Cough 03/18/25 03/18/25 Unknown History liquid (Vivian-Tussin) losartan 50 mg tablet 50 mg PO BEDTIME 03/18/25 03/18/25 03/17/25 History magnesium hydroxide 400 mg/5 mL 30 ml PO DAILY PRN Constipation 03/18/25 03/18/25 Unknown History oral suspension (Milk of Magnesia) melatonin 3 mg tablet 6 mg PO BEDTIME PRN Insomnia 03/18/25 03/18/25 Unknown History memantine 5 mg tablet 5 mg PO BEDTIME 03/18/25 03/18/25 03/17/25 History rivastigmine 4.6 mg/24 hour 4.6 mg transdermal DAILY 03/18/25 03/18/25 03/17/25 History transdermal patch sodium phosphates 19 gram-7 118 ml NV DAILY PRN Constipation 03/18/25 03/18/25 Unknown History gram/118 mL enema (Fleet Enema) if bisacodyl not effective trazodone 50 mg tablet 12.5 mg PO BID PRN 03/18/25 03/18/25 Unknown History Anxiety/agitation/insomnia trazodone 50 mg tablet 25 mg PO BEDTIME 03/18/25 03/18/25 Unknown History warfarin 2 mg tablet 2 mg PO DAILY@1800 03/18/25 03/18/25 03/17/25 History Physical Exam 2 Vital Signs: Vital Signs: Last Vital Signs Temp 97.6 F 03/19/25 07:58 Pulse 146 H 03/19/25 07:58 Resp 18 03/19/25 07:58 BP 118/63 03/19/25 08:46 Pulse Ox 98 03/19/25 07:58 O2 Del Method Oxymask 03/19/25 07:58 O2 Flow Rate 3 03/19/25 07:58 BMI result Body Mass Index 26.4 Const: General: cooperative, alert, awake and in distress mild and respiratory Nutritional Appearance: underweight HEENT: Head: Yes normocephalic and Yes atraumatic Neck: Neck: Yes trachea midline and Yes no JVD Resp: Effort & Inspection: decreased respiratory effort Auscultation: c rackles bilateral at the base Cardio: Jugular venous distension: no JVD Rhythm: abnormal rhythm irregularly irregular Heart sounds: S1 normal heart sound present, S2 normal heart sound present, no click, no gallops and no murmurs GI: Auscultation: normal bowel sounds Skin: General skin exam: ecchymosis Neuro: General: moves all extremities Extrem: General: No clubbing, No cyanosis and Yes edema (Minimal) Objective Labs and Meds 03/19/25 07:01 03/19/25 07:01 Lab results: Laboratory Results - last 24 hr 03/18/25 03/18/25 03/18/25 10:00 10:30 11:04 WBC RBC Hgb Hct MCV MCH MCHC RDW Plt Count MPV Immature Gran % (Auto) Neut % (Auto) Lymph % (Auto) [place] % (Auto) Eos % (Auto) Baso % (Auto) Lymph # (Auto) [place] # (Auto) Eos # (Auto) Baso # (Auto) Abs Immat Gran (auto) Absolute Neuts (auto) Absolute Nucleated RBC Nucleated RBC % (auto) PT INR VBG pH VBG pCO2 VBG pO2 VBG HCO3 VBG O2 Saturation VBG Base Excess Sodium Potassium Chloride Carbon Dioxide Anion Gap BUN Creatinine Estim Creat Clear Calc Estimated GFR Random Glucose Calcium Ammonia 28 Troponin I High Sens 127.6 H* B-Natriuretic Peptide Urine Osmolality 503 Ur Random Sodium < 20.0 Ur Random Potassium 52.6 Ur Random Chloride < 20.0 Blood Type O Positive Antibody Screen NEGATIVE 03/18/25 03/18/25 03/19/25 11:09 13:20 07:01 WBC 6.9 RBC 3.27 L Hgb 9.3 L Hct 30.4 L MCV 93.0 MCH 28.4 MCHC 30.6 L RDW 18.4 H Plt Count 145 L MPV 12.0 Immature Gran % (Auto) 0.6 H Neut % (Auto) 83.9 H Lymph % (Auto) 7.6 L [place] % (Auto) 6.0 Eos % (Auto) 1.6 Baso % (Auto) 0.3 Lymph # (Auto) 0.5 L [place] # (Auto) 0.4 Eos # (Auto) 0.1 Baso # (Auto) 0.0 Abs Immat Gran (auto) 0.04 H Absolute Neuts (auto) 5.8 Absolute Nucleated RBC 0.070 H Nucleated RBC % (auto) 1.0 H PT INR VBG pH 7.40 VBG pCO2 41 VBG pO2 49 VBG HCO3 25 VBG O2 Saturation 68.0 VBG Base Excess 1.2 Sodium 156 H 155 H Potassium 3.6 3.7 Chloride 123 H 121 H Carbon Dioxide 22 23 Anion Gap 15 15 BUN 37 H 39 H Creatinine 1.60 H 1.47 H Estim Creat Clear Calc 25.1 27.4 Estimated GFR 41 45 Random Glucose 95 111 Calcium 8.4 8.8 Ammonia Troponin I High Sens B-Natriuretic Peptide 572 H Urine Osmolality Ur Random Sodium Ur Random Potassium Ur Random Chloride Blood Type Antibody Screen 03/19/25 08:29 WBC RBC Hgb Hct MCV MCH MCHC RDW Plt Count MPV Immature Gran % (Auto) Neut % (Auto) Lymph % (Auto) [place] % (Auto) Eos % (Auto) Baso % (Auto) Lymph # (Auto) [place] # (Auto) Eos # (Auto) Baso # (Auto) Abs Immat Gran (auto) Absolute Neuts (auto) Absolute Nucleated RBC Nucleated RBC % (auto) PT 51.8 H INR 4.5 H VBG pH VBG pCO2 VBG pO2 VBG HCO3 VBG O2 Saturation VBG Base Excess Sodium Potassium Chloride Carbon Dioxide Anion Gap BUN Creatinine Estim Creat Clear Calc Estimated GFR Random Glucose Calcium Ammonia Troponin I High Sens B-Natriuretic Peptide Urine Osmolality Ur Random Sodium Ur Random Potassium Ur Random Chloride Blood Type Antibody Screen Assessment and Plan (1) Acute congestive heart failure: Status: Acute Acute congestive heart failure as per the family this is new onset. He has never had any prior history of heart failure. Clinically does not appear to be markedly fluid overloaded but still requiring oxygen. Gentle diuresis with Lasix 20 mg IV b.i.d.. Strict intake and output chart needs to be pursued. Start Jardiance 10 mg. Continue monitor renal function electrolytes. Better rate control is necessary. Can repeat limited echo to evaluate for LV function to see if there is any further worsening of LV function. Better rate control is required, see below. Overall management will be conservative as per the family and they agree with that. (2) Atrial fibrillation with RVR: Status: Acute Atrial fibrillation rapid ventricular response possibly related to his respiratory distress and/or new settings. At this point time he is on Cardizem drip which is appropriate given his LV EF is 45-50% although I would transition him to p.o. Lopressor. Can start him on metoprolol 12.5 mg q.6 hours. Continue monitor full disclosure cardiac telemetry. Gently taper Cardizem drip. Continue warfarin therapy which has been currently held because of supratherapeutic INR. Once INR is below 3 can resume warfarin therapy. Target INR between 2 and 3. Will sign of the case and follow with you if need be. Thank you for allowing me to partake in his care Procedures Date of Service Date of Service: 03/19/25
--- NOTE | 2025-03-19 10:56 | HO.PM.IMPN ---
Subjective Subjective Date of Service: 03/19/25 Review of Systems Follow up CHF, Hyponatremia and uti no pain or discomfort more confused than mormal Physical Exam Vital Signs: Vital Signs: Last Vital Signs Temp 97.6 F 03/19/25 07:58 Pulse 146 H 03/19/25 07:58 Resp 18 03/19/25 07:58 BP 118/63 03/19/25 08:46 Pulse Ox 98 03/19/25 07:58 O2 Del Method Oxymask 03/19/25 07:58 O2 Flow Rate 3 03/19/25 07:58 BMI result Body Mass Index 26.4 Appearing in no acute distress lung sounds are clear to auscultation heart regular rate rhythm, clear S1, S2 positive bowel sounds, abdomen is soft, nontender neuro patient is alert, confused Objective Data Active Medications Acetaminophen (Acetaminophen 325 Mg Tablet) 650 mg PO Q6H PRN PRN Reason: Pain, Mild 1-3,fever,headache Calcium Carbonate (Calcium Carbonate 750 Mg Tab.Chew) 750 mg PO Q4H PRN PRN Reason: Heartburn Ceftriaxone Sodium (Ceftriaxone Sodium 1 Gm Vial) 1 gm IVPUSH Q24H [facility] Last Admin: 03/18/25 15:27 Dose: Not Given Documented By: JAIME Non-Admin Reason: Physician Held Med Furosemide (Furosemide 20 Mg/2 Ml Vial) 20 mg IVPUSH BID@0900,1800 [facility]; Protocol Last Admin: 03/19/25 08:46 Dose: 20 mg Documented By: MARC Dextrose (D5w) 1,000 mls @ 50 mls/hr IVCONT .Q20H [facility] Last Admin: 03/19/25 10:26 Dose: 50 mls/hr Documented By: MARC Diltiazem HCl 125 mg/ Dextrose 125 mls @ 0 mls/hr IVCONT .Q0M [facility]; Protocol Latanoprost (Latanoprost 0.005 % Ophth Rosa 2.5 Ml Drops) 1 drop EYE-LEFT BEDTIME [facility] Last Admin: 03/18/25 21:19 Dose: Not Given Documented By: MINERVA Non-Admin Reason: Med Not Available Magnesium Hydroxide (Milk Of Magnesia 30 Ml Oral.Susp) 30 ml PO DAILY PRN PRN Reason: Constipation Melatonin (Melatonin 3 Mg Tablet) 6 mg PO BEDTIME PRN PRN Reason: Insomnia Metoprolol Tartrate (Metoprolol Tartrate 25 Mg Tablet) 25 mg PO BID [facility]; Protocol Last Admin: 03/19/25 08:45 Dose: 25 mg Documented By: MARC Non-Formulary Medication (Rivastigmine) 4.6 mg TRANSDERMA DAILY [facility] Ondansetron HCl (Ondansetron Hcl 4 Mg/2 Ml Vial) 4 mg IVPUSH Q8H PRN PRN Reason: Nausea and Vomiting Sodium Chloride (0.9 % Sodium Chloride Flush 3 Ml Syringe) 3 ml IVFLUSH QSHIFT [facility] Last Admin: 03/19/25 08:47 Dose: Not Given Documented By: MARC Non-Admin Reason: IV Running Timolol Maleate (Timolol Maleate 0.5 % Oph Rosa 5 Ml Drbtl) 1 drop EYE-LEFT DAILY [facility] Trazodone HCl (Trazodone Hcl 50 Mg Tablet) 12.5 mg PO BID PRN PRN Reason: Anxiety/agitation/insomnia Trazodone HCl (Trazodone Hcl 25 Mg Halftab) 25 mg PO BEDTIME [facility] Last Admin: 03/18/25 21:14 Dose: 25 mg Documented By: MINERVA Labs 03/19/25 07:01 03/19/25 07:01 Labs: Laboratory Results - last 24 hr 03/18/25 03/18/25 03/18/25 10:00 10:30 11:04 MCV MCH MCHC RDW Plt Count MPV Immature Gran % (Auto) Neut % (Auto) Lymph % (Auto) [place] % (Auto) Eos % (Auto) Baso % (Auto) Lymph # (Auto) [place] # (Auto) Eos # (Auto) Baso # (Auto) Abs Immat Gran (auto) Absolute Neuts (auto) Absolute Nucleated RBC Nucleated RBC % (auto) PT INR VBG pH VBG pCO2 VBG pO2 VBG HCO3 VBG O2 Saturation VBG Base Excess Anion Gap Estim Creat Clear Calc Estimated GFR Random Glucose Calcium Ammonia 28 B-Natriuretic Peptide Urine Osmolality 503 Ur Random Sodium < 20.0 Ur Random Potassium 52.6 Ur Random Chloride < 20.0 Blood Type O Positive Antibody Screen NEGATIVE 03/18/25 03/18/25 03/19/25 11:09 13:20 07:01 MCV 93.0 MCH 28.4 MCHC 30.6 L RDW 18.4 H Plt Count 145 L MPV 12.0 Immature Gran % (Auto) 0.6 H Neut % (Auto) 83.9 H Lymph % (Auto) 7.6 L [place] % (Auto) 6.0 Eos % (Auto) 1.6 Baso % (Auto) 0.3 Lymph # (Auto) 0.5 L [place] # (Auto) 0.4 Eos # (Auto) 0.1 Baso # (Auto) 0.0 Abs Immat Gran (auto) 0.04 H Absolute Neuts (auto) 5.8 Absolute Nucleated RBC 0.070 H Nucleated RBC % (auto) 1.0 H PT INR VBG pH 7.40 VBG pCO2 41 VBG pO2 49 VBG HCO3 25 VBG O2 Saturation 68.0 VBG Base Excess 1.2 Anion Gap 15 15 Estim Creat Clear Calc 25.1 27.4 Estimated GFR 41 45 Random Glucose 95 111 Calcium 8.4 8.8 Ammonia B-Natriuretic Peptide 572 H Urine Osmolality Ur Random Sodium Ur Random Potassium Ur Random Chloride Blood Type Antibody Screen 03/19/25 08:29 MCV MCH MCHC RDW Plt Count MPV Immature Gran % (Auto) Neut % (Auto) Lymph % (Auto) [place] % (Auto) Eos % (Auto) Baso % (Auto) Lymph # (Auto) [place] # (Auto) Eos # (Auto) Baso # (Auto) Abs Immat Gran (auto) Absolute Neuts (auto) Absolute Nucleated RBC Nucleated RBC % (auto) PT 51.8 H INR 4.5 H VBG pH VBG pCO2 VBG pO2 VBG HCO3 VBG O2 Saturation VBG Base Excess Anion Gap Estim Creat Clear Calc Estimated GFR Random Glucose Calcium Ammonia B-Natriuretic Peptide Urine Osmolality Ur Random Sodium Ur Random Potassium Ur Random Chloride Blood Type Antibody Screen Microbiology Microbiology Results: Microbiology 03/18/25 08:37 Blood Culture - Preliminary Blood - Venous No growth after 24 hours. 03/18/25 08:27 Blood Culture - Preliminary Blood - Venous No growth after 24 hours. 03/18/25 Unknown Urine Culture - Preliminary Urine Catheterized - Straight Catheter Culture in progress. Assessment and Plan (1) CHF (congestive heart failure): Status: Acute Plan Patient is an 89-year-old male with a PMH significant for HTN, chronic Atrial fibrillation on Coumadin, Dementia, and hard of hearing, he [facility] a [facility] facility for reports of altered mental status with a junky cough . Acute hypoxic respiratory failure secondary to acute on chronic heart failure with reduced ejection fraction Chest x-ray showing worsening pulmonary vascular congestion bilateral airspace disease possibly with left pleural effusion Lasix 20 mg IV b.i.d. Echocardiogram Supplemental Oxygen to keep oxygen saturation greater than 92% Cardiology consultation Monitor on telemetry Strict intake and output Daily weights Atrial fibrillation with RVR Received 2 doses of metoprolol in the ED Placed on cardizem drip last night Warfarin on hold due to supratherapeutic INR Cardiology consult< add jardiance 10 mg daily, change metoprolol to 12.5mg Q6H, slowly wean down cardizem Supratherapeutic INR Possibly secondary to dehydration, poor p.o. intake, no blood loss INR 4.5 Hold warfarin target INR 2-3 Repeat INR in the morning Hypernatremia Possibly secondary to dehydration, poor p.o. intake Received a total of 600 cc of IV fluids in the ER, concern for fluid overload as patient is in acute heart failure Repeat Bmp s/p albumin continue D5W as per nephrology PETERSON. Creat trending down Possibly secondary to dehydration versus acute CHF fluid overload Diurese with Lasix 20 mg b.i.d. Monitor creatinine closely Encephalopathy due to sepsis secondary to UTI. Sepsis resolved Continue ceftriaxone Follow up final cultures Elevated troponin No complaints of chest pain No ischemic changes noted on EKG Likely secondary to acute congestive heart failure Continue to diurese Troponins flat Acute anemia No acute blood loss Significant drop in hemoglobin and hematocrit, not requiring transfusion at this time We will hold warfarin, question gastritis Gastroenterology consultation Hypertension In light of sepsis, hold antihypertensive medications Glaucoma Continue eyedrops Dementia Continue memantine, rivastigmine and trazodone DVT prophylaxis DNR/DNI Quality Stroke Does the patient have a stroke diagnosis?: No VTE Prior VTE?: No VTE Risk Level:: Medical - moderate - high VTE Device Contraindication: N/A - Device Ordered VTE Drug Contraindication: Treatment Not Indicated
--- NOTE | 2025-03-19 12:12 | P.CNGI_ITS ---
History of Present Illness Data of Consult Service Date: 03/19/25 Requesting physician: Hoda Wiley Primary Care Provider: Elif Vides MD HPI Reason for consult: Acute anemia This is an 89-year-old gentleman with medical history of dementia, atrial fibrillation on Coumadin, hypertension, who was per his sent from the rehab for altered mental status and new cough. History was obtained from the chart and family members at bedside. Pt has had a cough for almost 2 days for which he also received Lasix. He was then progressively noted to be short of breath, hypoxic in the 80s with altered mental status. When he was brought to the hospital, he was requiring 2 L of oxygen. Also noted to be in rapid ventricular rate and received IV metoprolol. Labs with drop in hemoglobin to 8.9 from 12.4 3 months ago. This is normocytic. Thrombocytopenia at baseline. Supratherapeutic INR of 4.2. Chem 7 with severe hypernatremia and PETERSON. No abdominal imaging available. Review of Systems 2 Review of Systems: Yes all other systems are reviewed and are negative [facility] Past Medical History Medical History Glaucoma HTN (hypertension) Permanent atrial fibrillation Dementia Social History Social History Household Members: Unknown / Unable to assess Housing: Custodial Do you presently have visiting nurse or other home services: No Alcohol intake: former Comment: in-room camera placed; hx dementia Patient Tobacco Use Status: Former Tobacco user Tobacco use type: Cigarette Advance Directives Date on File: 10/27/23 service: No Cognitive needs: Yes Hearing needs: Yes Meds Allergies Allergy/AdvReac Type Severity Reaction Status Date / Time ciprofloxacin Allergy Intermediate hives Verified 03/18/25 08:18 benzonatate AdvReac Intermediate Gastrointestinal Verified 11/27/24 10:28 Upset lisinopril AdvReac Intermediate Cough Uncoded 11/27/24 10:28 Active Medications: Current Medications Acetaminophen (Acetaminophen 325 Mg Tablet) 650 mg PO Q6H PRN PRN Reason: Pain, Mild 1-3,fever,headache Calcium Carbonate (Calcium Carbonate 750 Mg Tab.Chew) 750 mg PO Q4H PRN PRN Reason: Heartburn Ceftriaxone Sodium (Ceftriaxone Sodium 1 Gm Vial) 1 gm IVPUSH Q24H [facility] Last Admin: 03/18/25 15:27 Dose: Not Given Empagliflozin (Empagliflozin 10 Mg Tablet) 10 mg PO DAILY [facility] Furosemide (Furosemide 20 Mg/2 Ml Vial) 20 mg IVPUSH BID@0900,1800 [facility]; Protocol Last Admin: 03/19/25 08:46 Dose: 20 mg Dextrose (D5w) 1,000 mls @ 50 mls/hr IVCONT .Q20H [facility] Last Admin: 03/19/25 10:26 Dose: 50 mls/hr Diltiazem HCl 125 mg/ Dextrose 125 mls @ 0 mls/hr IVCONT .Q0M [facility]; Protocol Latanoprost (Latanoprost 0.005 % Ophth Rosa 2.5 Ml Drops) 1 drop EYE-LEFT BEDTIME [facility] Last Admin: 03/18/25 21:19 Dose: Not Given Magnesium Hydroxide (Milk Of Magnesia 30 Ml Oral.Susp) 30 ml PO DAILY PRN PRN Reason: Constipation Melatonin (Melatonin 3 Mg Tablet) 6 mg PO BEDTIME PRN PRN Reason: Insomnia Metoprolol Tartrate (Metoprolol Tartrate 12.5 Mg Halftab) 12.5 mg PO Q6H [facility]; Protocol Non-Formulary Medication (Rivastigmine) 4.6 mg TRANSDERMA DAILY [facility] Ondansetron HCl (Ondansetron Hcl 4 Mg/2 Ml Vial) 4 mg IVPUSH Q8H PRN PRN Reason: Nausea and Vomiting Sodium Chloride (0.9 % Sodium Chloride Flush 3 Ml Syringe) 3 ml IVFLUSH QSHIFT [facility] Last Admin: 03/19/25 08:47 Dose: Not Given Timolol Maleate (Timolol Maleate 0.5 % Oph Rosa 5 Ml Drbtl) 1 drop EYE-LEFT DAILY [facility] Trazodone HCl (Trazodone Hcl 50 Mg Tablet) 12.5 mg PO BID PRN PRN Reason: Anxiety/agitation/insomnia Trazodone HCl (Trazodone Hcl 25 Mg Halftab) 25 mg PO BEDTIME [facility] Last Admin: 03/18/25 21:14 Dose: 25 mg Home Medications ?Medication ?Instructions ?Recorded ?Confirmed ?Last Taken ?Type latanoprost 0.005 % eye drops 1 drp ophthalmic-Left BEDTIME 08/18/21 03/18/25 03/17/25 History timolol maleate 0.5 % eye drops 1 drp ophthalmic-Left DAILY 08/18/21 03/18/25 03/17/25 History acetaminophen 325 mg tablet 650 mg PO Q6H PRN pain or fever 03/18/25 03/18/25 03/09/25 History bisacodyl 10 mg rectal suppository 10 mg WV DAILY PRN constipation if 03/18/25 03/18/25 Unknown History MOM not effective furosemide 40 mg tablet (Lasix) 20 mg PO DAILY 03/18/25 03/18/25 Unknown History guaifenesin 100 mg/5 mL oral 200 mg PO Q4H PRN Cough 03/18/25 03/18/25 Unknown History liquid (Vivian-Tussin) losartan 50 mg tablet 50 mg PO BEDTIME 03/18/25 03/18/25 03/17/25 History magnesium hydroxide 400 mg/5 mL 30 ml PO DAILY PRN Constipation 03/18/25 03/18/25 Unknown History oral suspension (Milk of Magnesia) melatonin 3 mg tablet 6 mg PO BEDTIME PRN Insomnia 03/18/25 03/18/25 Unknown History memantine 5 mg tablet 5 mg PO BEDTIME 03/18/25 03/18/25 03/17/25 History rivastigmine 4.6 mg/24 hour 4.6 mg transdermal DAILY 03/18/25 03/18/25 03/17/25 History transdermal patch sodium phosphates 19 gram-7 118 ml W[place] DAILY PRN Constipation 03/18/25 03/18/25 Unknown History gram/118 mL enema (Fleet Enema) if bisacodyl not effective trazodone 50 mg tablet 12.5 mg PO BID PRN 03/18/25 03/18/25 Unknown History Anxiety/agitation/insomnia trazodone 50 mg tablet 25 mg PO BEDTIME 03/18/25 03/18/25 Unknown History warfarin 2 mg tablet 2 mg PO DAILY@1800 03/18/25 03/18/25 03/17/25 History Physical Exam 2 Vital Signs: Vital Signs: Last Vital Signs Temp 97.8 F 03/19/25 12:00 Pulse 65 03/19/25 12:00 Resp 18 03/19/25 12:00 BP 117/70 03/19/25 12:00 Pulse Ox 91 L 03/19/25 12:00 O2 Del Method Nasal Cannula 03/19/25 12:00 O2 Flow Rate 3 03/19/25 07:58 BMI result Body Mass Index 26.4 elderly gent confused nonicteric not able to follow commands abd soft, nontender, nondistended no MERLE Results Labs 03/19/25 07:01 03/20/25 06:44 Labs: Short CBC 03/19/25 Range/Units 07:01 WBC 6.9 (4.8-10.8) X10*3/uL Hgb 9.3 L (14.0-18.0) g/dl Hct 30.4 L (42.0-52.0) % Plt Count 145 L (160-400) X10*3/uL BMP 03/18/25 03/19/25 13:20 07:01 Sodium 156 H 155 H Potassium 3.6 3.7 Chloride 123 H 121 H Carbon Dioxide 22 23 BUN 37 H 39 H Creatinine 1.60 H 1.47 H Calcium 8.4 8.8 Microbiology Microbiology Results: Microbiology 03/18/25 08:37 Blood - Venous Blood Culture - Preliminary No growth after 24 hours. 03/18/25 08:27 Blood - Venous Blood Culture - Preliminary No growth after 24 hours. 03/18/25 Unknown Urine Catheterized - Straight Catheter Urine Culture - Preliminary Culture in progress. Assessment and Plan (1) Anemia: Status: Acute (2) PETERSON (acute kidney injury): Status: Acute (3) Hypernatremia: Status: Acute (4) Shortness of breath: Status: Acute (5) Altered mental status: Status: Acute Plan Had a drop in H&H without any overt bleeding. Appears to be secondary to inflammatory anemia. GI bleeding not ruled out. Plan: -iron studies added on -check hemolysis labs (added on) -management of hypernatremia and PETERSON as per Nephrology and primary team -indication of endoscopic evaluation contingent on overall clinical course. and daughter would like to hold off. Thank you for allowing me to participate in his care. Please do not hesitate to reach out for any questions or concerns. Procedures Date of Service Date of Service: 03/20/25
[2025-03-19] MEDS: Empagliflozin 10 MG TABLET PO (12:24)
[2025-03-19] MEDS: timoloL maleate 0.5 % Oph Sol 5 ML DRBTL 1 DROP EYE-LEFT (12:24)
[2025-03-19] MEDS: Metoprolol Tartrate 12.5 MG HALFTAB PO ×3 (12:24→22:22)
[2025-03-19 12:45] LABS: Iron 24 mcg/dL (45-160); Lactate Dehydrogenase 333 U/L (118-273); Percent Iron Saturation 17 % (15-50); Total Iron Binding Capacity 143 mcg/dL (228-428); Unsaturated Iron Binding 119 ug/dL
[2025-03-19 12:56] LABS: Haptoglobin 306 mg/dL (40-268)
[2025-03-19 12:59] LABS: Ferritin 416 ng/mL (20-250)
--- NOTE | 2025-03-19 13:50 | MHC.CM.PN ---
IMM 03/19/25, Pt resides at [facility]. He is confused at baseline due to dx of Dementia. His PCP is the doctor at the half-way, his / HCP Sia could not recall the name of the doctor. DCP: return to [facility] via BLS. CM will follow, and send update to [facility] in care port.
[2025-03-19 14:23] LABS: Osmolality Urine 414 mosm/kg (373-1093)
[2025-03-19] MEDS: cefTRIAXone sodium 1 GM VIAL IVPUSH (15:46)
--- NOTE | 2025-03-19 17:33 | PC.NURSE ---
Provider entered order to place borrego catheter and titrate fluids to match urine output. Patient with minimal urine output via male purewick after receiving lasix and continued low output post borrego catheter. Expiratory wheezing more noticeable in this afternoon and on ausculation as well as patient more restless in the bed. On 3L sats are 91-98. Discussed with provider possibility of worsening lung congestion and timid to increase fluids. Provider agreed and requested keeping strict I&Os and not increasing fluids tonight.
[2025-03-19] MEDS: Metoprolol Tartrate 5 MG/5 ML VIAL 2.5 MG IVPUSH (22:22)
[2025-03-19] MEDS: traZODone HCL 25 MG HALFTAB PO (22:23)
[2025-03-20] VITALS (17 sets, daily range): BP systolic 107–152; BP diastolic 58–74; PULSE 61–138; RESP 16–20; TEMP 36.1–37; O2SAT 90–97; BMI 25.8
[2025-03-20] MEDS: DEXTROSE 5% IVCONT (00:58)
[2025-03-20] MEDS: DILTIAZEM HCL IVCONT (00:58)
[2025-03-20] MEDS: levalbuterol HCL 1.25 MG/3 ML VIAL.NEB INHALE ×2 (01:14→17:45)
[2025-03-20] MEDS: Metoprolol Tartrate 12.5 MG HALFTAB PO (05:55)
[2025-03-20 07:17] LABS: INTERNATIONAL NORM RATIO 4.3 (0.9-1.1); Prothrombin Time 49.5 SEC (10.9-12.4)
[2025-03-20 07:28] LABS: Anion Gap 12 (12-20); Blood Urea Nitrogen 38 mg/dL (9-16); Calcium 8.4 mg/dL (8.4-10.2); Carbon Dioxide 24 mmol/L (22-29); Chloride 120 mmol/L (96-108); Estimated Glomerular Filt Rate 44; Glucose Random 106 mg/dL (60-115); Potassium 3.4 mmol/L (3.3-5.1); Sodium 153 mmol/L (135-145)
[2025-03-20] MEDS: Empagliflozin 10 MG TABLET PO (09:39)
[2025-03-20] MEDS: Metoprolol Tartrate 25 MG TABLET PO ×3 (09:39→22:20)
[2025-03-20] MEDS: timoloL maleate 0.5 % Oph Sol 5 ML DRBTL 1 DROP EYE-LEFT (09:41)
[2025-03-20] MEDS: Dextrose 5 % 1,000 ML 50 ML IVCONT (09:41)
--- NOTE | 2025-03-20 09:45 | PC.NURSE ---
po meds given per MAR. per Dr. 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
--- NOTE | 2025-03-20 11:03 | HO.PM.IMPN ---
Subjective Subjective Date of Service: 03/20/25 Interval History: seen and evaluated this morning encephalopathic, altered On Cardizem drip Na at 153 this morning no other overnight events Review of Systems Review of Systems: Yes Unobtainable due to mental status Physical Exam Vital Signs: Vital Signs: Last Vital Signs Temp 97.8 F 03/20/25 07:25 Pulse 120 H 03/20/25 10:28 Resp 18 03/20/25 07:25 BP 135/72 03/20/25 10:28 Pulse Ox 96 03/20/25 07:25 O2 Del Method Nasal Cannula 03/20/25 07:25 O2 Flow Rate 2 03/20/25 07:25 BMI result Body Mass Index 25.8 Const: Other: Constitutional : interactive, not in distress Cardiovascular : no JVP, no lower extremity edema Respiratory : bilateral chest movement, not in resp distress , decrease air entry at bases bilaterally Gastrointestinal: soft, lax, Non tender Skin : Warm, Dry Neurological : Altered & disoriented , moving all extremities Objective Data Active Medications Acetaminophen (Acetaminophen 325 Mg Tablet) 650 mg PO Q6H PRN PRN Reason: Pain, Mild 1-3,fever,headache Calcium Carbonate (Calcium Carbonate 750 Mg Tab.Chew) 750 mg PO Q4H PRN PRN Reason: Heartburn Ceftriaxone Sodium (Ceftriaxone Sodium 1 Gm Vial) 1 gm IVPUSH Q24H [facility] Last Admin: 03/19/25 15:46 Dose: 1 gm Documented By: MARC Empagliflozin (Empagliflozin 10 Mg Tablet) 10 mg PO DAILY [facility] Last Admin: 03/20/25 09:39 Dose: 10 mg Documented By: JACK Furosemide (Furosemide 20 Mg/2 Ml Vial) 20 mg IVPUSH BID@0900,1800 [facility]; Protocol Last Admin: 03/20/25 09:33 Dose: Not Given Documented By: JACK Non-Admin Reason: hold per dr pardo Dextrose (D5w) 1,000 mls @ 125 mls/hr IVCONT .Q8H [facility] Last Infusion: 03/20/25 10:45 Dose: 125 mls/hr Documented By: JACK Diltiazem HCl 125 mg/ Dextrose 125 mls @ 0 mls/hr IVCONT .Q0M [facility]; Protocol Last Titration: 03/20/25 09:40 Dose: 0 mg/hr, 0 mls/hr Documented By: JACK Latanoprost (Latanoprost 0.005 % Ophth Rosa 2.5 Ml Drops) 1 drop EYE-LEFT BEDTIME [facility] Last Admin: 03/19/25 21:30 Dose: Not Given Levalbuterol HCl (Levalbuterol Hcl 1.25 Mg/3 Ml Vial.Neb) 1.25 mg INHALE Q3H PRN PRN Reason: Wheezing Last Admin: 03/20/25 01:14 Dose: 1.25 mg Documented By: FRANKIE Magnesium Hydroxide (Milk Of Magnesia 30 Ml Oral.Susp) 30 ml PO DAILY PRN PRN Reason: Constipation Melatonin (Melatonin 3 Mg Tablet) 6 mg PO BEDTIME PRN PRN Reason: Insomnia Metoprolol Tartrate (Metoprolol Tartrate 25 Mg Tablet) 25 mg PO Q6H [facility]; Protocol Last Admin: 03/20/25 09:39 Dose: 25 mg Documented By: JACK Non-Formulary Medication (Rivastigmine) 4.6 mg TRANSDERMA DAILY [facility] Ondansetron HCl (Ondansetron Hcl 4 Mg/2 Ml Vial) 4 mg IVPUSH Q8H PRN PRN Reason: Nausea and Vomiting Sodium Chloride (0.9 % Sodium Chloride Flush 3 Ml Syringe) 3 ml IVFLUSH QSHIFT [facility] Last Admin: 03/20/25 09:33 Dose: Not Given Documented By: JACK Non-Admin Reason: IV Running Timolol Maleate (Timolol Maleate 0.5 % Oph Rosa 5 Ml Drbtl) 1 drop EYE-LEFT DAILY [facility] Last Admin: 03/20/25 09:41 Dose: 1 drop Documented By: JACK Trazodone HCl (Trazodone Hcl 50 Mg Tablet) 12.5 mg PO BID PRN PRN Reason: Anxiety/agitation/insomnia Trazodone HCl (Trazodone Hcl 25 Mg Halftab) 25 mg PO BEDTIME [facility] Last Admin: 03/19/25 22:23 Dose: 25 mg Documented By: [id number] Labs 03/19/25 07:01 03/20/25 06:44 Labs: Laboratory Results - last 24 hr 03/19/25 03/19/25 03/20/25 07:01 13:51 06:44 Hold Purple Top SEE NOTE PT INR Anion Gap 12 Estim Creat Clear Calc 27.0 Estimated GFR 44 Random Glucose 106 Haptoglobin 306 H Calcium 8.4 Iron 24 L TIBC 143 L % Saturation 17 Unsat Iron Binding 119 Ferritin 416 H Lactate Dehydrogenase 333 H Urine Osmolality 414 Ur Random Sodium 32.0 03/20/25 06:45 Hold Purple Top PT 49.5 H INR 4.3 H Anion Gap Estim Creat Clear Calc Estimated GFR Random Glucose Haptoglobin Calcium Iron TIBC % Saturation Unsat Iron Binding Ferritin Lactate Dehydrogenase Urine Osmolality Ur Random Sodium Microbiology Microbiology Results: Microbiology 03/18/25 08:37 Blood Culture - Preliminary Blood - Venous No growth after 48 hours. 03/18/25 08:27 Blood Culture - Preliminary Blood - Venous No growth after 48 hours. 03/18/25 Unknown Urine Culture - Preliminary Urine Catheterized - Straight Catheter Culture in progress. Assessment and Plan (1) Atrial fibrillation with RVR: Status: Acute (2) Acute congestive heart failure: Status: Acute (3) Hypernatremia: Status: Acute (4) PETERSON (acute kidney injury): Status: Acute (5) Acute UTI: Status: Acute Plan Patient is an 89-year-old male with a PMH significant for HTN, chronic Atrial fibrillation on Coumadin, Dementia, and hard of hearing, he presented from a snf facility for reports of altered mental status with a junky cough . Acute hypoxic respiratory failure secondary to acute on chronic heart failure with reduced ejection fraction Chest x-ray showing pulmonary vascular congestion bilateral airspace disease possibly with left pleural effusion Hold Lasix 20 mg IV b.i.d. Echocardiogram pending Supplemental Oxygen to keep oxygen saturation greater than 92% Cardiology consult Monitor on telemetry intake and output Daily weights Atrial fibrillation with RVR on cardizem drip Warfarin on hold due to supratherapeutic INR Cardiology consult< add jardiance 10 mg daily change metoprolol to 25mg Q6H, slowly wean down cardizem Supratherapeutic INR Possibly secondary to dehydration, poor p.o. intake, no blood loss INR 4.3 Hold warfarin target INR 2-3 Repeat INR in the morning acute Hypernatremia secondary to dehydration, poor p.o. intake continue D5W as per nephrology follow BMP PETERSON. Creat trending down secondary to dehydration versus acute CHF fluid overload hold Lasix 20 mg b.i.d. Monitor creatinine closely toxic metabolic Encephalopathy due to sepsis secondary to UTI and hypernatremia Sepsis resolved Continue ceftriaxone Follow up final cultures Elevated troponin No complaints of chest pain No ischemic changes noted on EKG Likely secondary to acute congestive heart failure Continue to diurese Troponins flat Acute anemia No acute blood loss Significant drop in hemoglobin and hematocrit, not requiring transfusion at this time We will hold warfarin, question gastritis Gastroenterology consultation Hypertension In light of sepsis, hold antihypertensive medications Glaucoma Continue eyedrops Dementia Continue memantine, rivastigmine and trazodone DVT prophylaxis DNR/DNI The patient will need overnight stay for treatment of Afib RvR, Encephalopathy, Hypernatremia with repeating blood work and weaning down O2 Quality Stroke Does the patient have a stroke diagnosis?: No VTE Prior VTE?: No VTE Risk Level:: Medical - moderate - high VTE Device Contraindication: N/A - Device Ordered VTE Drug Contraindication: Treatment Not Indicated
--- NOTE | 2025-03-20 11:15 | P.PNNP_ITS ---
Subjective Subjective Date of Service: 03/20/25 Interval history: 89 y/o male with dementia being followed for hypernatremia and PETERSON sodium has decreased from 156 on 03/18 to 155 on 03/19, 153 on 03/20 creatinine prior to admission 0.99, 1/60 on 03/18, 03/19 is 1.47, 03/20 is 1.49 patient has borrego catheter in place, has D5W IVF running volume to match urine output. lasix for natriuresis is on hold. Physical Exam 2 Vital Signs: Vital Signs: Last Vital Signs Temp 97.9 F 03/20/25 11:14 Pulse 89 03/20/25 11:14 Resp 17 03/20/25 11:14 BP 120/71 03/20/25 11:14 Pulse Ox 92 03/20/25 11:14 O2 Del Method Nasal Cannula 03/20/25 11:14 O2 Flow Rate 2 03/20/25 11:14 BMI result Body Mass Index 25.8 Const: General: no acute distress and lethargic Orientation/consciousness: lethargic Resp: Effort & Inspection: normal respiratory effort and able to speak in complete sentences Auscultation: clear to auscultation bilaterally Cardio: Rate: regular rate Heart sounds: S1 normal heart sound present and S2 normal heart sound present GI: Palpation (GI): Soft to palpation and nontender : General: Yes no CVA tenderness Back/Spine/Pelvis: Back: no CVA tenderness Skin: Rashes: no rashes Extrem: General: No edema and No pedal edema Objective Data Labs 03/19/25 07:01 03/20/25 06:44 Labs: Laboratory Results - last 24 hr 03/19/25 03/19/25 03/20/25 07:01 13:51 06:44 Hold Purple Top SEE NOTE PT INR Sodium 153 H Potassium 3.4 Chloride 120 H Carbon Dioxide 24 Anion Gap 12 BUN 38 H Creatinine 1.49 H Estim Creat Clear Calc 27.0 Estimated GFR 44 Random Glucose 106 Calcium 8.4 Ferritin 416 H Urine Osmolality 414 Ur Random Sodium 32.0 03/20/25 06:45 Hold Purple Top PT 49.5 H INR 4.3 H Sodium Potassium Chloride Carbon Dioxide Anion Gap BUN Creatinine Estim Creat Clear Calc Estimated GFR Random Glucose Calcium Ferritin Urine Osmolality Ur Random Sodium Microbiology Microbiology Results: Microbiology 03/18/25 Unknown Urine Catheterized - Straight Catheter Urine Culture - Preliminary Gram negative gracia 03/18/25 08:37 Blood - Venous Blood Culture - Preliminary No growth after 48 hours. 03/18/25 08:27 Blood - Venous Blood Culture - Preliminary No growth after 48 hours. Procedures Date of Service Date of Service: 03/20/25 Assessment & Plan Assessment and plan (1) Hypernatremia: Status: Acute (2) PETERSON (acute kidney injury): Status: Acute Plan Hypernatremia likely secondary to intravascular volume depletion- improving- sodium should not be increased by more than 10mmol/24 hours or 0.5mmol/L/hr recommend continuing to monitor urine output closely and match D5W fluid rate to urine output volume. PETERSON- improving since admission, likely secondary hypoperfusion from volume depletion recommend continuing with IVF recommend daily electrolyte and renal function studies recommend avoiding nephrotoxins close I&O monitoring, regular blood pressure checks continue supportive care, will continue to follow Discussed with Dr Quigley. Time Spent With Patient Time: Total time managing care of this patient today ____ minutes. Progress Note: Quality Stroke Does the patient have a stroke diagnosis?: No
--- NOTE | 2025-03-20 11:44 | MHC.CM.PN ---
Per rounds, pt. is not ready to DC, he requires ongoing tx. for Afib with RVR, Encephalopathy, Hypernatremia, and weaning down O2. DCP is for him to return to SNF.
[2025-03-20 14:34] LABS: Anion Gap 13 (12-20); Blood Urea Nitrogen 34 mg/dL (9-16); Calcium 8.4 mg/dL (8.4-10.2); Carbon Dioxide 26 mmol/L (22-29); Chloride 118 mmol/L (96-108); Creatinine Clr Calc Pharmacy 27.2; Estimated Glomerular Filt Rate 45; Glucose Random 130 mg/dL (60-115); Potassium 3.6 mmol/L (3.3-5.1); Sodium 153 mmol/L (135-145)
[2025-03-20 15:03] LABS: Osmolality Urine 496 mosm/kg (373-1093)
[2025-03-20 15:11] LABS: Sodium Urine Random < 20.0 mmol/L
[2025-03-20] MEDS: traZODone HCL 50 MG TABLET 12.5 MG PO (16:08)
[2025-03-20] MEDS: cefTRIAXone sodium 1 GM VIAL IVPUSH (16:13)
--- NOTE | 2025-03-20 17:27 | PC.NURSE ---
dilt gtt restarted per Dr. Guido. HR 130s-140s
[2025-03-20] MEDS: guaiFENesin 200 MG/10 ML 10 ML LIQUID PO ×2 (17:36→22:20)
[2025-03-20] MEDS: Acetylcysteine 10 % 400 MG/4 ML VIAL INHALE (17:45)
[2025-03-20] MEDS: Dextrose 5 % 1,000 ML 125 ML IVCONT (18:03)
[2025-03-20 19:26] LABS: Anion Gap 13 (12-20); Blood Urea Nitrogen 34 mg/dL (9-16); Calcium 8.4 mg/dL (8.4-10.2); Carbon Dioxide 24 mmol/L (22-29); Chloride 117 mmol/L (96-108); Estimated Glomerular Filt Rate 44; Glucose Random 120 mg/dL (60-115); Potassium 3.7 mmol/L (3.3-5.1); Sodium 150 mmol/L (135-145)
[2025-03-20] MEDS: traZODone HCL 25 MG HALFTAB PO (22:20)
[2025-03-20] MEDS: 0.9 % Sodium Chloride Flush 3 ML SYRINGE IVFLUSH (22:21)
[2025-03-21] VITALS (7 sets, daily range): BP systolic 110–142; BP diastolic 52–83; PULSE 67–115; RESP 16–26; TEMP 36.1–37.1; O2SAT 91–100; BMI 25.9
[2025-03-21] MEDS: Dextrose 5 % 1,000 ML 125 ML IVCONT ×2 (04:16→09:48)
[2025-03-21] MEDS: Metoprolol Tartrate 25 MG TABLET PO ×2 (04:17→09:42)
[2025-03-21 07:01] LABS: MANUAL DIFF FLAG NO
[2025-03-21 07:08] LABS: Basophils Percent Auto 0.4 % (0-2); Eosinophils Absolute Auto 0.3 X10*3/uL (0.0-0.4); Eosinophils Percent Auto 3.5 % (0-4); Hematocrit 28.2 % (42.0-52.0); Hemoglobin 8.6 g/dl (14.0-18.0); Imm Gran Abs Auto 0.08 X10*3/uL (0.00-0.03); Imm Gran Pct Auto 1.1 % (0.0-0.4); Lymphocytes Absolute Auto 0.7 X10*3/uL (1.2-4.9); Mean Corpuscular HGB Conc 30.5 g/dl (31.0-36.0); Mean Corpuscular Hemoglobin 27.7 pg (27.0-33.0); Mean Platelet Volume 12.4 fL (9.4-12.4); Monocytes Absolute Auto 0.6 X10*3/uL (0.1-1.2); Monocytes Percent Auto 7.4 % (2-11); Neutrophils Absolute Auto 5.8 x10*3/uL (2.0-8.3); Neutrophils Percent Auto 77.6 % (45-73); Red Cell Distribution Width 18.2 % (11.0-16.0); White Blood Count 7.4 X10*3/uL (4.8-10.8)
[2025-03-21 07:10] LABS: INTERNATIONAL NORM RATIO 3.8 (0.9-1.1); Platelet Count 99 X10*3/uL (160-400); Prothrombin Time 43.6 SEC (10.9-12.4)
[2025-03-21 07:11] LABS: NRBC Pct Auto 1.2 /100WBC (0.0-0.2)
[2025-03-21 07:16] LABS: Anion Gap 9 (12-20); Blood Urea Nitrogen 32 mg/dL (9-16); Calcium 8.2 mg/dL (8.4-10.2); Carbon Dioxide 25 mmol/L (22-29); Chloride 115 mmol/L (96-108); Creatinine Clr Calc Pharmacy 30.7; Estimated Glomerular Filt Rate 52; Glucose Random 118 mg/dL (60-115); Potassium 3.2 mmol/L (3.3-5.1); Sodium 146 mmol/L (135-145)
[2025-03-21 08:19] LABS: Magnesium 2.1 mg/dL (1.6-2.6)
[2025-03-21] MEDS: Potassium Chloride/H20 10 MEQ/100 ML PIGGYBACK 100 MEQ IV ×2 (09:42→11:55)
[2025-03-21] MEDS: Empagliflozin 10 MG TABLET PO (09:42)
[2025-03-21] MEDS: timoloL maleate 0.5 % Oph Sol 5 ML DRBTL 1 DROP EYE-LEFT (09:43)
[2025-03-21] MEDS: DILTIAZEM HCL IVCONT (10:52)
[2025-03-21] MEDS: DEXTROSE 5% IVCONT (10:52)
--- NOTE | 2025-03-21 13:48 | HO.PM.IMPN ---
Subjective Subjective Date of Service: 03/21/25 Interval History: seen and evaluated this morning encephalopathic, altered , open eyes but does not make contact On Cardizem drip Na at 146 this morning no other overnight events Review of Systems Review of Systems: Yes all other systems are reviewed and are negative Physical Exam Vital Signs: Vital Signs: Last Vital Signs Temp 98.4 F 03/21/25 11:34 Pulse 115 H 03/21/25 11:34 Resp 18 03/21/25 11:34 BP 114/69 03/21/25 11:34 Pulse Ox 91 L 03/21/25 08:00 O2 Del Method Nasal Cannula 03/21/25 08:00 O2 Flow Rate 2 03/21/25 08:00 BMI result Body Mass Index 25.9 Const: Other: Constitutional : altered, more comfortable, not in distress Cardiovascular : no JVP, no lower extremity edema Respiratory : bilateral chest movement, not in resp distress , decrease air entry at bases bilaterally Gastrointestinal: soft, lax, Non tender Skin : Warm, Dry Neurological : Altered & frail , moving all extremities Objective Data Active Medications Acetaminophen (Acetaminophen 325 Mg Tablet) 650 mg PO Q6H PRN PRN Reason: Pain, Mild 1-3,fever,headache Calcium Carbonate (Calcium Carbonate 750 Mg Tab.Chew) 750 mg PO Q4H PRN PRN Reason: Heartburn Ceftriaxone Sodium (Ceftriaxone Sodium 1 Gm Vial) 1 gm IVPUSH Q24H [facility] Last Admin: 03/20/25 16:13 Dose: 1 gm Documented By: JACK Empagliflozin (Empagliflozin 10 Mg Tablet) 10 mg PO DAILY [facility] Last Admin: 03/21/25 09:42 Dose: 10 mg Documented By: NICHOLAS Furosemide (Furosemide 20 Mg/2 Ml Vial) 20 mg IVPUSH BID@0900,1800 [facility]; Protocol Last Admin: 03/20/25 09:33 Dose: Not Given Documented By: JACK Non-Admin Reason: hold per dr pardo Guaifenesin (Guaifenesin 200 Mg/10 Ml 10 Ml Liquid) 10 ml PO Q6H [facility] Last Admin: 03/21/25 12:09 Dose: Not Given Documented By: NICHOLAS Non-Admin Reason: NPO Dextrose (D5w) 1,000 mls @ 50 mls/hr IVCONT .Q20H [facility] Last Infusion: 03/21/25 11:55 Dose: 50 mls/hr Documented By: NICHOLAS Diltiazem HCl 125 mg/ Dextrose 125 mls @ 0 mls/hr IVCONT .Q0M [facility]; Protocol Last Titration: 03/21/25 13:27 Dose: 10 mg/hr, 10 mls/hr Documented By: NICHOLAS Latanoprost (Latanoprost 0.005 % Ophth Rosa 2.5 Ml Drops) 1 drop EYE-LEFT BEDTIME [facility] Last Admin: 03/20/25 22:20 Dose: Not Given Documented By: KOFI-JOZEB Non-Admin Reason: Med Not Available Levalbuterol HCl (Levalbuterol Hcl 1.25 Mg/3 Ml Vial.Neb) 1.25 mg INHALE Q3H PRN PRN Reason: Wheezing Last Admin: 03/20/25 17:45 Dose: 1.25 mg Documented By: PARIS Magnesium Hydroxide (Milk Of Magnesia 30 Ml Oral.Susp) 30 ml PO DAILY PRN PRN Reason: Constipation Melatonin (Melatonin 3 Mg Tablet) 6 mg PO BEDTIME PRN PRN Reason: Insomnia Metoprolol Tartrate (Metoprolol Tartrate 25 Mg Tablet) 25 mg PO Q6H [facility]; Protocol Last Admin: 03/21/25 09:42 Dose: 25 mg Documented By: NICHOLAS Non-Formulary Medication (Rivastigmine) 4.6 mg TRANSDERMA DAILY [facility] Ondansetron HCl (Ondansetron Hcl 4 Mg/2 Ml Vial) 4 mg IVPUSH Q8H PRN PRN Reason: Nausea and Vomiting Sodium Chloride (0.9 % Sodium Chloride Flush 3 Ml Syringe) 3 ml IVFLUSH QSHIFT [facility] Last Admin: 03/21/25 09:43 Dose: Not Given Documented By: NICHOLAS Non-Admin Reason: IV Running Timolol Maleate (Timolol Maleate 0.5 % Oph Rosa 5 Ml Drbtl) 1 drop EYE-LEFT DAILY [facility] Last Admin: 03/21/25 09:43 Dose: 1 drop Documented By: NICHOLAS Trazodone HCl (Trazodone Hcl 50 Mg Tablet) 12.5 mg PO BID PRN PRN Reason: Anxiety/agitation/insomnia Last Admin: 03/20/25 16:08 Dose: 12.5 mg Documented By: JACK Trazodone HCl (Trazodone Hcl 25 Mg Halftab) 25 mg PO BEDTIME [facility] Last Admin: 03/20/25 22:20 Dose: 25 mg Documented By: ISHMAEL Labs 03/21/25 06:51 03/21/25 06:51 Labs: Laboratory Results - last 24 hr 03/20/25 03/20/25 03/20/25 13:45 14:39 19:02 MCV MCH MCHC RDW Plt Count MPV Immature Gran % (Auto) Neut % (Auto) Lymph % (Auto) [place] % (Auto) Eos % (Auto) Baso % (Auto) Lymph # (Auto) [place] # (Auto) Eos # (Auto) Baso # (Auto) Abs Immat Gran (auto) Absolute Neuts (auto) Absolute Nucleated RBC Nucleated RBC % (auto) Smear Path Review PT INR Anion Gap 13 13 Estim Creat Clear Calc 27.2 27.0 Estimated GFR 45 44 Random Glucose 130 H 120 H Calcium 8.4 8.4 Magnesium Urine Osmolality 496 Ur Random Sodium < 20.0 03/21/25 06:51 MCV 91.0 MCH 27.7 MCHC 30.5 L RDW 18.2 H Plt Count 99 L D MPV 12.4 Immature Gran % (Auto) 1.1 H Neut % (Auto) 77.6 H Lymph % (Auto) 10.0 L [place] % (Auto) 7.4 Eos % (Auto) 3.5 Baso % (Auto) 0.4 Lymph # (Auto) 0.7 L [place] # (Auto) 0.6 Eos # (Auto) 0.3 Baso # (Auto) 0.0 Abs Immat Gran (auto) 0.08 H Absolute Neuts (auto) 5.8 Absolute Nucleated RBC 0.090 H Nucleated RBC % (auto) 1.2 H Smear Path Review SEE NOTE PT 43.6 H INR 3.8 H Anion Gap 9 L Estim Creat Clear Calc 30.7 Estimated GFR 52 Random Glucose 118 H Calcium 8.2 L Magnesium 2.1 Urine Osmolality Ur Random Sodium Microbiology Microbiology Results: Microbiology 03/18/25 Unknown Urine Culture - Final Urine Catheterized - Straight Catheter Klebsiella pneumoniae 03/18/25 08:37 Blood Culture - Preliminary Blood - Venous No growth after 48 hours. 03/18/25 08:27 Blood Culture - Preliminary Blood - Venous No growth after 48 hours. Assessment and Plan (1) Altered mental status: Status: Acute (2) Shortness of breath: Status: Acute (3) Atrial fibrillation with RVR: Status: Acute (4) Acute congestive heart failure: Status: Acute (5) Hypernatremia: Status: Acute (6) PETERSON (acute kidney injury): Status: Acute (7) Acute hypokalemia: Status: Acute Plan Patient is an 89-year-old male with a PMH significant for HTN, chronic Atrial fibrillation on Coumadin, Dementia, and hard of hearing, he presented from a jail facility for reports of altered mental status with a junky cough . Acute hypoxic respiratory failure secondary to acute on chronic heart failure with reduced ejection fraction Chest x-ray showing pulmonary vascular congestion bilateral airspace disease possibly with left pleural effusion Hold Lasix 20 mg IV b.i.d. Echocardiogram pending Supplemental Oxygen to keep oxygen saturation greater than 92% Cardiology consult Monitor on telemetry intake and output Daily weights Atrial fibrillation with RVR on cardizem drip Warfarin on hold due to supratherapeutic INR Cardiology consult< add jardiance 10 mg daily change metoprolol to 25mg Q6H, slowly wean down cardizem Supratherapeutic INR INR 3.8 today Hold warfarin target INR 2-3 Repeat INR in the morning acute Hypernatremia secondary to dehydration, poor p.o. intake decrease D5W nephro following Na 146 this morning follow BMP PETERSON. Creat trending down secondary to dehydration versus acute CHF fluid overload hold Lasix 20 mg b.i.d. Monitor creatinine closely toxic metabolic Encephalopathy due to sepsis secondary to UTI and hypernatremia Sepsis resolved Continue ceftriaxone Final cultures Klebsiella in urine acute hypokalemia replacement given follow BMP Elevated troponin No complaints of chest pain No ischemic changes noted on EKG Likely secondary to acute congestive heart failure Continue to diurese Troponins flat Acute anemia No acute blood loss Significant drop in hemoglobin and hematocrit, not requiring transfusion at this time We will hold warfarin, question gastritis Gastroenterology consultation Hypertension In light of sepsis, hold antihypertensive medications Glaucoma Continue eyedrops Dementia Continue memantine, rivastigmine and trazodone DVT prophylaxis DNR/DNI The patient will need overnight stay for treatment of Afib RvR, Encephalopathy, Hypernatremia with repeating blood work and weaning down O2 Quality Stroke Does the patient have a stroke diagnosis?: No VTE Prior VTE?: No VTE Risk Level:: Medical - moderate - high VTE Device Contraindication: N/A - Device Ordered VTE Drug Contraindication: Treatment Not Indicated
[2025-03-21] MEDS: 0.9 % Sodium Chloride Flush 3 ML SYRINGE IVFLUSH (16:30)
[2025-03-21] MEDS: cefTRIAXone sodium 1 GM VIAL IVPUSH (16:30)
--- NOTE | 2025-03-21 17:07 | PC.NURSE ---
Assumed care of patient at this time.
--- NOTE | 2025-03-21 18:21 | MHC.SL.SWA ---
Speech Pathologist Impression: Risk of Aspiration Due to: Dysphasia Diet Status: Liquid Consistency and Strategies for Safe Swallow: Liquid Intake Recommendation: NPO Liquid Intake Strategies: Solid Food Consistency: Dietary Recommendations: NPO Additional Modifications to Solid Foods: Oral Medication Intake: NPO Please contact the pharmacy regarding appropriate crushable or liquid drug formulations that are available whenever modified delivery is recommended. Compensatory Strategies and Precautions to be Taken for Safe Swallow: Supervision While Eating and Drinking for Safe Swallow: Foods to Avoid: Swallowing Recommended Treatments: Recommendation for Speech: Inpatient Speech Therapy Comment: Patient with HX oral pharyngeal dysphagia, on ground diet with [place] Thick liquids at baseline, currently with highly altered/highly confused state, very dis-regulated with feeding, at high risk for aspiration. Recommend continue NPO. Patient likely encephalopathic/reactive to change of routine/setting due to advanced Dementia. Patient may require supplemental hydration/nutrition for interim. Recommend PRODUCTION CONTROL COORDINATOR re-assess 03/22/25 to determine readiness to restart diet. MD, RD, RN advised of recommendation by secure text, family present were in agreement with plan. Frequency/Duration: Date Range for Service Req: Timeline to reassess: Process Project Engineer Clinican/Clinical Fellow: No Supervisory Statement: I have reviewed and agree with the student/clinical fellow's documentation: N/A Speech Language Pathologist: Livier Real M.A., CCC-PRODUCTION CONTROL COORDINATOR
[2025-03-22] VITALS (8 sets, daily range): BP systolic 119–146; BP diastolic 64–79; PULSE 85–134; RESP 16–22; TEMP 36.3–37.1; O2SAT 91–98; BMI 28.9
[2025-03-22] MEDS: DEXTROSE 5% IVCONT (05:20)
[2025-03-22] MEDS: DILTIAZEM HCL IVCONT (05:20)
[2025-03-22 07:39] LABS: MANUAL DIFF FLAG NO
[2025-03-22 07:49] LABS: Basophils Percent Auto 0.4 % (0-2); Eosinophils Absolute Auto 0.3 X10*3/uL (0.0-0.4); Eosinophils Percent Auto 3.3 % (0-4); Hematocrit 29.1 % (42.0-52.0); Hemoglobin 8.8 g/dl (14.0-18.0); Imm Gran Abs Auto 0.06 X10*3/uL (0.00-0.03); Imm Gran Pct Auto 0.8 % (0.0-0.4); Lymphocytes Absolute Auto 0.6 X10*3/uL (1.2-4.9); Lymphocytes Percent Auto 7.7 % (20-40); Mean Corpuscular HGB Conc 30.2 g/dl (31.0-36.0); Mean Corpuscular Hemoglobin 27.7 pg (27.0-33.0); Mean Corpuscular Volume 91.5 fL (80.0-98.0); Monocytes Absolute Auto 0.5 X10*3/uL (0.1-1.2); Monocytes Percent Auto 6.5 % (2-11); NRBC Pct Auto 0.8 /100WBC (0.0-0.2); Neutrophils Absolute Auto 6.3 x10*3/uL (2.0-8.3); Neutrophils Percent Auto 81.3 % (45-73); Red Blood Count 3.18 X10*6/uL (4.60-5.80); Red Cell Distribution Width 17.9 % (11.0-16.0); White Blood Count 7.7 X10*3/uL (4.8-10.8)
[2025-03-22 07:50] LABS: Platelet Count 95 X10*3/uL (160-400)
[2025-03-22 08:03] LABS: Anion Gap 13 (12-20); Blood Urea Nitrogen 28 mg/dL (9-16); Calcium 8.3 mg/dL (8.4-10.2); Carbon Dioxide 23 mmol/L (22-29); Chloride 115 mmol/L (96-108); Creatinine Clr Calc Pharmacy 36.7; Estimated Glomerular Filt Rate 55; Glucose Random 94 mg/dL (60-115); Potassium 3.5 mmol/L (3.3-5.1); Sodium 147 mmol/L (135-145)
[2025-03-22 08:30] LABS: INTERNATIONAL NORM RATIO 4.3 (0.9-1.1); Prothrombin Time 49.2 SEC (10.9-12.4)
[2025-03-22] MEDS: Metoprolol Tartrate 5 MG/5 ML VIAL IVPUSH ×2 (09:02→13:31)
[2025-03-22] MEDS: timoloL maleate 0.5 % Oph Sol 5 ML DRBTL 1 DROP EYE-LEFT (09:05)
[2025-03-22] MEDS: Dextrose 5 % 1,000 ML 50 ML IVCONT ×2 (10:36→16:17)
--- NOTE | 2025-03-22 11:00 | PM.PNNEP ---
Subjective Subjective Date of Service: 03/22/25 Interval history: 89 y/o male with dementia being followed for hypernatremia and PEETRSON sodium has decreased from 156 on 03/18 to 155 on 03/19, 153 on 03/20- 03/12 is 147 creatinine prior to admission 0.99, 1/60 on 03/18, 03/19 is 1.47, 03/20 is 1.49, 03/22 is 1.23 patient has borrego catheter in place, has D5W IVF running volume to match urine output. lasix for natriuresis Physical Exam Vital Signs: Vital Signs: Last Vital Signs Temp 98.6 F 03/22/25 16:00 Pulse 104 H 03/22/25 16:16 Resp 18 03/22/25 16:16 BP 146/68 H 03/22/25 16:00 Pulse Ox 94 03/22/25 16:00 O2 Del Method Nasal Cannula 03/22/25 16:00 O2 Flow Rate 3 03/22/25 16:00 BMI result Body Mass Index 28.9 Const: General: no acute distress and lethargic Orientation/consciousness: lethargic Resp: Effort & Inspection: normal respiratory effort and able to speak in complete sentences Auscultation: clear to auscultation bilaterally Cardio: Rate: regular rate Heart sounds: S1 normal heart sound present and S2 normal heart sound present GI: Palpation (GI): Soft to palpation and nontender : General: Yes no CVA tenderness Back/Spine/Pelvis: Back: no CVA tenderness Skin: Rashes: no rashes Extrem: General: No edema and No pedal edema Objective Data Labs 03/22/25 06:49 03/22/25 12:45 Labs: Laboratory Results - last 24 hr 03/22/25 03/22/25 06:49 12:45 WBC 7.7 RBC 3.18 L Hgb 8.8 L Hct 29.1 L MCV 91.5 MCH 27.7 MCHC 30.2 L RDW 17.9 H Plt Count 95 L MPV 12.0 Immature Gran % (Auto) 0.8 H Neut % (Auto) 81.3 H Lymph % (Auto) 7.7 L [place] % (Auto) 6.5 Eos % (Auto) 3.3 Baso % (Auto) 0.4 Lymph # (Auto) 0.6 L [place] # (Auto) 0.5 Eos # (Auto) 0.3 Baso # (Auto) 0.0 Abs Immat Gran (auto) 0.06 H Absolute Neuts (auto) 6.3 Absolute Nucleated RBC 0.060 H Nucleated RBC % (auto) 0.8 H PT 49.2 H INR 4.3 H Sodium 147 H 143 Potassium 3.5 3.6 Chloride 115 H 113 H Carbon Dioxide 23 25 Anion Gap 13 9 L BUN 28 H 27 H Creatinine 1.23 1.23 Estim Creat Clear Calc 36.7 36.7 Estimated GFR 55 55 Random Glucose 94 129 H Calcium 8.3 L 8.4 Microbiology Microbiology Results: Microbiology 03/18/25 Unknown Urine Catheterized - Straight Catheter Urine Culture - Final Klebsiella pneumoniae 03/18/25 08:37 Blood - Venous Blood Culture - Preliminary No growth after 48 hours. 03/18/25 08:27 Blood - Venous Blood Culture - Preliminary No growth after 48 hours. Procedures Date of Service Date of Service: 03/22/25 Assessment & Plan Assessment and plan (1) Hypernatremia: Status: Acute (2) PETERSON (acute kidney injury): Status: Acute Plan Hypernatremia likely secondary to intravascular volume depletion- improving-recommend re-check sodium this afternoon- if normalized, recommend reducing rate of D5W to 50-80mL/hr PETERSON- resolved recommend daily electrolyte and renal function studies recommend avoiding nephrotoxins close I&O monitoring, regular blood pressure checks continue supportive care, will continue to follow Discussed with Dr Quigley. Time Spent With Patient Time: Total time managing care of this patient today ____ minutes. Progress Note: Quality Stroke Does the patient have a stroke diagnosis?: No
--- NOTE | 2025-03-22 11:25 | HO.PM.IMPN ---
Subjective Subjective Date of Service: 03/22/25 Interval History: seen and evaluated this morning more alert and interactive but remains encephalopathic On Cardizem drip Na at 147 this morning no other overnight events Review of Systems Review of Systems: Yes Unobtainable due to mental status Physical Exam Vital Signs: Vital Signs: Last Vital Signs Temp 97.3 F 03/22/25 07:42 Pulse 134 H 03/22/25 07:42 Resp 22 H 03/22/25 07:42 BP 128/68 03/22/25 07:42 Pulse Ox 96 03/22/25 07:42 O2 Del Method Nasal Cannula 03/22/25 07:42 O2 Flow Rate 1.5 03/22/25 07:42 BMI result Body Mass Index 28.9 Const: Other: Constitutional : alert but encephalopathic, comfortable, not in distress Cardiovascular : no JVP, no lower extremity edema Respiratory : bilateral chest movement, not in resp distress , decrease air entry at bases bilaterally Gastrointestinal: soft, lax, Non tender Skin : Warm, Dry Neurological : Alert, answer questions with 1-2 words & frail , moving all extremities Objective Data Active Medications Acetaminophen (Acetaminophen 325 Mg Tablet) 650 mg PO Q6H PRN PRN Reason: Pain, Mild 1-3,fever,headache Calcium Carbonate (Calcium Carbonate 750 Mg Tab.Chew) 750 mg PO Q4H PRN PRN Reason: Heartburn Ceftriaxone Sodium (Ceftriaxone Sodium 1 Gm Vial) 1 gm IVPUSH Q24H [facility] Last Admin: 03/21/25 16:30 Dose: 1 gm Documented By: NICHOLAS Empagliflozin (Empagliflozin 10 Mg Tablet) 10 mg PO DAILY [facility] Last Admin: 03/22/25 08:10 Dose: Not Given Documented By: JACK Non-Admin Reason: NPO Furosemide (Furosemide 20 Mg/2 Ml Vial) 20 mg IVPUSH BID@0900,1800 [facility]; Protocol Last Admin: 03/20/25 09:33 Dose: Not Given Documented By: JACK Non-Admin Reason: hold per dr pardo Guaifenesin (Guaifenesin 200 Mg/10 Ml 10 Ml Liquid) 10 ml PO Q6H [facility] Last Admin: 03/22/25 10:57 Dose: Not Given Documented By: JACK Non-Admin Reason: NPO Dextrose (D5w) 1,000 mls @ 125 mls/hr IVCONT .Q8H [facility] Last Admin: 03/22/25 10:36 Dose: 50 mls/hr Documented By: JACK Diltiazem HCl 125 mg/ Dextrose 125 mls @ 0 mls/hr IVCONT .Q0M [facility]; Protocol Last Admin: 03/22/25 05:20 Dose: 5 mg/hr, 5 mls/hr Documented By: LILIAM Latanoprost (Latanoprost 0.005 % Ophth Rosa 2.5 Ml Drops) 1 drop EYE-LEFT BEDTIME [facility] Last Admin: 03/21/25 20:25 Dose: Not Given Documented By: LILIAM Non-Admin Reason: Med Not Available Levalbuterol HCl (Levalbuterol Hcl 1.25 Mg/3 Ml Vial.Neb) 1.25 mg INHALE Q3H PRN PRN Reason: Wheezing Last Admin: 03/20/25 17:45 Dose: 1.25 mg Documented By: PARIS Magnesium Hydroxide (Milk Of Magnesia 30 Ml Oral.Susp) 30 ml PO DAILY PRN PRN Reason: Constipation Melatonin (Melatonin 3 Mg Tablet) 6 mg PO BEDTIME PRN PRN Reason: Insomnia Metoprolol Tartrate (Metoprolol Tartrate 25 Mg Tablet) 25 mg PO Q6H [facility]; Protocol Last Admin: 03/22/25 08:10 Dose: Not Given Documented By: JACK Non-Admin Reason: NPO Metoprolol Tartrate (Metoprolol Tartrate 5 Mg/5 Ml Vial) 5 mg IVPUSH Q6H [facility]; Protocol Last Admin: 03/22/25 09:02 Dose: 5 mg Documented By: JACK Non-Formulary Medication (Rivastigmine) 4.6 mg TRANSDERMA DAILY [facility] Ondansetron HCl (Ondansetron Hcl 4 Mg/2 Ml Vial) 4 mg IVPUSH Q8H PRN PRN Reason: Nausea and Vomiting Sodium Chloride (0.9 % Sodium Chloride Flush 3 Ml Syringe) 3 ml IVFLUSH QSHIFT [facility] Last Admin: 03/22/25 08:10 Dose: Not Given Documented By: JACK Non-Admin Reason: IV Running Timolol Maleate (Timolol Maleate 0.5 % Oph Rosa 5 Ml Drbtl) 1 drop EYE-LEFT DAILY [facility] Last Admin: 03/22/25 09:05 Dose: 1 drop Documented By: JACK Trazodone HCl (Trazodone Hcl 50 Mg Tablet) 12.5 mg PO BID PRN PRN Reason: Anxiety/agitation/insomnia Last Admin: 03/20/25 16:08 Dose: 12.5 mg Documented By: JACK Trazodone HCl (Trazodone Hcl 25 Mg Halftab) 25 mg PO BEDTIME [facility] Last Admin: 03/21/25 20:25 Dose: Not Given Documented By: LILIAM Non-Admin Reason: NPO Labs 03/22/25 06:49 03/22/25 06:49 Labs: Laboratory Results - last 24 hr 03/22/25 06:49 MCV 91.5 MCH 27.7 MCHC 30.2 L RDW 17.9 H Plt Count 95 L MPV 12.0 Immature Gran % (Auto) 0.8 H Neut % (Auto) 81.3 H Lymph % (Auto) 7.7 L [place] % (Auto) 6.5 Eos % (Auto) 3.3 Baso % (Auto) 0.4 Lymph # (Auto) 0.6 L [place] # (Auto) 0.5 Eos # (Auto) 0.3 Baso # (Auto) 0.0 Abs Immat Gran (auto) 0.06 H Absolute Neuts (auto) 6.3 Absolute Nucleated RBC 0.060 H Nucleated RBC % (auto) 0.8 H PT 49.2 H INR 4.3 H Anion Gap 13 Estim Creat Clear Calc 36.7 Estimated GFR 55 Random Glucose 94 Calcium 8.3 L Microbiology Microbiology Results: Microbiology 03/18/25 Unknown Urine Culture - Final Urine Catheterized - Straight Catheter Klebsiella pneumoniae Assessment and Plan (1) Acute hypokalemia: Status: Acute (2) Altered mental status: Status: Acute (3) Anemia: Status: Acute (4) Atrial fibrillation with RVR: Status: Acute (5) Acute congestive heart failure: Status: Acute (6) Hypernatremia: Status: Acute Plan Patient is an 89-year-old male with a PMH significant for HTN, chronic Atrial fibrillation on Coumadin, Dementia, and hard of hearing, he presented from a detention facility for reports of altered mental status with a junky cough . Acute hypoxic respiratory failure secondary to acute on chronic heart failure with reduced ejection fraction Chest x-ray showing pulmonary vascular congestion with small pleural effusions Hold Lasix 20 mg IV b.i.d. Supplemental Oxygen to keep oxygen saturation greater than 92% Cardiology consulted Monitor on telemetry intake and output Atrial fibrillation with RVR on cardizem drip, will try to DC to give Metoprolol IV Q6 for now until he can tolerate PO Warfarin on hold due to supratherapeutic INR Cardiology consult< add jardiance 10 mg daily change metoprolol to 25mg Q6H, slowly wean down cardizem Supratherapeutic INR INR >4 today Hold warfarin target INR 2-3 Repeat INR in the morning acute Hypernatremia secondary to dehydration, poor p.o. intake nephro following Na 147 this morning D5W follow BMP PETERSON. Creat trending down secondary to dehydration versus acute CHF fluid overload hold Lasix 20 mg b.i.d. Monitor creatinine closely toxic metabolic Encephalopathy due to sepsis secondary to UTI and hypernatremia Sepsis resolved Continue ceftriaxone Final cultures Klebsiella in urine acute hypokalemia replacement given follow BMP Elevated troponin No complaints of chest pain No ischemic changes noted on EKG Likely secondary to acute congestive heart failure Continue to diurese Troponins flat Acute anemia No acute blood loss Significant drop in hemoglobin and hematocrit, not requiring transfusion at this time We will hold warfarin, question gastritis Gastroenterology consultation Hypertension In light of sepsis, hold antihypertensive medications Glaucoma Continue eyedrops Dementia Continue memantine, rivastigmine and trazodone DVT prophylaxis DNR/DNI The patient will need overnight stay for treatment of Afib RvR, Encephalopathy, Hypernatremia with repeating blood work and weaning down O2 Quality Stroke Does the patient have a stroke diagnosis?: No VTE Prior VTE?: No VTE Risk Level:: Medical - moderate - high VTE Device Contraindication: N/A - Device Ordered VTE Drug Contraindication: Treatment Not Indicated
--- NOTE | 2025-03-22 13:16 | MHC.SL.SWA ---
Speech Pathologist Impression: Risk of Aspiration, Severe Oropharyngeal Dysphagia Risk of Aspiration Due to: Altered mentation Dysphasia Diet Status: Upgrade from NPO, start on NDD1/HTL Liquid Consistency and Strategies for Safe Swallow: Liquid Intake Recommendation: Honey Thick Liquid Intake Strategies: Small Sips No Straws Solid Food Consistency: Dietary Recommendations: Pureed (NDD1) Additional Modifications to Solid Foods: Recommend UPGRADE from NPO, start on PUREED (NDD1) solids and HONEY THICK liquids, pills CRUSHED in PUREE. Patient will need 1:1 assistance feeding and strict aspiration precautions: give one bite at a time, check oral cavity periodically for clearance, present dry teaspoon to elicit dry swallow as needed in order to clear residuals, ensure upright 90 degree position during PO intake, avoid the use of straws. Do not feed if patient is lethargic or not engaging in feeding. Oral Medication Intake: Crushed with Puree Please contact the pharmacy regarding appropriate crushable or liquid drug formulations that are available whenever modified delivery is recommended. Compensatory Strategies and Precautions to be Taken for Safe Swallow: Sitting Upright (90 deg) Double Swallow No Straw Liquids from Cup Liquids from Spoon Small Bites and Sips Rate of Ingestion Change Oral Check Supervision While Eating and Drinking for Safe Swallow: Total Assistance (1:1) Swallowing Recommended Treatments: Compens. Strategy Educat. Recommendation for Speech: Inpatient Speech Therapy Comment: Patient with HX oral pharyngeal dysphagia, on ground diet with [place] Thick liquids at baseline, currently with highly altered/highly confused state, very dis-regulated with feeding, at high risk for aspiration. Frequency/Duration: Date Range for Service Req: Timeline to reassess: In Tube Conversion Technician Clinican/Clinical Fellow: No Supervisory Statement: I have reviewed and agree with the student/clinical fellow's documentation: N/A Speech Language Pathologist: Shaista Guerin M.A., CCC-COMPENSATION EXPERT
--- NOTE | 2025-03-22 13:30 | MHC.CM.PN ---
Per rounds, pt. is not ready for DC, he still requires acute care. DCP is to return to SNF at [facility].
[2025-03-22 14:27] LABS: Anion Gap 9 (12-20); Blood Urea Nitrogen 27 mg/dL (9-16); Calcium 8.4 mg/dL (8.4-10.2); Carbon Dioxide 25 mmol/L (22-29); Chloride 113 mmol/L (96-108); Creatinine Clr Calc Pharmacy 36.7; Estimated Glomerular Filt Rate 55; Glucose Random 129 mg/dL (60-115); Potassium 3.6 mmol/L (3.3-5.1); Sodium 143 mmol/L (135-145)
[2025-03-22] MEDS: levalbuterol HCL 1.25 MG/3 ML VIAL.NEB INHALE (16:10)
[2025-03-22] MEDS: Metoprolol Tartrate 25 MG TABLET PO (16:14)
[2025-03-22] MEDS: traZODone HCL 50 MG TABLET 12.5 MG PO (16:14)
[2025-03-22] MEDS: cefTRIAXone sodium 1 GM VIAL IVPUSH (16:15)
[2025-03-22] MEDS: 0.9 % Sodium Chloride Flush 3 ML SYRINGE IVFLUSH (16:18)
[2025-03-22] MEDS: guaiFENesin 200 MG/10 ML 10 ML LIQUID PO (16:22)
--- NOTE | 2025-03-22 17:58 | PC.NURSE ---
Addendum entered by Clarissa Vila RN 03/22/25 19:17: (accidentally saved note without finishing) 1800 coude cath found to be leaking again. notified. per remove borrego and bladder scan qshift but would perfer to remove borrego in morning, stated to discuss with night RN whether to remove borrego now or in AM. This RN discussed with xavi RN to moniotr borrego overnight and remove in AM. notified and okayed. Addendum entered by Clarissa Vila RN 03/22/25 19:14: coude cath found to leaking this afternoon. this RN found that there was only 15cc in balloon. re-inflated balloon with 30cc. 1800 coude cath found to be leaking again. notified. per remove borrego and bladder scan qshift would perfer to remove borrego in morning and Original Note: pt found to have increased frequency of audible wheezing, tachypnea, abd breathing. pt visually looks to be struggling to breathe. on 3L NC 97%, HR 90s - low 100s. Dr. pardo notified. IVF d/c per .
[2025-03-23 04:00] VITALS: BP 119/63; PULSE 99; RESP 16; TEMP 36.8; O2SAT 96
[2025-03-23 06:00] VITALS: BMI 28.5
[2025-03-23 06:26] LABS: MANUAL DIFF FLAG NO
[2025-03-23 06:33] LABS: Basophils Percent Auto 0.5 % (0-2); Eosinophils Absolute Auto 0.1 X10*3/uL (0.0-0.4); Eosinophils Percent Auto 2.1 % (0-4); Hematocrit 28.3 % (42.0-52.0); Hemoglobin 8.7 g/dl (14.0-18.0); Imm Gran Abs Auto 0.07 X10*3/uL (0.00-0.03); Imm Gran Pct Auto 1.1 % (0.0-0.4); Lymphocytes Absolute Auto 0.4 X10*3/uL (1.2-4.9); Lymphocytes Percent Auto 6.6 % (20-40); Mean Corpuscular HGB Conc 30.7 g/dl (31.0-36.0); Mean Platelet Volume 11.6 fL (9.4-12.4); Monocytes Absolute Auto 0.4 X10*3/uL (0.1-1.2); Monocytes Percent Auto 6.7 % (2-11); NRBC Pct Auto 0.8 /100WBC (0.0-0.2); Neutrophils Absolute Auto 5.4 x10*3/uL (2.0-8.3); Platelet Count 91 X10*3/uL (160-400); Red Blood Count 3.11 X10*6/uL (4.60-5.80); Red Cell Distribution Width 18.3 % (11.0-16.0); White Blood Count 6.6 X10*3/uL (4.8-10.8)
[2025-03-23 06:45] LABS: Anion Gap 13 (12-20); Blood Urea Nitrogen 25 mg/dL (9-16); Calcium 8.3 mg/dL (8.4-10.2); Carbon Dioxide 23 mmol/L (22-29); Chloride 114 mmol/L (96-108); Creatinine Clr Calc Pharmacy 35.6; Estimated Glomerular Filt Rate 54; Glucose Random 81 mg/dL (60-115); Potassium 3.9 mmol/L (3.3-5.1); Sodium 146 mmol/L (135-145)
[2025-03-23 07:17] VITALS: BP 155/72; PULSE 119; RESP 20; TEMP 36.8; O2SAT 93
[2025-03-23] MEDS: guaiFENesin 200 MG/10 ML 10 ML LIQUID PO (10:02)
[2025-03-23] MEDS: Empagliflozin 10 MG TABLET PO (10:03)
[2025-03-23] MEDS: Metoprolol Tartrate 5 MG/5 ML VIAL IVPUSH (10:06)
[2025-03-23] MEDS: 0.9 % Sodium Chloride Flush 3 ML SYRINGE IVFLUSH ×2 (10:10→15:11)
[2025-03-23] MEDS: timoloL maleate 0.5 % Oph Sol 5 ML DRBTL 1 DROP EYE-LEFT (10:10)
[2025-03-23 11:37] VITALS: BP 124/58; PULSE 109; RESP 20; TEMP 36.3; O2SAT 94
[2025-03-23] MEDS: Dextrose 5 % 1,000 ML 80 ML IVCONT (11:45)
[2025-03-23] MEDS: Furosemide 20 MG/2 ML VIAL IVPUSH (11:45)
--- NOTE | 2025-03-23 14:50 | HO.PM.IMPN ---
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 Active Medications Acetaminophen (Acetaminophen 325 Mg Tablet) 650 mg PO Q6H PRN PRN Reason: Pain, Mild 1-3,fever,headache Calcium Carbonate (Calcium Carbonate 750 Mg Tab.Chew) 750 mg PO Q4H PRN PRN Reason: Heartburn Levalbuterol HCl (Levalbuterol Hcl 1.25 Mg/3 Ml Vial.Neb) 1.25 mg INHALE Q3H PRN PRN Reason: Wheezing Last Admin: 03/22/25 16:10 Dose: 1.25 mg Documented By: GINO Magnesium Hydroxide (Milk Of Magnesia 30 Ml Oral.Susp) 30 ml PO DAILY PRN PRN Reason: Constipation Melatonin (Melatonin 3 Mg Tablet) 6 mg PO BEDTIME PRN PRN Reason: Insomnia Metoprolol Tartrate (Metoprolol Tartrate 25 Mg Tablet) 25 mg PO Q6H BRITT; Protocol Last Admin: 03/23/25 10:06 Dose: Not Given Documented By: DYLAN Non-Admin Reason: IV push given Metoprolol Tartrate (Metoprolol Tartrate 5 Mg/5 Ml Vial) 5 mg IVPUSH Q6H BRITT; Protocol Last Admin: 03/23/25 10:06 Dose: 5 mg Documented By: DYLAN Non-Formulary Medication (Rivastigmine) 4.6 mg TRANSDERMA DAILY BRITT Ondansetron HCl (Ondansetron Hcl 4 Mg/2 Ml Vial) 4 mg IVPUSH Q8H PRN PRN Reason: Nausea and Vomiting Sodium Chloride (0.9 % Sodium Chloride Flush 3 Ml Syringe) 3 ml IVFLUSH QSHIFT [facility] Last Admin: 03/23/25 10:10 Dose: 3 ml Documented By: DYLAN Timolol Maleate (Timolol Maleate 0.5 % Oph Rosa 5 Ml Drbtl) 1 drop EYE-LEFT DAILY [facility] Last Admin: 03/23/25 10:10 Dose: 1 drop Documented By: DYLAN Trazodone HCl (Trazodone Hcl 50 Mg Tablet) 12.5 mg PO BID PRN PRN Reason: Anxiety/agitation/insomnia Last Admin: 03/22/25 16:14 Dose: 12.5 mg Documented By: JACK Trazodone HCl (Trazodone Hcl 25 Mg Halftab) 25 mg PO BEDTIME [facility] Last Admin: 03/22/25 22:34 Dose: Not Given Documented By: LILIAM Non-Admin Reason: Pt not alert to swallow meds Labs 03/23/25 06:13 03/23/25 06:13 Labs: Laboratory Results - last 24 hr 03/23/25 06:13 MCV 91.0 MCH 28.0 MCHC 30.7 L RDW 18.3 H Plt Count 91 L MPV 11.6 Immature Gran % (Auto) 1.1 H Neut % (Auto) 83.0 H Lymph % (Auto) 6.6 L [place] % (Auto) 6.7 Eos % (Auto) 2.1 Baso % (Auto) 0.5 Lymph # (Auto) 0.4 L [place] # (Auto) 0.4 Eos # (Auto) 0.1 Baso # (Auto) 0.0 Abs Immat Gran (auto) 0.07 H Absolute Neuts (auto) 5.4 Absolute Nucleated RBC 0.050 H Nucleated RBC % (auto) 0.8 H Anion Gap 13 Estim Creat Clear Calc 35.6 Estimated GFR 54 Random Glucose 81 Calcium 8.3 L Microbiology Microbiology Results: Microbiology 03/18/25 08:37 Blood Culture - Final Blood - Venous No growth after 5 days. 03/18/25 08:27 Blood Culture - Final Blood - Venous No growth after 5 days. Assessment and Plan (1) Acute hypokalemia: Status: Acute (2) Altered mental status: Status: Acute (3) Atrial fibrillation with RVR: Status: Acute (4) Acute congestive heart failure: Status: Acute (5) Hypernatremia: Status: Acute (6) PETERSON (acute kidney injury): Status: Acute Plan Patient is an 89-year-old male with a PMH significant for HTN, chronic Atrial fibrillation on Coumadin, Dementia, and hard of hearing, he presented [facility] for reports of altered mental status with a junky cough . found to be in Acute hypoxic respiratory failure secondary to acute on chronic heart failure with reduced ejection fraction and Atrial fibrillation with RVR along with Supratherapeutic INR, acute Hypernatremia and acute kidney injury complicated with toxic metabolic Encephalopathy. The patient was treated with IV fluids, IV antibiotics, IV Cardizem and Metoprolol along with lab monitoring and Telemetry as he was also followed by Cardiology, GI and Nephrology but continued to worsen general condition with swallowing difficulties, frailty and altered mentaiton. 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 MOLST form signed. Acute hypoxic respiratory failure secondary to acute on chronic heart failure with reduced ejection fraction and Atrial fibrillation with RVR along with Supratherapeutic INR, acute Hypernatremia and acute kidney injury complicated with toxic metabolic Encephalopathy. DC blood work, Telemetry and vital checks Morphine PRN for pain and dyspnea Valium PRN for anxiety Scopolamine for secretions CW to arrange for Hospice care at LTC. Quality Stroke Does the patient have a stroke diagnosis?: No VTE Prior VTE?: No VTE Risk Level:: Medical - moderate - high VTE Device Contraindication: N/A - Device Ordered VTE Drug Contraindication: Treatment Not Indicated
[2025-03-23] MEDS: Morphine Sulfate 2 MG/ML CARTRIDGE IVPUSH ×5 (15:10→23:31)
--- NOTE | 2025-03-23 15:10 | MHC.CM.PN ---
Addendum entered by Moni Villarreal 03/24/25 13:22: TRANSPORT CANCELED AND SNF INFORMED PT WOULD NOT BE RETURNING Addendum entered by Moni Villarreal 03/24/25 12:45: PT WILL RETURN TO [facility] TODAY AT 1400 HOURS VIA BLS WITH A PLAN TO SIGN ONTO HOSPICE ONCE THERE. Original Note: CM MET WITH PTS FAMILY AT BEDSIDE THEY REPORT THEY WOULD LIKE HOSPICE SERVICES AT [facility] UPON DC THEY ARE AWARE HOSPICE WILL BE ARRANGED BY SNF AND COVERED BY [facility], THEY WILL CONTINUE TO PAY FOR ROOM AND BOARD [facility] MADE AWARE VIA [facility] PT WILL DC BACK TO LTC AT [facility], WITH A PLAN TO SIGN ONTO HOSPICE, TOMORROW VIA BLS
[2025-03-23] MEDS: Scopolamine 1.5 MG PATCH.TD.3 EAR-BEHIND (15:12)
--- NOTE | 2025-03-23 15:49 | P.PNNP_ITS ---
Subjective Subjective Date of Service: 03/23/25 Interval history: seen and evaluated looks more frail and lethargic family at bedside; decided to proceed with comfort measures Physical Exam 2 Vital Signs: Vital Signs: Last Vital Signs Temp 97.4 F 03/23/25 11:37 Pulse 109 H 03/23/25 11:37 Resp 20 03/23/25 11:37 BP 124/58 L 03/23/25 11:37 Pulse Ox 94 03/23/25 11:37 O2 Del Method Nasal Cannula 03/23/25 11:37 O2 Flow Rate 4 03/23/25 11:37 BMI result Body Mass Index 28.5 Objective Data Labs 03/23/25 06:13 03/23/25 06:13 Labs: Laboratory Results - last 24 hr 03/23/25 06:13 WBC 6.6 RBC 3.11 L Hgb 8.7 L Hct 28.3 L MCV 91.0 MCH 28.0 MCHC 30.7 L RDW 18.3 H Plt Count 91 L MPV 11.6 Immature Gran % (Auto) 1.1 H Neut % (Auto) 83.0 H Lymph % (Auto) 6.6 L [place] % (Auto) 6.7 Eos % (Auto) 2.1 Baso % (Auto) 0.5 Lymph # (Auto) 0.4 L [place] # (Auto) 0.4 Eos # (Auto) 0.1 Baso # (Auto) 0.0 Abs Immat Gran (auto) 0.07 H Absolute Neuts (auto) 5.4 Absolute Nucleated RBC 0.050 H Nucleated RBC % (auto) 0.8 H Sodium 146 H Potassium 3.9 Chloride 114 H Carbon Dioxide 23 Anion Gap 13 BUN 25 H Creatinine 1.26 Estim Creat Clear Calc 35.6 Estimated GFR 54 Random Glucose 81 Calcium 8.3 L Microbiology Microbiology Results: Microbiology 03/18/25 08:37 Blood - Venous Blood Culture - Final No growth after 5 days. 03/18/25 08:27 Blood - Venous Blood Culture - Final No growth after 5 days. 03/18/25 Unknown Urine Catheterized - Straight Catheter Urine Culture - Final Klebsiella pneumoniae Procedures Date of Service Date of Service: 03/23/25 Assessment & Plan Assessment and plan (1) Hypernatremia: Status: Acute (2) PETERSON (acute kidney injury): Status: Acute Plan Transitioning to comfort care, we will sign off. Time Spent With Patient Time: Total time managing care of this patient today ____ minutes. Progress Note: Quality Stroke Does the patient have a stroke diagnosis?: No
[2025-03-23 15:50] VITALS: RESP 18
[2025-03-23] MEDS: diazePAM 10 MG/2 ML CARTRIDGE 5 MG IVPUSH ×2 (15:55→21:10)
[2025-03-23 18:03] VITALS: RESP 25
[2025-03-23 20:00] VITALS: RESP 20
[2025-03-24] VITALS: RESP 23
[2025-03-24] MEDS: Morphine Sulfate 2 MG/ML CARTRIDGE IVPUSH ×6 (00:45→10:40)
[2025-03-24] MEDS: diazePAM 10 MG/2 ML CARTRIDGE 5 MG IVPUSH ×2 (01:20→05:30)
[2025-03-24 04:00] VITALS: RESP 23
[2025-03-24 07:28] VITALS: RESP 24
[2025-03-24 10:34] LABS: INTERNATIONAL NORM RATIO 5.3 (0.9-1.1)
[2025-03-24] MEDS: 0.9 % Sodium Chloride Flush 3 ML SYRINGE IVFLUSH (10:41)
--- NOTE | 2025-03-24 11:35 | PM.DS ---
DS: Providers Provider Date of Service: 03/24/25 Date of admission: 03/18/25 12:03 Date of discharge: 03/24/25 Primary care physician: Elif Vides MD Consults: 03/18/25 15:11 Consult to Cardiology Routine Consulting Provider: [facility] [place] [facility] Reason for consultation: CHF 03/18/25 15:12 Consult to Nephrology Routine Consulting Provider: [facility] [place] [facility] Reason for consultation: CHF, hypernatremia 03/18/25 15:16 Consult to Gastroenterology Routine Consulting Provider: Crys Carmen Reason for consultation: acute anemia DS: Diagnosis Discharge Diagnosis (1) Hypernatremia: Status: Acute (2) PETERSON (acute kidney injury): Status: Acute (3) Altered mental status: Status: Acute (4) Shortness of breath: Status: Acute (5) Acute hypokalemia: Status: Acute (6) Anemia: Status: Acute (7) Atrial fibrillation with RVR: Status: Acute (8) Acute congestive heart failure: Status: Acute (9) Elevated troponin: Status: Acute (10) Acute UTI: Status: Acute (11) Pneumonia: Status: Acute (12) Elevated INR: Status: Acute DS: Summary Hospital Course Hospital Course: The patient had prolonged hospital stay. for full details please return to EMR. Admission note HPI Patient is an 89-year-old male with a PMH significant for HTN, chronic Atrial fibrillation on Coumadin, Dementia, and hard of hearing, he presented to the ED via EMS from [facility] for reports of altered mental status with a junky cough . He was apparently in his usual state of health, with a new cough the day prior had received po Lasix. Today he was noted to be hypoxic in the 60s-80s with the altered mental worse from his baseline. He was brought in via EMS and received 200 ml of NS en route. On arrival to the ED He was found to be hypoxic at 89% now on 2L of O2, hypotensive 104/59, tachycardic in the 100s-120s, EKG showed afib with RVR, received 5mg of IV metopolol with improvement in HR, troponins were elevated at 121->127. He was also noted to be anemic H+H of 8.9, 28.4 with supratherapeutic INR of 4.2- fecal occult negative, BNP elevated at 573- IVF were d/c, UA is positive, CXR showed worsened pulmonary vascular congestion and bilateral airspace disease, with possibly a left pleural effusion- He received ceftriaxone and doxycycline X1 in the Ed. He is also hypernateremic with hyperchloremia and elevated BUN/Cr. Head ct -negative for acute, VBG was normal with no acid/base abnormalities. WBC normal, lactic 1.3 and no fever. On assessment patient is lethargic, alert to self only, lung sounds diminished with diffuse rhonchi. Abdomen is soft, bowel sounds positive X4 quadrants. Heart rate irregular on auscultation, no edema noted, positive pedal pulses, no noted wounds. Per family patient is usually alert and can carry a conversation, wheelchair bound at baseline, on a modified diet ground solids and thickened liquids, Incontinent of bowel and bladder. His as the primary HCP and daughter- the alternate. Hospital course Patient is an 89-year-old male with a PMH significant for HTN, chronic Atrial fibrillation on Coumadin, Dementia, and hard of hearing, he presented from a senior care facility for reports of altered mental status with a junky cough . found to be in Acute hypoxic respiratory failure secondary to acute on chronic heart failure with reduced ejection fraction and Atrial fibrillation with RVR along with Supratherapeutic INR, acute Hypernatremia and acute kidney injury complicated with toxic metabolic Encephalopathy. The patient was treated with IV fluids, IV antibiotics, IV Cardizem and Metoprolol along with lab monitoring and Telemetry as he was also followed by Cardiology, GI and Nephrology but continued to worsen general condition with swallowing difficulties, frailty and altered mentaiton. 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 MOLST form signed. Acute hypoxic respiratory failure secondary to acute on chronic heart failure with reduced ejection fraction and Atrial fibrillation with RVR along with Supratherapeutic INR, acute Hypernatremia and acute kidney injury complicated with toxic metabolic Encephalopathy. DC blood work, Telemetry and vital checks Morphine PRN for pain and dyspnea Valium PRN for anxiety Scopolamine for secretions CW to arrange for Hospice care at LT. The patient was planned to transfer to LTC for hospice care but he passed while in hospital prior to transfer while family at bedside on 03/24/2025 at 13:20. support provided to family and certificate filled. Time Attestation Discharge Coordination Time (in mins): 42 Quality: Safe Use of Opioids Does Pt have an Active Cancer Diagnosis on the Problem List?: No Quality: Stroke Does the patient have a stroke diagnosis?: No Physical Exam Vital Signs: Vital Signs: Last Vital Signs Temp 97.4 F 03/23/25 11:37 Pulse 109 H 03/23/25 11:37 Resp 24 H 03/24/25 07:28 BP 124/58 L 03/23/25 11:37 Pulse Ox 94 03/23/25 11:37 O2 Del Method Nasal Cannula 03/23/25 11:37 O2 Flow Rate 4 03/23/25 11:37 BMI result Body Mass Index 28.5 Const: Other: DS: Data Data Completed and Pending Labs on day of discharge: Laboratory Results - last 24 hr 03/24/25 09:00 PT 61.0 H D INR 5.3 H* Imaging Chest x-ray: Radiologist's impression: ITS Impressions Chest X-Ray 03/22/25 08:15 IMPRESSION: Slightly worsening interstitial and alveolar pulmonary edema. Suspect small pleural effusions. Electronically signed by: Alfonso Canales MD 03/22/2025 08:34 AM EDT RP Discharge Plan Discharge Anticipated Discharge Date/Time: 03/24/25 11:30 Patient Disposition: Xfer [facility] Discharge Diagnosis: Comfort measures Referrals: [facility] [Outside] - 1 Week Elif Vides MD [Primary Care Provider] - 1 Week Discharge Medications: New morphine concentrate 100 mg/5 mL (20 mg/mL) solution 10 mg PO Q4H PRN (Reason: dyspnea) Qty: 30 0RF Rx Instructions: Partial Fill upon patient request. lorazepam [Lorazepam Intensol] 2 mg/mL concentrate 0.5 mg PO Q6H PRN (Reason: anxiety) Qty: 30 0RF scopolamine base [Transderm-Scop] 1 mg over 3 days Patch 3 Day 1.5 mg EAR-BEHIND Q72H Qty: 10 0RF Discontinued metoprolol succinate [Toprol XL] 25 mg tablet extended release 24 hr 25 mg PO DAILY Qty: 90 0RF amlodipine 5 mg Tablet 5 mg PO DAILY Qty: 0 0RF Protocol: Hold for SBP< HOLD for SBP < : 90 losartan 50 mg tablet 50 mg PO BEDTIME acetaminophen 325 mg Tablet 650 mg PO Q6H PRN (Reason: pain or fever) trazodone 50 mg tablet 25 mg PO BEDTIME trazodone 50 mg tablet 12.5 mg PO BID PRN (Reason: Anxiety/agitation/insomnia) magnesium hydroxide [Milk of Magnesia] 400 mg/5 mL Suspension 30 ml PO DAILY PRN (Reason: Constipation) rivastigmine 4.6 mg/24 hour Patch 24 Hour 4.6 mg TRANSDERMAL DAILY furosemide [Lasix] 40 mg tablet 20 mg PO DAILY melatonin 3 mg Tablet 6 mg PO BEDTIME PRN (Reason: Insomnia) guaifenesin [Vivian-Tussin] 100 mg/5 mL Liquid 200 mg PO Q4H PRN (Reason: Cough) bisacodyl 10 mg Suppository 10 mg DC DAILY PRN (Reason: constipation if MOM not effective) warfarin 2 mg Tablet 2 mg PO DAILY@1800 Fleet Enema 19-7 gram/118 mL Enema 118 ml DC DAILY PRN (Reason: Constipation if bisacodyl not effective) memantine 5 mg Tablet 5 mg PO BEDTIME latanoprost 0.005 % drops 1 drp ophthalmic-Left BEDTIME timolol maleate 0.5 % drops 1 drp ophthalmic-Left DAILY Discharge Orders: Discharge Order (Routine); Ordered 03/24/25 Ordered By: Ursula Guido Diet: NDD1 w Honey thick Activity on Discharge: As tolerated Stand Alone Forms: Patient Portal Discharge page Print Language: Unable To Collect Care Plan Goals: Comfort measures Health Concerns: Multiorgan failure Plan of Treatment: KILN TESTER Assessment: as above
[2025-03-24 11:39] VITALS: RESP 25
== END 2025-03-24 16:21 | DRG 871 ==
LOC: HO.ED 11:48 → HO.EDOVER 12:07 → HO.IMC 19:19
PROVIDERS: Internal Medicine; Internal Medicine Critical Care Medicine; Physician Assistant Medical; Admitting Provider Nurse Practitioner Acute Care; Emergency Provider Emergency Medicine; PCP Internal Medicine; Visit Provider Student in an Organized Health Care Education/Training Program
DX: A41.9 Sepsis, unspecified organism (principal); G92.8 Other toxic encephalopathy; J18.9 Pneumonia, unspecified organism; I50.23 Acute on chronic systolic (congestive) heart failure; J96.01 Acute respiratory failure with hypoxia; I48.21 Permanent atrial fibrillation; Z51.5 Encounter for palliative care; E87.0 Hyperosmolality and hypernatremia; N39.0 Urinary tract infection, site not specified; N17.9 Acute kidney failure, unspecified; Z66 Do not resuscitate; E87.6 Hypokalemia; B96.1 Klebsiella pneumoniae [K. pneumoniae] as the cause of diseases classified elsewhere; F03.90 Unspecified dementia, unspecified severity, without behavioral disturbance, psychotic disturbance, mood disturbance, and anxiety; I11.0 Hypertensive heart disease with heart failure; E86.0 Dehydration; R79.1 Abnormal coagulation profile; D64.9 Anemia, unspecified; Z20.822 Contact with and (suspected) exposure to COVID-19; Z87.891 Personal history of nicotine dependence
CPT/HCPCS: 0241U; 36415; 70450; 71045; 80048; 80076; 81001; 82140; 82436; 82550; 82728; 82803; 83010; 83540; 83605; 83615; 83690; 83735; 83880; 83935; 84133; 84300; 84484; 85025; 85610; 85730; 86850; 86900; 86901; 87040; 87086; 87088; 87186; 92526; 92610; 93005; 97162; 99285; J0131; J0696; J1271; J1938; J2270; J3360; J3480; P9047

== ENCOUNTER → 2025-03-18 08:12 | Outpatient (BNV) | payer MEDICARE, SELFPAY | PROVIDERS: Emergency Provider Emergency Medicine; Visit Provider Radiology Diagnostic Radiology | DX: R41.82 Altered mental status, unspecified (principal); R05.9 Cough, unspecified | CPT/HCPCS: 70450; 71045 ==

== ENCOUNTER → 2025-03-18 08:13 | Outpatient (BNV) | payer MEDICARE, SELFPAY | PROVIDERS: Admitting Provider Nurse Practitioner Acute Care; Emergency Provider Emergency Medicine; PCP Internal Medicine; Visit Provider Internal Medicine Cardiovascular Disease | DX: I48.91 Unspecified atrial fibrillation (principal) | CPT/HCPCS: 93010 ==

== ENCOUNTER 2025-03-18 12:03 | Outpatient (BNV) | payer MEDICARE, SELFPAY | END 2025-03-22 08:15 | PROVIDERS: Admitting Provider Nurse Practitioner Acute Care; Emergency Provider Emergency Medicine; PCP Internal Medicine; Visit Provider Radiology Diagnostic Radiology | DX: R91.8 Other nonspecific abnormal finding of lung field (principal) | CPT/HCPCS: 71045 ==

== ENCOUNTER → 2025-03-18 12:03 | Outpatient (BNV) | payer MEDICARE, SELFPAY | PROVIDERS: Admitting Provider Nurse Practitioner Acute Care; Emergency Provider Emergency Medicine; Visit Provider Internal Medicine Critical Care Medicine | DX: N17.9 Acute kidney failure, unspecified (principal); J18.9 Pneumonia, unspecified organism; E87.0 Hyperosmolality and hypernatremia; R53.1 Weakness | CPT/HCPCS: 99231; 99232 ==

== ENCOUNTER → 2025-03-18 12:03 | Outpatient (BNV) | payer MEDICARE, SELFPAY | PROVIDERS: Admitting Provider Nurse Practitioner Acute Care; Emergency Provider Emergency Medicine; PCP Internal Medicine; Visit Provider Internal Medicine Cardiovascular Disease | DX: I50.9 Heart failure, unspecified (principal); I48.91 Unspecified atrial fibrillation | CPT/HCPCS: 99222 ==

== ENCOUNTER → 2025-03-18 12:03 | Outpatient (BNV) | payer MEDICARE, SELFPAY | PROVIDERS: Admitting Provider Nurse Practitioner Acute Care; Emergency Provider Emergency Medicine; PCP Internal Medicine; Visit Provider Internal Medicine | DX: D64.9 Anemia, unspecified (principal); N17.9 Acute kidney failure, unspecified; E87.0 Hyperosmolality and hypernatremia; R06.02 Shortness of breath; R41.82 Altered mental status, unspecified | CPT/HCPCS: 99222 ==

== ENCOUNTER → 2025-03-18 12:03 | Outpatient (BNV) | payer MEDICARE, SELFPAY | PROVIDERS: Admitting Provider Nurse Practitioner Acute Care; Emergency Provider Emergency Medicine; PCP Internal Medicine; Visit Provider Nurse Practitioner Family | DX: E87.0 Hyperosmolality and hypernatremia (principal); N17.9 Acute kidney failure, unspecified | CPT/HCPCS: 99231; 99232 ==

== ENCOUNTER → 2025-03-18 12:03 | Outpatient (BNV) | payer MEDICARE, SELFPAY | PROVIDERS: Admitting Provider Nurse Practitioner Acute Care; Emergency Provider Emergency Medicine; Visit Provider Nurse Practitioner Acute Care | DX: R41.82 Altered mental status, unspecified (principal); R06.02 Shortness of breath; I48.91 Unspecified atrial fibrillation; I50.9 Heart failure, unspecified; E87.0 Hyperosmolality and hypernatremia; N17.9 Acute kidney failure, unspecified; E87.6 Hypokalemia | CPT/HCPCS: 99223; 99232; 99233 ==